=== PATIENT | male | born 1955 | race Caucasian/White ===

== ENCOUNTER 2020-04-20 06:56 | Outpatient (CLI) | payer OTHER, SELFPAY ==
--- NOTE | 2020-04-20 12:38 | ECHO_ITS ---
Patient Info Name: Fer Ragsdale Age: 64 years : 1955 Gender: Male Ht: 71 in Wt: 200 lbs BSA: 2.15 m2 HR: 102 bpm BP: 141 / 88 mmHg Heart Rhythm: Tachycardia Technical Quality: Good Exam Date: 04/20/2020 1:03 PM Exam Location: [facility] Pul[facility] Patient Status: Outpatient Admit Date: 04/20/2020 Staff Ordering Physician: Espinoza Coker MD Hotel Registration Clerk: Chantal Troy RDCS Attending Provider: Espinoza Coker MD Referring Physician: John Paul ORELLANA; Exam Type: CA echo doppler color flow Study Info Indications - MURMUR Complete two-dimensional, color flow and Doppler transthoracic echocardiogram is performed. Summary 1. Complete two-dimensional, color flow and Doppler transthoracic echocardiogram is performed. 2. Left ventricular chamber dimension is normal. 3. Left ventricular systolic function is hyperdynamic, estimated at 75%. 4. There is no increased left ventricular wall thickness. 5. Left atrial chamber dimension is severely enlarged. 6. Right atrial chamber dimension is moderately enlarged. 7. There is mild tricuspid valve regurgitation. 8. Severe pulmonary hypertension, estimated pulmonary arterial systolic pressure is 75 mmHg. 9. Mild thickening of anterior leaflet and moderate thickening of the posterior leaflet. 10. Moderate to severe prolapse of the posterior mitral valve leaflet with possible partial flail of middle scallop. 11. Moderate, highly eccentric anteriorly directed regurgitation in which severity may be underestimated due to eccentricity. Transesophageal echocardiogram advised for further evaluation. 12. Moderate calcification of mitral annulus. 13. Dilated inferior vena cava with <50% collapse upon inspiration consistent with elevated right atrial pressure, 10 mmHg. 14. Recommend transesophageal echocardiogram. Recommendations * Recommend transesophageal echocardiogram. Left Ventricle Left ventricular chamber dimension is normal. Left ventricular systolic function is hyperdynamic, estimated at 75%. There is no increased left ventricular wall thickness. The left ventricular diastolic function is abnormal. Right Ventricle Right ventricular chamber dimension is normal. Right ventricular systolic function is normal. Left Atria Left atrial chamber dimension is severely enlarged. Right Atria Right atrial chamber dimension is moderately enlarged. Aortic Valve The aortic valve is probable trileaflet. There is mild aortic valve sclerosis. There is no aortic valve stenosis. Pulmonic Valve The pulmonic valve is not well visualized. There is trace pulmonic regurgitation. Mitral Valve Mild thickening of anterior leaflet and moderate thickening of the posterior leaflet. Moderate to severe prolapse of the posterior mitral valve leaflet with possible partial flail of middle scallop. Moderate, highly eccentric anteriorly directed regurgitation in which severity may be underestimated due to eccentricity. Transesophageal echocardiogram advised for further evaluation. Moderate calcification of mitral annulus. Tricuspid Valve The tricuspid valve leaflets are normal. There is mild tricuspid valve regurgitation. Severe pulmonary hypertension, estimated pulmonary arterial systolic pressure is 75 mmHg. Pericardium/Pleural The pericardium appears normal. There is no pericardial effusion. Inferior Vena Cava Dilated inferior vena cava with <50% collapse upon inspiration consistent with elevated right atrial pressure, 10 mmHg
== END 2020-04-20 06:57 | disposition home or self-care (01) ==
PROVIDERS: PCP Internal Medicine; Visit Provider Internal Medicine
DX: R94.31 Abnormal electrocardiogram [ECG] [EKG] (principal); I51.7 Cardiomegaly; I27.20 Pulmonary hypertension, unspecified; R93.1 Abnormal findings on diagnostic imaging of heart and coronary circulation
CPT/HCPCS: 93306

== ENCOUNTER → 2020-04-26 03:48 | Outpatient (CLI) | payer OTHER, SELFPAY ==
[2020-04-27 18:18] LABS: SARS-CoV-2 RNA PCR Negative
== END ==
PROVIDERS: PCP Internal Medicine; Visit Provider Specialist
DX: Z01.812 Encounter for preprocedural laboratory examination (principal); Z20.822 Contact with and (suspected) exposure to COVID-19
CPT/HCPCS: C9803; U0003; U0005

== ENCOUNTER 2020-04-29 01:30 | Day surgery (SDC) | payer OTHER, SELFPAY ==
[2020-04-28 16:51] VITALS: BMI 27.1
[2020-04-29] VITALS (18 sets, daily range): BP systolic 103–157; BP diastolic 68–98; PULSE 90–107; RESP 12–20; TEMP 36.3; O2SAT 90–99
--- NOTE | 2020-04-29 | ECHO_ITS ---
Patient Info Name: Fer Ragsdale Age: 64 years : 1955 Gender: Male Ht: 72 in Wt: 200 lbs BSA: 2.16 m2 HR: 104 bpm Heart Rhythm: Sinus Rhythm, Tachycardia Technical Quality: Good Exam Date: 04/29/2020 8:51 AM Exam Location: [facility] Patient Status: Outpatient Admit Date: 04/29/2020 Staff Ordering Physician: Price Jones MD Apparel Sales Leader: Hemanth Pierre RDCS, RT Attending Provider: Price Jones MD Referring Physician: Karen BRIDGES; Exam Type: CA echo transesophageal Study Info Indications I34.0 - Nonrheumatic mitral (valve) insufficiency Complete two-dimensional, color flow and Doppler transesophageal study is performed. Summary 1. Marked left atrial dilation. 2. Hyperdynamic left ventricle. 3. Severe mitral regurgitation because of posterior leaflet prolapse and partially flail posterior leaflet with evidence of disrupted chordal elements. 4. Highly eccentric anteriorly directed MR jet. Report Signatures
--- NOTE | 2020-04-29 07:12 | P.PNAN_ITS ---
Anes - Initial Pre Proc Eval Procedure: Operation Date: 04/29/20 08:30 Proposed Procedures p Trans Esophageal Echo - Price Jones MD s Right And Left Heart Cath - Price Jones MD Date/Time: 04/29/20 07:12 Surgeon: Price Jones MD Pre Op Diagnosis: Mitral Valve Regurgitation Patient Data Age: 64 Gender: M Height: 1.83 m Weight: 90.9 kg Allergies Allergy/AdvReac Type Severity Reaction Status Date / Time No Known Allergies Allergy Verified 04/01/20 10:32 Home Medications Medication Instructions Recorded Confirmed Type rosuvastatin 20 mg tablet 20 mg PO DAILY #90 tablet 04/01/20 04/28/20 Rx aspirin 81 mg PO DAILY 04/28/20 04/28/20 History cholecalciferol (vitamin D3) 25 mcg PO DAILY 04/28/20 04/28/20 History furosemide 20 mg PO DAILY 04/29/20 04/29/20 History Patient hx anesthesia problems: none Family hx anesthesia problems: none [facility] Past Medical History Medical History (Updated 04/29/20 @ 07:12 by Irving Hernandez DO) Abnormal EKG Hyperlipidemia LVH (left ventricular hypertrophy) Moderate mitral regurgitation Severe pulmonary hypertension Social History Social History Smoking status: Never smoker Living arrangements: with family Gender identity (if verbalized by the patient): Male Spiritual care concerns: No Anes - Eval Final PreProcedure Day of Procedure 04/29/20 07:12 Patient weight: overweight Heart: regular rate and rhythm Lungs: clear to auscultation and normal air movement Airway: Mallampati scale class II Neurological: alert and oriented Last oral intake: >/= 8 hours ASA classification: III Emergent: no Anesthetic plan: proceed Anesthesia type and monitoring: general GIVS and standard monitoring Informed Consent: The patient's anesthetic plan and its attendant risks and benefits were discussed with the patient/family/POA. Questions were solicited and answers provided to the satisfaction of the patient/family/POA.
[2020-04-29 07:36] LABS: Basophils Percent Auto 0.4 % (0.2-1.2); Eosinophils Absolute Auto 0.1 K/mm3 (0-0.3); Eosinophils Percent Auto 0.9 % (0-4.4); Hematocrit 43.1 % (42.0-52.0); Immature Granulocyte Absolute 0.01 K/mm3 (0.00-0.031); Immature Granulocyte Percent A 0.1 % (0-0.5); Lymphocytes Absolute Auto 1.23 K/mm3 (0.9-3.2); Mean Corpuscular HGB Conc 34.8 g/dl (32-36); Mean Corpuscular Hemoglobin 28.4 pg (26-34); Mean Corpuscular Volume 81.6 fl (80-100); Mean Platelet Volume 9.8 fl (7.4-10.4); Monocytes Absolute Auto 0.7 K/mm3 (0.1-0.6); Monocytes Percent Auto 9.6 % (2.6-8.5); Neutrophils Absolute Auto 4.9 K/mm3 (1.3-6.7); Platelet Count Result 220 k/mm3 (150-375); Red Blood Count 5.28 M/mm3 (4.6-6.20); Red Cell Distribution Width 13.6 % (11.5-14.5); White Blood Count 6.8 K/mm3 (4.5-10.0)
[2020-04-29 07:43] LABS: INR 0.9; Prothrombin Time 13.1 Seconds (11.1-14.7)
[2020-04-29 07:48] LABS: Anion Gap 9 mmol/L (8-16); Blood Urea Nitrogen 17 mg/dL (9-20); Carbon Dioxide 23 mmol/L (22-30); Chloride 108 mmol/L (98-107); Estimated CRCL calculation 72 ml/min; Estimated Glomerular Filt Rate > 60; Glucose 111 mg/dL (75-110); Potassium 3.9 mmol/L (3.4-5.0); Sodium 140 mmol/L (137-145)
--- NOTE | 2020-04-29 08:24 | WPDMODSED ---
Moderate Sedation Note-Pt Data Patient Data Diagnosis: Significant mitral valve regurgitation Present Complaint: Dyspnea with exertion Procedure to be performed/Plan: Transesophageal echocardiogram/right and left heart catheterization Allergies Allergy/AdvReac Type Severity Reaction Status Date / Time No Known Allergies Allergy Verified 04/01/20 10:32 Home Medications Medication Instructions Recorded Confirmed Type rosuvastatin 20 mg tablet 20 mg PO DAILY #90 tablet 04/01/20 04/28/20 Rx aspirin 81 mg PO DAILY 04/28/20 04/28/20 History cholecalciferol (vitamin D3) 25 mcg PO DAILY 04/28/20 04/28/20 History Current Medications: Active Medications Sodium Chloride (Normal Saline Iv) 500 mls @ 100 mls/hr IV CONT .Q5H DINORA Sedation/Anesthesia: No previous sedation/anesthesia problems (including family history). [facility] Past Medical History Medical History (Updated 04/29/20 @ 07:12 by Irving Hernandez DO) Abnormal EKG Hyperlipidemia LVH (left ventricular hypertrophy) Moderate mitral regurgitation Severe pulmonary hypertension Social History Social History Smoking status: Never smoker Living arrangements: with family Gender identity (if verbalized by the patient): Male Spiritual care concerns: No Mod Sed Physical Exam Physical Exam Pre Procedural Exam: Normal: Appearance, Throat, Airway, Lungs, Heart Size (Grade 3/6 holosystolic murmur of MR), Heart Rate, Heart Rhythm, Neuro Exam and Extremities Hours since solid foods: 12 Hours since liquid intake: 12 Internal Medicine - PN: Obj Da Vital Signs Vital Signs: Vital Signs - 24 hr 04/29/20 07:13 Temperature 36.3 C L Pulse Rate 106 H Respiratory Rate 15 Blood Pressure 151/96 H Pulse Oximetry 99 Meds/Results Medications: Active Medications Generic Name Dose Route Start Last Admin Trade Name Freq PRN Reason Stop Dose Admin Sodium Chloride 500 mls @ 100 mls/hr 04/29/20 07:05 Normal Saline Iv IV CONT .Q5H DINORA Labs CBC & Chem 7: 04/29/20 07:26 04/29/20 07:30 Labs: Laboratory Results - last 24 hr 04/29/20 04/29/20 04/29/20 07:26 07:26 07:30 WBC 6.8 RBC 5.28 Hgb 15.0 Hct 43.1 MCV 81.6 MCH 28.4 MCHC 34.8 RDW 13.6 Plt Count 220 MPV 9.8 Immature Gran % (Auto) 0.1 Neut % (Auto) 71.0 Lymph % (Auto) 18.0 L Josephine % (Auto) 9.6 H Eos % (Auto) 0.9 Baso % (Auto) 0.4 Lymph # (Auto) 1.23 Josephine # (Auto) 0.7 H Eos # (Auto) 0.1 Baso # (Auto) 0.0 Abs Immat Gran (auto) 0.01 Absolute Neuts (auto) 4.9 Absolute Nucleated RBC 0.0 Nucleated RBC % 0.0 PT 13.1 INR 0.9 Sodium 140 Potassium 3.9 Chloride 108 H Carbon Dioxide 23 Anion Gap 9 BUN 17 Creatinine 1.00 Estim Creat Clear Calc 72 Estimated GFR > 60 Glucose 111 H Calcium 9.0 ASA Classification/Sedation ASA Classification/Sedation Risks: Risks, benefits and alternatives explained and patient/family accepted plan for sedation. Patient re-evaluated immediately prior to sedation.
--- NOTE | 2020-04-29 09:00 | WPDCARDPROC ---
Cardiac Cath Procedure Note Date of procedure:: 04/29/20 Performing physician:: Price Jones MD Indication:: Mitral regurgitation /preop evaluation Brief clinical history:: this is a 64-year-old patient with no previous known cardiac pathology recent symptoms of exertional dyspnea and found to have a loud MR murmur on physical exam. Echocardiogram suggest posterior leaflet prolapse and a partially flail leaflet. In anticipation of surgical repair this exam has been scheduled for today. Procedure Procedure performed:: Transesophageal echocardiogram Sedation/Medication given:: sedation provided by anesthesia Estimated blood loss:: no blood loss Procedure note:: following sedation with anesthesia to the oropharynx was sprayed with benzocaine and the patient was in the supine position. He then underwent ALBERTO the esophagus was easily intubated with a trach ALBERTO probe and visualization of the cardiac structures was carried out. The descending thoracic aorta and aortic arch were examined following this and the probe was then removed. Patient is being recovered by anesthesia from deep sedation. Findings:: The left atrium is markedly dilated. The anterior mitral valve leaflet looks unremarkable. The posterior mitral valve leaflet has obvious prolapse of the P2 scallop. There is evidence of flail chordal elements prolapsing into the left atrium and the scallop as stated above is partially flail. There is a highly eccentric jet of mitral regurgitation seen on color Doppler that is anteriorly directed and is severe by color Doppler criteria. The atrium otherwise is markedly dilated the appendage was visualized there was no atrial thrombus. The left ventricle is normal in dimension thickness and contractility estimated ejection fraction is 65%. The aortic valve is trileaflet thin and pliable. Aortic root is unremarkable the aortic arch and descending thoracic aorta look normal. The right-sided chambers are unremarkable in appearance the tricuspid and pulmonic valves look normal. The interatrial septum is unremarkable in appearance Conclusion:: 1. transesophageal echocardiogram demonstrating severe mitral valve regurgitation resulting from posterior leaflet prolapse and partially flail posterior leaflet with disrupted chordal elements. 2. Preserved left ventricular systolic function 3. unremarkable aortic valve Price Jones MD [facility]
--- NOTE | 2020-04-29 09:56 | WPDCARDPROC ---
Cardiac Cath Procedure Note Date of procedure:: 04/29/20 Performing physician:: Price Jones MD Indication:: Mitral valve regurgitation / preop evaluation Brief clinical history:: this is a 64-year-old man as an outpatient found to have significant mitral valve regurgitation due to partially flail posterior leaflet. Right left heart catheterization has been scheduled for this morning in anticipation of cardiothoracic surgery consultation Procedure Procedure performed:: right left heart catheterization Sedation/Medication given:: patient previously sedated by anesthesia no additional sedation given for this procedure Access site:: right femoral artery, right femoral vein Estimated blood loss:: 10-15 cc Procedure note:: patient was brought to the cardiac catheterization lab in the postabsorptive state. He had been sedated a short time ago with propofol by the anesthesia service for transesophageal ECHO. The right femoral triangle was prepped and draped in the usual fashion. Anesthesia was provided with 1% lidocaine infiltrated locally. Using the modified Seldinger technique a 5 Luxembourger sheath was placed into the femoral artery and a 7 Luxembourger sheath into the femoral vein. After this right heart catheterization was carried out I used a balloon tip Dallas-Mike catheter to document right-sided hemodynamics and AV O2 difference was sample. Following this the Dallas-Mike catheter was removed. The patient then had a 5 Luxembourger angled pigtail catheter placed up the arterial sheath across the aortic valve were left-sided hemodynamics were documented and left ventriculogram was injected in the 30 degree FINK projection. Pullback pressures were then measured across the aortic valve. After this the pigtail was withdrawn and a standard 5 Luxembourger FL4 catheter was used to engage inject the left coronary artery. The right coronary was engaged and injected using a standard 5 Luxembourger JR4 catheter. The cine angiograms were then reviewed and the case was terminated. An angiogram was done of the femoral artery through the sheath after which I determined to pull the arterial sheath manually. 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 Findings:: Hemodynamics: Right atrial pressure is 12 mmHg. Right ventricle 65 over 11 pulmonary artery 65 over 32, pulmonary capillary wedge pressure 33 with V-wave to 45. Central aortic pressure 6/68 ventricle 106/3 end-diastolic 20. No track no systolic gradient on pullback across the aortic valve. Thick cardiac output is 4.63 liters/minute giving an index of 2.17. Left ventricle: The LV is normal in size the contractility of the LV appears to be hyperdynamic ejection fraction is visually estimated to be 70-75%. The left main coronary artery is large in caliber there is mild atherosclerotic stenosis from the midportion to the distal LAD representing about 30% stenosis. The left anterior descending is a moderate caliber artery extending down to around the apex. The proximal 1/3 of the LAD is severely diseased with high-grade lesions of 90% proximally, 80% prior to the diagonal branch and 90-95% after the major diagonal. The LAD distal to this is free of significant lesions the large diagonal branch is also free of disease. Circumflex is a moderate to large caliber artery giving rise to the marginal branches the circumflex has a ramus intermedius which is a fairly small vessel with a ostial stenosis of about 70-80%. The remainder of the circumflex is free of significant disease. The right coronary artery is large caliber and dominant to the posterior circulation there is mild diffuse atherosclerosis in the 2nd portion of the RCA representing no more than 20-30% stenosis there does not appear to be any flow-limiting disease in the right coronary. Conclusion:: 1. Severe mitral
[2020-04-29] MEDS: SODIUM CHLORIDE 0.9% IV 1,000 ML 125 ML IV CONT (10:15)
[2020-04-29] MEDS: ACETAMINOPHEN 325 MG TABLET 650 MG PO (12:43)
--- NOTE | 2020-04-29 16:08 | SUR.PHASEII ---
1530- Pt up to chair, groin site WNL.
== END 2020-04-29 16:10 | disposition home or self-care (01) ==
PROVIDERS: PCP Internal Medicine; Visit Provider Specialist
PROC: 4A023N8 Measurement of Cardiac Sampling and Pressure, Bilateral, Percutaneous Approach (ICD-10-PCS; CPT 93453; principal; 2020-04-29 08:30)
PROC: (CPT 93312; 2020-04-29 08:30)
DX: Z01.810 Encounter for preprocedural cardiovascular examination (principal); I34.0 Nonrheumatic mitral (valve) insufficiency; I27.29 Other secondary pulmonary hypertension; I25.10 Atherosclerotic heart disease of native coronary artery without angina pectoris; E78.5 Hyperlipidemia, unspecified; R94.31 Abnormal electrocardiogram [ECG] [EKG]
CPT/HCPCS: 36415; 80048; 85025; 85610; 93312; 93320; 93325; 93460; A9270; C1887; C1894; J1644; J2704; J7030

== ENCOUNTER 2020-07-01 07:57 | Outpatient (CLI) | payer OTHER, SELFPAY ==
[2020-07-01 08:38] LABS: Alanine Aminotransferase 63 U/L (4-50); Albumin Level 4.1 g/dL (3.5-5.1); Alkaline Phosphatase 109 U/L (38-126); Aspartate Amino Transferase 36 U/L (17-59); Bilirubin,Total 0.5 mg/dL (0.2-1.3); Cholesterol 134 mg/dL (0-200); HDL Direct 37 mg/dL; Triglycerides 92 mg/dL (<150)
[2020-07-01 08:50] LABS: Hemoglobin A1C 5.3 % (<5.7)
[2020-07-01 08:53] LABS: LDL Cholesterol Direct 70 mg/dL
[2020-07-05 14:31] LABS: Apolipoprotein B 74 mg/dL (<90)
== END 2020-07-01 07:58 | disposition home or self-care (01) ==
PROVIDERS: PCP Internal Medicine; Visit Provider Internal Medicine
DX: E78.5 Hyperlipidemia, unspecified (principal); Z79.899 Other long term (current) drug therapy
CPT/HCPCS: 36415; 80061; 80076; 82172; 83036

== ENCOUNTER 2020-08-01 16:30 | Outpatient (RCR) | payer OTHER, SELFPAY ==
[2020-06-24 09:04] VITALS: PULSE 84
--- NOTE | 2020-07-21 16:03 | PCCPR ---
Absent Unable to make class due to a meeting.
--- NOTE | 2020-08-01 17:06 | PCCPR ---
Patient will be absent from class on 08/03 and 08/04 due to conflicting appointments both days.
--- NOTE | 2020-08-10 13:47 | PCCPR ---
Fer discharged early due to work schedule.
== END 2020-08-10 13:48 | disposition home or self-care (01) ==
LOC: ANHCPREHAB 16:30
PROVIDERS: PCP Internal Medicine; Visit Provider Specialist
DX: Z95.1 Presence of aortocoronary bypass graft (principal); Z95.5 Presence of coronary angioplasty implant and graft; Z95.2 Presence of prosthetic heart valve
CPT/HCPCS: 93798

== ENCOUNTER 2020-09-06 06:49 | Outpatient (CLI) | payer OTHER, SELFPAY ==
--- NOTE | 2020-09-06 | ECHO_ITS ---
Patient Info Name: Fer Ragsdale Age: 64 years : 1955 Gender: Male Ht: 73 in Wt: 200 lbs BSA: 2.17 m2 HR: 78 bpm BP: 152 / 97 mmHg Heart Rhythm: Sinus Rhythm Technical Quality: Good Exam Date: 09/06/2020 1:03 PM Exam Location: [facility] Patient Status: Outpatient Admit Date: 09/06/2020 Staff Ordering Physician: Price Jones MD Educational Director: Hemanth Pierre, KAELYN, RT Attending Provider: Price Jones MD Referring Physician: Karen BRIDGES; Exam Type: CA echo doppler color flow Study Info Indications I36.8 - Other nonrheumatic tricuspid valve disorders I51.1 - Rupture of chordae tendineae, not elsewhere classified Complete two-dimensional, color flow and Doppler transthoracic echocardiogram is performed. Strain analysis performed. Summary 1. Complete two-dimensional, color flow and Doppler transthoracic echocardiogram is performed. 2. Left ventricular chamber dimension is normal. 3. Left ventricular systolic function is normal, estimated at 65-70%. 4. There is mildly increased left ventricular wall thickness. 5. The left ventricular diastolic function is grade I diastolic dysfunction. 6. Global longitudinal strain is borderline at -17 %. 7. Left atrial chamber dimension is mildly enlarged. 8. Probable Neochord noted associated with the posterior leaflet. 9. There is trace regurgitation of the annuloplasty ring prosthetic mitral valve. 10. There is no stenosis of the annuloplasty ring prosthetic mitral valve. 11. Strain analysis performed. Left Ventricle Left ventricular chamber dimension is normal. Left ventricular systolic function is normal, estimated at 65-70%. There is mildly increased left ventricular wall thickness. The left ventricular diastolic function is grade I diastolic dysfunction. Global longitudinal strain is borderline at -17 %. Right Ventricle Right ventricular chamber dimension is normal. Right ventricular systolic function is normal. Left Atria Left atrial chamber dimension is mildly enlarged. Right Atria Right atrial chamber dimension is normal. Atrial Septum Intact interatrial septum visualized by color flow imaging. Aortic Valve The aortic valve is trileaflet. There is mild aortic valve sclerosis. There is no aortic valve stenosis. There is trace aortic valve regurgitation. Pulmonic Valve The pulmonic valve is normal. There is no pulmonic valve stenosis. There is trace pulmonic regurgitation. Mitral Valve There is no stenosis of the annuloplasty ring prosthetic mitral valve. There is trace regurgitation of the annuloplasty ring prosthetic mitral valve. Probable Neochord noted associated with the posterior leaflet. Tricuspid Valve There is no significant tricuspid valve stenosis. There is trace tricuspid valve regurgitation. ? Tricuspid valve annuloplasty ring. Pericardium/Pleural The pericardium appears normal. There is no pericardial effusion. Inferior Vena Cava Normal inferior vena cava with >50% collapse upon inspiration consistent with normal right atrial pressure, 8 mmHg. Aorta The aortic root size at the sinus of Valsalva is borderline dilated. The prox ascending aorta size is normal. Left Ventricular Outflow Tract Name Value Normal LVOT 2D
== END 2020-09-06 06:50 | disposition home or self-care (01) ==
PROVIDERS: PCP Internal Medicine; Visit Provider Specialist
DX: Z98.890 Other specified postprocedural states (principal)
CPT/HCPCS: 93306

== ENCOUNTER 2020-11-23 07:09 | Outpatient (CLI) | payer OTHER, SELFPAY ==
[2020-11-23 07:46] LABS: Basophils Percent Auto 0.9 % (0.2-1.2); Eosinophils Absolute Auto 0.1 K/mm3 (0-0.3); Hematocrit 43.4 % (42.0-52.0); Hemoglobin 14.7 g/dL (14.0-18.0); Immature Granulocyte Absolute 0.01 K/mm3 (0.00-0.031); Immature Granulocyte Percent A 0.2 % (0-0.5); Lymphocytes Absolute Auto 1.37 K/mm3 (0.9-3.2); Mean Corpuscular HGB Conc 33.9 g/dl (32-36); Mean Corpuscular Hemoglobin 28.3 pg (26-34); Mean Corpuscular Volume 83.5 fl (80-100); Mean Platelet Volume 9.4 fl (7.4-10.4); Monocytes Absolute Auto 0.5 K/mm3 (0.1-0.6); Monocytes Percent Auto 11.8 % (2.6-8.5); Neutrophils Absolute Auto 2.4 K/mm3 (1.3-6.7); Neutrophils Percent Auto 54.1 % (45.5-73.1); Platelet Count Result 176 k/mm3 (150-375); Red Cell Distribution Width 13.3 % (11.5-14.5); White Blood Count 4.4 K/mm3 (4.5-10.0)
[2020-11-23 08:31] LABS: Alanine Aminotransferase 46 U/L (4-50); Albumin Level 4.1 g/dL (3.5-5.1); Alkaline Phosphatase 76 U/L (38-126); Anion Gap 7 mmol/L (8-16); Aspartate Amino Transferase 39 U/L (17-59); Bilirubin,Total 0.9 mg/dL (0.2-1.3); Blood Urea Nitrogen 13 mg/dL (9-20); Carbon Dioxide 26 mmol/L (22-30); Chloride 106 mmol/L (98-107); Cholesterol 148 mg/dL (0-200); Estimated Glomerular Filt Rate > 60; Glucose 102 mg/dL (65-110); HDL Direct 43 mg/dL; Potassium 4.1 mmol/L (3.4-5.0); Sodium 139 mmol/L (137-145); Triglycerides 105 mg/dL (<150)
[2020-11-23 08:42] LABS: LDL Cholesterol Direct 66 mg/dL
[2020-11-23 09:00] LABS: Hemoglobin A1C 5.3 % (<5.7)
[2020-11-23 10:02] LABS: Free T4 Free Thyroxine 0.98 ng/mL (0.78-2.19); Vitamin D 25 Hydroxy 39.5 ng/mL
[2020-11-26 10:12] LABS: Apolipoprotein B 78 mg/dL (<90)
== END 2020-11-23 07:10 | disposition home or self-care (01) ==
PROVIDERS: PCP Internal Medicine; Visit Provider Internal Medicine
DX: E78.5 Hyperlipidemia, unspecified (principal); Z79.899 Other long term (current) drug therapy
CPT/HCPCS: 36415; 80053; 80061; 82172; 82306; 83036; 84439; 84443; 85025

== ENCOUNTER 2020-12-19 00:21 | Day surgery (SDC) | payer OTHER, SELFPAY ==
[2020-12-08 15:36] VITALS: BMI 26.4
[2020-12-19 11:51] VITALS: BP 163/97; PULSE 81; RESP 18; TEMP 36.6; O2SAT 98; BMI 27.0
--- NOTE | 2020-12-19 12:22 | P.PNAN_ITS ---
Anes - Initial Pre Proc Eval Procedure: Operation Date: 12/19/20 13:30 Proposed Procedures p Screening Colonoscopy - Norman Lacy MD Date/Time: 12/19/20 12:22 Surgeon: Norman Lacy MD Pre Op Diagnosis: neoplasm screening Z12.11 Patient Data Age: 65 Gender: M Height: 1.85 m Weight: 93 kg Last Vital Signs Temp 36.6 C 12/19/20 11:51 Pulse 81 12/19/20 11:51 Resp 18 12/19/20 11:51 BP 163/97 H 12/19/20 11:51 Pulse Ox 98 12/19/20 11:51 Allergies Allergy/AdvReac Type Severity Reaction Status Date / Time No Known Allergies Allergy Verified 12/19/20 11:50 Home Medications Medication Instructions Recorded Confirmed Type aspirin 81 mg PO DAILY 04/28/20 12/08/20 History cholecalciferol (vitamin D3) 25 mcg PO DAILY 04/28/20 12/08/20 History metoprolol tartrate 50 mg PO Q12H 06/24/20 12/08/20 History amoxicillin 500 mg capsule 2,000 mg PO .COMPLEX #4 cap 11/03/20 12/08/20 Rx rosuvastatin [Crestor] 20 mg PO DAILY 12/08/20 History Patient hx anesthesia problems: none Family hx anesthesia problems: none Results Review: All pre-operative results and documents have been reviewed as part of the pre-operative evaluation. [facility] Past Medical History Medical History (Updated 12/19/20 @ 12:38 by Irving Hernandez DO) Abnormal EKG Hyperlipidemia LVH (left ventricular hypertrophy) Moderate mitral regurgitation Severe pulmonary hypertension resolved since s/p mitral valve repair and tricuspid repair Surgical History Surgical History (Updated 12/19/20 @ 12:38 by Irving Hernandez DO) S/P CABG x 2 S/P mitral valve repair S/P tricuspid valve repair Social History Social History (Updated 06/06/20 @ 13:53 by Yvrose Figueroa MA) Smoking status: Never smoker Alcohol intake: current Alcohol use details: Occasionally Substance use: never Living arrangements: with family Gender identity (if verbalized by the patient): Male Spiritual care concerns: No Anes - Eval Final PreProcedure Day of Procedure 12/19/20 12:22 Patient weight: overweight Heart: regular rate and rhythm Lungs: clear to auscultation and normal air movement Airway: Mallampati scale class III Neurological: alert and oriented Last oral intake: >/= 8 hours ASA classification: III Emergent: no Anesthetic plan: proceed Anesthesia type and monitoring: general GIVS and standard monitoring Results Review: All pre-operative results and documents have been reviewed as part of the pre-operative evaluation. Informed Consent: The patient's anesthetic plan and its attendant risks and benefits were discussed with the patient/family/POA. Questions were solicited and answers provided to the satisfaction of the patient/family/POA.
[2020-12-19] MEDS: LACTATED RINGERS 1,000 ML 150 ML IV CONT (12:32)
[2020-12-19] MEDS: GENTAMICIN 80MG/SOD CHL 50 ML 80 MG/50 ML BAG 100 MG IVPB (12:33)
--- NOTE | 2020-12-19 12:51 | PM.HPGS ---
History of Present Illness History of Present Illness Consent: Risks, benefits, and alternatives have been discussed and questions answered. Patient agrees to proceed with procedure. Chief complaint: neoplasm screening Z12.11 Narrative: Fer Ragsdale is a 65 year old male referred for colon cancer screening Review of Systems Review of Systems: All systems reviewed & are unremarkable except as noted in HPI and below PMFSH Past Medical History Medical History Abnormal EKG Hyperlipidemia LVH (left ventricular hypertrophy) Moderate mitral regurgitation Severe pulmonary hypertension resolved since s/p mitral valve repair and tricuspid repair Surgical History Surgical History S/P CABG x 2 S/P mitral valve repair S/P tricuspid valve repair Social History Social History Smoking status: Never smoker Alcohol intake: current Alcohol use details: Occasionally Substance use: never Living arrangements: with family Gender identity (if verbalized by the patient): Male Spiritual care concerns: No Meds Home Medications and Allergies Home Medications Medication Instructions Recorded Confirmed Type aspirin 81 mg PO DAILY 04/28/20 12/08/20 History cholecalciferol (vitamin D3) 25 mcg PO DAILY 04/28/20 12/08/20 History metoprolol tartrate 50 mg PO Q12H 06/24/20 12/08/20 History amoxicillin 500 mg capsule 2,000 mg PO .COMPLEX #4 cap 11/03/20 12/08/20 Rx rosuvastatin [Crestor] 20 mg PO DAILY 12/08/20 History Allergies Allergy/AdvReac Type Severity Reaction Status Date / Time No Known Allergies Allergy Verified 12/19/20 11:50 Vital Signs Vital Signs - 24 hr 12/19/20 11:51 Temperature 36.6 C Pulse Rate 81 Respiratory Rate 18 Blood Pressure 163/97 H Pulse Oximetry 98 Exam Resp: Auscultation: clear to auscultation bilaterally Cardio: Rate: regular rate Rhythm: regular rhythm GI: GI Palp: Yes Soft to palpation and No Tenderness to palpation present (GI) Assessment and Plan Assessment and plan (1) Colon cancer screening: Code(s): Z12.11 - Encounter for screening for malignant neoplasm of colon Status: Acute Assessment and Plan: Colonoscopy with possible biopsy or polypectomy or cautery or injection of substances.
[2020-12-19] MEDS: AMPICILLIN 2 GM/NS 100 ML 2 GM/100 ML BAG IVPB (13:06)
[2020-12-19 14:06] VITALS: BP 127/87; PULSE 66; RESP 15
[2020-12-19 14:16] VITALS: BP 125/89; PULSE 66; RESP 19
[2020-12-19 14:26] VITALS: BP 140/97; PULSE 67; RESP 19
== END 2020-12-19 14:40 | disposition home or self-care (01) ==
PROVIDERS: PCP Internal Medicine; Visit Provider Internal Medicine Gastroenterology
PROC: 0DJD8ZZ Inspection of Lower Intestinal Tract, Via Natural or Artificial Opening Endoscopic (ICD-10-PCS; CPT 45378; principal; 2020-12-19 13:30)
DX: Z12.11 Encounter for screening for malignant neoplasm of colon (principal); D12.4 Benign neoplasm of descending colon; D12.5 Benign neoplasm of sigmoid colon; K62.1 Rectal polyp; E78.5 Hyperlipidemia, unspecified; I34.0 Nonrheumatic mitral (valve) insufficiency; I51.7 Cardiomegaly; Z95.1 Presence of aortocoronary bypass graft; Z79.82 Long term (current) use of aspirin
CPT/HCPCS: 45385; 45381; 45380; 88305; J0290; J1580; J2704; J7120

== ENCOUNTER 2021-02-08 06:38 | Outpatient (CLI) | payer OTHER, SELFPAY ==
[2021-02-08 07:29] LABS: Anion Gap 10 mmol/L (8-16); Blood Urea Nitrogen 16 mg/dL (9-20); Calcium 9.2 mg/dL (8.4-10.2); Carbon Dioxide 27 mmol/L (22-30); Chloride 103 mmol/L (98-107); Cholesterol 205 mg/dL (0-200); Estimated Glomerular Filt Rate > 60; Glucose 105 mg/dL (65-110); HDL Direct 53 mg/dL; Potassium 4.5 mmol/L (3.4-5.0); Sodium 140 mmol/L (137-145); Triglycerides 100 mg/dL (<150)
[2021-02-08 07:40] LABS: LDL Cholesterol Direct 118 mg/dL
[2021-02-08 08:10] LABS: Hemoglobin A1C 5.2 % (<5.7)
[2021-02-08 08:25] LABS: Free T4 Free Thyroxine 1.04 ng/mL (0.78-2.19)
[2021-02-10 23:49] LABS: Apolipoprotein B 104 mg/dL (<90)
== END 2021-02-08 06:39 | disposition home or self-care (01) ==
PROVIDERS: PCP Internal Medicine; Visit Provider Internal Medicine
DX: E78.5 Hyperlipidemia, unspecified (principal); R94.6 Abnormal results of thyroid function studies; Z79.899 Other long term (current) drug therapy
CPT/HCPCS: 36415; 80048; 80061; 82172; 83036; 84439; 84443

== ENCOUNTER 2021-04-03 07:00 | Outpatient (CLI) | payer OTHER, SELFPAY ==
--- NOTE | 2021-04-03 | ECHO_ITS ---
Patient Info Name: Fer Ragsdale Age: 65 years : 1955 Gender: Male Ht: 73 in Wt: 200 lbs BSA: 2.17 m2 HR: 73 bpm BP: 153 / 91 mmHg Heart Rhythm: Sinus Rhythm Technical Quality: Fair Exam Date: 04/03/2021 3:26 PM Exam Location: [facility] Pulmonary Patient Status: Outpatient Admit Date: 04/03/2021 Staff Ordering Physician: Price Jones MD Chaser Helper: Manda Tavares RDCS Attending Provider: Price Jones MD Referring Physician: Karen BRIDGES; Exam Type: CA echo dop color flow w con Study Info Indications - CAD, MITRAL VALVE REPAIR Complete two-dimensional, color flow and Doppler transthoracic echocardiogram is performed. Summary 1. Complete two-dimensional, color flow and Doppler transthoracic echocardiogram is performed. 2. Left ventricular chamber dimension is normal. 3. Left ventricular systolic function is normal, estimated at >70%. 4. There is moderate asymmetric septal increased left ventricular wall thickness. 5. The left ventricular diastolic function is grade I diastolic dysfunction. 6. Left atrial chamber dimension is moderately enlarged. 7. There is no stenosis of the annuloplasty ring prosthetic mitral valve. 8. There is mild pulmonic regurgitation. Left Ventricle Left ventricular chamber dimension is normal. Left ventricular systolic function is normal, estimated at >70%. There is moderate asymmetric septal increased left ventricular wall thickness. The left ventricular diastolic function is grade I diastolic dysfunction. Right Ventricle Right ventricular chamber dimension is normal. Right ventricular systolic function is normal. Left Atria Left atrial chamber dimension is moderately enlarged. Right Atria Right atrial chamber dimension is normal. Atrial Septum Intact interatrial septum visualized by color flow imaging. Aortic Valve The aortic valve is trileaflet. There is mild aortic valve sclerosis. There is no aortic valve stenosis. There is trace aortic valve regurgitation. Pulmonic Valve The pulmonic valve is normal. There is no pulmonic valve stenosis. There is mild pulmonic regurgitation. Mitral Valve There is no stenosis of the annuloplasty ring prosthetic mitral valve. There is trace regurgitation of the annuloplasty ring prosthetic mitral valve. Tricuspid Valve ? Tricuspid valve annuloplasty ring. There is no significant tricuspid valve stenosis. There is trace tricuspid valve regurgitation. Pericardium/Pleural The pericardium appears normal. There is no pericardial effusion. Inferior Vena Cava Normal inferior vena cava with >50% collapse upon inspiration consistent with normal right atrial pressure, 5 mmHg. Aorta The aortic root size at the sinus of Valsalva is normal. Left Ventricular Outflow Tract Name Value Normal LVOT 2D LVOT Diameter 2.03 cm LVOT Doppler LVOT Peak Gradient 12 mmHg LVOT Mean Gradient 7 mmHg LVOT VTI 39.12 cm LVOT VTI/AV VTI Ratio 0.93 LVOT Stroke Volum
[2021-04-03] MEDS: PERFLUTREN LIPID MICROSPHERES 1.5 ML VIAL DILUTED TO 10 ML TOTAL VOLUME (16:20)
--- NOTE | 2021-04-03 16:21 | PC.NURSE ---
22g iv inserted to left hand. 2.5ml of definity given to patient with u/s tech instruction. iv d/c tip intact. no adverse reactions noted.
== END 2021-04-03 07:01 | disposition home or self-care (01) ==
LOC: ANHCARD 07:01
PROVIDERS: PCP Internal Medicine; Visit Provider Specialist
DX: I25.10 Atherosclerotic heart disease of native coronary artery without angina pectoris (principal); Z95.1 Presence of aortocoronary bypass graft; Z98.890 Other specified postprocedural states
CPT/HCPCS: C8929; Q9957

== ENCOUNTER 2022-01-24 11:55 | Outpatient (CLI) | payer OTHER, SELFPAY ==
--- NOTE | 2022-01-24 12:02 | ECG_ITS ---
Measurements Intervals [place] Rate: 76 P: 3 ME: 152 QRS: 52 QRSD: 94 T: 66 QT: 377 QTc: 425 Interpretive Statements SINUS RHYTHM CONSIDER INFERIOR INFARCT, AGE INDETERMINATE ABNORMAL ECG NO PREVIOUS ECG AVAILABLE FOR COMPARISON Electronically Signed On 01-24-2022 13:23:58 [employer] by Carlitos Jacobs D.O.
== END 2022-01-24 11:56 | disposition home or self-care (01) ==
PROVIDERS: PCP Internal Medicine; Visit Provider Surgery
DX: Z01.810 Encounter for preprocedural cardiovascular examination (principal); E78.5 Hyperlipidemia, unspecified; R94.31 Abnormal electrocardiogram [ECG] [EKG]
CPT/HCPCS: 93005

== ENCOUNTER 2022-02-02 00:35 | Day surgery (SDC) | payer OTHER, SELFPAY ==
--- NOTE | 2022-01-22 14:54 | PC.NURSE ---
Report to the Outpatient Waiting Room, entrance under the green pavilion located off [facility], at time on date . Planned Procedure Time: . Time changes happen often and if your time is changed the preop area will call you the afternoon before. - You and your visitor will be asked to self-screen and do not enter if you have any COVID symptoms. - We encourage only one visitor and NO visitors under age 16 are allowed at this time. Your visitor will receive communication by the phone number that is given day of service. - The patient visitor is requested to social distance or may leave the building when not with patient due to restrictions. - A mask is required within the hospital. Patients may have clear liquids (water, carbonated beverages, clear teas, apple juice) until 3 hours prior to surgery with a maximum of 20 ounces. - No food from midnight until time of surgery - Infants may have breast milk until 4 hours before surgery, infant formula 6 hours prior to surgery. - Children will be allowed to drink immediately following surgery. If applicable, please bring a bottle or sippy cup to assist with drinking. Juice, water, soda, and popsicles are readily available. For infants on formula, please bring formula the day of surgery. Pacifiers are allowed. Take the following medications with a SIP of water the morning of surgery: ____METOPROLOL Medications to discontinue per physician ____ALL VITAMINS AND SUPPLEMENTS 3 DAYS PRE OP Date to take last dose 01/29/22 HIBICLENS SHOWER MORNING OF SURGERY Please no make-up, nail citizen of [place], hairspray, perfume, deodorant, or body powder the day of surgery. No jewelry (including any body piercings) or valuables the day of surgery, leave them at home. Please take a shower or bath the night before, or the morning of, surgery with an antibacterial soap. Wear comfortable, loose fitting clothing. Children are encouraged to wear pajamas. - Jewelry must be removed prior to entering the operating room. Rings and piercings that are not removed may be cut off. - The hospital will not accept responsibility for valuables. - Please leave all valuables, including medications, at home the day of surgery. If you are going home after surgery, a licensed driver/guide must drive you home. - NO public transportation without another adult. - We recommend that an adult stay with you for 24 hours following discharge. - We also recommend that you do not drive, make important decision, drink alcoholic beverages, or take any drugs that were not prescribed by your health care provider for at least 24 hours after your discharge time. For Pediatric surgeries, we recommend two adults accompany the child home. Follow any additional instructions given to you from your surgeon. If you or anyone in your household have experienced Covid symptoms in the past week, please notify your surgeon or the nurse liaison at the phone number below for possible testing. Telephone instructions given to _PATIENT and asked if any additional questions and then verbalized understanding. Patient advised to call surgeon office or pre surgery nurse liaison [phone] if any additional questions.
[2022-01-22 15:02] VITALS: BMI 27.1
--- NOTE | 2022-02-01 14:17 | WPDANESEPPF ---
Anes - Initial Pre Proc Eval Procedure: Operation Date: 02/02/22 12:00 Proposed Procedures p Open Umbilical Hernia Repair with Possible Mesh - Ryley Garcia DO Date/Time: 02/01/22 14:17 Surgeon: Ryley Garcia DO Pre Op Diagnosis: Umb Hernia Patient Data Age: 66 Gender: M Height: 1.83 m Weight: 90.72 kg Allergies Allergy/AdvReac Type Severity Reaction Status Date / Time No Known Allergies Allergy Verified 02/02/22 10:14 Home Medications Medication Instructions Recorded Confirmed Type aspirin 81 mg tablet 81 mg PO DAILY 04/28/20 02/02/22 History metoprolol tartrate 50 mg tablet 50 mg PO Q12H 06/24/20 02/02/22 History rosuvastatin 40 mg tablet (Crestor) 20 mg PO DAILY 12/08/20 02/02/22 History cholecalciferol (vitamin D3) 50 50 mcg PO DAILY #90 tabs 04/18/21 02/02/22 Rx mcg (2,000 unit) tablet coenzyme Q10 200 mg capsule (Co 200 mg PO DAILY #90 caps 04/18/21 02/02/22 Rx Q-10) ezetimibe 10 mg tablet See Rx Instructions .Route 12/25/21 02/02/22 Rx .COMPLEX #90 tabs Patient hx anesthesia problems: none Family hx anesthesia problems: none Results Review: All pre-operative results and documents have been reviewed as part of the pre-operative evaluation. [facility] Past Medical History Medical History Abnormal EKG Hyperlipidemia LVH (left ventricular hypertrophy) Moderate mitral regurgitation Severe pulmonary hypertension resolved since s/p mitral valve repair and tricuspid repair Surgical History Surgical History S/P CABG x 2 S/P mitral valve repair S/P tricuspid valve repair Family History Family History Other Heart disease Social History Social History Smoking status: Never smoker Alcohol intake: current Alcohol use details: Occasionally Substance use: never Living arrangements: with family Gender identity (if verbalized by the patient): Male Spiritual care concerns: No Anes - Eval Final PreProcedure Day of Procedure 02/01/22 14:17 Patient weight: overweight Heart: regular rate and rhythm Lungs: clear to auscultation and normal air movement Airway: Mallampati scale class III Neurological: alert and oriented Last oral intake: >/= 8 hours ASA classification: III Emergent: no Anesthetic plan: proceed Anesthesia type and monitoring: general LMA and standard monitoring Results Review: All pre-operative results and documents have been reviewed as part of the pre-operative evaluation. Informed Consent: The patient's anesthetic plan and its attendant risks and benefits were discussed with the patient/family/POA. Questions were solicited and answers provided to the satisfaction of the patient/family/POA.
[2022-02-02] VITALS (9 sets, daily range): BP systolic 87–164; BP diastolic 54–93; PULSE 59–65; RESP 10–20; TEMP 36.6–37.2; O2SAT 98–100
[2022-02-02] MEDS: ACETAMINOPHEN 500 MG TABLET 1000 MG PO (10:54)
[2022-02-02] MEDS: LACTATED RINGERS 1,000 ML 30 ML IV CONT (11:00)
[2022-02-02] MEDS: KETOROLAC 15 MG/ML VIAL (*BKC) IV PUSH (11:04)
--- NOTE | 2022-02-02 11:53 | WPDHPUPDATE1 ---
History and Physical Update Update Date/Time: 02/02/22 11:53 History and Physical has been reviewed, including an updated exam of the patient. There are NO changes in the patient's condition. Risks, benefits, and alternatives have been discussed and questions answered. Patient agrees to proceed with procedure.
--- NOTE | 2022-02-02 11:53 | PM.IMHP ---
H&P: HPI History of Present Illness Date/Time: 02/02/22 11:53 Chief Complaint: umbilical hernia Narrative: 66 yo man presents for umbilical hernia. He reports no change since last seen in office. Review of Systems Review of Systems: All systems reviewed & are unremarkable except as noted in HPI and below Constitutional: Constitutional: Denies chills, Denies fever(s), Denies headache(s) and Denies weight loss Eyes: Eyes: Denies change in vision ENT: Denies dizziness, Denies headache(s), Denies neck mass and Denies throat swelling Cardiovascular: Cardiovascular: Denies chest pain, Denies lightheadedness and Denies dyspnea Respiratory: Respiratory: Denies cough, Denies dyspnea and Denies wheezing Gastrointestinal: Gastrointestinal: Denies abdominal pain, Denies change in bowel habits, Denies nausea and Denies vomiting Genitourinary: Genitourinary: Denies hematuria and Denies dysuria Musculoskeletal: Musculoskeletal: Reports as per HPI Integumentary/Breasts: Skin/Breast: Reports as per HPI Neurologic: Denies dizziness and Denies headache(s) Allergic/Immunologic: Allergic/Immunologic: Denies throat swelling and Denies wheezing [facility], [facility] Past Medical History Medical History Abnormal EKG Hyperlipidemia LVH (left ventricular hypertrophy) Moderate mitral regurgitation Severe pulmonary hypertension resolved since s/p mitral valve repair and tricuspid repair Surgical History Surgical History S/P CABG x 2 S/P mitral valve repair S/P tricuspid valve repair Family History Family History Other Heart disease Social History Social History Smoking status: Never smoker Alcohol intake: current Alcohol use details: Occasionally Substance use: never Living arrangements: with family Gender identity (if verbalized by the patient): Male Spiritual care concerns: No Meds Home Medications and Allergies Home Medications Medication Instructions Recorded Confirmed Type aspirin 81 mg tablet 81 mg PO DAILY 04/28/20 02/02/22 History metoprolol tartrate 50 mg tablet 50 mg PO Q12H 06/24/20 02/02/22 History rosuvastatin 40 mg tablet (Crestor) 20 mg PO DAILY 12/08/20 02/02/22 History cholecalciferol (vitamin D3) 50 50 mcg PO DAILY #90 tabs 04/18/21 02/02/22 Rx mcg (2,000 unit) tablet coenzyme Q10 200 mg capsule (Co 200 mg PO DAILY #90 caps 04/18/21 02/02/22 Rx Q-10) ezetimibe 10 mg tablet See Rx Instructions .Route 12/25/21 02/02/22 Rx .COMPLEX #90 tabs Allergies Allergy/AdvReac Type Severity Reaction Status Date / Time No Known Allergies Allergy Verified 02/02/22 10:14 Vital Signs Vital Signs - 24 hr 02/02/22 10:23 Temperature 36.6 C Pulse Rate 65 Respiratory Rate 20 Blood Pressure 164/93 H Pulse Oximetry 100 Oxygen Delivery Room Air Exam Const: General: no acute distress and alert Orientation/consciousness: patient oriented x3 HENMT: Head: normocephalic and atraumatic Ears: hearing grossly normal bilaterally Face/Nose/Sinus: Normal nares present Mouth: Yes Normal oral and palatal mucosa present Eyes: Periorbital: periorbital findings normal Sclera: sclerae normal EOM: EOMs intact bilaterally Neck: Neck: normal visual inspection, no lymphadenopathy and trachea midline Chest: Chest palpation & inspection: normal inspection of the chest Resp: Effort & Inspection: normal respiratory effort Auscultation: clear to auscultation bilaterally Cardio: Jugular venous distension: no JVD Rate: regular rate Rhythm: regular rhythm Heart sounds: S1 normal heart sound present and S2 normal heart sound present Peripheral pulses: Peripheral pulses 2+ throughout GI: Inspection: normal to inspection GI Palp: Yes Soft to palpation, No Tenderness to palpat
[2022-02-02] MEDS: ceFAZolin 2 GM/D5W 50 ML 2 GM/50 ML BAG IVPB (12:01)
[2022-02-02] MEDS: BUPIVACAINE/EPINEPHRINE 0.25% 10 ML VIAL 30 ML INFILTRATE (12:24)
--- NOTE | 2022-02-02 12:53 | W.PM.PROC2 ---
Procedure Note - Detailed Date of Procedure 02/02/22 Pre-op Diagnosis Umb Hernia Post-op Diagnosis Same Procedure Performed Open umbilical hernia repair with 6.[address] hernia patch Surgeon Ryley Garcia DO Anesthesia General and Local (0.5% bupivacaine with epinephrine) Findings Open umbilical hernia repair was performed. A 1.5 cm umbilical hernia was identified containing some preperitoneal fat. The hernia sac was reduced and a preperitoneal pocket was created for mesh placement. A 6.[address] hernia patch was chosen. This was secured within preperitoneal pocket using 0 Ethibond [id number] sutures. No specimens were obtained for pathology. Description of Procedure Procedure as well as risks, benefits, and alternatives were discussed with the patient. Written consent was obtained and placed in chart prior to procedure. Patient was brought back to surgical suite. He was placed supine on operating table. He was then intubated by Anesthesia Department. His abdomen was prepped and draped in sterile fashion using chlorhexidine prep. 0.5% bupivacaine with epinephrine was infiltrated locally around the operative area. A 4 cm curvilinear incision was made just superior to the umbilicus using a 15 blade scalpel. Electrocautery was used for hemostasis and for dissection down through the subcutaneous fat. Hernia sac was encountered and this was carefully freed up from surrounding subcutaneous fat using electrocautery. The hernia sac was freed up all the way down to the level of the fascia, and then it was reduced back into the abdominal cavity. The umbilical stalk was then lifted off of the fascia with electrocautery. The hernia defect was then measured. This was measuring approximately 15 mm. The decision was made to use a 6.[address] hernia patch. The peritoneum was cleared under the fascia circumferentially around the hernia using blunt dissection and electrocautery. Once a wide enough pocket was created for the mesh, the mesh was then placed within this preperitoneal pocket and laid out flat centered on the hernia defect. The mesh appeared to be sitting in proper position. The mesh was then secured to the abdominal wall with the fascial closure using 0 Ethibond [id number] sutures. A total of 3 sutures were placed transversely to approximate the fascia and secured the mesh. The repair was inspected and appeared secure. 0.5% bupivacaine with epinephrine was infiltrated around the fascia and subcutaneous space. The umbilical stalk was then reapproximated to the fascia using a 3 0 Vicryl simple interrupted suture. The deep dermis was reapproximated using 3 0 Vicryl simple interrupted sutures, and then the skin was approximated using 4 Monocryl running subcuticular suture. Exofin glue was then applied on top. The patient was then awakened from anesthesia, extubated, and transferred to recovery. Implants 6.[address] hernia patch Estimated Blood Loss 5 Complications No immediate complications Condition Stable Disposition Same day [facility] Billing Surgery - Charge Forward: Surgery Billing
== END 2022-02-02 14:35 | disposition home or self-care (01) ==
PROVIDERS: PCP Internal Medicine; Visit Provider Surgery
PROC: (CPT 49585; principal; 2022-02-02 12:00)
DX: K42.9 Umbilical hernia without obstruction or gangrene (principal); E78.5 Hyperlipidemia, unspecified; Z95.1 Presence of aortocoronary bypass graft; Z79.82 Long term (current) use of aspirin
CPT/HCPCS: 49585; 93005; A9270; C1781; J0690; J1100; J1885; J2250; J2405; J2704; J3010; J7120

== ENCOUNTER 2022-05-29 06:53 | Outpatient (CLI) | payer OTHER, SELFPAY ==
[2022-05-29 07:50] LABS: Basophils Percent Auto 0.8 % (0.2-1.2); Eosinophils Absolute Auto 0.1 K/mm3 (0-0.3); Eosinophils Percent Auto 1.2 % (0-4.4); Hematocrit 45.7 % (42.0-52.0); Hemoglobin 15.8 g/dL (14.0-18.0); Immature Granulocyte Absolute 0.01 K/mm3 (0.00-0.031); Immature Granulocyte Percent A 0.2 % (0-0.5); Lymphocytes Absolute Auto 1.51 K/mm3 (0.9-3.2); Lymphocytes Percent Auto 30.4 % (18.3-44.2); Mean Corpuscular HGB Conc 34.6 g/dl (32-36); Mean Corpuscular Hemoglobin 29.1 pg (26-34); Mean Corpuscular Volume 84.2 fl (80-100); Mean Platelet Volume 9.8 fl (7.4-10.4); Monocytes Absolute Auto 0.5 K/mm3 (0.1-0.6); Monocytes Percent Auto 10.3 % (2.6-8.5); Neutrophils Absolute Auto 2.8 K/mm3 (1.3-6.7); Neutrophils Percent Auto 57.1 % (45.5-73.1); Platelet Count Result 186 k/mm3 (150-375); Red Blood Count 5.43 M/mm3 (4.6-6.20); Red Cell Distribution Width 12.8 % (11.5-14.5)
[2022-05-29 08:07] LABS: Alanine Aminotransferase 45 U/L (6-50); Albumin Level 4.3 g/dL (3.5-5.1); Alkaline Phosphatase 65 U/L (38-126); Anion Gap 6 mmol/L (8-16); Aspartate Amino Transferase 30 U/L (17-59); Bilirubin,Total 0.8 mg/dL (0.2-1.3); Blood Urea Nitrogen 12 mg/dL (9-20); Calcium 8.8 mg/dL (8.4-10.2); Carbon Dioxide 28 mmol/L (22-30); Chloride 107 mmol/L (98-107); Cholesterol 148 mg/dL (0-200); Estimated Glomerular Filt Rate > 60; Glucose 96 mg/dL (65-110); HDL Direct 43 mg/dL; Potassium 4.1 mmol/L (3.4-5.0); Sodium 141 mmol/L (137-145); Triglycerides 103 mg/dL (<150)
[2022-05-29 08:20] LABS: LDL Cholesterol Direct 73 mg/dL
[2022-05-29 08:23] LABS: Free T4 Free Thyroxine 1.28 ng/mL (0.78-2.19); Vitamin D 25 Hydroxy 54.6 ng/mL
[2022-05-29 08:35] LABS: Prostate Specific Antigen 3.7 ng/mL (< OR = 4.0)
== END 2022-05-29 06:54 | disposition home or self-care (01) ==
PROVIDERS: PCP Internal Medicine; Visit Provider Internal Medicine
DX: E78.5 Hyperlipidemia, unspecified (principal); Z79.899 Other long term (current) drug therapy; Z12.5 Encounter for screening for malignant neoplasm of prostate
CPT/HCPCS: 36415; 80053; 80061; 82306; 84153; 84439; 84443; 85025; G0103

== ENCOUNTER 2022-12-18 06:51 | Outpatient (CLI) | payer OTHER, SELFPAY ==
[2022-12-18 07:52] LABS: Anion Gap 4 mmol/L (8-16); Blood Urea Nitrogen 14 mg/dL (9-20); Calcium 8.5 mg/dL (8.4-10.2); Carbon Dioxide 27 mmol/L (22-30); Chloride 106 mmol/L (98-107); Cholesterol 151 mg/dL (0-200); Estimated Glomerular Filt Rate > 60; Glucose 99 mg/dL (65-110); HDL Direct 41 mg/dL; Potassium 4.3 mmol/L (3.4-5.0); Sodium 137 mmol/L (137-145); Triglycerides 104 mg/dL (<150)
[2022-12-18 08:03] LABS: LDL Cholesterol Direct 79 mg/dL
[2022-12-18 08:43] LABS: Free T4 Free Thyroxine 1.05 ng/mL (0.78-2.19)
[2022-12-18 08:49] LABS: Hemoglobin A1C 5.2 % (<5.7)
[2022-12-18 16:21] LABS: Prostate Specific Antigen 4.4 ng/mL (< OR = 4.0)
== END 2022-12-18 06:52 | disposition home or self-care (01) ==
PROVIDERS: PCP Internal Medicine; Visit Provider Internal Medicine
DX: Z12.5 Encounter for screening for malignant neoplasm of prostate (principal); Z13.1 Encounter for screening for diabetes mellitus; E78.5 Hyperlipidemia, unspecified; R94.6 Abnormal results of thyroid function studies; Z79.899 Other long term (current) drug therapy
CPT/HCPCS: 36415; 80048; 80061; 83036; 84153; 84439; 84443

== ENCOUNTER 2022-12-25 14:36 | Outpatient (CLI) | payer OTHER, SELFPAY ==
[2022-12-27 19:21] LABS: PSA, Free 0.72 ng/mL; PSA, Total 3.4 ng/mL (<=4.0); Percent Free Prostate Spec Ag 21 % (>25)
== END 2022-12-25 14:37 | disposition home or self-care (01) ==
PROVIDERS: PCP Internal Medicine; Visit Provider Urology
DX: R97.20 Elevated prostate specific antigen [PSA] (principal)
CPT/HCPCS: 36415; 84153; 84154

== ENCOUNTER 2023-07-30 07:39 | Outpatient (CLI) | payer OTHER, SELFPAY ==
[2023-07-30 09:01] LABS: Anion Gap 5 mmol/L (4-12); Blood Urea Nitrogen 10 mg/dL (9-20); Calcium 8.9 mg/dL (8.4-10.2); Carbon Dioxide 24 mmol/L (22-30); Chloride 109 mmol/L (98-107); Cholesterol 146 mg/dL (0-200); Estimated Glomerular Filt Rate > 60; Glucose 95 mg/dL (65-110); HDL Direct 41 mg/dL; Potassium 3.9 mmol/L (3.4-5.0); Sodium 138 mmol/L (137-145)
[2023-07-30 09:06] LABS: Triglycerides 112 mg/dL (<150)
[2023-07-30 09:08] LABS: LDL Cholesterol Direct 84 mg/dL
[2023-07-30 09:31] LABS: Basophils Percent Auto 0.9 % (0.2-1.2); Eosinophils Absolute Auto 0.1 K/mm3 (0-0.3); Eosinophils Percent Auto 1.9 % (0-4.4); Hematocrit 46.3 % (42.0-52.0); Hemoglobin 15.6 g/dL (14.0-18.0); Immature Granulocyte Absolute 0.01 K/mm3 (0.00-0.031); Immature Granulocyte Percent A 0.2 % (0-0.5); Lymphocytes Absolute Auto 1.38 K/mm3 (0.9-3.2); Lymphocytes Percent Auto 29.5 % (18.3-44.2); Mean Corpuscular HGB Conc 33.7 g/dl (32-36); Mean Corpuscular Hemoglobin 28.9 pg (26-34); Mean Corpuscular Volume 85.7 fl (80-100); Mean Platelet Volume 10.4 fl (7.4-10.4); Monocytes Absolute Auto 0.4 K/mm3 (0.1-0.6); Monocytes Percent Auto 9.4 % (2.6-8.5); Neutrophils Absolute Auto 2.7 K/mm3 (1.3-6.7); Neutrophils Percent Auto 58.1 % (45.5-73.1); Platelet Count Result 187 k/mm3 (150-375); Red Cell Distribution Width 12.5 % (11.5-14.5); White Blood Count 4.7 K/mm3 (4.5-10.0)
[2023-07-30 09:46] LABS: Vitamin D 25 Hydroxy 49.5 ng/mL
== END 2023-07-30 07:40 | disposition home or self-care (01) ==
LOC: ANHLAB 07:41
PROVIDERS: PCP Internal Medicine; Visit Provider Internal Medicine
DX: E55.9 Vitamin D deficiency, unspecified (principal); Z79.899 Other long term (current) drug therapy; E78.5 Hyperlipidemia, unspecified; R94.6 Abnormal results of thyroid function studies
CPT/HCPCS: 36415; 80048; 80061; 82306; 84439; 84443; 85025

== ENCOUNTER 2023-08-01 14:29 | Outpatient (CLI) | payer OTHER, SELFPAY ==
[2023-08-05 14:43] LABS: PSA, Free 0.9 ng/mL; PSA, Total 3.9 ng/mL (< OR = 4.0); Percent Free Prostate Spec Ag 23 % (calc) (>25)
== END 2023-08-01 14:30 | disposition home or self-care (01) ==
LOC: ANHLAB 14:32
PROVIDERS: PCP Internal Medicine; Visit Provider Internal Medicine
DX: Z12.5 Encounter for screening for malignant neoplasm of prostate (principal); R97.20 Elevated prostate specific antigen [PSA]; Z53.20 Procedure and treatment not carried out because of patient's decision for unspecified reasons
CPT/HCPCS: 36415; 84153; 84154

== ENCOUNTER 2024-01-07 02:50 | Day surgery (SDC) | payer OTHER, SELFPAY ==
[2023-12-24 15:25] VITALS: BMI 26.4
[2024-01-07 06:18] VITALS: BP 130/97; PULSE 67; RESP 17; TEMP 36.4; O2SAT 98; BMI 27.0
[2024-01-07] MEDS: LACTATED RINGERS 1,000 ML 150 ML IV CONT (06:28)
--- NOTE | 2024-01-07 06:56 | WPDANESEPPF ---
Anes - Initial Pre Proc Eval Procedure: Operation Date: 01/07/24 07:30 Proposed Procedures p Colonoscopy - León Blanco MD Date/Time: 01/07/24 06:56 Surgeon: León Blanco MD Pre Op Diagnosis: Personal history colon polyps Patient Data Age: 68 Gender: M Height: 1.85 m Weight: 93 kg Last Vital Signs Temp 36.4 C 01/07/24 06:18 Pulse 67 01/07/24 06:18 Resp 17 01/07/24 06:18 BP 130/97 H 01/07/24 06:18 Pulse Ox 98 01/07/24 06:18 O2 Del Method Room Air 01/07/24 06:18 Allergies Allergy/AdvReac Type Severity Reaction Status Date / Time No Known Allergies Allergy Verified 01/07/24 06:16 Home Medications Medication Instructions Recorded Confirmed Type aspirin 81 mg tablet 81 mg PO DAILY 04/28/20 01/07/24 History metoprolol tartrate 50 mg tablet 50 mg PO Q12H 06/24/20 01/07/24 History cholecalciferol (vitamin D3) 50 50 mcg PO DAILY #90 tabs 04/18/21 01/07/24 Rx mcg (2,000 unit) tablet coenzyme Q10 200 mg capsule (Co 200 mg PO DAILY #90 caps 04/18/21 01/07/24 Rx Q-10) amoxicillin 500 mg capsule 2,000 mg PO .COMPLEX #4 caps 06/11/22 01/07/24 Rx rosuvastatin 10 mg tablet (Crestor) 10 mg PO DAILY 01/23/23 01/07/24 History ezetimibe 10 mg tablet See Rx Instructions .Route 09/13/23 01/07/24 Rx .COMPLEX #90 tabs Patient hx anesthesia problems: none Family hx anesthesia problems: none Results Review: All pre-operative results and documents have been reviewed as part of the pre-operative evaluation. [facility] Past Medical History Medical History Abnormal EKG Abnormal PSA acceleration with normal PSA BMI 27.0-27.9,adult Encounter for routine adult health examination without abnormal findings Encounter for wellness examination in adult Hyperlipidemia LVH (left ventricular hypertrophy) Moderate mitral regurgitation Severe pulmonary hypertension resolved since s/p mitral valve repair and tricuspid repair Surgical History Surgical History S/P CABG x 2 S/P cataract surgery S/P mitral valve repair S/P tricuspid valve repair Family History Family History Other Heart disease Social History Social History Smoking status: Never smoker Second hand tobacco smoke exposure: No Alcohol intake: current Alcohol use details: Occasionally Substance use: never Lack of Transportation: No Lack of Food: Never True Current Housing: I Have Housing Concerned About Future Housing: No Difficulty Paying Gas/Electric Bills: No Difficulty Paying for Meds: No Currently Unemployed: No Education: Master's Degree or Higher Difficulty w/ Childcare or Family Care: No Living arrangements: with family Occupation/Education: occupation Gender identity (if verbalized by the patient): Male Spiritual care concerns: No Anes - Eval Final PreProcedure Day of Procedure 01/07/24 06:56 Patient weight: overweight Heart: regular rate and rhythm Lungs: clear to auscultation Airway: Mallampati scale class II Neurological: alert and oriented Last oral intake: >/= 8 hours ASA classification: III Emergent: no Anesthetic plan: proceed Anesthesia type and monitoring: general and standard monitoring Results Review: All pre-operative results and documents have been reviewed as part of the pre-operative evaluation. Informed Consent: The patient's anesthetic plan and its attendant risks and benefits were discussed with the patient/family/POA. Questions were solicited and answers provided to the satisfaction of the patient/family/POA.
--- NOTE | 2024-01-07 07:24 | PM.HPGS ---
History of Present Illness History of Present Illness Consent: Risks, benefits, and alternatives have been discussed and questions answered. Patient agrees to proceed with procedure. Chief complaint: Personal history colon polyps Narrative: Fer Ragsdale is a 68 year old male with colon polyps in 2020 Review of Systems Review of Systems: All systems reviewed & are unremarkable except as noted in HPI and below PMFSH Past Medical History Medical History (Updated 01/07/24 @ 07:25 by León Blanco MD) Abnormal EKG Abnormal PSA acceleration with normal PSA Adenomatous colon polyp BMI 27.0-27.9,adult Encounter for routine adult health examination without abnormal findings Encounter for wellness examination in adult Hyperlipidemia LVH (left ventricular hypertrophy) Moderate mitral regurgitation Severe pulmonary hypertension resolved since s/p mitral valve repair and tricuspid repair Surgical History Surgical History S/P CABG x 2 S/P cataract surgery S/P mitral valve repair S/P tricuspid valve repair Family History Family History Other Heart disease Social History Social History Smoking status: Never smoker Second hand tobacco smoke exposure: No Alcohol intake: current Alcohol use details: Occasionally Substance use: never Lack of Transportation: No Lack of Food: Never True Current Housing: I Have Housing Concerned About Future Housing: No Difficulty Paying Gas/Electric Bills: No Difficulty Paying for Meds: No Currently Unemployed: No Education: Master's Degree or Higher Difficulty w/ Childcare or Family Care: No Living arrangements: with family Occupation/Education: occupation Gender identity (if verbalized by the patient): Male Spiritual care concerns: No Meds Home Medications and Allergies Home Medications Medication Instructions Recorded Confirmed Type aspirin 81 mg tablet 81 mg PO DAILY 04/28/20 01/07/24 History metoprolol tartrate 50 mg tablet 50 mg PO Q12H 06/24/20 01/07/24 History cholecalciferol (vitamin D3) 50 50 mcg PO DAILY #90 tabs 04/18/21 01/07/24 Rx mcg (2,000 unit) tablet coenzyme Q10 200 mg capsule (Co 200 mg PO DAILY #90 caps 04/18/21 01/07/24 Rx Q-10) amoxicillin 500 mg capsule 2,000 mg PO .COMPLEX #4 caps 06/11/22 01/07/24 Rx rosuvastatin 10 mg tablet (Crestor) 10 mg PO DAILY 01/23/23 01/07/24 History ezetimibe 10 mg tablet See Rx Instructions .Route 09/13/23 01/07/24 Rx .COMPLEX #90 tabs Allergies Allergy/AdvReac Type Severity Reaction Status Date / Time No Known Allergies Allergy Verified 01/07/24 06:16 Vital Signs Vital Signs - 24 hr 01/07/24 06:18 Temperature 97.6 F Pulse Rate 67 Respiratory Rate 17 Blood Pressure 130/97 H Pulse Oximetry 98 Oxygen Delivery Room Air Exam Const: General: comfortable and no acute distress HENMT: Face/Nose/Sinus: Normal nares present Eyes: General: appearance normal, both eyes and all related structures Neck: Neck: no JVD Resp: Auscultation: clear to auscultation bilaterally Cardio: Rate: regular rate Rhythm: regular rhythm GI: Inspection: non-distended GI Palp: Yes Soft to palpation Skin: General skin exam: normal color Neuro: General: gait normal Speech: normal speech Extrem: General: normal to inspection Psych: Mental Status: mental status grossly normal Assessment and Plan Assessment and plan (1) Adenomatous colon polyp: Code(s): D12.6 - Benign neoplasm of colon, unspecified Status: Acute Assessment and Plan: colonoscopy
[2024-01-07 07:40] VITALS: BP 110/68; PULSE 56; RESP 17; O2SAT 97
[2024-01-07 07:50] VITALS: BP 113/70; PULSE 54; RESP 12; O2SAT 98
[2024-01-07 08:00] VITALS: BP 147/70; PULSE 54; RESP 16; O2SAT 98
[2024-01-07 08:08] VITALS: BP 131/86
== END 2024-01-07 08:15 | disposition home or self-care (01) ==
PROVIDERS: PCP Internal Medicine; Visit Provider Internal Medicine Gastroenterology
PROC: 0DJD8ZZ Inspection of Lower Intestinal Tract, Via Natural or Artificial Opening Endoscopic (ICD-10-PCS; CPT 45378; principal; 2024-01-07 07:30)
DX: Z12.11 Encounter for screening for malignant neoplasm of colon (principal); D12.4 Benign neoplasm of descending colon; K63.5 Polyp of colon; K64.8 Other hemorrhoids; E78.5 Hyperlipidemia, unspecified; I27.20 Pulmonary hypertension, unspecified; I34.0 Nonrheumatic mitral (valve) insufficiency; Z79.82 Long term (current) use of aspirin; Z98.890 Other specified postprocedural states; Z95.1 Presence of aortocoronary bypass graft; Z95.2 Presence of prosthetic heart valve; Z82.49 Family history of ischemic heart disease and other diseases of the circulatory system
CPT/HCPCS: 45385; 88305; J2704; J7120

== ENCOUNTER 2024-03-02 08:12 | Outpatient (CLI) | payer OTHER, SELFPAY ==
[2024-03-02 08:54] LABS: Alanine Aminotransferase 27 U/L (6-50); Alkaline Phosphatase 59 U/L (38-126); Anion Gap 5 mmol/L (4-12); Aspartate Amino Transferase 25 U/L (17-59); Bilirubin,Total 0.7 mg/dL (0.2-1.3); Blood Urea Nitrogen 13 mg/dL (9-20); Calcium 8.7 mg/dL (8.4-10.2); Carbon Dioxide 28 mmol/L (22-30); Chloride 107 mmol/L (98-107); Cholesterol 165 mg/dL (0-200); Estimated Glomerular Filt Rate > 60; Glucose 89 mg/dL (65-110); HDL Direct 48 mg/dL; Potassium 4.1 mmol/L (3.4-5.0); Sodium 140 mmol/L (137-145); Triglycerides 152 mg/dL (<150)
[2024-03-02 09:05] LABS: LDL Cholesterol Direct 84 mg/dL
[2024-03-02 10:48] LABS: Hemoglobin A1C 5.3 % (<5.7)
[2024-03-02 11:25] LABS: Free T4 Free Thyroxine 1.14 ng/dL (0.78-2.19)
--- OUTSIDE RECORDS SUMMARY | 2024-03-08 04:33 | XMS_ITS | Encounter Summary ---
Author Organization [facility] Address [address] [place] [address] Care Team Providers Care Telephoner Name Role Phone Espinoza Coker MD Primary Care Provider [phone] Espinoza Coker MD Unavailable [phone] Encounter Details Date Type Department Care Team (Late st Contact Info) Description 04/03/2021 Orders Only [facility] Cardiology [address] [facility] [address] [place] [address] Sriram Winston MD [address] [place], [place] [id number] Social History Tobacco Use Types Packs/Day Years Used Date Smoking Tobacco: Never Smokeless Tobacco: Never Alcohol Use Standard Drinks/Week Comments Not Currently 0 (1 standard drink = 0.6 oz pur e alcohol) Sex and Gender Information Value Date Recorded Sex Assigned at Not on file 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 Gender Identity Male 09/13/2020 2:28 PM CDT Sexual Orientation Not on file documented as of this encounter Plan of Treatment Not on file documented as of this encounter Procedures Procedure Name Priority Date/Time Associated Diagnosis Comments CARDIOLOGY DOCUMENT SCAN Routine 04/03/2021 documented in this encounter Results * SCAN - CARDIOLOGY (04/03/2021) Anatomical Region Laterality Modality Other us Sriram Winston MD CV [facility] Final Result documented in this encounter Visit Diagnoses Not on filedocumented in this encounter Care Teams Telephoner Relationship Specialty Start Date End Date Espinoza Coker MD [address] [facility] [address] [place] [address] PCP - General Internal Medicine 04/29/20 Espinoza Coker MD [address] [facility] [address] [place] [address] Internal Medicine 04/29/20 documented as of this encounter
--- OUTSIDE RECORDS SUMMARY | 2024-03-08 04:33 | XMS_ITS | Encounter Summary ---
Author Organization [facility] Address [address] [facility] [address] [place] [address] Care Team Providers Care Toll Bridge Attendant Name Role Phone Espinoza Coker MD Primary Care Provider [phone] Espinoza Coker MD Unavailable [phone] Reason for Visit * Reason Comments Coronary Artery Disease 7 month fu Encounter Details Date Type Department Care Team (Late st Contact Info) Description 10/05/2021 2:30 PM CDT Office Visit [facility] Cardiology [address] [facility] [address] [address] Price Jones MD [address] [facility] [address] [address] Hx of CABG (Primary Dx); History of mitral valve repair; Hx of tricuspid valve repair; Lipid screening Social History Tobacco Use Types Packs/Day Years Used Date Smoking Tobacco: Never Smokeless Tobacco: Never Alcohol Use Standard Drinks/Week Comments Not Currently 0 (1 standard drink = 0.6 oz pur e alcohol) Sex and Gender Information Value Date Recorded Sex Assigned at Not on file 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 Gender Identity Male 09/13/2020 2:28 PM CDT Sexual Orientation Not on file documented as of this encounter Last Filed Vital Signs Vital Sign Reading Time Taken Comments Blood Pressure 140/82 10/05/2021 2:33 PM CDT Pulse 74 10/05/2021 2:33 PM CDT Temperature - - Respiratory Rate - - Oxygen Saturation 98% 10/05/2021 2:33 PM CDT Inhaled Oxygen Concentration - - Weight 96.6 kg (213 lb) 10/05/2021 2:33 PM CDT Height 182.9 cm (6') 10/05/2021 2:33 PM CDT Body Mass Index 28.89 10/05/2021 2:33 PM CDT documented in this encounter Ordered Prescriptions Prescription Sig Dispense Quantity Refills Last Filled Start Date End Date rosuvastatin (CRESTOR) 10 mg tablet Take 1 tablet (10 mg total) by mouth daily 90 tablet 3 10/05/2021 11/26/2022 documented in this encounter Progress Notes * Price Jones MD - 10/05/2021 2:30 PM CDT [facility] 10/05/2021 Fer Ragsdale is a 65 y.o. male who presents for follow up of coronary artery disease and valvular heart disease. The patient saw me in consultation in the late part of 2019. He was found to have significant mitral valve regurgitation on physical exam that he had for employment reasons. Patient waslargely asymptomatic of this but quickly became symptomatic with exertional shortness of breath. Inconsultation he had a loud MR murmur. Esophageal echo demonstrated a partially flail posterior mitral valve leaflet and severe MR with some torn chordal elements. Catheterization also demonstrated significant complex disease in the beginning of the LAD into a diagonal branch. He was referred to Card iothoracic surgery at [facility] where he was operated on in April of 2020.He received a SANTOYO graft to the LAD a saphenous vein graft to the 2nd diagonal a mitral valve repair with nayeli chords and a 32 mm mitral valve ring and a tricuspid valve ring and annuloplasty as well.He also had excision of the left atrial appendage because of his risk of atrial fibrillation since he had a rather large left atrium. He returns today for scheduled six-month appointment. Overall he continues to do very well and no ischemic symptoms no symptoms of valvular heart disease. Discussed the favorable echocardiographic results from the last study in March of this year. There was a trivial residual MR following mitral valve repair. Spent a lot of time discussing rosuvastatin dosages. He was initially at a high dose of that medication. He is having a lot of myalgias. I am going to recommend reducing the dosage to 10mg along with the Zetia that he is taking. REVIEW OF SYSTEMS General ROS: negative for - chills, fatigue, fever, malaise, night sweats, weight gain or weight loss Psychological ROS: negative for - anxiety, depression, memory difficulties or sleep disturbances Ophthalmic ROS: negative for - blurry vision, decreased vision, loss of vision or scotomata ENT ROS: negative for - epistaxis, headaches, hearing change, nasal congestion, nasal discharge, sore throat, vertigo or visual changes Hematological and Lymphatic ROS: negative for - bleeding problems, blood clots, bruising, fatigue or weight loss Endocrine ROS: negative for - hot flashes, palpitations, polydipsia/polyuria or unexpected weight changes Respiratory ROS: negative for - cough, hemoptysis, orthopnea, shortness of breath, tachypnea or wheezing Cardiovascular ROS: negative for - chest pain, dyspnea on exertion, edema, irregular heartbeat, loss of consciousness, murmur, orthopnea, palpitations, paroxysmal nocturnal dyspnea, rapid heart rate or shortness of breath Gastrointestinal ROS: negative for - abdominal pain, appetite loss, blood in stools, constipation, diarrhea, gas/bloating, heartburn, hematemesis, melena or nausea/vomiting Genito-Urinary ROS: negative for - dysuria, erectile dysfunction or hematuria Musculoskeletal ROS: negative for - joint pain, muscle pain or muscular weakness Dermatological ROS: negative for dry skin, eczema, pruritus and rash HOME MEDICATIONS Current Outpatient Medications: ??? aspirin 81 mg enteric coated tablet, Take 81 mg by mouth daily, Disp: , Rfl: ??? cholecalciferol (VITAMIN D-3) 25 mcg (1,000 unit) tablet, Take 1,000 Units by mouth daily, Disp: , Rfl: ??? ezetimibe (ZETIA) 10 mg tablet, Take 10 mg by mouth daily, Disp: , Rfl: ??? metoprolol XL (TOPROL-XL) 50 mg extended release tablet, Take 1 tablet (50 mg total) by mouth daily, Disp: 90 tablet, Rfl: 3 ??? rosuvastatin (CRESTOR) 40 mg tablet, Take 20 mg by mouth daily , Disp: , Rfl: ??? tadalafiL (CIALIS) 20 mg tablet, Take 20 mg by mouth daily, Disp: , Rfl: LABS AND OTHER DIAGNOSTIC TESTS No results found for: CHOL No results found for: HDL No results found for: LDLCALC No results found for: TRIG No results found for: CHOLHDL Lab Results Component Value Date WBC 5.6 05/15/2020 HGB 11.9 (L) 05/15/2020 HCT 35.3 (L) 05/15/2020 MCV 83.3 05/15/2020 No lab exists for component: LABALBU PHYSICAL EXAM Vitals BP 140/82 (BP Location: Left arm, Patient Position: Sitting) Pulse 74 Ht 182.9 cm (6') Wt 96.6 kg (213 lb) SpO2 98% BMI 28.89 kg/m?? Physical Examination: General appearance - alert, well appearing, and in no distress, oriented to person, place, and time and acyanotic, in no respiratory distress Mental status - affect appropriate to mood Eyes - extraocular eye movements intact, sclera anicteric, no pallor Ears - external earsappear normal, hearing grossly normal bilaterally Nose - normal and patent, no erythema or discharge Mouth - mucous membranes moist, pharynx appears normal, dental hygiene good and tongue normal Neck - supple, no significant neck masses, carotids upstroke normal bilaterally, no bruits, no JVD Chest - clear to auscultation, no wheezes, rales or rhonchi, symmetric air entry, no tachypnea, retractions or cyanosis Heart - normal rate, regular rhythm, normal S1, S2, very soft holosystolic MR murmur is audible at the apex, rubs, clicks or gallops, no JVD Abdomen - soft, nontender, nondistended, no masses or organomegaly bowel sounds normal Neurological - alert, oriented, normal speech, no focal findings or movement disorder noted Musculoskeletal - no joint tenderness, deformity or swelling, no muscular tenderness noted Extremities - peripheral pulses normal, no pedal edema, no clubbing or cyanosis Skin - normal coloration and turgor, no rashes, no suspicious skin lesions noted ASSESSMENT Fer was seen today for coronary artery disease. Diagnoses and all orders for this visit: Hx of CABG History of mitral valve repair Hx of tricuspid valve repair PLAN/RECOMMENDATIONS Reduce dose of rosuvastatin to 10 mg daily because of the myalgias Follow-up in 6 months or p.r.n. Price Jones MD documented in this encounter Plan of Treatment Not on file documented as of this encounter Procedures Procedure Name Priority Date/Time Associated Diagnosis Comments POCT LIPID PANEL Routine 10/05/2021 2:55 PM CDT Lipid screening documented in this encounter Results * POCT lipid panel (10/05/2021 2:55 PM CDT) Cholesterol, POC 159 mg/dL HDL, POC 39 mg/dL Triglycerides, POC 172 mg/dL LDL Cholesterol POC 85 mg/dL Chol/HDL Ratio, POC 4.0 Non-HDL Cholesterol, POC 119 mg/dL Cholesterol Total, POC 159 mg/dL Capillary blood 10/05/2021 2 :55 PM CDT Price Jones MD POINT OF CARE TEST ORDER MICHAEL Final Result documented in this encounter Visit Diagnoses Diagnosis Hx of CABG- Primary Postsurgical aortocoronary bypass status History of mitral valve repair Hx of tricuspid valve repair Lipid screening Screening for lipoid disorders documented in this encounter Discontinued Medications Medication Sig Discontinue Reason Start Date End Da te rosuvastatin (CRESTOR) 40 mg tablet Take 20 mg by mouth daily 10/05/2021 documented as of this encounter Care Teams Toll Bridge Attendant Relationship Specialty Start Date End Date Espinoza Coker MD [address] [facility] [address] [place] [address] PCP - General Internal Medicine 04/29/20 Espinoza Coker MD [address] [place] [address] Internal Medicine 04/29/20 documented as of this encounter
--- OUTSIDE RECORDS SUMMARY | 2024-03-08 04:33 | XMS_ITS | Encounter Summary ---
Author Organization [facility] Address [address] [place] [address] Care Team Providers Care Veneer Taping Machine Offbearer Name Role Phone Espinoza Coker MD Primary Care Provider [phone] Espinoza Coker MD Unavailable [phone] Encounter Details Date Type Department Care Team (Late st Contact Info) Description 09/06/2020 Orders Only [facility] Cardiology [address] [facility] [address] [place] [address] Sriram Winston MD [address] [place], [place] [id number] Social History Tobacco Use Types Packs/Day Years Used Date Smoking Tobacco: Never Smokeless Tobacco: Never Alcohol Use Standard Drinks/Week Comments Not Currently 0 (1 standard drink = 0.6 oz pur e alcohol) Sex and Gender Information Value Date Recorded Sex Assigned at Not on file 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 Final Result documented in this encounter Visit Diagnoses Not on filedocumented in this encounter Care Teams Veneer Taping Machine Offbearer Relationship Specialty Start Date End Date Espinoza Coker MD [address] [facility] [address] [place] [address] PCP - General Internal Medicine 04/29/20 Espinoza Coker MD [address] [facility] [address] [place] [address] Internal Medicine 04/29/20 documented as of this encounter
--- OUTSIDE RECORDS SUMMARY | 2024-03-08 04:33 | XMS_ITS | Encounter Summary ---
Author Organization [facility] Address [address] [facility] [address] [place] [address] Care Team Providers Care Electronics Utility Worker Name Role Phone Espinoza Coker MD Primary Care Provider [phone] Espinoza Coker MD Unavailable [phone] Reason for Visit * Reason Comments Follow-up 3 mo follow up on CA D, NRMVR, h/o CABG Encounter Details Date Type Department Care Team (Late st Contact Info) Description 09/13/2020 3:15 PM CDT Office Visit [facility] Cardiology [address] [address] Price Jones MD [address] [facility] [address] [address] Hx of CABG (Primary Dx); History of mitral valve repair; Hx of tricuspid valve repair Social History Tobacco Use Types Packs/Day Years Used Date Smoking Tobacco: Never Smokeless Tobacco: Never Alcohol Use Standard Drinks/Week Comments Not Currently 0 (1 standard drink = 0.6 oz pur e alcohol) Sex and Gender Information Value Date Recorded Sex Assigned at Not on file 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 Sex Male 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 Gender Identity Male 09/13/2020 2:28 PM CDT Sexual Orientation Not on file documented as of this encounter Last Filed Vital Signs Vital Sign Reading Time Taken Comments Blood Pressure 134/82 09/13/2020 3:21 PM CDT Pulse 88 09/13/2020 3:21 PM CDT Temperature - - Respiratory Rate - - Oxygen Saturation 98% 09/13/2020 3:21 PM CDT Inhaled Oxygen Concentration - - Weight 93 kg (205 lb) 09/13/2020 3:21 PM CDT Height 182.9 cm (6') 09/13/2020 3:21 PM CDT Body Mass Index 27.8 09/13/2020 3:21 PM CDT documented in this encounter Ordered Prescriptions Prescription Sig Dispense Quantity Refills Last Filled Start Date End Date metoprolol XL (TOPROL-XL) 50 mg extended release tablet Take 1 tablet (50 mg total) by mouth daily 90 tablet 3 09/13/2020 10/06/2021 documented in this encounter Progress Notes * Price Jones MD - 09/13/2020 3:15 PM CDT [facility] 09/13/2020 Fer Ragsdale is a 64 y.o. male who presents for follow up [...] was referred to Card iothoracic surgery at [facility] where he was operated on in [...] had a rather large left atrium. He presents today for scheduled follow-up after the above described operation. Overall doing extremely well. His hoarseness of voice that was result of vocal cord paralysis is obviously resolving. Westopped systemic anticoagulation the last time he was here because he is no longer having any arrhythmias any had his left atrium appendage amputated at the time of his operation. He still taking metoprolol at a dosage of 100 mg daily and is noticing some symptoms of positional lightheadedness whenhe is trying to work in the yd and perform activities in the garden when he stands up from a seatedposition. Otherwise is totally asymptomatic. On physical exam there is no audible mitral regurgitation and on echo the residual MR appears to be trivial according to the report that is on the chart. REVIEW OF SYSTEMS General ROS: negative for [...] Disp: , Rfl: ??? metoprolol XL (TOPROL-XL) 100 mg 24 hr tablet, Take 1 tablet (100 mg total) by mouth daily, Disp: 30 tablet, Rfl: 11 ??? rosuvastatin (CRESTOR) 40 mg tablet, Take 40 mg by mouth daily, Disp: , Rfl: [...] for component: LABALBU PHYSICAL EXAM Vitals BP 134/82 (BP Location: Left arm, Patient Position: Sitting) Pulse 88 Ht 182.9 cm (6') Wt 93 kg (205 lb) SpO2 98% BMI 27.80 kg/m?? Physical Examination: General appearance - alert, [...] normal rate, regular rhythm, normal S1, S2, no murmurs, rubs, clicks or gallops, no JVD Abdomen [...] noted ASSESSMENT Fer was seen today for follow-up. Diagnoses and all orders for this visit: Hx of CABG History of mitral valve repair Hx of tricuspid valve repair PLAN/RECOMMENDATIONS Reduce metoprolol XL to 50 mg daily Follow-up 6 months Price Jones MD documented in this encounter Plan of Treatment Not on file documented as of this encounter Visit Diagnoses Diagnosis Hx of CABG- Primary Postsurgical aortocoronary bypass status History of mitral valve repair Hx of tricuspid valve repair documented in this encounter Discontinued Medications Medication Sig Discontinue Reason Start Date End Da te atorvastatin (LIPITOR) 80 mg tablet Take 1 tablet (80 mg total) by mouth nightly Alternate therapy 05/15/2020 09/13/2020 apixaban (ELIQUIS) 5 mg tabletIndications:atrial fibrillation Take 1 tablet (5 mg total) by mouth every 12 (twelve) hours Therapy completed 05/15/2020 09/13/2020 metoprolol XL (TOPROL-XL) 100 mg 24 hr tablet Take 1 tablet (100 mg total) by mouth daily 06/21/2020 09/13/2020 documented as of this encounter Historical Medications * This list may reflect changes made after this encounter. rosuvastatin (CRESTOR) 40 mg tablet Take 20 mg by mouth daily 10/05/2021 added in this encounter Care Teams Electronics Utility Worker Relationship Specialty Start Date End Date Espinoza Coker MD [address] [facility] [address] [place] [address] PCP - General Internal Medicine 04/29/20 Espinoza Coker MD [address] [facility] [address] [place] [address] Internal Medicine 04/29/20 documented as of this encounter
--- OUTSIDE RECORDS SUMMARY | 2024-03-08 04:33 | XMS_ITS | Encounter Summary ---
Author Organization [facility] Medical Group Address [address] [facility] [address] [place] [address] Care Team Providers Care Production Analyst Name Role Phone Espinoza Coker MD Primary Care Provider [phone] Espinoza Coker MD Unavailable [phone] Encounter Details Date Type Department Care Team (Late st Contact Info) Description 08/22/2020 Telephone [facility] Medical Group Cardiology [address] [facility] [address] [address] Price Jones MD [address] [facility] [address] [place] [address] Social History Tobacco Use Types Packs/Day Years Used Date Smoking Tobacco: Never Smokeless Tobacco: Never Alcohol Use Standard Drinks/Week Comments Not Currently 0 (1 standard drink = 0.6 oz pur e alcohol) Sex and Gender Information Value Date Recorded Sex Assigned at Not on file 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 * Telephone Encounter - Ebenezer Smithne - 08/22/2020 1:39 PM CDT Chanelle calling from [facility] received a cardiac clearance which says see attached but nothings attach.please advise. Contact:[phone] [facility] fax number is on cardiac clearance form documented in this encounter Plan of Treatment Not on file documented as of this encounter Visit Diagnoses Not on filedocumented in this encounter Care Teams Production Analyst Relationship Specialty Start Date End Date Espinoza Coker MD [address] [facility] [address] [place] [address] PCP - General Internal Medicine 04/29/20 Espinoza Coker MD [address] [facility] [address] [place] [address] Internal Medicine 04/29/20 documented as of this encounter
--- OUTSIDE RECORDS SUMMARY | 2024-03-08 04:33 | XMS_ITS | Encounter Summary ---
Author Organization [facility] Medical Group Address [address] [facility] [address] [place] [address] Care Team Providers Care Line Servicer Name Role Phone Espinoza Coker MD Primary Care Provider [phone] Espinoza Coker MD Unavailable [phone] Encounter Details Date Type Department Care Team (Late st Contact Info) Description 06/24/2020 Orders Only [facility] Medical [facility] Cardiology [address] [facility] [address] [place] [address] Provider, MD Castillo [address] [place] [address] Social History Tobacco Use Types Packs/Day Years Used Date Smoking Tobacco: Never Smokeless Tobacco: Never Alcohol Use Standard Drinks/Week Comments Not Currently 0 (1 standard drink = 0.6 oz pur e alcohol) Sex and Gender Information Value Date Recorded Sex Assigned at Not on file 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 Gender Identity Male 09/13/2020 2:28 PM CDT Sexual Orientation Not on file documented as of this encounter Plan of Treatment Not on file documented as of this encounter Procedures Procedure Name Priority Date/Time Associated Diagnosis Comments CARDIOLOGY DOCUMENT SCAN Routine 06/24/2020 documented in this encounter Results * SCAN - CARDIOLOGY (06/24/2020) Anatomical Region Laterality Modality Other us Historical Provider [facility] RENETTA GILLIS Final Result documented in this encounter Visit Diagnoses Not on filedocumented in this encounter Care Teams Line Servicer Relationship Specialty Start Date End Date Espinoza Coker MD [address] [place] [address] PCP - General Internal Medicine 04/29/20 Espinoza Coker MD [address] [place] [address] Internal Medicine 04/29/20 documented as of this encounter
--- OUTSIDE RECORDS SUMMARY | 2024-03-08 04:33 | XMS_ITS | Encounter Summary ---
Author Organization [facility] Address [address] [place] [address] Care Team Providers Care Directory Assistance Operator Name Role Phone Espinoza Coker MD Primary Care Provider [phone] Espinoza Coker MD Unavailable [phone] Reason for Visit * Reason Onset Date Comments cardiac rehab f/u call 08/22/2020 Encounter Details Date Type Department Care Team (Late st Contact Info) Description 08/22/2020 Telephone [facility] Case Management [address] [place] [address] Janet Yepez RT cardiac rehab f/u call Social History Tobacco Use Types Packs/Day Years Used Date Smoking Tobacco: Never Smokeless Tobacco: Never Alcohol Use Standard Drinks/Week Comments Not Currently 0 (1 standard drink = 0.6 oz pur e alcohol) Sex and Gender Information Value Date Recorded Sex Assigned at Not on file 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 discussed risk factor modification for heart healthy diet, regular exercise, managing stress and medication compliance. ? Pt reports taking all medication as prescribed. Asked specifically about aspirin, blood thinner, and cholesterol medication. Pt denies any current questions about medications. ?? Cardiac Rehab Facility: Asked pt if their Outpatient Cardiac Rehab (OCR) facility had contacted them yet. Pt stated he particapted in [facility] for a month and a half *Current exercise: pt states he lifts lights weights and walks for about a mile most days of the week ?? Explained the importance of trying to gradually, and safely improve exercise tolerance. Educatedpt on the [place] [employer] recommendation of working towards 150+ minutes/week of moderate-intensity aerobic exercise to help improve cardiovascular function as well as quality of life. Pt verbalized understanding. ?? Suggested that pt avoid strenuous exercise/exertion outside if the weather is under 40 degrees, or over 85 degrees. Explained the physiological reasoning for my suggestion - pt verbalized understanding. ?? Educated pt on the signs/symptoms of over-exertion: SOB, chest discomfort, musculoskeletal pain,abnormal fatigue. Explained when it would be appropriate to call Urban Gardening Specialist's office, go to the ER, or call 911 - pt verbalized understanding. *Diet: We discussed the importance of following a heart healthy diet; low salt, low fat ?? Urban Gardening Specialist Follow-up Appointment: Pt reports ?? Readmission: Pt reports they have not been readmitted to the hospital since being discharged from [facility] documented in this encounter Plan of Treatment Not on file documented as of this encounter Visit Diagnoses Not on filedocumented in this encounter Care Teams Directory Assistance Operator Relationship Specialty Start Date End Date Espinoza Coker MD [address] [facility] [address] [place] [address] PCP - General Internal Medicine 04/29/20 Espinoza Coker MD [address] [place] [address] Internal Medicine 04/29/20 documented as of this encounter
--- OUTSIDE RECORDS SUMMARY | 2024-03-08 04:33 | XMS_ITS | Encounter Summary ---
Author Organization [facility] Medical Group Address [address] [facility] [address] [place] [address] Care Team Providers Care Floating Derrick Operator Name Role Phone Espinoza Coker MD Primary Care Provider [phone] Espinoza Coker MD Unavailable [phone] Encounter Details Date Type Department Care Team (Late st Contact Info) Description 06/24/2020 Telephone [facility] Medical Group Cardiology [address] [address] Price Jones MD [address] [facility] [address] [address] Social History Tobacco Use Types Packs/Day Years Used Date Smoking Tobacco: Never Smokeless Tobacco: Never Alcohol Use Standard Drinks/Week Comments Not Currently 0 (1 standard drink = 0.6 oz pur e alcohol) Sex and Gender Information Value Date Recorded Sex Assigned at Not on file 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 * Telephone Encounter - Idania Beth - 06/24/2020 10:27 AM CDT Patient would like to return to work on June 30, 2020 and needs a work release note from Dr Jones. documented in this encounter Plan of Treatment Not on file documented as of this encounter Visit Diagnoses Not on filedocumented in this encounter Care Teams Floating Derrick Operator Relationship Specialty Start Date End Date Espinoza Coker MD [address] [facility] [address] [place] [address] PCP - General Internal Medicine 04/29/20 Espinoza Coker MD [address] [place] [address] Internal Medicine 04/29/20 documented as of this encounter
--- OUTSIDE RECORDS SUMMARY | 2024-03-08 04:33 | XMS_ITS | Patient Health Summary ---
Author Organization [facility] [employer] Address [address] [place] [place] [address] Care Team Providers Care Senior Court Office Assistant Name Role Phone Unavailable Primary Care Provider Unavailabl e Note from [facility],non-owned Affiliates and Associated Physician Practices is amultiple site organization consisting of ambulatory clinics and hospital sitesin [place], [place]. This disclosure is being madepursuant to the Care Everywhere program and may not contain all information available regarding this patient. Last updated 17.[facility] [employer] Allergies No known active allergies Social History Tobacco Use Types Packs/Day Years Used Date Smoking Tobacco: Never Assessed Sex and Gender Information Value Date Recorded Sex Assigned at Not on file Gender Identity Not on file Sexual Orientation Not on file Procedures * SKIN TEST PPD - POINT OF CARE(Performed 01/22/2019) Performed for PPD screening test Results * SKIN TEST PPD - POINT OF CARE (01/22/2019 5:01 PM LOCOMOTIVE FIRER/FIREMAN) PPD 0 MM Normal Other MISCELLANEOUS SAMPLE S / Unknown 01/22/2019 5:01 PM LOCOMOTIVE FIRER/FIREMAN Ce Holliday TOMATO GRADER-SCRAP SEPARATOR LAB - POINT OF CA RE ORDERABLES
--- OUTSIDE RECORDS SUMMARY | 2024-03-08 04:33 | XMS_ITS | Clinical Summary ---
Author Organization [facility] [employer] Address [address] [place] [address] Care Team Providers Care Undercoater Name Role Phone Unavailable Primary Care Provider Unavailabl e Source Comments [facility] [employer],non-owned Affiliates and Associated Physician Practices is amultiple site organization consisting of ambulatory clinics and hospital sitesin [place], [place] and [place]. This disclosure is being madepursuant to the Care Everywhere program and may not contain all information available regarding this patient. Last updated 17.[facility] [employer] Allergies No known active allergies Social History Tobacco Use Types Packs/Day Years Used Date Smoking Tobacco: Never Assessed Sex and Gender Information Value Date Recorded Sex Assigned at Not on file Gender Identity Not on file Sexual Orientation Not on file Plan of Treatment Health Maintenance Due Date Last Done Comments COLOGUARD (AGES 45-75) - COL ON CA SCREENING 1955 COLON MONITORING 1955 COLONOSCOPY - COLON CA SCREENING 1955 CT COLONOGRAPHY - COLON CA SCREENING 1955 Colorectal Cancer Screening 1955 FIT - COLON CA SCREENING 1955 FLEX SIG - COLON CA SCREENING 1955 LIPID TESTING 1955 HEPATITIS C SCREENING 12/03/1973 DTAP/TDAP/TD VACCINES (1 - Tdap) 12/07/1974 ZOSTER VACCINE (1 of 2) 12/07/2005 PNEUMOCOCCAL VACCINE 65+ (1 of 1 - PCV) 12/07/2020 DEPRESSION SCREENING 03/18/2023 COVID-19 VACCINE ( - 2023-2 5 season) 2023 INFLUENZA VACCINE (#1) 2023 Respiratory Syncytial Virus (RSV) Vaccine Pt: or over 60 yrs (1 - 1-dose 75+ series) 12/07/2030 HEPATITIS B VACCINE Aged Out No longe r eligible based on patient's age to complete this topic HIB VACCINE Aged Out No longer eligi ble based on patient's age to complete this topic HPV VACCINE Aged Out No longer eligi ble based on patient's age to complete this topic MENINGOCOCCAL VACCINE Aged Out No kyleigh maria ines eligible based on patient's age to complete this topic
--- OUTSIDE RECORDS SUMMARY | 2024-03-08 04:33 | XMS_ITS | Encounter Summary ---
Author Organization [facility] Medical Group Address [address] [facility] [address] [place] [address] Care Team Providers Care Criminal Court Judge Name Role Phone Espinoza Coker MD Primary Care Provider [phone] Espinoza Coker MD Unavailable [phone] Encounter Details Date Type Department Care Team (Late st Contact Info) Description 06/21/2020 Documentation Cardiovascular and Thoracic Surgery [address] [facility] [address] [place] [id number] Magaly Sheth CNS [id number] [place] [address] Social History Tobacco Use Types Packs/Day Years Used Date Smoking Tobacco: Never Smokeless Tobacco: Never Alcohol Use Standard Drinks/Week Comments Not Currently 0 (1 standard drink = 0.6 oz pur e alcohol) Sex and Gender Information Value Date Recorded Sex Assigned at Not on file 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 Denies pain or fevers. Willsee in office in am. documented in this encounter Plan of Treatment Not on file documented as of this encounter Visit Diagnoses Not on filedocumented in this encounter Care Teams Criminal Court Judge Relationship Specialty Start Date End Date Espinoza Coker MD [address] [place] [address] PCP - General Internal Medicine 04/29/20 Espinoza Coker MD [address] [facility] [address] [place] [address] Internal Medicine 04/29/20 documented as of this encounter
--- OUTSIDE RECORDS SUMMARY | 2024-03-08 04:33 | XMS_ITS | Encounter Summary ---
Author Organization [facility] Medical Group Address [address] [facility] [address] [place] [address] Care Team Providers Care Bottle Washer Name Role Phone Espinoza Coker MD Primary Care Provider [phone] Espinoza Ckoer MD Unavailable [phone] Encounter Details Date Type Department Care Team (Late st Contact Info) Description 06/24/2020 Documentation Cardiovascular and Thoracic Surgery [address] [facility] [address] [place] [id number] Magaly Sheth, [facility] [id number] [place] [address] Social History Tobacco Use Types Packs/Day Years Used Date Smoking Tobacco: Never Smokeless Tobacco: Never Alcohol Use Standard Drinks/Week Comments Not Currently 0 (1 standard drink = 0.6 oz pur e alcohol) Sex and Gender Information Value Date Recorded Sex Assigned at Not on file 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 Will continue with incisional care and doxycycline. Instructed to call the office if anything changes. He is planning on returning to work next week. documented in this encounter Plan of Treatment Not on file documented as of this encounter Visit Diagnoses Not on filedocumented in this encounter Care Teams Bottle Washer Relationship Specialty Start Date End Date Espinoza Coker MD [address] [facility] [address] [place] [address] PCP - General Internal Medicine 04/29/20 Espinoza Coker MD [address] [facility] [address] [place] [address] Internal Medicine 04/29/20 documented as of this encounter
--- OUTSIDE RECORDS SUMMARY | 2024-03-08 04:33 | XMS_ITS | Encounter Summary ---
Author Organization [facility] Medical Group Address [address] [facility] [address] [place] [address] Care Team Providers Care Telecom Engineer Name Role Phone Espinoza Coker MD Primary Care Provider [phone] Espinoza Coker MD Unavailable [phone] Reason for Visit * Reason Comments Coronary Artery Disease 6 month fu Encounter Details Date Type Department Care Team (Late st Contact Info) Description 03/14/2021 3:00 PM COMMISSIONED SECURITY OFFICER Office Visit [facility] Medical Group Cardiology [address] [address] Price Jones MD [address] [address] Coronary artery disease involving penobscot coronary artery of penobscot heart without angina pectoris (Primary Dx); History of mitral valve repair; Hx of tricuspid valve repair; Hx of CABG Social History Tobacco Use Types Packs/Day Years Used Date Smoking Tobacco: Never Smokeless Tobacco: Never Alcohol Use Standard Drinks/Week Comments Not Currently 0 (1 standard drink = 0.6 oz pur e alcohol) Sex and Gender Information Value Date Recorded Sex Assigned at Not on file 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 Sex Male 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29 03/14/2021 2:59 PM COMMISSIONED SECURITY OFFICER documented in this encounter Progress Notes * Price Jones MD - 03/14/2021 3:00 PM CST [facility] FOLLOW UP 03/14/2021 Fer Ragsdale is a 65 y.o. male [...] was referred to Card iothoracic surgery at [facility] where he was operated on in April [...] a rather large left atrium. He returns to the office today for scheduled appointment overall feeling very well. His rosuvastatin dosage has been decreased because of myalgias and Zetia has been added to the regimen. He has no cardiac symptoms at all to report. REVIEW OF SYSTEMS General ROS: negative for [...] for component: LABALBU PHYSICAL EXAM Vitals BP 138/90 (BP Location: Left arm, Patient Position: Sitting) Pulse 86 Ht 182.9 cm (6') Wt 98 kg (216 lb) SpO2 97% BMI 29.29 kg/m?? Physical Examination: General appearance - alert, [...] Diagnoses and all orders for this visit: Coronary artery disease involving penobscot coronary artery of pen[place]ot heart without angina pectoris History of mitral valve repair Hx of tricuspid valve repair Hx of CABG PLAN/RECOMMENDATIONS No change in current medical regimen Arrange for an echo Doppler at this time to evaluate the status of his mitral valve repair Follow-up here in 6 months or p.r.n. Price Jones MD ISSIONED SECURITY OFFICER documented in this encounter Plan of Treatment Not on file documented as of this encounter Visit Diagnoses Diagnosis Coronary artery disease involving penobscot coronary artery of penobscot heart without angina pectoris- Primary History of mitral valve repair Hx of tricuspid valve repair Hx of CABG Postsurgical aortocoronary bypass status documented in this encounter Historical Medications * This list may reflect changes made after this encounter. tadalafiL (CIALIS) 20 mg tablet Take 20 mg by mouth daily 02/21/2021 ezetimibe (ZETIA) 10 mg tablet Take 1 tablet (10 mg total) by mouth daily 02/21/2021 added in this encounter Care Teams Telecom Engineer Relationship Specialty Start Date End Date Espinoza Coker MD [address] [facility] [address] [place] [address] PCP - General Internal Medicine 04/29/20 Espinoza Coker MD [address] [facility] [address] [place] [address] Internal Medicine 04/29/20 documented as of this encounter
--- OUTSIDE RECORDS SUMMARY | 2024-03-08 04:33 | XMS_ITS | Clinical Summary ---
Author Organization [facility] [place] [address] Address [address] [place] [address] Care Team Providers Care Automatic Fancy Machine Operator Name Role Phone Espinoza Coker MD Primary Care Provider [phone] Espinoza Coker MD Unavailable [phone] Allergies No known active allergies Medications aspirin 81 mg enteric coated tablet Take 1 tablet (81 mg total) by mouth daily Active cholecalciferol (VITAMIN D-3) 25 mcg (1,000 unit) tablet Take 1 tablet (1,000 Units total) by mouth daily Active ezetimibe (ZETIA) 10 mg tablet Take 1 tablet (10 mg total) by mouth daily 02/21/2021 Active tadalafiL (CIALIS) 20 mg tablet Take 20 mg by mouth daily 02/21/2021 Active metoprolol XL (TOPROL-XL) 50 mg extended release tablet Take 1 tablet by mouth once daily 90 tablet 3 06/14/2023 Active rosuvastatin (CRESTOR) 10 mg tablet Take 1 tablet by mouth once daily 90 tablet 3 06/14/2023 Active Active Problems Problem Noted Date Diagnosed Date Aftercare following surgery 06/22/2020 Hx of CABG 06/21/2020 History of mitral valve repair 06/21/2020 Hx of tricuspid valve repair 06/21/2020 Coronary artery disease invo lving [place] coronary artery of [place] heart without angina pectoris 05/02/2020 Nonrheumatic mitral valve regurgitation 02/04/20 21 Encounters Date Type Department Care Team Description 01/06/2024 Telephone [facility] Cardiology [address] [place] [address] Price Jones MD from Last 3 Months Surgical History Surgery Date Site/Laterality Comments KNEE SURGERY left knee ACL MITRAL VALVE REPLACEMENT CORONARY ARTERY BYPASS GRAFT Medical History Medical History Date Comments Mitral regurgitation Coronary artery disease Mitral valve regurgitation Hyperlipidemia Cataract Family History Medical History Relation Name Comments CVA Father Atrial fibrillation Mother Relation Name Status Comments Father (Age 86) Mother Alive Social History Tobacco Use Types Packs/Day Years Used Date Smoking Tobacco: Never Smokeless Tobacco: Never Tobacco Cessation:Counseling Given: Not Answered Alcohol Use Standard Drinks/Week Comments Not Currently 0 (1 standard drink = 0.6 oz pur e alcohol) Sex and Gender Information Value Date Recorded Sex Assigned at Not on file 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 Male 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 Gender Identity Male 09/13/2020 2:28 PM CDT Sexual Orientation Not on file Obstetrics History Last Filed Vital Signs Vital Sign Reading Time Taken Comments Blood Pressure 128/78 05/21/2023 10:05 AM BUNDLES HANGER Pulse 66 05/21/2023 10:05 AM BUNDLES HANGER Temperature 36.7 ??C (98.1 ??F) 05/15/2020 9:05 AM CS T Respiratory Rate 18 06/22/2020 7:46 AM CDT Oxygen Saturation 98% 05/21/2023 10:05 AM BUNDLES HANGER Inhaled Oxygen Concentration - - Weight 96.6 kg (213 lb) 05/21/2023 10:05 AM BUNDLES HANGER Height 182.9 cm (6') 05/21/2023 10:05 AM BUNDLES HANGER Body Mass Index 28.89 05/21/2023 10:05 AM BUNDLES HANGER Plan of Treatment Health Maintenance Due Date Last Done Comments Colon Cancer Screening-Colonoscopy 1955 Depression Screening 1955 Hepatitis C Screening 1955 Prostate Cancer Screening-PSA 1955 DTaP/Tdap/Td Vaccine (1 - Tdap) 12/07/1966 Hepatitis B Screening 12/07/1973 Zoster Vaccine (1 of 2) 12/07/2005 Pneumococcal vaccine 65+ (1 of 1 - PCV) 12/07/2020 Well Visit 65+ 12/07/2020 Fall Risk Assessment 05/15/2021 05/15/2020 Influenza Vaccine (#1) 2023 Medical Devices Implanted Type Area Senior Mechanical Project Engineer Device Identifier Shelf Expiration Date Model / Serial / Lot [employer] [id number] Indra-David ds Physio Ii 32mm [place] Sew Mitral Ring - [id number] - [id number] Implanted:Qty: 1 on 05/09/2020 by Hardeep Reed MD at [facility] N/A: Mitral Valve [employer] 02/28/2025 [id number] / [id number] / [employer] [id number] Indra-David ds Physio 32mm Extended Length Handle Ergonomic - [id number] - [id number] Implanted:Qty: 1 on 05/09/2020 by Hardeep Reed MD at [facility] N/A: Tricuspid Valve [employer] 10/03/2024 [id number] / [id number] / Insurance Advance Directives For more information, please contact: [phone] * Full Code (Latest Code Status on File) Date Activated Date Inactivated Comments 05/09/2020 2:33 PM 05/15/2020 4:26 PM Care Teams Automatic Fancy Machine Operator Relationship Specialty Start Date End Date Espinoza Coker MD [address] [facility] [address] [place] [address] PCP - General Internal Medicine 04/29/20 Espinoza Coker MD [address] [facility] [address] [address] [place] [address] Internal Medicine 04/29/20
--- OUTSIDE RECORDS SUMMARY | 2024-03-08 04:33 | XMS_ITS | Referral Summary ---
Author Organization [facility] [place] [address] [facility] [address] Address [address] [place] [address] Care Team Providers Care Personal Loan Specialist Name Role Phone Espinoza Coker MD Primary Care Provider [phone] Espinoza Coker MD Unavailable [phone] Encounters Date Type Department Care Team Description 01/06/2024 Telephone [facility] Cardiology [address] [place] [address] Price Jones MD from Last 3 Months Allergies No known active allergies Medications aspirin [...] repair 06/21/2020 Coronary artery disease invo lving [place] coronary artery of [place] heart without angina pectoris 05/02/2020 Nonrheumatic mitral valve regurgitation 04/21/19 21 Social History Tobacco Use Types Packs/Day Years Used Date Smoking Tobacco: Never Smokeless Tobacco: Never Tobacco Cessation:Counseling Given: Not Answered Alcohol Use Standard Drinks/Week Comments Not Currently 0 (1 standard drink = 0.6 oz pur e alcohol) Sex and Gender Information Value Date Recorded Sex Assigned at Not on file Legal Sex Male 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 Gender Identity Male 09/13/2020 2:28 PM CDT Sexual Orientation Not on file Last Filed Vital Signs Vital Sign Reading Time Taken Comments Blood Pressure 128/78 05/21/2023 10:05 AM ASSOCIATE PROFESSOR OF ECONOMICS Pulse 66 05/21/2023 10:05 AM ASSOCIATE PROFESSOR OF ECONOMICS Temperature 36.7 ??C (98.1 ??F) 05/15/2020 9:05 AM CS T Respiratory Rate 18 06/22/2020 7:46 AM CDT Oxygen Saturation 98% 05/21/2023 10:05 AM ASSOCIATE PROFESSOR OF ECONOMICS Inhaled Oxygen Concentration - - Weight 96.6 kg (213 lb) 05/21/2023 10:05 AM ASSOCIATE PROFESSOR OF ECONOMICS Height 182.9 cm (6') 05/21/2023 10:05 AM ASSOCIATE PROFESSOR OF ECONOMICS Body Mass Index 28.89 05/21/2023 10:05 AM ASSOCIATE PROFESSOR OF ECONOMICS Plan of Treatment Not on file Medical Devices Implanted Type Area Interlocking Installer Device Identifier Shelf Expiration Date Model / Serial / Lot [employer] [id number] Indra-David ds Physio Ii 32mm [place]ar Sew Mitral Ring - [id number] - [id number] Implanted:Qty: 1 on 05/09/2020 by Hardeep Reed MD at [facility] N/A: Mitral Valve [employer] 02/28/2025 [id number] / [id number] / [employer] [id number] Indra-David ds Physio 32mm Extended Length Handle Ergonomic - [id number] - [id number] Implanted:Qty: 1 on 05/09/2020 by Hardeep Reed MD at [facility] N/A: Tricuspid Valve [employer] 10/03/2024 [id number] / [id number] / Insurance Advance Directives For more information, please contact: [phone] * Full Code (Latest Code Status on File) Date Activated Date Inactivated Comments 05/09/2020 2:33 PM 05/15/2020 4:26 PM Care Teams Personal Loan Specialist Relationship Specialty Start Date End Date Espinoza Coker MD [address] [facility] [address] [place] [address] PCP - General Internal Medicine 04/29/20 Espinoza Coker MD [address] [place] [address] Internal Medicine 04/29/20
--- OUTSIDE RECORDS SUMMARY | 2024-03-08 04:33 | XMS_ITS | Encounter Summary ---
Author Organization [facility] Address [address] [facility] [place] [address] Care Team Providers Care Tool Honing Machine Set Up Operator Name Role Phone Unavailable Primary Care Provider Unavailabl e Reason for Visit * Reason Comments PPD Skin Test Placement Encounter Details Date Type Department Care Team (Late st Contact Info) Description 01/20/2019 3:20 PM AIRDOX FITTER Office Visit [facility] AT [address] [phone] Provider, [facility] [place] PPD screening test (Primary Dx) Social History Tobacco Use Types Packs/Day Years Used Date Smoking Tobacco: Never Assessed Sex and Gender Information Value Date Recorded Sex Assigned at Not on file Gender Identity Not on file Sexual Orientation Not on file documented as of this encounter Progress Notes * Bebe Stevens - 01/22/2019 5:02 PM CST 01/22/2019 Fer Ragsdale returns to clinic today for TB (PPD) reading. 0mm of induration noted, negative reading. Copy of the results were given to patient and scanned into the medical record. Patient denies any further questions or concerns today. Bebe Stevens 01/22/2019 5:02 PM OX FITTER * Ce Holliday APRN-CNP - 01/20/2019 2:48 PM CST PPD Placement note Fer Ragsdale, 63 year old male is here today for placement of PPD test Reason for PPD test: work Pt taken PPD test before: yes Verified in allergy area and with patient that they are not allergic to the products PPD is made of(Phenol or Tween). Yes Is patient taking any oral or IV steroid medication now or have they taken it in the last month? no Has the patient ever received the BCG vaccine?: yes in 1979's, but states that he has had multiple PPD's since then and have never had a reaction. Advised pt that he should have chest xray or blood test, and he states he prefers to have skin test. Pt advised that if he has a reaction, to not have anymore TB skin test, and in the future have blood test or chest xray. Has the patient been in recent contact with anyone known or suspected of having active TB disease?:no Date of exposure (if applicable): na Name of person they were exposed to (if applicable): na Patient's Country of origin?: [place] O: Alert and oriented in NAD. P: PPD placed on 01/20/2019. Patient advised to return for reading within 48-72 hours. OX FITTER documented in this encounter Plan of Treatment Not on file documented as of this encounter Procedures Procedure Name Priority Date/Time Associated Diagnosis Comments SKIN TEST PPD - POINT OF CARE Routine 01/22/2019 5:01 PM AIRDOX FITTER PPD screening test documented in this encounter Results * SKIN TEST PPD - POINT OF CARE (01/22/2019 5:01 PM AIRDOX FITTER) PPD 0 MM Normal Other MISCELLANEOUS SAMPLE S / Unknown 01/22/2019 5:01 PM AIRDOX FITTER [facility] - POINT OF CA RE ORDERABLES documented in this encounter Visit Diagnoses Diagnosis PPD screening test- Primary Screening examination for pulmonary tuberculosis documented in this encounter Administered Medications Administered Medications Medication Order MAR Action Action Date Dose Rate Site PPD Intradermal Given 01/20/2019 0.1 mL Left Forearm documented in this encounter
--- OUTSIDE RECORDS SUMMARY | 2024-03-08 04:33 | XMS_ITS | Encounter Summary ---
Author Organization [facility] Address [address] [address] Care Team Providers Care Message And Delivery Service Pricer Name Role Phone Espinoza Coker MD Primary Care Provider [phone] Espinoza Coker MD Unavailable [phone] Encounter Details Date Type Department Care Team (Late st Contact Info) Description 10/06/2021 Telephone [facility] Cardiology [address] [address] Edie Harris Social History Tobacco Use Types Packs/Day Years Used Date Smoking Tobacco: Never Smokeless Tobacco: Never Alcohol Use Standard Drinks/Week Comments Not Currently 0 (1 standard drink = 0.6 oz pur e alcohol) Sex and Gender Information Value Date Recorded Sex Assigned at Not on file 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 Sex 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 Gender Identity Male 09/13/2020 2:28 PM CDT Sexual Orientation Not on file documented as of this encounter Ordered Prescriptions Prescription Sig Dispense Quantity Refills Last Filled Start Date End Date metoprolol XL (TOPROL-XL) 50 mg extended release tablet Take 1 tablet (50 mg total) by mouth daily 90 tablet 3 10/06/2021 09/03/2022 documented in this encounter Miscellaneous Notes * Telephone Encounter - Peace Caldera MA - 10/06/2021 2:33 PM CDT Refill sent to the pharmacy * Telephone Encounter - Edie Andrews - 10/06/2021 2:29 PM CDT [facility] pharmacy called states pt is requesting refill for metoprolol 50 mg. Contact: documented in this encounter Plan of Treatment Not on file documented as of this encounter Visit Diagnoses Not on filedocumented in this encounter Discontinued Medications Medication Sig Discontinue Reason Start Date End Da te metoprolol XL (TOPROL-XL) 50 mg extended release tablet Take 1 tablet (50 mg total) by mouth daily Reorder 09/13/2020 10/06/2021 documented as of this encounter Care Teams Message And Delivery Service Pricer Relationship Specialty Start Date End Date Espinoza Coker MD [address] [facility] [address] [place] [address] PCP - General Internal Medicine 04/29/20 Espinoza Coker MD [address] [facility] [address] [place] [address] Internal Medicine 04/29/20 documented as of this encounter
--- OUTSIDE RECORDS SUMMARY | 2024-03-08 04:33 | XMS_ITS | Encounter Summary ---
Author Organization [facility] Address [address] [facility] [address] [place] [address] Care Team Providers Care Hospital Admissions Clerk Name Role Phone Espinoza Coker MD Primary Care Provider [phone] Espinoza Coker MD Unavailable [phone] Encounter Details Date Type Department Care Team (Late st Contact Info) Description 05/16/2020 Documentation Cardiovascular and Thoracic Surgery [address] [facility] [address] [place] [id number] Magaly Sheth CNS [id number] [place] [address] Social History Tobacco Use Types Packs/Day Years Used Date Smoking Tobacco: Never Smokeless Tobacco: Never Alcohol Use Standard Drinks/Week Comments Not Currently 0 (1 standard drink = 0.6 oz pur e alcohol) Sex and Gender Information Value Date Recorded Sex Assigned at Not on file 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 Incision healing without difficulty. HHN saw this am. VSS. Lungs clear with diminished bases. Increase IS and activity. Denies fevers. ING LINE SET UP WORKER documented in this encounter Plan of Treatment Not on file documented as of this encounter Visit Diagnoses Not on filedocumented in this encounter Care Teams Hospital Admissions Clerk Relationship Specialty Start Date End Date Espinoza Coker MD [address] [facility] [address] [place] [address] PCP - General Internal Medicine 04/29/20 Espinoza Coker MD [address] [facility] [address] [place] [address] Internal Medicine 04/29/20 documented as of this encounter
--- OUTSIDE RECORDS SUMMARY | 2024-03-08 04:33 | XMS_ITS | Encounter Summary ---
Author Organization [facility] Address [address] [facility] [address] [place] [address] Care Team Providers Care Pantograph Transferrer Name Role Phone Espinoza Coker MD Primary Care Provider [phone] Espinoza Coker MD Unavailable [phone] Reason for Visit * Reason Comments Follow-up cath on 05/01/20, CA BG on 05/09/20 and echo on 05/13/20. Chest coke still cleaner Voice is horse Energy is good Encounter Details Date Type Department Care Team (Late st Contact Info) Description 06/21/2020 3:15 PM CDT Office Visit [facility] Cardiology [address] [facility] [address] [phone] Price Jones MD [address] [facility] [address] [place] [address] Coronary artery disease involving [place] coronary artery of [place] heart without angina pectoris (Primary Dx); Nonrheumatic mitral valve regurgitation; Hx of tricuspid valve repair; History of mitral valve repair; Hx of CABG Social History Tobacco Use Types Packs/Day Years Used Date Smoking Tobacco: Never Smokeless Tobacco: Never Alcohol Use Standard Drinks/Week Comments Not Currently 0 (1 standard drink = 0.6 oz pur e alcohol) Sex and Gender Information Value Date Recorded Sex Assigned at Not on file Legal Sex Male 7: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 Gender Identity Male 09/13/2020 2:28 PM CDT Sexual Orientation Not on file documented as of this encounter Last Filed Vital Signs Vital Sign Reading Time Taken Comments Blood Pressure 118/76 06/21/2020 3:13 PM CDT Pulse 102 06/21/2020 3:13 PM CDT Temperature - - Respiratory Rate - - Oxygen Saturation 96% 06/21/2020 3:13 PM CDT Inhaled Oxygen Concentration - - Weight 89 kg (196 lb 1.6 oz) 06/21/2020 3:13 PM CDT Height 182.9 cm (6') 06/21/2020 3:13 PM CDT Body Mass Index 26.6 06/21/2020 3:13 PM CDT documented in this encounter Ordered Prescriptions Prescription Sig Dispense Quantity Refills Last Filled Start Date End Date metoprolol XL (TOPROL-XL) 100 mg 24 hr tablet Take 1 tablet (100 mg total) by mouth daily 30 tablet 11 06/21/2020 09/13/2020 documented in this encounter Progress Notes * Price Jones MD - 06/21/2020 3:15 PM CDT [facility] FOLLOW UP 06/21/2020 Fer Ragsdale is a 64 y.o. male [...] was referred to Card iothoracic surgery at [facility] where he was operated on in [...] atrium. He returns to the office today feeling well he is getting his energy back in the last couple of weeks his operation was now done 6 weeks ago. He does have some vocal cord paralysis that is persistingfollowing surgery that is hoped will recover. We talked about his medication he would like to get his beta-tia shifted to long-acting Toprol so he does not have to take it twice a day I told him that was fine. I am going to recommend keeping him on apixaban for the balance of 3 months followingsurgery. Since his left atrial appendage was amputated he probably does not have to stay on systemic anticoagulation chronically. He did have a very small amount of drainage from the center of his sternotomy incision UE yesterday he is going to see his surgeon tomorrow morning about that. REVIEW OF SYSTEMS General ROS: negative for [...] rash HOME MEDICATIONS Current Outpatient Medications: ??? apixaban (ELIQUIS) 5 mg tablet, Take 1 tablet (5 mg total) by mouth every 12 (twelve) hours, Disp: 60 tablet, Rfl: 1 ??? aspirin 81 mg enteric coated tablet, Take 81 mg by mouth daily, Disp: , Rfl: ??? atorvastatin (LIPITOR) 80 mg tablet, Take 1 tablet (80 mg total) by mouth nightly, Disp: 30 tablet, Rfl: 2 ??? cholecalciferol (VITAMIN D-3) 25 mcg (1,000 unit) tablet, Take 1,000 Units by mouth daily, Disp: , Rfl: ??? metoprolol tartrate (LOPRESSOR) 50 mg immediate release tablet, Take 1 tablet (50 mg total) by mouth 2 (two) times a day, Disp: 60 tablet, Rfl: 2 LABS AND OTHER DIAGNOSTIC TESTS No results found for: CHOL No results found for: HDL No results found for: LDLCALC No results found for: TRIG No results found for: CHOLHDL Lab Results Component Value Date WBC 5.6 05/15/2020 HGB 11.9 (L) 05/15/2020 HCT 35.3 (L) 05/15/2020 MCV 83.3 05/15/2020 No lab exists for component: LABALBU PHYSICAL EXAM Vitals BP 118/76 (BP Location: Right arm, Patient Position: Sitting) Pulse 102 Ht 182.9 cm (6') Wt 89 kg (196 lb 1.6 oz) SpO2 96% BMI 26.60 kg/m?? Physical Examination: General appearance - alert, [...] noted ASSESSMENT Fer was seen today for follow-up, chest coke still cleaner, voice is horse and energy is good. Diagnoses and all orders for this visit: Coronary artery disease involving [place] coronary artery of [place] heart without angina pectoris Nonrheumatic mitral valve regurgitation Hx of tricuspid valve repair History of mitral valve repair Hx of CABG PLAN/RECOMMENDATIONS Change beta-tia to Toprol XL 100 mg daily Referred to phase 2 cardiac rehab Follow-up here in 3 months echocardiogram prior to that appointment Price Jones MD documented in this encounter Plan of Treatment Not on file documented as of this encounter Visit Diagnoses Diagnosis Coronary artery disease involving [place] coronary artery of [place] heart without angina pectoris- Primary Nonrheumatic mitral valve regurgitation Hx of tricuspid valve repair History of mitral valve repair Hx of CABG Postsurgical aortocoronary bypass status documented in this encounter Discontinued Medications Medication Sig Discontinue Reason Start Date End Da te metoprolol tartrate (LOPRESSOR) 50 mg immediate release tablet Take 1 tablet (50 mg total) by mouth 2 (two) times a day 05/15/2020 06/21/2020 documented as of this encounter Care Teams Pantograph Transferrer Relationship Specialty Start Date End Date Espinoza Coker MD [address] [facility] [address] [place] [address] PCP - General Internal Medicine 04/29/20 Espinoza Coker MD [address] [facility] [address] [place] [address] Internal Medicine 04/29/20 documented as of this encounter
--- OUTSIDE RECORDS SUMMARY | 2024-03-08 04:33 | XMS_ITS | Referral Summary ---
Author Organization [facility] Address [address] [facility] [place] [address] Care Team Providers Care Rough Rib Grader Name Role Phone Unavailable Primary Care Provider Unavailabl e Source Comments [facility],non-owned Affiliates and Associated Physician Practices is amultiple site organization consisting of ambulatory clinics and hospital sitesin [place], [place], [place] and [place]. This disclosure is being madepursuant to the Care Everywhere program and may not contain all information available regarding this patient. Last updated 17.[facility] [employer] Allergies No known active allergies Social History Tobacco Use Types Packs/Day Years Used Date Smoking Tobacco: Never Assessed Sex and Gender Information Value Date Recorded Sex Assigned at Not on file Gender Identity Not on file Sexual Orientation Not on file Plan of Treatment Not on file Administered Medications
--- OUTSIDE RECORDS SUMMARY | 2024-03-08 04:33 | XMS_ITS | Encounter Summary ---
Author Organization [facility] Address [address] [place] [address] Care Team Providers Care Glass Artist Name Role Phone Espinoza Coker MD Primary Care Provider [phone] Espinoza Coker MD Unavailable [phone] Reason for Visit * Reason Comments Post-op Open Heart Surgery Encounter Details Date Type Department Care Team (Late st Contact Info) Description 06/16/2020 9:30 AM CDT Office Visit Cardiovascular and Thoracic Surgery [address] [facility] [address] [place] [address] Hadreep Reed MD [facility] [address] [place] [address] Aftercare following surgery (Primary Dx) Social History Tobacco Use Types Packs/Day Years Used Date Smoking Tobacco: Never Smokeless Tobacco: Never Alcohol Use Standard Drinks/Week Comments Not Currently 0 (1 standard drink = 0.6 oz pur e alcohol) Sex and Gender Information Value Date Recorded Sex Assigned at Not on file 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 Gender Identity Male 09/13/2020 2:28 PM CDT Sexual Orientation Not on file documented as of this encounter Last Filed Vital Signs Vital Sign Reading Time Taken Comments Blood Pressure 108/80 06/16/2020 10:31 AM CDT Pulse 76 06/16/2020 10:31 AM CDT Temperature - - Respiratory Rate 18 06/16/2020 10:31 AM CDT Oxygen Saturation - - Inhaled Oxygen Concentration - - Weight 86.2 kg (190 lb) 06/16/2020 10:31 AM CDT Height 185 cm (6' 0.84 ) 06/16/2020 10:31 AM CDT Body Mass Index 25.18 06/16/2020 10:31 AM CDT documented in this encounter Patient Instructions * Patient Instructions* Magaly Sheth, CERTIFIED MASTER SAFECRACKER - 06/16/2020 9:30 AM CDT Cardiac rehabilitation recommended Ok to drive. Increase activity as tolerate Follow up with Dr. Jones and decide when to discontinue eliquis. Will see as needed. Antibiotic Prophylaxis Taking an antibiotic before or immediately after a surgical procedure in order to prevent an infection is called antibiotic prophylaxis. It may be recommended by a primary doctor, a orthopedic nurse practitioner, or an orthopedist for patients who are at particular risk for dangerous infections, such as an infection of a heart valve or prosthetic joint. Conditions for which antibiotic prophylaxis is often recommended are: ?? Prosthetic heart valve ?? History of a heart valve infection ?? Certain types of congenital heart disease ?? Prosthetic joint Even in patients for whom antibiotic prophylaxis has been recommended, not all surgical procedures require antibiotic prophylaxis. It is often recommended for procedures of the mouth, respiratory tract, or GI tract. However, most skin procedures do not require any antibiotic prophylaxis. Whenever uncertain, patients should consult the doctor who made the recommendation for antibiotic prophylaxis. The antibiotic is typically given as a single dose 30-60 minutes before the procedure. The choice of antibiotic depends on the medical condition, the surgical procedure, and the presence of any allergies. Common antibiotics and dosing are: ?? Amoxicillin: 2 g for adults and 50 mg/kg for children ?? Cephalexin: 2 g for adults and 50 mg/kg for children ?? Clindamycin: 600 mg for adults and 20 mg/kg for children ?? Azithromycin or clarithromycin: 500 mg for adults and 15 mg/kg for children Antibiotic Prophylaxis Taking an antibiotic before or immediately after a surgical procedure in order to prevent an infection is called antibiotic prophylaxis. It may be recommended by a primary doctor, a orthopedic nurse practitioner, or an orthopedist for patients who are at particular risk for dangerous infections, such as an infection of a heart valve or prosthetic joint. Conditions for which antibiotic prophylaxis is often recommended are: ?? Prosthetic heart valve ?? History of a heart valve infection ?? Certain types of congenital heart disease ?? Prosthetic joint Even in patients for whom antibiotic prophylaxis has been recommended, not all surgical procedures require antibiotic prophylaxis. It is often recommended for procedures of the mouth, respiratory tract, or GI tract. However, most skin procedures do not require any antibiotic prophylaxis. Whenever uncertain, patients should consult the doctor who made the recommendation for antibiotic prophylaxis. The antibiotic is typically given as a single dose 30-60 minutes before the procedure. The choice of antibiotic depends on the medical condition, the surgical procedure, and the presence of any allergies. Common antibiotics and dosing are: ?? Amoxicillin: 2 g for adults and 50 mg/kg for children ?? Cephalexin: 2 g for adults and 50 mg/kg for children ?? Clindamycin: 600 mg for adults and 20 mg/kg for children ?? Azithromycin or clarithromycin: 500 mg for adults and 15 mg/kg for children documented in this encounter Progress Notes * Magaly Sheth CNS - 06/16/2020 9:30 AM CDT Subjective/Objective Patient ID: Fer Ragsdale is a 64 y.o. male. Chief Complaint Post-op Open Heart Surgery BP 108/80 Pulse 76 Resp 18 Ht 185 cm (6' 0.84 ) Wt 86.2 kg (190 lb) BMI 25.18 kg/m?? 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 He is doing very well in his recovery. He denies chest pain, palpitations,shortness of breath, or lower extremity edema. He has been hoarse since his ALBERTO. This has not improved. He saw ENT MD and was told he has vocal cord paralysis.For now he will continue to monitor with possible injection if no improvement. He is anxious to return to work. PHYSICAL EXAM: Lungs: Clear Cardiac: Regular Incision: Sternum intact and well healed. Lower extremity edema: Right: none Left: none READMISSION: No Current Outpatient Medications: ??? apixaban (ELIQUIS) 5 [...] a day, Disp: 60 tablet, Rfl: 2 Assessment/Plan Diagnoses and all orders for this visit: Aftercare following surgery (Primary) The patient is doing very well following coronary artery bypass grafting, mitral valve repair, and tricuspid valve repair. I reviewed with him his activity restriction of less than `10lbs for one more month. He can drive at this point. We will discontinue his lasix. All his questions were answered to his apparent satisfaction. He has an appointment with Dr. Jones. He can decide when to discontinue eliquis. He will follow up with ENT MD if voice doesn't improve. He plans to return to work the week of June 27. He can return to our office on an as-needed basis only. documented in this encounter Plan of Treatment Not on file documented as of this encounter Visit Diagnoses Diagnosis Aftercare following surgery- Primary Encounter for other specified aftercare documented in this encounter Discontinued Medications Medication Sig Discontinue Reason Start Date End Da te furosemide (LASIX) 20 mg tablet Take 1 tablet (20 mg total) by mouth daily Therapy completed 04/26/2020 06/16/2020 HYDROcodone-acetaminophe n (NORCO) 5-325 mg per tabletIndications:Pain Take 1-2 tablets by mouth every 6 (six) hours as needed for pain Therapy completed 05/15/2020 06/16/2020 documented as of this encounter Care Teams Glass Artist Relationship Specialty Start Date End Date Espinoza Coker MD [address] [address] [place] [address] PCP - General Internal Medicine 04/29/20 Espinoza Coker MD [address] [facility] [address] [place] [address] Internal Medicine 04/29/20 documented as of this encounter
--- OUTSIDE RECORDS SUMMARY | 2024-03-08 04:33 | XMS_ITS | Encounter Summary ---
Author Organization [facility] Address [address] [place] [address] Care Team Providers Care Excel Developer Name Role Phone Espinoza Coker MD Primary Care Provider [phone] Espinoza Coker MD Unavailable [phone] Reason for Visit * Reason Comments Coronary Artery Disease 6 month follow u p. Encounter Details Date Type Department Care Team (Late st Contact Info) Description 04/10/2022 2:30 PM SOLAR TECH Office Visit [facility] Cardiology [address] [facility] [address] [place] [address] Price Jones MD [address] [place] [address] Coronary artery disease involving mohegan coronary artery of mohegan heart without angina pectoris (Primary Dx); Nonrheumatic mitral valve regurgitation; History of mitral valve repair; Hx of CABG Social History Tobacco Use Types Packs/Day Years Used Date Smoking Tobacco: Never Smokeless Tobacco: Never Tobacco Cessation:Counseling Given: Not Answered Alcohol Use Standard Drinks/Week Comments Not Currently 0 (1 standard drink = 0.6 oz pur e alcohol) Sex and Gender Information Value Date Recorded Sex Assigned at Not on file Legal Sex Male 7:00 PM SOLAR TECH Gender Identity Male 09/13/2020 2:28 PM CDT Sexual Orientation Not on file documented as of this encounter Last Filed Vital Signs Vital Sign Reading Time Taken Comments Blood Pressure 110/68 04/10/2022 2:26 PM SOLAR TECH Pulse 70 04/10/2022 2:26 PM SOLAR TECH Temperature - - Respiratory Rate - - Oxygen Saturation 95% 04/10/2022 2:26 PM SOLAR TECH Inhaled Oxygen Concentration - - Weight 98.9 kg (218 lb) 04/10/2022 2:26 PM SOLAR TECH Height 182.9 cm (6') 04/10/2022 2:26 PM SOLAR TECH Body Mass Index 29.57 04/10/2022 2:26 PM SOLAR TECH documented in this encounter Progress Notes * Price Jones MD - 04/10/2022 2:30 PM CST [facility] FOLLOW UP 04/10/2022 Fer Ragsdale is a 66 y.o. male who presents for follow up [...] was referred to Card iothoracic surgery at [facility] where he was operated on in [...] he had a rather large left atrium. In the summer of 2021 his rosuvastatin dosage was reduced from 20-10 mg because of problematic muscle pain. Ezetimibe was continued at this time. He continues to do very well and describes no symptoms of ischemia or symptoms of decompensated heart failure. He feels much better in terms of the myalgias on a lower dose of rosuvastatin. REVIEW OF SYSTEMS General ROS: negative for [...] and rash HOME MEDICATIONS Current Outpatient Medications: aspirin 81 mg enteric coated tablet, Take 81 mg by mouth daily, Disp: , Rfl: cholecalciferol (VITAMIN D-3) 25 mcg (1,000 unit) tablet, Take 1,000 Units by mouth daily, Disp: , Rfl: ezetimibe (ZETIA) 10 mg tablet, Take 10 mg by mouth daily, Disp: , Rfl: metoprolol XL (TOPROL-XL) 50 mg extended release tablet, Take 1 tablet (50 mg total) by mouth daily, Disp: 90 tablet, Rfl: 3 rosuvastatin (CRESTOR) 10 mg tablet, Take 1 tablet (10 mg total) by mouth daily, Disp: 90 tablet, Rfl: 3 tadalafiL (CIALIS) 20 mg tablet, Take 20 [...] for component: LABALBU PHYSICAL EXAM Vitals BP 110/68 (BP Location: Right arm, Patient Position: Sitting) Pulse 70 Ht 182.9 cm (6') Wt 98.9 kg (218 lb) SpO2 95% BMI 29.57 kg/m?? Physical Examination: General appearance - alert, [...] for this visit: Coronary artery disease involving mohegan coronary artery of mohegan heart without angina pectoris Nonrheumatic mitral valve regurgitation History of mitral valve repair Hx of CABG PLAN/RECOMMENDATIONS Continue current medical regimen he is doing very well and is stable Follow-up at annual intervals at this time. Price Jones MD R TECH documented in this encounter Plan of Treatment Not on file documented as of this encounter Visit Diagnoses Diagnosis Coronary artery disease involving mohegan coronary artery of mohegan heart without angina pectoris- Primary Nonrheumatic mitral valve regurgitation History of mitral valve repair Hx of CABG Postsurgical aortocoronary bypass status documented in this encounter Care Teams Excel Developer Relationship Specialty Start Date End Date Espinoza Coker MD [address] [facility] [address] [place] [address] PCP - General Internal Medicine 04/29/20 Espinoza Coker MD [address] [facility] [address] [place] [address] Internal Medicine 04/29/20 documented as of this encounter
--- OUTSIDE RECORDS SUMMARY | 2024-03-08 04:33 | XMS_ITS | Encounter Summary ---
Author Organization [facility] Address [address] [place] [address] Care Team Providers Care Chief Executive Officer Name Role Phone Espinoza Coker MD Primary Care Provider [phone] Espinoza Coker MD Unavailable [phone] Encounter Details Date Type Department Care Team (Late st Contact Info) Description 01/06/2024 Telephone [facility] Cardiology [address] [facility] [address] [facility] [address] [place] [address] Price Jones MD [address] [place] [address] Social History Tobacco Use Types Packs/Day Years Used Date Smoking Tobacco: Never Smokeless Tobacco: Never Alcohol Use Standard Drinks/Week Comments Not Currently 0 (1 standard drink = 0.6 oz pur e alcohol) Sex and Gender Information Value Date Recorded Sex Assigned at Not on file Legal Sex Male 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 Thank you. Contact: documented in this encounter Plan of Treatment Not on file documented as of this encounter Visit Diagnoses Not on filedocumented in this encounter Care Teams Chief Executive Officer Relationship Specialty Start Date End Date Espinoza Coker MD [address] [facility] [address] [place] [address] PCP - General Internal Medicine 04/29/20 Espinoza Coker MD [address] [facility] [address] [place] [address] Internal Medicine 04/29/20 documented as of this encounter
--- OUTSIDE RECORDS SUMMARY | 2024-03-08 04:33 | XMS_ITS | Encounter Summary ---
Author Organization [facility] Address [address] [facility] [address] [place] [address] Care Team Providers Care Retail Management Keyholder Name Role Phone Espinoza Coker MD Primary Care Provider [phone] Espinoza Coker MD Unavailable [phone] Reason for Visit * Reason Comments Post-op Open Heart Surgery Encounter Details Date Type Department Care Team (Late st Contact Info) Description 06/22/2020 7:30 AM CDT Office Visit Cardiovascular and Thoracic Surgery [address] [facility] [address] [place] [address] Price Pierre MD [address] [place] [address] [address] [place] [address] Aftercare following surgery (Primary Dx) Social History Tobacco Use Types Packs/Day Years Used Date Smoking Tobacco: Never Smokeless Tobacco: Never Alcohol Use Standard Drinks/Week Comments Not Currently 0 (1 standard drink = 0.6 oz pur e alcohol) Sex and Gender Information Value Date Recorded Sex Assigned at Not on file Legal Sex Male 7:00 PM MANAGER SEARCH Gender Identity Male 09/13/2020 2:28 PM CDT Sexual Orientation Not on file documented as of this encounter Last Filed Vital Signs Vital Sign Reading Time Taken Comments Blood Pressure 127/81 06/22/2020 7:46 AM CDT Pulse 89 06/22/2020 7:46 AM CDT Temperature - - Respiratory Rate 18 06/22/2020 7:46 AM CDT Oxygen Saturation - - Inhaled Oxygen Concentration - - Weight - - Height - - Body Mass Index - - documented in this encounter Patient Instructions * Patient Instructions* Magaly Sheth CNS - 06/22/2020 7:30 AM CDT Start antibiotic today for 10 days. Call with changes in drainage or increase erythema or fevers Will see as needed documented in this encounter Ordered Prescriptions Prescription Sig Dispense Quantity Refills Last Filled Start Date End Date doxycycline (VIBRAMYCIN) 100 mg capsule Take 1 tablet/caps ule (100 mg total) by mouth 2 (two) times a day for 10 days 20 tablet/capsule 06/22/2020 07/02/2020 documented in this encounter Progress Notes * Magaly Sheth CNS - 06/22/2020 7:30 AM CDT Sternal incision has 2 small openings and has drained small amounts of serosanguinous drainage. No erythema and he is afebrile. could be reaction to suture. Dr. Pierre evaluated and doxycycline prescribed for 10 days. He will monitor for increase drainage,fevers, or erythema. He was instructed to wash with antibacterial soap and cover with 4x4 until drainage stops documented in this encounter Plan of Treatment Not on file documented as of this encounter Visit Diagnoses Diagnosis Aftercare following surgery- Primary Encounter for other specified aftercare documented in this encounter Care Teams Retail Management Keyholder Relationship Specialty Start Date End Date Espinoza Coker MD [address] [place] [address] PCP - General Internal Medicine 04/29/20 Espinoza Coker MD [address] [place] [address] Internal Medicine 04/29/20 documented as of this encounter
--- OUTSIDE RECORDS SUMMARY | 2024-03-08 04:33 | XMS_ITS | Encounter Summary ---
Author Organization [facility] Healthcare Address [address] [place] [address] Care Team Providers Care Progressive Care Manager Name Role Phone Espinoza Coker MD Primary Care Provider [phone] Espinoza Coker MD Unavailable [phone] Encounter Details Date Type Department Care Team (Late st Contact Info) Description 05/21/2023 10:15 AM MOTION PICTURE SET UP WORKER Office Visit [facility] Cardiology [address] [facility] [address] [address] Price Jones MD [address] [facility] [address] [place] [address] Hx of CABG (Primary Dx); History [...] on file Legal Sex Male 7:00 PM MOTION PICTURE SET UP WORKER Gender Identity Male 09/13/2020 2:28 PM CDT Sexual Orientation Not on file documented as of this encounter Last Filed Vital Signs Vital Sign Reading Time Taken Comments Blood Pressure 128/78 05/21/2023 10:05 AM MOTION PICTURE SET UP WORKER Pulse 66 05/21/2023 10:05 AM MOTION PICTURE SET UP WORKER Temperature - - Respiratory Rate - - Oxygen Saturation 98% 05/21/2023 10:05 AM MOTION PICTURE SET UP WORKER Inhaled Oxygen Concentration - - Weight 96.6 kg (213 lb) 05/21/2023 10:05 AM MOTION PICTURE SET UP WORKER Height 182.9 cm (6') 05/21/2023 10:05 AM MOTION PICTURE SET UP WORKER Body Mass Index 28.89 05/21/2023 10:05 AM MOTION PICTURE SET UP WORKER documented in this encounter Progress Notes * Price Jones MD - 05/21/2023 10:15 AM CST [facility] 05/21/2023 Fer Ragsdale is a 67 y.o. male who presents for follow up [...] was referred to Card iothoracic surgery at [facility] where he was operated on in April [...] at this time. He continues to do well and presents today for annual follow-up. No symptoms of ischemia or of decompensated heart failure. On physical exam his mitral valve repair sounds fine. The lipids are acceptable total cholesterol is 131 with an LDL of 85. REVIEW OF SYSTEMS General ROS: negative for [...] aspirin 81 mg enteric coated tablet, Take 1 tablet (81 mg total) by mouth daily, Disp: , Rfl: cholecalciferol (VITAMIN D-3) 25 mcg (1,000 unit) tablet, Take 1 tablet (1,000 Units total) by mouth daily, Disp: , Rfl: ezetimibe (ZETIA) 10 mg tablet, Take 1 tablet (10 mg total) by mouth daily, Disp: , Rfl: metoprolol XL (TOPROL-XL) 50 mg extended release tablet, Take 1 tablet by mouth once daily, Disp: 90 tablet, Rfl: 1 rosuvastatin (CRESTOR) 10 mg tablet, Take 1 tablet by mouth once daily, Disp: 90 tablet, Rfl: 1 tadalafiL (CIALIS) 20 mg tablet, Take 20 mg by mouth daily (Patient not taking: Reported on 05/21/2023), Disp: , Rfl: LABS AND OTHER DIAGNOSTIC TESTS No results found for: CHOL No results found for: HDL No results found for: LDLCALC No results found for: TRIG No results found for: CHOLHDL Lab Results Component Value Date WBC 5.6 05/15/2020 HGB 11.9 (L) 05/15/2020 HCT 35.3 (L) 05/15/2020 MCV 83.3 05/15/2020 No lab exists for component: LABALBU PHYSICAL EXAM Vitals BP 128/78 (BP Location: Right arm, Patient Position: Sitting) Pulse 66 Ht 182.9 cm (6') Wt 96.6 kg [...] rashes, no suspicious skin lesions noted ASSESSMENT Diagnoses and all orders for this visit: Hx of CABG History of mitral valve repair Hx of tricuspid valve repair PLAN/RECOMMENDATIONS Continue current medical regimen he is doing very well and is stable We will continue current dose of rosuvastatin and Zetia. His myalgias have become much improved on lower dose of rosuvastatin and so I believe his lipid panel is optimized although not quite at goal Follow-up at annual intervals at this time. Price Jones MD ON PICTURE SET UP WORKER documented in this encounter Miscellaneous Notes * Addendum Note - Oren Castro CMA - 05/21/2023 10:15 AM CSTAddended by: OREN CASTRO on: 05/21/2023 11:09 AM Modules accepted: Orders ON PICTURE SET UP WORKER documented in this encounter Plan of Treatment Not on file documented as of this encounter Procedures Procedure Name Priority Date/Time Associated Diagnosis Comments POCT LIPID PANEL Routine 05/21/2023 11:0 8 AM MOTION PICTURE SET UP WORKER Lipid screening documented in this encounter Results * POCT lipid panel (05/21/2023 11:08 AM MOTION PICTURE SET UP WORKER) Cholesterol, POC 131 mg/dL HDL, POC 24 mg/dL Triglycerides, POC 115 mg/dL LDL Cholesterol POC 85 mg/dL Chol/HDL Ratio, POC 3.6 Non-HDL Cholesterol, POC 108 mg/dL Cholesterol Total, POC 131 mg/dL Capillary blood 05/21/2023 1 1:08 AM MOTION PICTURE SET UP WORKER us Price Jones MD POINT OF CARE TEST ORDER MICHAEL Final Result documented in this encounter Visit Diagnoses Diagnosis Hx of CABG- Primary Postsurgical aortocoronary bypass status History of mitral valve repair Hx of tricuspid valve repair Lipid screening Screening for lipoid disorders documented in this encounter Care Teams Progressive Care Manager Relationship Specialty Start Date End Date Espinoza Coker MD [address] [facility] [address] [place] [address] PCP - General Internal Medicine 04/29/20 Espinoza Coker MD [address] [place] [address] Internal Medicine 04/29/20 documented as of this encounter
--- OUTSIDE RECORDS SUMMARY | 2024-03-08 04:34 | XMS_ITS | Encounter Summary ---
Author Organization [facility] Address [address] [place] [address] Care Team Providers Care Community Service Coordinator Name Role Phone Espinoza Coker MD Primary Care Provider [phone] Espinoza Coker MD Unavailable [phone] Encounter Details Date Type Department Care Team (Late st Contact Info) Description 04/29/2020 Orders Only [facility] Cardiology [address] [id number] Price Jones MD [address] [facility] [address] [place] [address] Social History Tobacco Use Types Packs/Day Years Used Date Smoking Tobacco: Never Assessed Sex and Gender Information Value Date Recorded Sex Assigned at Not on file Legal Sex Male 7:00 PM [employer] Gender Identity Male 09/13/2020 2:28 PM CDT Sexual Orientation Not on file documented as of this encounter Plan of Treatment Not on file documented as of this encounter Procedures Procedure Name Priority Date/Time Associated Diagnosis Comments CARDIOLOGY DOCUMENT SCAN Routine 04/29/2020 documented in this encounter Results * SCAN - CARDIOLOGY (04/29/2020) Anatomical Region Laterality Modality Other Price Jones MD CV CARDIAC SERVICES PROC EDURES Final Result documented in this encounter Visit Diagnoses Not on filedocumented in this encounter Care Teams Community Service Coordinator Relationship Specialty Start Date End Date Espinoza Coker MD [address] [facility] [address] [facility] [address] [place] [address] PCP - General Internal Medicine 04/29/20 Espinoza Coker MD [address] [place] [address] Internal Medicine 04/29/20 documented as of this encounter
--- OUTSIDE RECORDS SUMMARY | 2024-03-08 04:34 | XMS_ITS | Encounter Summary ---
Author Organization [facility] Healthcare Address [address] [place] [address] Care Team Providers Care Director Of Development Name Role Phone Espinoza Coker MD Primary Care Provider [phone] Espinoza Coker MD Unavailable Encounter Details Date Type Department Care Team (Latest Contact Info) Description 05/09/2020 6:22 AM COMMUNITY HEALTH NURSE STAFF - 05/15/2020 11:45 AM COMMUNITY HEALTH NURSE STAFF Hospital Encounter [facility] [address] [place] [address] Hardeep Reed MD [address] [facility] [address] [place] [address] Jagdeep Peña MD [address] [facility] [address], [place] [id number] Cardiogenic shock (CMS/HCC) (Primary Dx); Nonrheumatic mitral valve regurgitation; Coronary artery disease involving [place] coronary artery of [place] heart without angina pectoris; S/P CABG x 2; S/P MVR (mitral valve repair) Discharge Disposition: Discharge to home, home health skilled care Social History Tobacco Use Types Packs/Day Years Used Date Smoking Tobacco: Never Smokeless Tobacco: Never Alcohol Use Standard Drinks/Week Comments Not Currently 0 (1 standard drink = 0.6 oz pur e alcohol) Sex and Gender Information Value Date Recorded Sex Assigned at Not on file Legal Sex Male 7:00 PM COMMUNITY HEALTH NURSE STAFF Gender Identity Male 09/13/2020 2:28 PM CDT Sexual Orientation Not on file documented as of this encounter Last Filed Vital Signs Vital Sign Reading Time Taken Comments Blood Pressure 130/76 05/15/2020 9:05 AM COMMUNITY HEALTH NURSE STAFF Pulse 99 05/15/2020 9:06 AM COMMUNITY HEALTH NURSE STAFF Temperature 36.7 ??C (98.1 ??F) 05/15/2020 9:05 AM CS T Respiratory Rate 16 05/15/2020 9:05 AM COMMUNITY HEALTH NURSE STAFF Oxygen Saturation 93% 05/15/2020 5:25 AM COMMUNITY HEALTH NURSE STAFF Inhaled Oxygen Concentration - - Weight 93.2 kg (205 lb 7.5 oz) 05/12/2020 4:01 P M COMMUNITY HEALTH NURSE STAFF Height 185.4 cm (6' 0.99 ) 05/09/2020 1:10 PM CS T Body Mass Index 27.11 05/09/2020 1:10 PM COMMUNITY HEALTH NURSE STAFF documented in this encounter Discharge Diagnoses Diagnosis Rheumatic disorders of both mitral and tricuspid valves - RHEUMATIC DISORDERS OF BOTH MITRAL AND TRICUSPID VALVES Postprocedural cardiogenic shock, initial encounter (HCC) - POSTPROCEDURAL CARDIOGENIC SHOCK, INITIAL ENCOUNTER Other postprocedural shock, initial encounter - OTHER POSTPROCEDURAL SHOCK, INITIAL ENCOUNTER Acute respiratory failure with hypoxia (CMS/HCC) (HCC) - ACUTE RESPIRATORY FAILURE WITH HYPOXIA Acute posthemorrhagic anemia - ACUTE POSTHEMORRHAGIC ANEMIA Acidosis - ACIDOSIS Atelectasis - ATELECTASIS Pulmonary collapse Chronic pulmonary edema - CHRONIC PULMONARY EDEMA Pulmonary congestion and hypostasis Atherosclerotic heart disease of northern [place] coronary artery without angina pectoris - ATHEROSCLEROTIC HEART DISEASE OF EE[place] CORONARY ARTERY WITHOUT ANGINA PECTORIS Hyperlipidemia, unspecified - HYPERLIPIDEMIA, UNSPECIFIED Pulmonary hypertension, unspecified (HCC) - PULMONARY HYPERTENSION, UNSPECIFIED 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 Surgical operation with implant of artificial internal device as the cause of abnormal reaction of the patient, or of later complication, without mention of misadventure at the time of the procedure - SURGICAL OPERATION WITH IMPLANT OF ARTIFICIAL INTERNAL DEVICE THE CAUSE OF ABNORMAL REACTION OF T Patient room in hospital as the place of occurrence of the external cause - PATIENT ROOM IN HOSPITAL THE PLACE OF OCCURRENCE OF THE EXTERNAL CAUSE Family history of stroke - FAMILY HISTORY OF STROKE Family history of stroke (cerebrovascular) Elevated white blood cell count, unspecified - ELEVATED WHITE BLOOD CELL COUNT, UNSPECIFIED documented in this encounter Discharge Summaries * Liya Blackmon PA - 05/15/2020 10:26 AM CST Physician Discharge Summary Patient ID: Avtar Joseph [id number] (64 y.o.) Admit date: 05/09/2020 Discharge date and time: 05/15/2020 Attending Physician: Hardeep Reed MD Primary Diagnosis: Severe mitral regurgitation, Severe 2 vessel CAD, 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 Secondary Diagnoses: - HLD - acute blood loss anemia, expected Procedures performed during hospitalization: Coronary artery bypass grafts x 2 (SANTOYO to LAD and SVG ascending aorta to D2), Complex mitral valve??repair (Goretex 2-0 neochordae x 2, annuloplasty??Physio II??size??32??mm), Tricuspid valve annuloplasty ring (Medtronic Contour 3D??size??32??mm), Left atrial appendage resection, Right greater saphenous endoscopic vein harvest on 05/09/20 HPI: 64 y/o M with PMH of HLD who was found to have mitral valve regurgitation after his PCP heard a murmur and referred him for echo. TTE revealed prolapse of the posterior leaflet and part flail ofthe posterior leaflet with highly eccentric MR that is severe. ??The left atrium is quite large andalso he has at least moderate pulmonary hypertension by analysis of TR velocity. ??Left ventricularsize and contractility looked normal. In retrospect, the patient had noticed some shortness of breath over the last year. He was referred to Dr. Reed for cardiac surgery evaluation. C revealed 2 vessel disease of the LAD and diagonal. Hospital Course: Avtar Joseph was taken to the operating room on 05/09/20 for Coronary artery bypass grafts x 2 (SANTOYO to LAD and SVG ascending aorta to D2), Complex mitral valve??repair, Tricuspid valve annuloplasty ring, Left atrial appendage resection, and right greater saphenous endoscopic vein harvest, performed by Dr. Reed. Postoperatively patient was taken to the CVR intubated and sedated, hemodynamically supported with epinephrine and levophed. The evening of surgery patient became increasingly hypoxemic and bronchoscopy revealed large amount of thin secretions. The following day patient was weaned from inotropic and ventilator support. He was transferred to PCU in stable condition on 05/11. The patient progressed as expected. Chest tubes and pacemaker wires were discontinued without difficulty. Eliquis was initiated for valve repairs. Postop echo showed EF 45%, mod RV dysfunction, no MR, no TR. Wounds remained clean, dry, and intact. Patient is doing well today, ambulating the hallways, breathing stable, pain controlled. Says he is ready for discharge home today. Discussed with Dr. Reed Post Op Complications: none Significant labs: Lab Results Component Value Date WBC 5.6 05/15/2020 HGB 11.9 (L) 05/15/2020 HCT 35.3 (L) 05/15/2020 LABPLAT 197 05/15/2020 Lab Results Component Value Date SODIUM 139 05/15/2020 POTASSIUM 4.0 05/15/2020 CHLORIDE 103 05/15/2020 CO2 26 05/15/2020 ANIONGAP 10 05/15/2020 GLUCOSE 107 05/15/2020 BUNSER 12 05/15/2020 CREATININE 0.75 (L) 05/15/2020 CALCIUM 8.6 05/15/2020 ALBUMIN 3.6 05/10/2020 ALKPHOS 54 05/10/2020 ALT 29 05/10/2020 AST 55 (H) 05/10/2020 BILITOT 0.5 05/10/2020 Lab Results Component Value Date APTT 27 05/09/2020 INR 1.2 05/09/2020 Rhythm on discharge: sinus Discharge Medications: Current Discharge Medication List START taking these medications Details apixaban (ELIQUIS) 5 mg tablet Take 1 tablet (5 mg total) by mouth every 12 (twelve) hours Qty: 60 tablet, Refills: 1 HYDROcodone-acetaminophen (NORCO) 5-325 mg per tablet Take 1-2 tablets by mouth every 6 (six) hoursas needed for pain metoprolol tartrate (LOPRESSOR) 50 mg immediate release tablet Take 1 tablet (50 mg total) by mouth2 (two) times a day Qty: 60 tablet, Refills: 2 Current Discharge Medication List Current Discharge Medication List CONTINUE these medications which have NOT CHANGED Details aspirin 81 mg enteric coated tablet Take 81 mg by mouth daily cholecalciferol (VITAMIN D-3) 25 mcg (1,000 unit) tablet Take 1,000 Units by mouth daily furosemide (LASIX) 20 mg tablet Take 1 tablet (20 mg total) by mouth daily Qty: 30 tablet, Refills: 11 Current Discharge Medication List CONTINUE these medications which have CHANGED Details atorvastatin (LIPITOR) 80 mg tablet Take 1 tablet (80 mg total) by mouth nightly Qty: 30 tablet, Refills: 2 Discharge Vital Signs: Vitals: 05/15/20 0906 BP: Pulse: 99 Resp: Temp: SpO2: Code Status at Discharge: Full Code Discharge Disposition: The patient is being discharged to home in stable condition Discharge Instructions: Discharge Instructions: Physical therapy instructions provided. No tub baths. OK to shower. Incision open to air. Activity:avoid strenuous exercise, no heavy lifting, pushing, pulling greater than 5-10 lbs for 4 to 6 weeksand no driving for 4 weeks. Limit overhead reaching, general use of the upper extremity for two additional weeks. Outpatient Follow-Up: Future Appointments Date Time Provider Department Center 06/16/2020 9:30 AM Hardeep Reed MD [facility] Decent Notify physician with fevers, chills, nausea, or vomiting, SOB, chest pain, or wound drainage. Arrangements were made for home health nurse to evaluate patient for wound assessment, medication compliance, general post-op assessment, and suture removal. Information on cardiac rehab was provided to the patient, and will be discussed at post-op appointment. Avtar Joseph was discharged and given a full set of written discharge instructions, and prescriptions. These were reviewed with the patient prior to discharge. [facility] documented in this encounter Discharge Instructions * Attachments The following attachments cannot be sent through Care Everywhere. * Apixaban (By mouth) (Senegalese) * Hydrocodone/Acetaminophen (By mouth) (Senegalese) * Metoprolol (By mouth) (Senegalese) documented in this encounter Medications at Time of Discharge aspirin 81 mg enteric coated tablet Take 1 tablet (81 mg total) by mouth daily cholecalciferol (VITAMIN D-3) 25 mcg (1,000 unit) tablet Take 1 tablet (1,000 Units total) by mouth daily apixaban (ELIQUIS) 5 mg tabletIndications: atrial fibrillation Take 1 tablet (5 mg total) by mouth every 12 (twelve) hours 60 tablet 1 05/15/2020 1 atorvastatin (LIPITOR) 80 mg tablet Take 1 tablet (80 mg total) by mouth nightly 30 tablet 2 05/15/2020 1 furosemide (LASIX) 20 mg tablet Take 1 tablet (20 mg total) by mouth daily 30 tablet 11 04/26/2020 1 HYDROcodone-acetam inophen (NORCO) 5-325 mg per tabletIndications: Pain Take 1-2 tablets by mouth every 6 (six) hours as needed for pain 05/15/2020 1 metoprolol tartrate (LOPRESSOR) 50 mg immediate release tablet Take 1 tablet (50 mg total) by mouth 2 (two) times a day 60 tablet 2 05/15/2020 1 documented as of this encounter Ordered Prescriptions Prescription Sig Dispense Quantity Refills Last Filled Start Date End Date atorvastatin (LIPITOR) 80 mg tablet Take 1 tablet (80 mg total) by mouth nightly 30 tablet 2 05/15/2020 1 metoprolol tartrate (LOPRESSOR) 50 mg immediate release tablet Take 1 tablet (50 mg total) by mouth 2 (two) times a day 60 tablet 2 05/15/2020 1 HYDROcodone-acetam inophen (NORCO) 5-325 mg per tabletIndications: Pain Take 1-2 tablets by mouth every 6 (six) hours as needed for pain 05/15/2020 1 apixaban (ELIQUIS) 5 mg tabletIndications: atrial fibrillation Take 1 tablet (5 mg total) by mouth every 12 (twelve) hours 60 tablet 1 05/15/2020 1 documented in this encounter Discharge Disposition Disposition Code Departure Means Destination Discharge to home, home health skilled care documented in this encounter Progress Notes * Vicenta Busch PTA - 05/14/2020 2:43 PM CST Physical Therapy 05/14/20 1427 PT Last Visit Session Type Treatment PT Received On 05/14/20 Safe Environment Arm Band Checked;Notified RN;Call Light within Reach Subjective Agreeable to Therapy Family/Caregiver Present Yes Precautions Precautions Fall risk;Cardiac sternal Pain Assessment Pain Assessment 0-10 Pain Score 0 - No pain Pain Descriptors Aching (reports overall achy no pain.) Clinical Progression Not changed Cognition Orientation Oriented X4 (person, place, time, situation) Static Standing Balance Static Standing-Balance Support Bilateral upper extremity supported Static Standing-Standing Surface Floor Static Standing-Level of Assistance Close supervision Dynamic Standing Balance Dynamic Standing-Comments Romberg stance x 20 seconds with no UE support and CGA. Single leg stanceattempted on right and left LE pt. unable to maintain for more than 5 seconds on either LE. Attempted x 5 reps on christiana LE, pt. at times utilized WW for increased support and CGA. Standing Standing-Exercise Comments x 20 reps x 2 sets. seated rest break required. further LE exercises deferred due to patient fatigue. Bed Mobility 1 Bed Mobility Comments 1 Pt. ambulating in the boateng with PCT when PRINCIPLE INDUSTRIAL HYGIENIST arrived for session. Transfer 1 Trials/Comments 1 sit<>stand with WW and SBA. multiple reps completed during session. Ambulation 1 Distance (ft) 1 150' Surface 1 Level tile Device 1 Wheeled walker Assistance 1 Standby Assist Gait: Requires verbal cues to 1 Use assistive device safely;Improve upright posture;Increase base of support Ambulation Comments 1 Pt. had ambulated about 200' with PCT when PRINCIPLE INDUSTRIAL HYGIENIST arrives, Pt. ambulated 150' with WW and SBA with PRINCIPLE INDUSTRIAL HYGIENIST, cues for upright posture and foot placement within WW for maximum safety. Pt. displays slow kerri. Pt. declines attempting further ambulation due to fatigue. Stairs Stair Comments not attempted this session due to fatigue. Other Comments Other PT Comments with ambulation: 117/71, HR 100, O2 96. post activity: 123/74, HR 98, O2 93. Assessment Prognosis Good Problem List Gait deviations;Decreased strength;Impaired balance;Decreased endurance;Decreased mobility Plan Plan If this is the last note, consider this the discharge summary;Continue with current plan Recommendation/Plan PT Recommendation/Plan Home with 24 hour supervision;Home with family Treatment/Interventions Balance Training;Endurance training;Gait training;Functional transfer training;Stair training;Strengthening;Therapeutic activity;Therapeutic exercise PT Equipment Recommended Wheeled walker (Pt. reports that he has a WW at home.) Progress Progressing toward goals Education: Patient and family has been educated on the role of PT, safety , precautions and mobility training. Education completed via explanation, teach back and demonstration. Patient and family verbalized understanding Multi-Disciplinary Problems (from Physical Therapy) Active Problems Problem: PT Misc Start Date: 05/11/20 Goal Start Date End Date PT [facility] 1 05/11/20 -- Goal Details: Independent bed mobility and transfers adhering to sternal precautions 100% of the time. Goal Start Date End Date PT [facility] - [facility] 2 05/11/20 -- Goal Details: Pt amb 360ft with least restrictive device level surfaces mod indep or indep. Goal Start Date End Date PT [facility] - [facility] 3 05/11/20 -- Goal Details: Pt amb up/down curb step mod indep or indep with good dyn stand balance and/or low fall risk on Small balance scale. Goal Start Date End Date PT [facility] 4 05/11/20 -- Goal Details: Pt to apply sternal precautions independently without cueing from PT and display goodknowledge of cardiac HEP for optimal healing and functional recovery. 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 OBJECTIVE Vitals: Most Recent: Vitals: 05/14/20 0925 BP: Pulse: 87 Resp: Temp: SpO2: 24hr Min/Max: Temp Min: 36.6 ??C (97.8 ??F) Max: 36.7 ??C (98.1 ??F) Pulse Min: 81 Max: 92 BP Min: 115/70 Max: 159/98 Resp Min: 18 Max: 18 SpO2 Min: 95 % Max: 97 % Cardiac Rhythm: sinus I/O: Date 05/13/20 07 - 05/14/20 0659 05/14/20 07 - 05/15/20 0659 Shift 3224-4671 4545-7555 24 Hour Total 9548-1890 6152-8294 24 Hour Total INTAKE Shift Total(mL/kg) OUTPUT Urine(mL/kg/hr) 1200(1.1) 550(0.5) 1750(0.8) Chest Tube 140 28 168 Shift Total(mL/kg) 1340(14.4) 578(6.2) 1918(20.6) NET -1340 -578 -1918 Weight (kg) 93.2 93.2 93.2 93.2 93.2 93.2 Physical Exam: General: A&O, up in chair, nad Pulm: nml resp pattern, 2L NC Card: sinus rhythm Ext: no significant le edema Skin: sternal incision c/d/i Lab Review: Recent Labs Lab Units 05/14/20 0055 WBC K/cumm 5.0 HEMOGLOBIN g/dL 10.9* HEMATOCRIT % 32.7* PLATELETS K/cumm 159 Recent Labs Lab Units 05/14/20 0055 SODIUM mmol/L 140 POTASSIUM PLASMA mmol/L 4.0 CHLORIDE mmol/L 102 CO2 mmol/L 28 ANIONGAP mmol/L 10 BUN SERUM mg/dL 13 CREATININE mg/dL 0.79* GLUCOSE mg/dL 103 CALCIUM mg/dL 8.4* Recent Labs Lab Units 05/09/20 1450 APTT sec 27 INR 1.2 Radiology/Diagnostic Review: CXR FINDINGS: There is stable cardiomegaly with postoperative changes. There is a mediastinal chest tube, left basilar chest tube and right jugular catheter. ?? There are is bilateral perihilar atelectasis with focal opacity in the right lung base, stable. ?? There is a small right pleural effusion. ?? There are persistent tiny biapical pneumothoraces. Echo Conclusions: 1. The study quality is inadequate for detailed regional wall motion assessment. Mild left ventricular systolic dysfunction. Ejection Fraction is estimated at 45 %. Tissue Doppler/Mitral Doppler indices are indeterminate in this study due to the presence of mitral valve repair or replacement. The left ventricular cavity is low normal in size. Mild concentric left ventricular hypertrophy. 2. Moderate right ventricular dysfunction. Normal right ventricular size. 3. Mitral stenosis is absent. There is no mitral regurgitation. A mitral valve annuloplasty ring is present. 4. Normal appearance of the tricuspid leaflets. There is no tricuspid regurgitation. A tricuspid valve annuloplasty ring is present. 5. Mild aortic root enlargement. Normal sized ascending aorta. 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??and moderate regurgitation; s/p Coronary artery bypass grafts x 2 (SANTOYO to LAD and SVG ascending aorta to D2); Complex mitral valve??repair (Goretex 2-0 neochordae x 2, annuloplasty??Physio II??size??32??mm); Tricuspid valve annuloplasty ring (Medtronic Contour 3D??size??32??mm); Left atrial appendage resection; Right greater saphenous endoscopic vein harvest on 05/09/20 - HLD - acute blood loss anemia, expected PLAN - Asa and Eliquis for anticoagulation - cont lipitor - increase metoprolol to 25 mg bid - chest tube to waterseal, output minimal, remove today - Cont O2 support, wean as tolerated. Encourage IS/ambulation - postop echo completed - DVT proph - PT/OT Discussed with ANGELA Mccarthy 05/14/2020 [facility] * Grecia Jeffries, OT - 05/13/2020 2:04 PM CST Occupational Therapy 05/13/20 8124 General Session Type Treatment OT Received On 05/13/20 Safe Environment Arm Band Checked;Call Light within Reach Subjective Agreeable to Therapy Family/Caregiver Present Yes () Precautions Precautions Cardiac sternal;Fall risk Precaution Comments Pt verbalized 2/4 sternal precautions. OT verbally reviewed all precautions with pt Pain Assessment Pain Assessment No/denies pain ( just achy ) Pain Score 0 - No pain Pain Location Back (Lumbar) Clinical Progression Not changed Pain Interventions Repositioned;Rest Grooming Grooming: Where assessed Standing at sink Grooming: Level of assistance Standby Assist Grooming: Assistance with Teeth care Toileting Toileting: Where assessed Toilet (standing to urinate) Toileting: Level of assistance Standby Assist Bed Mobility 1 Bed Mobility Comments 1 Sitting EOB>supine CGA. HOB flat. Pt educated on log roll technique. Pt required increased time and effort for BLE management into bed Transfer 1 Trials/Comments 1 Pt completed 2 sit<>stand transfers from recliner SBA/CGA. Pt with good force production when using momentum to stand. Verbal cues for sternal precautions. WW used Cognition Overall Cognitive Status WFL Orientation Oriented X4 (person, place, time, situation) Compliance/Behavior Easy to engage Additional Activities Additional Activities Comments Pt completed functional mobility within room and hallway using WW CGA/SBA for safety. 360' completed with 2 standing rest breaks for SOB. SpO2 remained >90% on 2L throughout session. Completed to simulate home mobilty Activity Tolerance Endurance Tolerates 10 - 20 min activity with multiple rests Other Comments Comments Pt and educated on DME purchases. reported having a shower chair and toilet riser already and daughter obtaining a WW. Pt left supine in bed with all needs met at end of session Assessment Prognosis Good Problem List Decreased endurance;Decreased balance;Decreased functional mobility;Decreased ADL independence;Decreased IADL independence Barriers to Discharge Current Mobility Status Plan Plan Continue with current plan;If this is the last note, consider this the discharge summary Recommendation/Plan OT Recommendation Home with intermittent assist;Home with family OT Frequency 3-5x/wk Treatment/Interventions ADL/IADL retraining;Balance Training;Endurance training;Functional activity;Functional mobility training;Functional transfer training;Parent/caregiver training and education;Strengthening;Therapeutic activity;Therapeutic exercise Progress Progressing toward goals Multi-Disciplinary Problems (from Occupational Therapy) Active Problems Problem: OT [facility] Start Date: 05/11/20 Goal Start Date End Date OT [facility] 1 05/11/20 -- Goal Details: Pt will complete toileting tasks and toilet transfer modified independent Goal Start Date End Date OT [facility] 2 05/11/20 -- Goal Details: Pt will complete LB dressing modified independent Goal Start Date End Date [facility] 3 05/11/20 -- Goal Details: Pt will complete grooming tasks at sink independently Goal Start Date End Date [facility] 4 05/11/20 -- Goal Details: Pt will complete object retrieval from varying heights modified independent to simulate ADLs and IADLs Education: Patient has been educated on the role of OT, safety, precautions, ADL training, mobilitytraining, body mechanics and use of adaptive equipment/DME. Education completed via verbal instruction and return demonstration. 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 Says he needs to have a BM. Painful but medsare helping. Has been ambulating the hallways, room air OBJECTIVE Vitals: Most Recent: Vitals: 05/13/20 0935 BP: 128/83 Pulse: 85 Resp: Temp: SpO2: 24hr Min/Max: Temp Min: 36.5 ??C (97.7 ??F) Max: 36.9 ??C (98.4 ??F) Pulse Min: 75 Max: 85 BP Min: 111/61 Max: 145/79 Resp Min: 18 Max: 18 SpO2 Min: 94 % Max: 96 % Cardiac Rhythm: sinus I/O: Date 05/12/20699 - 05/13/20 0605/13/20699 - 05/14/20 0659 Shift 1899-0659 24 Hour Total 4242-7371 9373-8736 24 Hour Total INTAKE P.O. 450 300 750 Shift Total(mL/kg) 450(4.8) 300(3.2) 750(8) OUTPUT Urine(mL/kg/hr) 1510(1.4) 350(0.3) 1860(0.8) 100 100 Chest Tube 140 50 190 Shift Total(mL/kg) 1650(17.7) 400(4.3) 2050(22) 100(1.1) 100(1.1) NET -1200 -100 -1300 -100 -100 Weight (kg) 93.2 93.2 93.2 93.2 93.2 93.2 Physical Exam: General: A&O, up in chair, nad Pulm: nml resp pattern, room air Card: sinus rhythm Ext: no significant le edema Skin: sternal incision c/d/i Lab Review: Recent Labs Lab Units 05/13/20 0029 WBC K/cumm 6.0 HEMOGLOBIN g/dL 10.3* HEMATOCRIT % 30.9* PLATELETS K/cumm 125* Recent Labs Lab Units 05/13/20 0029 SODIUM mmol/L 139 POTASSIUM PLASMA mmol/L 3.9 CHLORIDE mmol/L 103 CO2 mmol/L 29 ANIONGAP mmol/L 7 BUN SERUM mg/dL 18 CREATININE mg/dL 0.79* GLUCOSE mg/dL 101 CALCIUM mg/dL 8.2* Recent Labs Lab Units 05/09/20 1450 APTT sec 27 INR 1.2 Radiology/Diagnostic Review: CXR IMPRESSION: 1. New tiny biapical pneumothoraces, right slightly larger than left. 2. Otherwise stable portable postoperative chest radiograph. Scheduled Medications: apixaban, 5 mg, oral, Q12H DINORA [START ON 05/14/2020] aspirin, 81 mg, oral, Daily atorvastatin, 80 mg, oral, Nightly docusate sodium, 100 mg, oral, Daily furosemide, 40 mg, intravenous, Once lidocaine, 2 patch, transdermal, Daily metoprolol tartrate, 12.5 mg, oral, BID potassium chloride ER, 20 mEq, oral, Once senna, 1 tablet, oral, BID sodium chloride 0.9%, 0.5-20 mL, intra-catheter, Q8H DINORA ASSESSMENT - Severe mitral regurgitation, Severe 2 vessel CAD, Severe??tricuspid annular dilation??and moderate regurgitation; s/p Coronary artery bypass grafts x 2 (SANTOYO to LAD and SVG ascending aorta to D2); Complex mitral valve??repair (Goretex 2-0 neochordae x 2, annuloplasty??Physio II??size??32??mm); Tricuspid valve annuloplasty ring (Blue Lava Grouptronic Contour 3D??size??32??mm); Left atrial appendage resection; Right greater saphenous endoscopic vein harvest on 05/09/20 - HLD - acute blood loss anemia, expected PLAN - Asa for antiplatelet therapy. Plan to start Eliquis tonight - cont lipitor - continue metoprolol 12.5 mg bid - lasix 40 mg x 1 - chest tube to waterseal, output remains moderate, will separate tubes. - Encourage IS/ambulation - postop echo today - DVT proph - PT/OT - pacing wires removed this morning without difficulty ANGELA Posada 05/13/2020 [facility] * Vicenta Denise, PRINCIPLE INDUSTRIAL HYGIENIST - 05/13/2020 11:14 AM CST Physical Therapy 05/13/20 1114 PT Last Visit Session Type Treatment PT Received On 05/13/20 Safe Environment Arm Band Checked;Call Light within Reach;Overbed Table within Reach Subjective Agreeable to Therapy Family/Caregiver Present Yes ( present) Precautions Precautions Cardiac sternal;Fall risk Pain Assessment Pain Score 3 Pain Location Chest Clinical Progression Not changed Cognition Orientation Oriented X4 (person, place, time, situation) Dynamic Standing Balance Dynamic Standing-Comments Alternating box taps without UE support x10 reps CGA. Pt slightly unsteady especially when distracted. Bed Mobility 1 Bed Mobility Comments 1 Supine>sit CGA/minimal A. Cues for log roll technqiue however pt displays difficulty rolling onto side. Transfer 1 Trials/Comments 1 Sit<>stand SBA/CGA. Cues for sternal prec. Sit<>tsand x5 reps from elevated surface. Ambulation 1 Distance (ft) 1 110ft, 70ft, 50ft, 30ft, 100ft Surface 1 Level tile Device 1 No device;Wheeled walker Other Apparatus 1 Wheelchair follow (of 2nd person) Assistance 1 Contact Guard Assist;Minimum Assist Gait: Requires assist with 1 Maintaining balance Gait: Requires verbal cues to 1 Use assistive device safely;Utilize appropriate gait sequencing;Improve upright posture;Increase step length;Pace activity Quality of Gait 1 slow kerri, decreased step length, unsteady. SOB, SPo2 WNL. Pt ambulates 30ft without device minimal A. Rec WW use at all times due to decreased endurance, unsteadiness and for safety. Ambulation Comments 1 (Pt's declined WW from [facility] and will get one on her own) Curbs Curb Height 7inch step Curb: Method forward Curb: Device Wheeled walker Curb: Level of Assistance Contact Guard Assist (Cues for proper technique. ) Other Comments Other PT Comments Educated pt and on adjusting WW to proper height. Pre HR 81, O2 96 on 2 Lo2,BP 129/76. Post HR 83, O2 98. Pt left in restroom with call light in reach and PCT agreeable to assist pt back to chair. Pt tends to over do activity, cues for pacing. Assessment Problem List Gait deviations;Decreased endurance;Decreased mobility;Impaired balance Plan Plan If this is the last note, consider this the discharge summary Recommendation/Plan PT Recommendation/Plan Home with family;Home with 24 hour supervision PT Equipment Recommended Wheeled walker (Pt getting on own) Education: Patient has been educated on the role of PT, safety , precautions, mobility training andstairs. Education completed via explanation and demonstration. Patient verbalized understanding, demonstrated understanding and needs ongoing reinforcement Multi-Disciplinary Problems (from Physical Therapy) Active Problems Problem: PT [facility] Start Date: 05/11/20 Goal Start Date End Date PT LTG - [facility] 1 05/11/20 -- Goal Details: Independent bed mobility and transfers adhering to sternal precautions 100% of the time. Goal Start Date End Date PT [facility] 2 05/11/20 -- Goal Details: Pt amb 360ft with least restrictive device level surfaces mod indep or indep. Goal Start Date End Date PT [facility] 3 05/11/20 -- Goal Details: Pt amb up/down curb step mod indep or indep with good dyn stand balance and/or low fall risk on Small balance scale. Goal Start Date End Date PT [facility] 4 05/11/20 -- Goal Details: Pt to apply sternal precautions independently without cueing from PT and display goodknowledge of cardiac HEP for optimal healing and functional recovery. Cosigned by Shanell Miguel, PT at 05/13/2020 3:24 PM [facility] * Dann Martin EP-C - 05/13/2020 9:30 AM CST Inpatient Cardiac Rehab Education Patient Information Patient Name: Avtar Joseph : 1955 Room/Bed: [place] [id number] Insurance: [facility] Progress Note Family Helper: PADMINI Baker Date: 05/13/2020 Possible Referring Diagnosis for Cardiac Rehab: S/P CABG x2, S/P MVR Education Provided Explained my role as a Cardiac Rehab Navigator (CRN). Provided Cardiac Rehab education to pt. Family was not present. Pt was provided with Cardiac Rehab education folder. ?? Risk Factors: HTN, HLD Discussed and provided resources for managing the above risk factors, as well as managing stress/anxiety/depression. - Briefly discussed cardiac medications, and the importance of medication adherence. Advised pt to ask their nurse, physician, and/or pharmacist if they have any questions about their medications. - Briefly discussed the benefit of lifestyle modifications such as diet (sodium and saturated fats)and exercise. Advised pt to ask their expanding machine operator, nurse, and/or physician if they have any questionsabout their diet/nutrition. ?? Cardiac Rehab: Gave pt options of facilities for Outpatient Cardiac Rehab (OCR) in their community. Explained OCR program. Pt expressed knowledge towards local OCR program - prefers [facility] ?? Exercise Education: Explained the importance of trying to gradually/safely increase exercise tolerance. Educated pt on working towards eventually trying to reach the [employer] recommendations in regardsto exercise: 150+ minutes/week of light to moderate-intensity aerobic exercise. I explained how this would help improve cardiovascular function, as well as quality of life. Pt verbalized understanding. - Suggested that pt avoid strenuous exercise/exertion outside if the weather is under 40 degrees, or over 85 degrees. Explained the physiological reasoning for this suggestion - pt verbalized understanding. - Educated pt on the signs/symptoms of over-exertion: SOB, chest discomfort, musculoskeletal pain, abnormal fatigue. Explained when it would be appropriate to call [employer]'s office, go to the ER, or call 911 - pt verbalized understanding. I stressed the importance/benefits of incorporating regular aerobic exercise into his lifestyle. I explained how this would assist in his recovery post- CABG/Valve, and help maintain/improve his cardiovascular health going forward. ??? I advised pt to follow physician instructions/restrictions as prescribed post-discharge. Pt verbalized understanding. ??? I advised pt to follow therapy recommendations/instructions as prescribed post-discharge. Pt verbalized understanding. ??? I recommended that pt try doing 5-10 minutes of walking/aerobic exercise, 2- 3x/day post-discharge. I educated pt on how to safely, and gradually progress exercise as tolerated. Pt verbalized understanding. ?? Insurance Coverage: Briefly explained general insurance coverage for OCR, but assured pt that OCR facility will usuallycall insurance and inform pt of more of an approximate coverage. ?? Post-Discharge: Explained process between discharge from hospital, and getting set up in an OCR program - f/u with [employer], MIGUEL ÁNGEL f/u calls, OCR program contact. Conclusion Pt seems likely to participate in OCR. Reassured pt of importance and health care provider support of OCR. Pt verbalized understanding of education. Will complete order for OCR to be sent to [employer]. Thank you for allowing us to school office assistant in the care of this patient. [facility] * Melina Stevens, RD - 05/12/2020 4:25 PM CST Nutrition Follow-up Progress Note Encounter Date: 05/12/20 4:25 PM Nutrition Progress Summary: Patient is a 64 y.o. male. Admit Dx: /SD MITRALPLASTY W RADICAL RECONSTR/SD CABG, ARTERIAL, SINGLE/SD REPLACEMENT OF MITRAL VALVE. Admitted on 05/09/2020. Pt s/p TVR/MVR/CABG . Pt reports his appetite is returning and he is drinking the Jonny. Reinforced to pt the importance of protein intake for wound healing. Educated pt on heart healthy diet. Good understanding verbalized. Objective Dietary Orders (From admission, onward) Start Ordered 05/10/20 1200 Oral Nutrition Supplements Select Supplement: Jonny - Any Flavor With Breakfast and Dinner Question: Select Supplement: Answer: Jonny - Any Flavor 05/10/20 1159 05/10/20 0955 Adult Diet Special; Low Fat, Low Chol, Low Na; Consistent Carbohydrate Diet effectivenow Question Answer Comment ([facility]) Diet type Special Fat / Sodium Restriction: Low Fat, Low Chol, Low Na Diabetic: Consistent Carbohydrate 05/10/20 0954 Anthropometrics Weight: 93.2 kg (205 lb 7.5 oz) Admission Weight : 90.4 kg Weight Change: 1.09 kg (2.42 lbs) IBW/kg (Calculated) : 83.4 kg Height: 185.4 cm (6' 0.99 ) Weight in (lb) to have BMI = 25: 189.1 BMI (Calculated): 27.1 Intake/Output Summary (Last 24 hours) at 05/12/2020 1625 Last data filed at 05/12/2020 1500 Gross per 24 hour Intake 750 ml Output 2400 ml Net -1650 ml Medications and Lab Review: Scheduled Meds: aspirin, 325 mg, oral, Daily atorvastatin, 80 mg, oral, Nightly docusate sodium, 100 mg, oral, Daily heparin, 5,000 Units, subcutaneous, Q8H DINORA lidocaine, 2 patch, transdermal, Daily metoprolol tartrate, 12.5 mg, oral, BID senna, 1 tablet, oral, BID sodium chloride 0.9%, 0.5-20 mL, intra-catheter, Q8H DINORA Continuous Infusions: PRN Meds: bisacodyL ??? dextrose ??? HYDROcodone-acetaminophen ??? HYDROcodone-acetaminophen ??? ondansetron ??? polyethylene glycol ??? potassium chloride ER ??? potassium chloride ER ??? sodium chloride 0.9% Sodium Date Value Ref Range Status 05/12/2020 138 135 - 145 mmol/L Final Potassium, pl Date Value Ref Range Status 05/12/2020 4.1 3.3 - 4.9 mmol/L Final BUN Date Value Ref Range Status 05/12/2020 26 (H) 8 - 25 mg/dL Final Creatinine Date Value Ref Range Status 05/12/2020 0.94 0.80 - 1.30 mg/dL Final Phosphorus, pl Date Value Ref Range Status 05/12/2020 3.1 2.3 - 4.5 mg/dL Final Albumin Date Value Ref Range Status 05/10/2020 3.6 3.5 - 5.0 g/dL Final Magnesium Date Value Ref Range Status 05/12/2020 2.2 1.4 - 2.5 mg/dL Final Calcium Date Value Ref Range Status 05/12/2020 8.3 (L) 8.5 - 10.3 mg/dL Final ALT Date Value Ref Range Status 05/10/2020 29 7 - 55 Units/L Final AST Date Value Ref Range Status 05/10/2020 55 (H) 10 - 50 Units/L Final Alk phos Date Value Ref Range Status 05/10/2020 54 40 - 130 Units/L Final Lab Results Component Value Date HGBA1C 5.3 05/09/2020 Nursing Assessment: Last BM Date: 05/08/20 Bowel Sounds (All Quadrants): Active Des Scale Score: 20 Skin Integrity: Surgical incision, Puncture, Intact Nutrition Needs Calculations: Calculated Energy Needs Using Equations Weight: 93.2 kg (205 lb 7.5 oz) Height: 185.4 cm (6' 0.99 ) Minute Ventilation (L/min): 11.2 L/min Estimated Protein Needs Type of Weight Used for Estimated Protein : Current Protein Needs Based on g/k.2 Total Protein Estimated Needs (gm): 108.48 Kcal/kg Type of Weight Used for Estimated Kcals: Current Kcal/k Total Kcal/kg Estimated Needs : 2260 Current Nutrition Issues: Nutrition Diagnosis 1: Increased nutrient needs (protein) Related to: Recent surgery Evidenced by: Physical finding Nutrition Plan: Interventions: Medical food supplement, Encouragement Monitoring and Evaluation: PO intake, Plan of care, Labs Goals: Adequate nutrition to meet estimated needs by next assessment Melina Stevens RD, LD [facility] * Milly Lea COTA - 05/12/2020 1:07 PM CST Occupational Therapy 05/12/20 1307 General Session Type Treatment OT Received On 05/12/20 Safe Environment Arm Band Checked Subjective Agreeable to Therapy Precautions Precautions Cardiac sternal Pain Assessment Pain Score 4 Pain Type Surgical pain Clinical Progression Not changed Grooming Grooming: Where assessed Standing at sink Grooming: Level of assistance Contact Guard Assist Grooming: Assistance with Wash/dry hands;Teeth care LE Dressing LE Dressing: Where assessed Chair LE Dressing: Level of assistance Maximum Assist LE Dressing: Assistance with Don/doff R sock;Don/doff L sock Bed Mobility 1 Bed Mobility From 1 Edge of bed Bed Mobility Type 1 To Bed Mobility to 1 Supine Level of Assistance 1 Minimum Assist Transfer 1 Transfer From 1 Sit Transfer Type 1 To and from Transfer to 1 Stand Transfer Level of Assistance 1 Minimum Assist Trials/Comments 1 verbal cues for anterior weight shift Additional Activities Additional Activities (Worked on sit to stand techniques 5 reps) Additional Activities Comments To simulate home functional mobility, pt ambulated 360 ft with WW min assist, moves very slowly , stood along the way about 4x Other Comments Comments Vitals pre activity BP 114/66, HR 77, O2 on 2 L, post activity HR 86, O2 98, BP 128/75 Assessment Prognosis Excellent Problem List Decreased balance;Decreased endurance;Decreased ADL independence;Decreased IADL independence;Decreased functional mobility Barriers to Discharge Current Mobility Status Plan Plan Continue with current plan;If this is the last note, consider this the discharge summary Recommendation/Plan OT Recommendation Home with family Treatment/Interventions ADL/IADL retraining;Balance Training;Bed mobility;Endurance training Progress Progressing toward goals Multi-Disciplinary Problems (from Occupational Therapy) Active Problems [facility]: [facility] Start [facility]: 05/11/20 Goal Start Date End Date OT LTG - [facility] 1 05/11/20 -- Goal Details: Pt will complete toileting tasks and toilet transfer modified independent Goal Start Date End Date OT [facility] 2 05/11/20 -- Goal Details: Pt will complete LB dressing modified independent Goal Start Date End Date OT [facility] 3 05/11/20 -- Goal Details: Pt will complete grooming tasks at sink independently Goal Start Date End Date OT [facility] 4 05/11/20 -- Goal Details: Pt will complete object retrieval from varying heights modified independent to simulate ADLs and IADLs Education: Patient has been educated on the role of OT, safety, precautions, ADL training, mobilitytraining, body mechanics and energy conservation. Education completed via verbal instruction and return demonstration. Patient and Family needs ongoing reinforcement Cosigned by Grecia Jeffries OT at 05/12/2020 2:26 PM [facility] * Liya Blackmon PA - 05/12/2020 10:34 AM CST Cardiothoracic Surgery Daily Progress SUBJECTIVE Chief Complaint: Severe mitral regurgitation, Severe 2 vessel CAD, Severe??tricuspid annular dilation??and moderate regurgitation; s/p Coronary artery bypass grafts x 2 (SANTOYO to LAD and SVG ascendingaorta to D2); Complex mitral valve??repair (Goretex 2-0 neochordae x 2, annuloplasty??Physio II??siz e??32??mm); Tricuspid valve annuloplasty ring (Medtronic Contour 3D??size??32??mm); Left atrial appendage resection; Right greater saphenous endoscopic vein harvest on 05/09/20 Interval History: Reports feeling a little woozy this am, thinks it might be from the pain meds. Says breathing is ok, occasional cough, vitals stable. Ambulated in hallways with therapy, removed on 4L NC. OBJECTIVE Vitals: Most Recent: Vitals: 05/12/20 0828 BP: 120/74 Pulse: 75 Resp: Temp: SpO2: 24hr Min/Max: Temp Min: 36.7 ??C (98 ??F) Max: 36.8 ??C (98.2 ??F) Pulse Min: 72 Max: 78 BP Min: 99/76 Max: 125/76 Resp Min: 18 Max: 18 SpO2 Min: 91 % Max: 96 % Cardiac Rhythm: sinus I/O: Date 05/11/20 07 - 05/12/20 0659 05/12/20699 - 05/13/20 0659 Shift 1888-3728 7008-9978 24 Hour Total 6905-7914 5802-5641 24 Hour Total INTAKE P.O. 480 0 480 Shift Total(mL/kg) 480(5.2) 0(0) 480(5.2) OUTPUT Urine(mL/kg/hr) 835(0.8) 850(0.8) 1685(0.8) Chest Tube 300 110 410 Shift Total(mL/kg) 1135(12.3) 960(10.4) 2095(22.7) [facility]681 -516 -6939 Weight (kg) 92.1 92.1 92.1 92.1 92.1 92.1 Physical Exam: General: A&O, up in chair, nad Pulm: clear ant, crackles at b/l bases Card: s1s2, regular Ext: no significant le edema Skin: sternal incision c/d/i Lab Review: Recent Labs Lab Units 05/12/20 0034 WBC K/cumm 8.6 HEMOGLOBIN g/dL 10.5* HEMATOCRIT % 31.6* PLATELETS K/cumm 106* Recent Labs Lab Units 05/12/20 0034 SODIUM mmol/L 138 POTASSIUM PLASMA mmol/L 4.1 CHLORIDE mmol/L 103 CO2 mmol/L 26 ANIONGAP mmol/L 9 BUN SERUM mg/dL 26* CREATININE mg/dL 0.94 GLUCOSE mg/dL 102 CALCIUM mg/dL 8.3* Recent Labs Lab Units 05/09/20 1450 APTT sec 27 INR 1.2 Radiology/Diagnostic Review: CXR FINDINGS: Postsurgical change from sternotomy. Right central venous catheter terminates over the superior vena cava. Mediastinal and left chest tube in place. Status post mitral valve repair. Stable enlarged cardiac silhouette and pulmonary vasculature. Bibasilar opacities may represent atelectasis. No new focal consolidation. No large pleural effusion or pneumothorax. Scheduled Medications: aspirin, 325 mg, oral, Daily atorvastatin, 80 mg, oral, Nightly docusate sodium, 100 mg, oral, Daily heparin, 5,000 Units, subcutaneous, Q8H DINORA lidocaine, 2 patch, transdermal, Daily metoprolol tartrate, 12.5 mg, oral, BID senna, 1 tablet, oral, BID sodium chloride 0.9%, 0.5-20 mL, intra-catheter, Q8H DINORA ASSESSMENT - Severe mitral regurgitation, Severe 2 vessel CAD, Severe??tricuspid annular dilation??and moderate regurgitation; s/p Coronary artery bypass grafts x 2 (SANTOYO to LAD and SVG ascending aorta to D2); Complex mitral valve??repair (Goretex 2-0 neochordae x 2, annuloplasty??Physio II??size??32??mm); Tricuspid valve annuloplasty ring (Blue Lava Grouptronic Contour 3D??size??32??mm); Left atrial appendage resection; Right greater saphenous endoscopic vein harvest on 05/09/20 - HLD - acute blood loss anemia, expected PLAN - Asa for antiplatelet therapy - cont lipitor - continue metoprolol 12.5 mg bid - lasix 40 mg x 1 - chest tube to suction, output moderate. Possibly remove later today - continue O2 support, wean as tolerated. Encourage IS/ambulation - DVT proph - PT/OT ANGELA Posada 05/12/2020 [facility] * Vicenta Denise, PRINCIPLE INDUSTRIAL HYGIENIST - 05/12/2020 9:29 AM CST Physical Therapy 05/12/20 0995 PT Last Visit Session Type Treatment PT Received On 05/12/20 Safe Environment Arm Band Checked;Call Light within Reach;Overbed Table within Reach Subjective Agreeable to Therapy Additional Pertinent History Monitor O2, Assess need for device at discharge, stair training Family/Caregiver Present No Precautions Precautions Cardiac sternal;Fall risk Pain Assessment Pain Score (Pt reports medium ) Pain Location Chest Clinical Progression Not changed Pain Interventions Medication (See MAR);Repositioned;RN Notified Cognition Orientation Oriented X4 (person, place, time, situation) (Pt seems annoyed by orientation questions. Pt does report) Following Commands (feeling foggy Pt reports this being from pain meds) Dynamic Standing Balance Dynamic Standing-Comments Step ups on 4inch box with christiana UE support x10 reps each LE with seated rest break. Pt requires CGA with cues for safety and posture. Transfer 1 Trials/Comments 1 Sit<>stand CGA/minimal A. Cues for sternal prec and anterior weight shift. pt displays decreased safety awareness and uncontrolled descent. Ambulation 1 Distance (ft) 1 80ft, 110ft, 40ft, 95ft Surface 1 Level tile Device 1 Wheeled walker Other Apparatus 1 Wheelchair follow (of 2nd person) Assistance 1 Contact Guard Assist;Minimum Assist Gait: Requires assist with 1 Maintaining balance Gait: Requires verbal cues to 1 Use assistive device safely;Prevent bumping into environmental barriers (aguirre/furniture);Utilize appropriate gait sequencing;Improve upright posture;Increase step length;Utilize pursed lip breathing Quality of Gait 1 slow kerri, flexed posture, increased UE support on WW, pushes WW too far forward, decreased step length, unsteady, veers left with WW, runs into objects occasionally. Stairs Stair Comments unable to attempt due to multiple lines Other Comments Other PT Comments Pre HR 74, O2 98 on 4 lo2, BP 125/82. Post HR 77, O2 92-95% on 2-4 Lo2, BP 129/79. pt left on 2 Lo2, RN notified. Pt returned to wall suction. Educated pt on cardiac rehab packet. Pt requires cues for sternal prec throughout session. Educated pt to avoid walking dog on leash at this time. pt left seated in chair with call light in reach. Encouraged IS use Assessment Problem List Gait deviations;Decreased endurance;Impaired balance;Decreased mobility;Decreased safety awareness;Pain Plan Plan If this is the last note, consider this the discharge summary Recommendation/Plan PT Recommendation/Plan Home with family;Home with intermittent assist Education: Patient has been educated on the role of PT, safety , precautions, mobility training andstairs. Education completed via explanation, teach back, demonstration and handout . Patient verbalized understanding, demonstrated understanding and needs ongoing reinforcement Multi-Disciplinary Problems (from Physical Therapy) Active Problems Problem: PT [facility] Start Date: 05/11/20 Goal Start Date End Date PT [facility] [facility] [place] [facility] 05/11/20 -- Goal Details: Independent bed mobility and transfers adhering to sternal precautions 100% of the time. Goal Start Date End Date PT LTG - [facility] [place] 2 05/11/20 -- Goal Details: Pt amb 360ft with least restrictive device level surfaces mod indep or indep. Goal Start Date End Date PT [facility] - [facility] [place] 3 05/11/20 -- Goal Details: Pt amb up/down curb step mod indep or indep with good dyn stand balance and/or low fall risk on Small balance scale. Goal Start Date End Date PT [facility] - [facility] [place] 4 05/11/20 -- Goal Details: Pt to apply sternal precautions independently without cueing from PT and display goodknowledge of cardiac HEP for optimal healing and functional recovery. Cosigned by Shanell Miguel, PT at 05/12/2020 11:39 AM [facility]SE [facility] * Grecia Jeffries, OT - 05/11/2020 10:58 AM CST Occupational Therapy 05/11/20 1058 General Chart Reviewed Yes Session Type Evaluation OT Received On 05/11/20 Safe Environment Arm Band Checked;Call Light within Reach;Notified RN Subjective Agreeable to Therapy Additional Pertinent History Pt is a 64 yo male admit who presented for surgical eval of mitral valve regurgitation. Pt is now s/p CABGx2, mitral valve repair with neochords, tricuspid valve annuloplasty, and L atrial appendage by Dr. Reed on 05/09. Family/Caregiver Present Yes () Occupational Therapy-Patient Goal return home at PLOF Precautions Precautions Cardiac sternal;Fall risk Precaution Comments Pt educated on all sternal precautions as well as briefly educated on contents of cardiac rehab packet including progressive walking program and potential shower chair use Home Living Type of Home House Home Layout One level Home Access Stairs to enter without rails Entrance Stairs-Rails None Entrance Stairs-Number of Steps 1 Bathroom Shower/Tub Walk-in shower with threshold Bathroom Equipment Shower chair Home Mobility Equipment Single point cane Additional Comments Pt reports not using any AD nor DME at baseline, but has SPC from ACL injury Prior Function Level of [place] Independent with ADLs;Independent functional transfers;Independent with ambulation;Independent with homemaking with ambulation Lives With Spouse Driving Yes ADL Assistance Independent Instrumental ADL (IADL) Assistance Independent 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[place], [place] 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 within the last 6 months No LE Dressing LE Dressing: Where assessed Supine, bed LE Dressing: Level of assistance Maximum Assist LE Dressing: Assistance with Don/doff R sock;Don/doff L sock Pain Assessment Pain Assessment 0-10 Pain Score 3 Pain Type Surgical pain Pain Location Chest Pain Orientation Mid Clinical Progression Not changed Pain Interventions Repositioned;Rest Activity Tolerance Endurance Tolerates 10 - 20 min activity with multiple rests Vision-Basic Assessment Current Vision Wears glasses all the time Cognition Overall Cognitive Status WFL Arousal/Alertness Alert;Appropriate responses to stimuli Attention Span Appears intact Memory Appears intact Current communication Appears Intact Orientation Oriented X4 (person, place, time, situation) Following Commands Follows one step commands without difficulty Safety Judgment Decreased awareness of need for assistance Awareness of Errors Assistance required to identify errors made Insight Decreased awareness of deficits Problem Solving Assistance required to identify errors made Compliance/Behavior Easy to engage Bed Mobility 1 Bed Mobility Comments 1 Pt sitting EOB upon OT arrival to room Transfer 1 Trials/Comments 1 Bed>chair stand pivot transfer moderate assist for force production. No AD used. Upon standing pt required CGA for safety when stepping towards chair. Verbal cues required for sternal precautions and sequencing RUE Assessment RUE Assessment WFL LUE Assessment LUE Assessment WFL OT Treatment/Exercise Comments OT Treatment/Exercise Comments Pt educated on incentive spirometer use to improve deep breathing needed for ADLs and IADLs Other Comments Comments BP 108/63, HR 73, O2 93% on 5L Assessment Prognosis Good Problem List Decreased endurance;Decreased balance;Decreased functional mobility;Decreased ADL independence;Decreased IADL independence Barriers to Discharge Current Mobility Status Plan Plan Plan of care initiated;If this is the last note, consider this the discharge summary Recommendation/Plan OT Recommendation Home with 24 hour supervision;Home with family OT Frequency 3-5x/wk Treatment/Interventions ADL/IADL retraining;Balance Training;Endurance training;Functional activity;Functional mobility training;Functional transfer training;Parent/caregiver training and education;Strengthening;Therapeutic activity;Therapeutic exercise Progress Progressing toward goals OT Evaluation Complete Yes Multi-Disciplinary Problems (from Occupational Therapy) Active Problems Problem: OT Misc Start Date: 05/11/20 Goal Start Date End Date OT LTG - Misc 1 05/11/20 -- Goal Details: Pt will complete toileting tasks and toilet transfer modified independent Goal Start Date End Date OT [facility] 2 05/11/20 -- Goal Details: Pt will complete LB dressing modified independent Goal Start Date End Date OT [facility] 3 05/11/20 -- Goal Details: Pt will complete grooming tasks at sink independently Goal Start Date End Date OT [facility] 4 05/11/20 -- Goal Details: Pt will complete object retrieval from varying heights modified independent to simulate ADLs and IADLs Education: Patient has been educated on the role of OT, safety, precautions, ADL training, mobilitytraining, body mechanics and use of adaptive equipment/DME. Education completed via verbal instruction, return demonstration and handouts. Patient verbalized understanding, demonstrated understandingand needs ongoing reinforcement [facility] * Rosy Ma NP - 05/11/2020 10:28 AM CST CVR ICU Daily Progress Shifts: NPP Shift Options: [facility] CVR AM Subjective Patient is a 64 y.o. male admitted to the hospital on 05/09/2020 6:22 AM with/following: MR, CAD 05/09: CABG x2 (SANTOYO to LAD, R SVG to diagonal), MV repair, TV repair, and SAPPHIRE excision Interval History: Extubated yesterday and weaned off norepi and epi. Oxy increased overnight for pain. Objective Medications: Scheduled Meds:acetaminophen, 1,000 mg, oral, Q6H DINORA aspirin, 325 mg, oral, Daily atorvastatin, 80 mg, oral, Nightly docusate sodium, 100 mg, oral, Daily heparin, 5,000 Units, subcutaneous, Q8H DINORA lidocaine, 2 patch, transdermal, Daily metoprolol tartrate, 12.5 mg, oral, BID senna, 1 tablet, oral, BID sodium chloride 0.9%, 0.5-20 mL, intra-catheter, Q8H DINORA Continuous Infusions: Vitals: Temp: [36.7 ??C (98.1 ??F)-38 ??C (100.4 ??F)] 36.7 ??C (98.1 ??F) Pulse: [73-91] 73 BP: (111-130)/(60-68) 112/60 Resp: [11-33] 14 SpO2: [89 %-99 %] 96 % Arterial Line BP: (96-134)/(49-61) 133/59 Fluid balance: I/O this shift: In: 180 [P.O.:180] Out: 510 [Urine:360; Chest Tube:150] Intake/Output Summary (Last 24 hours) at 05/11/2020 1028 Last data filed at 05/11/2020 1000 Gross per 24 hour Intake 2469 ml Output 1625 ml Net 844 ml Ventilator settings: Hemodynamic parameters: PAP: -- CVP: 15 mmHg (05/11 729) PCWP: -- CO: -- CI: -- SVO2: -- Pacemaker Overdrive Pacing: -- Cardiac Rhythm: Normal sinus rhythm (05/11 729) Pacer Mode: -- Physical exam: Neuro: Alert, oriented, able to follow simple commands, PERRL 2mm Cardiovascular: S1 S2, RRR, no murmurs, rubs, or gallops, periphery warm with palpable pulses, trace BLE edema Pulmonary: Breath sounds diminished to auscultation bilaterally, normal respiratory rate and effort GI: Abdomen soft, non-distended, bowel sounds hypoactive : Grimes in place draining clear yellow urine Skin: Warm, dry, Sternal incision with OR dressing clean, dry, intact. SVG site with dermabond EVELIN. Drains: Chest tubes to -20 suction with serosanguinous drainage, no air leak. Lines: R IJ central line, R radial jesu with dressings clean, dry, intact. Laboratory data: Recent Labs Lab Units 05/11/20 0254 05/11/20 02005/10/20 0159 WBC K/cumm 11.0* 11.7* 17.4* HEMOGLOBIN g/dL 10.5* 10.6* 13.7 HEMATOCRIT % 30.8* 31.2* 40.8 PLATELETS K/cumm 100* 109* 208 Recent Labs Lab Units 05/11/20 0201 05/10/20 0159 05/09/20 1450 SODIUM mmol/L 137 141 144 POTASSIUM PLASMA mmol/L 4.1 4.9 4.2 CHLORIDE mmol/L 107 110 113* CO2 mmol/L 23 15* 21* BUN SERUM mg/dL 24 15 16 CREATININE mg/dL 0.94 1.14 1.03 CALCIUM mg/dL 8.3* 8.8 9.1 Recent Labs Lab Units 05/09/20 1450 05/09/20 1346 05/09/20 0739 PROTIME (PT) sec 13.8* 15.0* 12.0 INR 1.2 1.4* 1.1 APTT sec 27 23* 26* Recent Labs Lab Units 05/10/20 0920 05/10/20 0650 05/10/20 0338 PH ART 7.45 7.43 7.39 PCO2 ART mmHg 30* 33* 26* PO2 ART mmHg 124* 152* 186* BASE EXC ART mmol/L -2 -2 -8 Diagnostic review (radiology / micro / other): CXR: Lines in good position, mild pulmonary edema, bibasilar atelectasis. Impression and Plan: Acute postoperative pain Expected following sternotomy. Reports increased incisional pain this morning. - Increase oxy frequency to 10mg Q3H PRN - Add lidocaine patches - Toradol x1 per Dr. Naqvi - Continue scheduled Tylenol - DC dilaudid Combined cardiogenic and hypovolemic shock Resolved. Intraop ALBERTO with EF unchanged at 45%, moderate RV dysfunction noted so pt was started on Epi. Weaned off norepi and epi yesterday with stable hemodynamics. ?? Acute respiratory Insufficiency Hypoxic postop requiring 100% FiO2 and PEEP at 12. Pt was bronched with large amount of clear secretions suctioned. Possibly pulmonary edema. Pt was extubated to 5L NC yesterday. Remains on 5L. - 20 Lasix IV x1 - Encourage incentive spirometry - Out of bed, physical therapy - Wean O2 for oxygen saturations > 92% CAD, MR, TR S/p CABG, MV repair, and TV repair. Postop care to include: - ASA, statin - Start metoprolol - Docusate, senna for bowel regimen - Cardiac diet - SCDs and SQH for DVT PPX - Periop Ancef and Vanc complete - CTs to -20 suction - EPW VVI backup Assessment and plan discussed with surgeon and ICU attending. Rosy Ma NP [facility]SE [facility] * Grace Garcia, PT - 05/11/2020 8:26 AM CST Physical Therapy Evaluation 05/11/20 0746 General Chart Reviewed Yes Session Type Evaluation PT Received On 05/11/20 Safe Environment Arm Band Checked Subjective Agreeable to Therapy Subjective Comment pt holding breath, spo2 marginal, does answer questions but delayed, feeling nauseated after eating a bite of breakfast, RN in room intermittently during PT eval. eval limited by pt's low spo2 Additional Pertinent History 64 yo admit 05-09-20 for surgery that same day with Dr. Peña for CABG x2 (SANTOYO ,RSVG) and MV repair, TV annuloplssty via median sternotomy. 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 No Prior Function Comments pt amb indep no AD, for fun he likes to do household projects Activity Tolerance Activity Tolerance Comments fair tre of PT eval, splinting and low spo2 Pain Assessment Pain Assessment (pt will not give number for pain, states it hurts) Pain Location Incision Vision-Basic Assessment Current Vision Wears glasses all the time (glasses cleaned for pt) Visual History Cataracts Cognition Overall Cognitive Status Impaired Arousal/Alertness Delayed responses to stimuli Orientation Oriented X4 (person, place, time, situation) Insight Decreased awareness of deficits Compliance/Behavior Other (comment) (slow to respond, did listen to education on sternal precaut) Bed Mobility 1 Bed Mobility Comments 1 sit to supine max assist of 2, pt does not adjust hips once supine, max depto align pt Transfer 1 Trials/Comments 1 sit<>stand mod assist of 2, pt remained flexed , cues to extend trunk whichhe partially completed. Ambulation 1 Distance (ft) 1 5 steps to the R sidestepping. Surface 1 Level tile Device 1 Hand held assist;No device Assistance 1 Moderate Assist (2 person assist) Gait: Requires assist with 1 Maintaining balance Gait: Requires verbal cues to 1 Follow precautions/weight bearing status;Improve upright posture;Increase step length;Pace activity;Utilize pursed lip breathing Ambulation Comments 1 overall flexed posture, poor foot clearance RLE Assessment RLE Assessment WFL LLE Assessment LLE Assessment WFL PT Treatment/Exercise Comments PT Treatment/Exercise Comments RN states do not practice IS with pt due to low spo2 Other Comments Other PT Comments pre and post PT similar numbers: 81, 86 to 92%, 138/80, pt on 5 LO2 NC Assessment Prognosis Fair Problem List Gait deviations;Decreased endurance;Impaired balance;Decreased mobility Plan Plan Plan of care initiated;If this is the last note, consider this the discharge summary Recommendation/Plan PT Recommendation/Plan Home with family;Home with intermittent assist;Home Health PT PT Recommendation/Plan Comments pt will need to greatly improve in order to DC home PT Frequency 3-5x/wk Treatment/Interventions Bed mobility;Compensatory technique education;Functional activity;Gait training;Therapeutic activity PT Equipment Recommended None (pt owns SPC) PT Evaluation Complete Yes Multi-Disciplinary Problems (from Physical Therapy) Active Problems Problem: PT [facility] [place] Start Date: 05/11/20 Goal Start Date End Date PT [facility] - [facility] [place] 1 05/11/20 -- Goal Details: Independent bed mobility and transfers adhering to sternal precautions 100% of the time. Goal Start Date End Date PT [facility] - [facility] [place] 2 05/11/20 -- Goal Details: Pt amb 360ft with least restrictive device level surfaces mod indep or indep. Goal Start Date End Date PT [facility] 3 05/11/20 -- Goal Details: Pt amb up/down curb step mod indep or indep with good dyn stand balance and/or low fall risk on Small balance scale. Goal Start Date End Date PT [facility] 4 05/11/20 -- Goal Details: Pt to apply sternal precautions independently without cueing from PT and display goodknowledge of cardiac HEP for optimal healing and functional recovery. Education: Patient has been educated on the role of PT, safety , precautions, mobility training andhome exercise program. Education completed via explanation, teach back, demonstration and handout .Patient verbalized understanding, demonstrated understanding and needs ongoing reinforcement \ [facility] * MaRosy rios, BILL COLLECTOR - 05/10/2020 2:19 PM CST CVR ICU Daily Progress Shifts: NPP Shift Options: [facility] CVR AM Subjective Patient is a 64 y.o. male admitted to the hospital on 05/09/2020 6:22 AM with/following: MR, CAD 05/09: CABG x2 (SANTOYO to LAD, R SVG to diagonal), MV repair, TV repair, and SAPPHIRE excision Interval History: Hypoxia immediately postop with large amount of clear secretions suctioned from bronch. Requiring 100% FiO2 and 12 PEEP. Has since been weaned down to 40% and 8 PEEP. Metabolic acidosis this am with lactate 6. Received 750ml LR overnight and 1 amp bicarb. Objective Medications: Scheduled Meds:acetaminophen, 1,000 mg, oral, Q6H DINORA aspirin, 325 mg, oral, Daily atorvastatin, 80 mg, oral, Nightly ceFAZolin, 2,000 mg, intravenous, Q8H docusate sodium, 100 mg, oral, Daily Or docusate, 100 mg, feeding tube, Daily famotidine, 20 mg, intravenous, Q12H DINORA heparin, 5,000 Units, subcutaneous, Q8H DINORA Lactated Ringer's, 250 mL, intravenous, Once senna, 1 tablet, oral, BID Or senna, 8.8 mg, feeding tube, BID sodium chloride 0.9%, 0.5-20 mL, intra-catheter, Q8H DINORA Continuous Infusions:EPINEPHrine, 0.02-0.2 mcg/kg/min, Last Rate: 0.03 mcg/kg/min (05/10/20 1200) norepinephrine, 0.01-2 mcg/kg/min, Last Rate: Stopped (05/10/20 1200) sodium chloride 0.9%, 10 mL/hr, Last Rate: 10 mL/hr (05/09/20 1445) Vitals: Temp: [35.7 ??C (96.3 ??F)-37.4 ??C (99.3 ??F)] 36.7 ??C (98.1 ??F) Pulse: [83-101] 89 BP: (108)/(64) 108/64 Resp: [9-30] 24 SpO2: [86 %-100 %] 99 % Arterial Line BP: (77-140)/(46-75) 104/53 FiO2 (%): [40 %-100 %] 40 % Fluid balance: I/O this shift: In: 400 [P.O.:400] Out: 610 [Urine:330; Emesis/NG output:200; Chest Tube:80] Intake/Output Summary (Last 24 hours) at 05/10/2020 1419 Last data filed at 05/10/2020 1405 Gross per 24 hour Intake 4860 ml Output 2130 ml Net 2730 ml Ventilator settings: Adult Vent Mode: Continuous positive airway pressure FiO2 (%): 40 % Pressure Support (cm H2O): 8 cm H20 SD SUP: 8 cm H20 (05/10 0907-05/10 0930) Hemodynamic parameters: PAP: -- CVP: 10 mmHg (05/10 1400) PCWP: -- CO: -- CI: -- SVO2: -- Pacemaker Overdrive Pacing: -- Cardiac Rhythm: Normal sinus rhythm (05/10 1200) Pacer Mode: -- Physical exam: Neuro: Sedated, unable to follow simple commands, pupils pinpoint Cardiovascular: S1 S2, RRR, no murmurs, rubs, or gallops, epicardial wires set VVI backup, periphery warm with palpable distal pulses, trace edema Pulmonary: Intubated and mechanically ventilated, breath sounds coarse to auscultation bilaterally GI: Abdomen soft, non-distended, bowel sounds absent : Grimes catheter in place draining clear, yellow urine Skin: Warm and dry. Midline sternal incision with OR dressing intact. SVG site with MARCELINA wrap dressing intact. Drains: Chest tubes to -20 suction with small amount of sanguinous drainage, no air leak. TEMO drain to groin to bulb suction with serosanguinous drainage. Lines: R IJ cordis/QLC, R radial jesu with dressings clean, dry, intact. Laboratory data: Recent Labs Lab Units 05/10/20 0159 05/09/20 1450 05/09/20 1345 WBC K/cumm 17.4* 20.2* 20.5* HEMOGLOBIN g/dL 13.7 13.2 12.0* HEMATOCRIT % 40.8 38.0* 34.8* PLATELETS K/cumm 208 164 165 Recent Labs Lab Units 05/10/20 0159 05/09/20 1450 SODIUM mmol/L 141 144 POTASSIUM PLASMA mmol/L 4.9 4.2 CHLORIDE mmol/L 110 113* CO2 mmol/L 15* 21* BUN SERUM mg/dL 15 16 CREATININE mg/dL 1.14 1.03 CALCIUM mg/dL 8.8 9.1 Recent Labs Lab Units 05/09/20 1450 05/09/20 1346 05/09/20 0739 PROTIME (PT) sec 13.8* 15.0* 12.0 INR 1.2 1.4* 1.1 APTT sec 27 23* 26* Recent Labs Lab Units 05/10/20 0920 05/10/20 0650 05/10/20 0338 PH ART 7.45 7.43 7.39 PCO2 ART mmHg 30* 33* 26* PO2 ART mmHg 124* 152* 186* BASE EXC ART mmol/L -2 -2 -8 Diagnostic review (radiology / micro / other): CXR: Lines in good position, mild pulmonary edema, bibasilar atelectasis. Impression and Plan: Acute postoperative pain Expected following sternotomy. - PRN fentanyl while intubated - Precedex for sedation ??- Transition to PO scheduled Tylenol and PRN oxycodone once extubated Combined cardiogenic and hypovolemic shock Resolving. Now down to 0.01 NE and Epi at 0.03. Intraop ALBERTO with EF unchanged at 45%, moderate RV dysfunction noted so pt was started on Epi. - Wean norepi for MAP > 65 - Once off norepi will start weaning Epi for MAP > 65 ?? Acute hypoxic respiratory failure Hypoxic postop requiring 100% FiO2 and PEEP at 12. Pt was bronched with large amount of clear secretions suctioned. Unknown cause. Possibly mucous plug versus acute pulmonary edema. Now improving andon 40% FiO2 and PEEP 8. - Wean PEEP to 5, if pt tolerates will transition to PSV trial with goal to extubate Lactic acidosis Bicarb down to 15 with AG 16. Lactate 6.1 likely hypovolemia. Received 750ml LR and 1 amp bicarb. Repeat ABG and lactate improving. ?? CAD, MR, TR S/p CABG, MV repair, and TV repair. Postop care to include: - ASA, statin - Eventual beta tia - Docusate, senna for bowel regimen - H2 tia while intubated for GI PPX - SCDs and SQH POD 1 for DVT PPX - Periop Ancef and Vanc - CTs to -20 suction - EPW VVI backup Updates: - Pt extubated to NC 5L and tolerating well - Weaned off all drips Assessment and plan discussed with surgeon and ICU attending. Rosy Ma NP [facility]SE [facility] * Melina Stevens RD - 05/10/2020 12:00 PM CST Nutrition Follow-up Progress Note Encounter Date: 05/10/20 12:00 PM Nutrition Progress Summary: Patient is a 64 y.o. male. Admit Dx: /SD MITRALPLASTY W RADICAL RECONSTR/SD CABG, ARTERIAL, SINGLE/SD REPLACEMENT OF MITRAL VALVE. Admitted on 05/09/2020. Pt s/p TVR/MVR/CABG 05/09/20. Discussed with pt and the importance of protein intake for wound healing. Jonny supplement initiated. Will follow regarding nutritional needs. Objective Dietary Orders (From admission, onward) Start Ordered 05/10/20 1200 Oral Nutrition Supplements Select Supplement: Jonny - Any Flavor With Breakfast and Dinner Question: Select Supplement: Answer: Jonny - Any Flavor 05/10/20 1159 05/10/20 0955 Adult Diet Special; Low Fat, Low Chol, Low Na; Consistent Carbohydrate Diet effectivenow Question Answer Comment ([facility]) Diet type Special Fat / Sodium Restriction: Low Fat, Low Chol, Low Na Diabetic: Consistent Carbohydrate 05/10/20 0954 Anthropometrics Weight: 90.4 kg (199 lb 4.7 oz) Admission Weight : 90.4 kg Weight Change: -0.31 kg (-0.70 lbs) IBW/kg (Calculated) : 83.4 kg Height: 185.4 cm (6' 0.99 ) Weight in (lb) to have BMI = 25: 189.1 BMI (Calculated): 26.3 Intake/Output Summary (Last 24 hours) at 05/10/2020 1200 Last data filed at 05/10/2020 0955 Gross per 24 hour Intake 4520 ml Output 2580 ml Net 1940 ml Medications and Lab Review: Scheduled Meds: acetaminophen, 1,000 mg, oral, Q6H DINORA aspirin, 325 mg, oral, Daily atorvastatin, 80 mg, oral, Nightly ceFAZolin, 2,000 mg, intravenous, Q8H docusate sodium, 100 mg, oral, Daily Or docusate, 100 mg, feeding tube, Daily famotidine, 20 mg, intravenous, Q12H DINORA heparin, 5,000 Units, subcutaneous, Q8H DINORA Lactated Ringer's, 250 mL, intravenous, Once senna, 1 tablet, oral, BID Or senna, 8.8 mg, feeding tube, BID sodium chloride 0.9%, 0.5-20 mL, intra-catheter, Q8H DINORA Continuous Infusions: EPINEPHrine, 0.02-0.2 mcg/kg/min, Last Rate: 0.03 mcg/kg/min (05/10/20 1000) norepinephrine, 0.01-2 mcg/kg/min, Last Rate: 0.01 mcg/kg/min (05/10/20 1000) sodium chloride 0.9%, 10 mL/hr, Last Rate: 10 mL/hr (05/09/20 1445) PRN Meds: bisacodyL ??? dextrose ??? HYDROmorphone ??? insulin lispro ??? insulin regular ??? ondansetron ??? oxyCODONE ??? polyethylene glycol ??? potassium chloride ??? sodium chloride 0.9% Sodium Date Value Ref Range Status 05/10/2020 141 135 - 145 mmol/L Final Potassium, pl Date Value Ref Range Status 05/10/2020 4.9 3.3 - 4.9 mmol/L Final BUN Date Value Ref Range Status 05/10/2020 15 8 - 25 mg/dL Final Creatinine Date Value Ref Range Status 05/10/2020 1.14 0.80 - 1.30 mg/dL Final Phosphorus, pl Date Value Ref Range Status 05/10/2020 4.1 2.3 - 4.5 mg/dL Final Albumin Date Value Ref Range Status 05/10/2020 3.6 3.5 - 5.0 g/dL Final Magnesium Date Value Ref Range Status 05/10/2020 2.0 1.4 - 2.5 mg/dL Final Calcium Date Value Ref Range Status 05/10/2020 8.8 8.5 - 10.3 mg/dL Final ALT Date Value Ref Range Status 05/10/2020 29 7 - 55 Units/L Final AST Date Value Ref Range Status 05/10/2020 55 (H) 10 - 50 Units/L Final Alk phos Date Value Ref Range Status 05/10/2020 54 40 - 130 Units/L Final Lab Results Component Value Date HGBA1C 5.3 05/09/2020 Nursing Assessment: Bowel Sounds (All Quadrants): Hypoactive Des Scale Score: 16 Skin Integrity: Surgical incision Nutrition Needs Calculations: Calculated Energy Needs Using Equations Weight: 90.4 kg (199 lb 4.7 oz) Height: 185.4 cm (6' 0.99 ) Minute Ventilation (L/min): 11.2 L/min Estimated Protein Needs Type of Weight Used for Estimated Protein : Current Protein Needs Based on g/k.2 Total Protein Estimated Needs (gm): 108.48 Kcal/kg Type of Weight Used for Estimated Kcals: Current Kcal/k Total Kcal/kg Estimated Needs : 2260 Current Nutrition Issues: Nutrition Diagnosis 1: Increased nutrient needs (protein) Related to: Recent surgery Evidenced by: Physical finding Nutrition Plan: Interventions: Medical food supplement, Encouragement Monitoring and Evaluation: PO intake, Plan of care, Labs Goals: Adequate nutrition to meet estimated needs by next assessment Melina Stevens RD, LD [facility] * Grecia Jeffries OT - 05/10/2020 11:07 AM CST Occupational Therapy 05/10/20 1107 General OT Received On 05/10/20 Subjective Comment Pt not following purposeful commands at this time- remains sedated. OT will follow up with pt at later time as medically appropriate OT Missed Visit Reason MD/RN Hold [facility] * Grace Garcia, PT - 05/10/2020 7:50 AM CST Physical Therapy OTHER 05/10/20 0750 General Session Type Other (comment) PT Received On 05/10/20 PT Missed Visit Reason MD/RN Hold Additional Pertinent History pt still intubated [facility] * Kelsy Holbrook BILL COLLECTOR - 05/09/2020 8:[address] ICU Daily Progress Shifts: NPP Shift Options: [facility] CVR PM Subjective Patient is a 64 y.o. male admitted to the hospital on 05/09/2020 6:22 AM with/following: MR, CAD 05/09: CABG x2 (SANTOYO to LAD, R SVG to diagonal), MV repair, TV repair, and SAPPHIRE excision Interval History: Albumin 250 given for high pressor requirements. Increasingly hypoxemic after ICU arrival. Bronchoscopy performed with large amount of thin yellow to clear secretions noted. Peep increased to 12. Oxygenation improving. Objective Medications: Scheduled Meds:acetaminophen, 1,000 mg, oral, Q6H DINORA aspirin, 325 mg, oral, Daily atorvastatin, 80 mg, oral, Nightly ceFAZolin, 2,000 mg, intravenous, Q8H docusate sodium, 100 mg, oral, Daily Or docusate, 100 mg, feeding tube, Daily famotidine, 20 mg, intravenous, Q12H DIN[place]A heparin, 5,000 Units, subcutaneous, Q8H [facility] Lactated Ringer's, 250 mL, intravenous, Once senna, 1 tablet, oral, BID Or senna, 8.8 mg, feeding tube, BID sodium chloride 0.9%, 0.5-20 mL, intra-catheter, Q8H [facility] Continuous Infusions:EPINEPHrine, 0.02-0.2 mcg/kg/min, Last Rate: 0.01 mcg/kg/min (05/10/20 1605) norepinephrine, 0.01-2 mcg/kg/min, Last Rate: Stopped (05/10/20 1200) sodium chloride 0.9%, 10 mL/hr, Last Rate: 10 mL/hr (05/09/20 1445) Vitals: Temp: [36.5 ??C (97.7 ??F)-37.4 ??C (99.3 ??F)] 36.8 ??C (98.2 ??F) Pulse: [83-100] 89 BP: (108)/(64) 108/64 Resp: [9-30] 18 SpO2: [89 %-100 %] 97 % Arterial Line BP: (77-130)/(46-65) 115/54 FiO2 (%): [40 %-100 %] 40 % Fluid balance: I/O this shift: In: 550 [P.O.:550] Out: 690 [Urine:380; Emesis/NG output:200; Chest Tube:110] Intake/Output Summary (Last 24 hours) at 05/10/2020 1610 Last data filed at 05/10/2020 1605 Gross per 24 hour Intake 1810 ml Output 1760 ml Net 50 ml Ventilator settings: Adult Vent Mode: Continuous positive airway pressure FiO2 (%): 40 % Pressure Support (cm H2O): 8 cm H20 SD SUP: 8 cm H20 (05/10 0907-05/10 0930) Hemodynamic parameters: PAP: -- CVP: 12 mmHg (05/10 1600) PCWP: -- CO: -- CI: -- SVO2: -- Pacemaker Overdrive Pacing: -- Cardiac Rhythm: Normal sinus rhythm (05/10 1555) Pacer Mode: -- Physical exam: Neuro: Sedated. PERRL. Cardiovascular: RRR (epicardial wires set to VVI b/u), S1 S2, periphery warm, palpable peripheral pulses. Trace BLE edema. Pulmonary: Orally intubated. Breath sounds caorse bilaterally. GI: abdomen soft, non-distended. Absent bowel sounds. OG tube to LIS. : grimes in place draining clear yellow urine Skin: [place], warm, dry. Midline sternal incision covered w/ OR dressing, clean dry, intact. Right leg SVG harvest site with mild erythema, open to air. Other: Left pleural and mediastinal chest tubes, to suction, no air leak. Laboratory data: Recent Labs Lab Units 05/10/20 0159 05/09/20 1450 05/09/20 1345 WBC K/cumm 17.4* 20.2* 20.5* HEMOGLOBIN g/dL 13.7 13.2 12.0* HEMATOCRIT % 40.8 38.0* 34.8* PLATELETS K/cumm 208 164 165 Recent Labs Lab Units 05/10/20 0159 05/09/20 1450 SODIUM mmol/L 141 144 POTASSIUM PLASMA mmol/L 4.9 4.2 CHLORIDE mmol/L 110 113* CO2 mmol/L 15* 21* BUN SERUM mg/dL 15 16 CREATININE mg/dL 1.14 1.03 CALCIUM mg/dL 8.8 9.1 Recent Labs Lab Units 05/09/20 1450 05/09/20 1346 05/09/20 0739 PROTIME (PT) sec 13.8* 15.0* 12.0 INR 1.2 1.4* 1.1 APTT sec 27 23* 26* Recent Labs Lab Units 05/10/20 0920 05/10/20 0650 05/10/20 0338 PH ART 7.45 7.43 7.39 PCO2 ART mmHg 30* 33* 26* PO2 ART mmHg 124* 152* 186* BASE EXC ART mmol/L -2 -2 -8 Diagnostic review (radiology / micro / other): CXR: ETT ~ 3 cm above candice. OG tube below diaphragm. RIJ CVC x 2. Left pleural and mediastinal chest tubes noted. Mild edema. Impression and Plan: Active problems/Diagnoses: Acute postoperative pain Combined cardiogenic and hypovolemic shock Lactic acidosis Acute hypoxic respiratory failure Plans: Acute postoperative pain Expected following sternotomy. - PRN fentanyl while intubated - Precedex and proposol for sedation ?? Combined cardiogenic and hypovolemic shock Intraop ALBERTO with EF unchanged at 45%, moderate RV dysfunction noted so pt was started on Epi. Remains on epi 0.03 and NE 0.15 despite 250 albumin. Good urine output. ScvO2 80s. May have element of vasoplegia. - hold off on additional volume for now given RV dysfunction and good urine output. - Hold epi at 0.03 given high dose NE 0330: AM labs with bicarb down to 15. NE improved but remains on 0.09 mcg/kg/min. Add on lactate. 500 ml LR. 0420: Lactate elevated at 6. Able to wean NE but remains on 0.05. 250 ml LR. 1 amp bicarb. ?? Acute hypoxic respiratory failure Initially pt doing well and weaning FiO2 but shortly after arrival he became hypoxic requiring 100%FiO2 and PEEP increased to 12. CXR without evidence of PTX, mild pulmonary edema, atelectasis. Pt then had large amount of thin yellow to clear secretions. Pt was bronched with large amount of clear secretions suctioned. Possibly pulmonary edema. - Wean FiO2 as tolerated - Once FiO2 down to 40% will wean PEEP - Keep intubated overnight 0420: Remains on NE 0.05. May in part be related to higher peep given RV dysfunction. Oxygenation much improved. Decrease peep to 8. [facility] documented in this encounter H&P Notes * Rosy Ma NP - 05/09/2020 3:00 PM CST CVR ICU History and Physical Shifts: NPP Shift Options: [facility] CVR AM Subjective Patient is a 64 y.o. male admitted to the hospital on 05/09/2020 6:22 AM Chief Complaint / Reason for admission to CTICU MR, CAD 05/09: CABG x2 (SANTOYO to LAD, R SVG to diagonal), MV repair, TV repair, and SAPPHIRE excision HPI: 64 y/o M with PMH of HLD who was found to have mitral valve regurgitation after his PCP heard a murmur and referred him for echo. TTE revealed prolapse of the posterior leaflet and part flail of the posterior leaflet with highly eccentric MR that is severe. The left atrium is quite large and also he has at least moderate pulmonary hypertension by analysis of TR velocity. Left ventricular size andcontractility looked normal. In retrospect, the patient had noticed some shortness of breath over the last year. He was referred to Dr. Reed for cardiac surgery evaluation. [facility] revealed 2 vessel disease of the LAD and diagonal. Today (05/09/20) the pt underwent CABG x2 (SANTOYO to LAD, R SVG to diagonal), MV repair, TV repair, and SAPPHIRE excision. Anesthesia reported an easy airway. Post procedure ALBERTO S/p mitral valve repair with MG 3 and tricuspid repair with MG 3, Moderately decreased RV function and mildly decreased LV systolic function on no inotropic support. Pt arrived to CVR intubated, sedated on propofol, and hemodynamically supported on Epi 0.02mcg/kg/min and norepinephrine at 0.125mcg/kg/min. Past Medical History: Diagnosis Date ??? Cataract ??? Coronary artery disease ??? Hyperlipidemia ??? Mitral regurgitation ??? Mitral valve regurgitation Past Surgical History: Procedure Laterality Date ??? KNEE SURGERY left knee ACL HOME MEDICATIONS : aspirin 81 mg enteric coated tablet atorvastatin (LIPITOR) 20 mg tablet cholecalciferol (VITAMIN D-3) 25 mcg (1,000 unit) tablet furosemide (LASIX) 20 mg tablet No Known Allergies Social History Tobacco Use ??? Smoking status: Never Smoker ??? Smokeless tobacco: Never Used Substance Use Topics ??? Alcohol use: Not Currently Family History Problem Relation Age of Onset ??? Atrial fibrillation Mother ??? Other (CVA) Father Review of systems: Unable to obtain. Pt sedated. Objective Medications: Scheduled Meds:acetaminophen, 1,000 mg, oral, Q6H DINORA Or acetaminophen, 1,000 mg, feeding tube, Q6H DINORA Or acetaminophen, 650 mg, rectal, Q6H [place] aspirin, 325 mg, oral, Daily Or aspirin, 325 mg, feeding tube, Daily Or aspirin, 300 mg, rectal, Daily ceFAZolin, 2,000 mg, intravenous, Q8H docusate sodium, 100 mg, oral, Daily Or docusate, 100 mg, feeding tube, Daily famotidine, 20 mg, intravenous, Q12H [place]A [START ON 05/10/2020] heparin, 5,000 Units, subcutaneous, Q8H [place]A insulin regular, 2-14 Units, intravenous, Once [START ON 05/10/2020] senna, 1 tablet, oral, BID Or [START ON 05/10/2020] senna, 8.8 mg, feeding tube, BID sodium chloride 0.9%, 0.5-20 mL, intra-catheter, Q8H DIN[place]A vancomycin, 1,500 mg, intravenous, Q12H Continuous Infusions:dexmedeTOMIDine, 0-1.5 mcg/kg/hr, Last Rate: 0.7 mcg/kg/hr (05/09/201429) EPINEPHrine, 0.02-0.2 mcg/kg/min, Last Rate: 0.02 mcg/kg/min (05/09/201444) insulin regular, 0-30 Units/hr norepinephrine, 0.01-2 mcg/kg/min, Last Rate: 0.125 mcg/kg/min (05/09/201444) sodium chloride 0.9%, 10 mL/hr, Last Rate: 10 mL/hr (05/09/201444) sodium chloride 0.9%, 1,000 mL Vitals: Temp: [35.7 ??C (96.3 ??F)-35.8 ??C (96.5 ??F)] 35.7 ??C (96.3 ??F) Pulse: [88-97] 94 BP: (131-134)/(93) 134/93 Resp: [14-18] 14 SpO2: [94 %-98 %] 98 % Arterial Line BP: (98-107)/(54-58) 98/54 FiO2 (%): [100 %] 100 % Fluid balnace: I/O this shift: In: 3224 [I.V.:3224] Out: 940 [Urine:850; Chest Tube:90] Intake/Output Summary (Last 24 hours) at 05/09/2020 1500 Last data filed at 05/09/2020 1500 Gross per 24 hour Intake 3224 ml Output 940 ml Net 2284 ml Vent settings: Adult Vent Mode: Volume control/Synchronized intermittent mandatory ventilation FiO2 (%): 100 % S RR: 14 PEEP/CPAP/EPAP (cm H2O): 5 cm H20 Pressure Support (cm H2O): 8 cm H20 Hemodynamic parameters: PAP: -- CVP: 11 mmHg (05/09 1444) PCWP: -- CO: -- CI: -- SVO2: -- Pacemaker Overdrive Pacing: -- Cardiac Rhythm: Normal sinus rhythm (05/09 1429) Pacer Mode: -- Physical exam: Neuro: Sedated, unable to follow simple commands, pupils pinpoint Cardiovascular: S1 S2, RRR, no murmurs, rubs, or gallops, epicardial wires set VVI backup, periphery warm with palpable distal pulses, trace edema Pulmonary: Intubated and mechanically ventilated, breath sounds clear to auscultation bilaterally GI: Abdomen soft, non-distended, bowel sounds absent : Grimes catheter in place draining clear, yellow urine Skin: Warm and dry. Midline sternal incision with OR dressing intact. SVG site with MARCELINA wrap dressing intact. Drains: Chest tubes to -20 suction with small amount of sanguinous drainage, no air leak. TEMO drain to groin to bulb suction with serosanguinous drainage. Lines: R IJ cordis/QLC, R radial jesu with dressings clean, dry, intact. Laboratory data: Recent Labs Lab Units 05/09/20 1345 05/09/20 1339 05/09/20 1216 WBC K/cumm 20.5* -- -- HEMOGLOBIN, POC g/dL -- 12.1* 11.4* HEMOGLOBIN g/dL 12.0* -- -- HEMATOCRIT % 34.8* -- -- HEMATOCRIT POC % -- 36.0* 34.0* PLATELETS K/cumm 165 -- -- Recent Labs Lab Units 05/09/20 1346 05/09/20 0739 PROTIME (PT) sec 15.0* 12.0 INR 1.4* 1.1 APTT sec 23* 26* Recent Labs Lab Units 05/09/20 1339 05/09/20 1216 05/09/20 1119 PH ART 7.38 7.38 7.36 PO2 ARTERIAL POC mmHg 119* 223* 260* POCT BASE EXCESS, ARTERIAL mmol/L -2.8* -0.8 -4.9* Radiology/Diagnostic/Micro Review CXR: ETT and lines in good position, bibasilar atelectasis, fluid in R fissure, mild pulmonary edema. Impression and Plan: Acute postoperative pain Expected following sternotomy. - PRN fentanyl while intubated - Precedex for sedation Combined cardiogenic and hypovolemic shock Intraop ALBERTO with EF unchanged at 45%, moderate RV dysfunction noted so pt was started on Epi. Pt arrived from OR supported on Epi 0.03 and norepi at 0.15. - 250ml albumin - No epi wean - Trend ScVO2 Acute hypoxic respiratory failure Initially pt doing well and weaning FiO2 but shortly after arrival he became hypoxic requiring 100%FiO2 and PEEP increased to 12. CXR without evidence of PTX, mild pulmonary edema, atelectasis. Initially RN had suctioned pt and sats improved. But shortly after pt had large amount of thin yellow toclear secretions. Pt was bronched with large amount of clear secretions suctioned. Unknown cause. Possibly mucous plug versus acute pulmonary edema. - Wean FiO2 as tolerated - Once FiO2 down to 40% will wean PEEP - Keep intubated overnight CAD, MR, TR S/p CABG, MV repair, and TV repair. Postop care to include: - Start ASA POD 0 - Statin tomorrow - Eventual beta tia - Docusate, senna for bowel regimen - H2 tia while intubated for GI PPX - SCDs and SQH POD 1 for DVT PPX - Periop Ancef and Vanc Assessment and Plan discussed with surgeon and ICU attending. Rosy Ma NP Cosigned by Kaden Naqvi DO at 05/11/2020 2:36 PM [facility] documented in this encounter Procedure Notes * Rosy Ma NP - 05/11/2020 10:33 AM CSTAssociated Order(s): Critical Care Post-Procedure Diagnose(s): Cardiogenic shock (HCC) Critical Care Performed by: Rosy Ma NP Authorized by: Rosy Ma NP CRITICAL CARE: Team: OTHER Shift: AM Level of Billing: Subsequent Hospital Visit Level 3 My time spent with this patient was 30 minutes: Critical Provider Statement: I have seen and examined the patient on this day of service. I have reviewed and confirmed the history, physical exam, laboratory, and radiographic data as documented in the ICU note. I have reviewed and discussed my treatment plan with the patient's team and other medical/senior analytic consultant staff. This time was in addition to and separate from care provided by other practitioners on this day of service. Rosy Ma NP [facility] * Rosy Ma NP - 05/10/2020 2:34 PM CSTAssociated Order(s): Critical Care Post-Procedure Diagnose(s): Nonrheumatic mitral valve regurgitation Critical Care Performed by: Rosy Ma NP Authorized by: Rosy Ma NP CRITICAL CARE: Team: OTHER Shift: AM Level of Billing: Critical Care My time spent with this patient was 90 minutes: Critical Provider Statement: I have seen and examined the patient on this day of service. I have reviewed and confirmed the history, physical exam, laboratory and radiologic data as documented in thesigned ICU note. I have reviewed and discussed my treatment plan with the ICU team and other medical/senior analytic consultant staff, making frequent assessments and decisions regarding this patient's complex medical care. Critical Care time was exclusive of time spent performing separately billed procedures, treating other patients, and teaching. This time was in addition to and separate from critical care provided by other practitioners in my group on this day of service. Critical Care was necessary to treat or prevent imminent or life-threatening deterioration of the following conditions: ?? Acute pain/acute postoperative pain and Agitation requiring sedation Cardiogenic shock, Hypovolemic shock and Hypotension Acute hypoxic respiratory failure, Pulmonary edema and Atelectasis Leukocytosis This time was spent by me doing the following: Resuscitation with fluids, Serial bedside patient exams and Serial laboratory checks Active titration of continuous sedation and Acute pain control Initiation/active titration of vasoactive medications and Initiation/active titration of inotropic medications Active and frequent reassessment of respiratory status and oxygen requirements and Invasive ventilator management, reassessment, and titration Active and frequent monitoring of intake/output and volumen status and Glycemic control Initiation/management of anti-platelet agents I spent time reviewing and interpreting data from bedside monitors, laboratory results, and imaging, I spent time discussing the management of this critically ill patient with consultants and the medical staff and I spent time documenting in the medical record ? Rosy aM NP Cosigned by Kaden Navqi DO at 05/11/2020 2:37 PM [facility] * Kelsy Holbrook NP - 05/09/2020 11:15 PM CSTAssociated Order(s): Critical Care Post-Procedure Diagnose(s): Cardiogenic shock (HCC) Critical Care Performed by: Kelsy Holbrook NP Authorized by: Kelsy Holbrook NP CRITICAL CARE: Team: OTHER Shift: PM Level of Billing: Critical Care My time spent with this patient was 90 minutes: Critical Provider Statement: I have seen and examined the patient on this day of service. I have reviewed and confirmed the history, physical exam, laboratory and radiologic data as documented in thesigned ICU note. I have reviewed and discussed my treatment plan with the ICU team and other medical/senior analytic consultant staff, making frequent assessments and decisions regarding this patient's complex medical care. Critical Care time was exclusive of time spent performing separately billed procedures, treating other patients, and teaching. This time was in addition to and separate from critical care provided by other practitioners in my group on this day of service. Critical Care was necessary to treat or prevent imminent or life-threatening deterioration of the following conditions: Acute postoperative pain Combined cardiogenic and hypovolemic shock Lactic acidosis Acute hypoxic respiratory failure This time was spent by me doing the following: Acute postoperative pain Expected following sternotomy. - PRN fentanyl while intubated - Precedex and proposol for sedation ?? Combined cardiogenic and hypovolemic shock Intraop ALBERTO with EF unchanged at 45%, moderate RV dysfunction noted so pt was started on Epi. Remains on epi 0.03 and NE 0.15 despite 250 albumin. Good urine output. ScvO2 80s. May have element of vasoplegia. - hold off on additional volume for now given RV dysfunction and good urine output. - Hold epi at 0.03 given high dose NE 0330: AM labs with bicarb down to 15. NE improved but remains on 0.09 mcg/kg/min. Add on lactate. 500 ml LR. 0420: Lactate elevated at 6. Able to wean NE but remains on 0.05. 250 ml LR. 1 amp bicarb. ?? Acute hypoxic respiratory failure Initially pt doing well and weaning FiO2 but shortly after arrival he became hypoxic requiring 100%FiO2 and PEEP increased to 12. CXR without evidence of PTX, mild pulmonary edema, atelectasis. Pt then had large amount of thin yellow to clear secretions. Pt was bronched with large amount of clear secretions suctioned. Possibly pulmonary edema. - Wean FiO2 as tolerated - Once FiO2 down to 40% will wean PEEP - Keep intubated overnight 0420: Remains on NE 0.05. May in part be related to higher peep given RV dysfunction. Oxygenation much improved. Decrease peep to 8. I spent time reviewing and interpreting data from bedside monitors, laboratory results, and imaging, I spent time discussing the management of this critically ill patient with consultants and the medical staff and I spent time documenting in the medical record Cosigned by Kaden Naqvi DO at 05/11/2020 2:34 PM [facility] * Kaden Naqvi DO - 05/09/2020 6:30 PM CSTAssociated Order(s): Bronchoscopy Post-Procedure Diagnose(s): Coronary artery disease involving [place] coronary artery of [place] heart without angina pectoris Bronchoscopy Date/Time: 05/09/2020 6:30 PM Performed by: Kaden Naqvi DO Authorized by: Kaden Naqvi DO [place] Protocol: RN Notified of Procedure: yes Patient's stated name/ matches armband: Yes Supplies, devices and special equipment are available: yes Hand hygiene performed: Yes PPE (including eye protection) in place as appropriate to the procedure: Yes Procedure details: As a result of persistent hypoxemia, coarse right sided breath sounds, and new and frequent secretions from ETT we decided to perform a bronchoscopy. The tracheobronchial tree was clear of any large mucus plugs and inspected to the level of the subsegmental bronchi. There was however large amounts of serous fluid throughout, right greater than left. This was suctioned. There was no bleeding. No BALs were sent Patient tolerance: Patient tolerated the procedure well with no immediate complications [facility] * Rosy Ma NP - 05/09/2020 4:00 PM CSTAssociated Order(s): Critical Care Post-Procedure Diagnose(s): Nonrheumatic mitral valve regurgitation Critical Care Performed by: Rosy Ma NP Authorized by: Rosy Ma NP CRITICAL CARE: Team: OTHER Shift: AM Level of Billing: Critical Care My time spent with this patient was 120 minutes: Critical Provider Statement: I have seen and examined the patient on this day of service. I have reviewed and confirmed the history, physical exam, laboratory and radiologic data as documented in thesigned ICU note. I have reviewed and discussed my treatment plan with the ICU team and other medical/senior analytic consultant staff, making frequent assessments and decisions regarding this patient's complex medical care. Critical Care time was exclusive of time spent performing separately billed procedures, treating other patients, and teaching. This time was in addition to and separate from critical care provided by other practitioners in my group on this day of service. Critical Care was necessary to treat or prevent imminent or life-threatening deterioration of the following conditions: Acute pain/acute postoperative pain and Agitation requiring sedation Cardiogenic shock, Hypovolemic shock and Hypotension Acute hypoxic respiratory failure, Pulmonary edema and Atelectasis Leukocytosis This time was spent by me doing the following: Resuscitation with fluids, Serial bedside patient exams and Serial laboratory checks Active titration of continuous sedation and Acute pain control Initiation/active titration of vasoactive medications and Initiation/active titration of inotropic medications Active and frequent reassessment of respiratory status and oxygen requirements and Invasive ventilator management, reassessment, and titration Active and frequent monitoring of intake/output and volumen status and Glycemic control Initiation/management of anti-platelet agents I spent time reviewing and interpreting data from bedside monitors, laboratory results, and imaging, I spent time discussing the management of this critically ill patient with consultants and the medical staff and I spent time documenting in the medical record Rosy Ma NP [facility] documented in this encounter Nursing Notes * Lia Castillo RN - 05/09/2020 7:19 PM CST [address] Henderson CCP after pt coughed large amounts thin yellow liquid from ett, Sedation changed to diprivan due to pt biting ett. SBP lower see gtt rates. updated at bedside after procedure. [facility] * Lia Castillo RN - 05/09/2020 3:[address] Durbin at bedside, sats decreased on 100% fio2. Pt bagged and sats up 95- 96%. Suctioned withscant amount clear material, see vent settings. at bedside, updated, cts minimal. UO WNL. Weaning vasoactive gtts. Attempted to decerase fio2 to 80% with decerase to 89% on sat, Dr Henderson updated and returned to 100% Fi02 [facility] documented in this encounter Miscellaneous Notes * Plan of Care - Rex Mai RN - 05/15/2020 11:16 AM [facility] STAFF Goals: Problem: Health Behavior: Goal: Understanding of discharge needs will improve Outcome: Adequate for Discharge Problem: Activity: Goal: Risk for activity intolerance will decrease Outcome: Adequate for Discharge Problem: Bowel/Gastric: Goal: Gastrointestinal status for postoperative course will improve Outcome: Adequate for Discharge Goal: Ability to maintain normal bowel function will be supported Outcome: Adequate for Discharge Problem: Cardiac: Goal: Hemodynamic stability will improve Outcome: Adequate for Discharge Goal: Ability to maintain an adequate cardiac output will improve Outcome: Adequate for Discharge Goal: Will show no evidence of cardiac arrhythmias Outcome: Adequate for Discharge Goal: Will show no signs and symptoms of excessive bleeding Outcome: Adequate for Discharge Problem: Lack of Knowledge: Goal: Ability to demonstrate proper wound care will improve Outcome: Adequate for Discharge Goal: Knowledge of disease or condition will improve Outcome: Adequate for Discharge Goal: Knowledge of the prescribed therapeutic regimen will improve Outcome: Adequate for Discharge Problem: Coping: Goal: Ability to adjust to condition or change in health will improve Outcome: Adequate for Discharge Problem: Health Behavior: Goal: Identification of resources available to assist in meeting health care needs will improve Outcome: Adequate for Discharge Problem: Nutritional: Goal: Risk for body nutrition deficit will decrease Outcome: Adequate for Discharge Problem: Physical Regulation: Goal: Postoperative complications will be avoided or minimized Outcome: Adequate for Discharge Goal: Diagnostic test results will improve Outcome: Adequate for Discharge Problem: Respiratory: Goal: Levels of oxygenation will improve Outcome: Adequate for Discharge Goal: Respiratory status will improve Outcome: Adequate for Discharge Problem: Sensory: Goal: Pain level will decrease Outcome: Adequate for Discharge Problem: Skin Integrity: Goal: Demonstration of wound healing without infection will improve Outcome: Adequate for Discharge Goal: Risk for impaired skin integrity will decrease Outcome: Adequate for Discharge Problem: Tissue Perfusion: Goal: Risk factors for ineffective tissue perfusion will decrease Outcome: Adequate for Discharge Goal: Risk of venous thrombosis will decrease Outcome: Adequate for Discharge Problem: Urinary Elimination: Goal: Ability to achieve and maintain adequate urine output will improve Outcome: Adequate for Discharge Goal: Ability to achieve and maintain adequate renal perfusion and functioning will improve Outcome: Adequate for Discharge Clinical Goals for the Shift: VSS, cardiac monitoring, meds, pain management, I/O, chest tube removal, mobility Summary: VSS. Pt to discharge home to self care. Discharge instructions reviewed with patient and . [facility] * Plan of Care - Rex Mai RN - 05/14/2020 4:19 PM CST Goals: Problem: Health Behavior: Goal: Understanding of discharge needs will improve Outcome: Progressing Problem: Activity: Goal: Risk for activity intolerance will decrease Outcome: Progressing Problem: Cardiac: Goal: Hemodynamic stability will improve Outcome: Progressing Clinical Goals for the Shift: VSS, cardiac monitoring, meds, pain management, I/O, chest tube removal, mobility [facility] * Plan of Care - Desi Covarrubias RN - 05/13/2020 12:45 PM CST Patient and notified of plan to start Eliquis. Patient and prefer to have Eliquis prescription filled by [facility] mobile pharmacy. Notified Liya MILLER of above and eliquis prescription sent [facility] pharmacy. Per pharmacist, free 30 day elquis coupon applied and approved. Pharmacist sttes patient has deductible of 236.10 to be met then co-pay will be $65.00 for Eliquis. . Patient given coupon for Eliquis to lower co-pay as low as $10.00 for future fills. Patient and agreeable with above plan. [facility] * Plan of Care - Mandi Arreaga RN - 05/13/2020 4:05 AM CST Goals: Clinical Goals for the Shift: vss, monitor labs and rhythm, manage pain, i/o's, comfort and safety Summary: VSS, SR 70's, norco taken for pain, CT output monitored and recorded, slept well through the night. [facility] * Plan of Care - Ese Patterson RN - 05/12/2020 12:56 PM CST Goals: Vital signs within normal limits, increase activity as tolerated, walk x 3, PT/OT, shower, IS x 10 per hour, monitor labs, monitor CT output, pain controlled with oral pain medication. Problem: Health Behavior: Goal: Understanding of discharge needs will improve Outcome: Progressing Problem: Activity: Goal: Risk for activity intolerance will decrease Outcome: Progressing Problem: Bowel/Gastric: Goal: Gastrointestinal status for postoperative course will improve Outcome: Progressing Goal: Ability to maintain normal bowel function will be supported Outcome: Progressing Problem: Cardiac: Goal: Hemodynamic stability will improve Outcome: Progressing Goal: Ability to maintain an adequate cardiac output will improve Outcome: Progressing Goal: Will show no evidence of cardiac arrhythmias Outcome: Progressing Goal: Will show no signs and symptoms of excessive bleeding Outcome: Progressing Problem: Lack of Knowledge: Goal: Ability to demonstrate proper wound care will improve Outcome: Progressing Goal: Knowledge of disease or condition will improve Outcome: Progressing Goal: Knowledge of the prescribed therapeutic regimen will improve Outcome: Progressing Problem: Coping: Goal: Ability to adjust to condition or change in health will improve Outcome: Progressing Problem: Health Behavior: Goal: Identification of resources available to assist in meeting health care needs will improve Outcome: Progressing Problem: Nutritional: Goal: Risk for body nutrition deficit will decrease Outcome: Progressing Problem: Physical Regulation: Goal: Postoperative complications will be avoided or minimized Outcome: Progressing Goal: Diagnostic test results will improve Outcome: Progressing Problem: Respiratory: Goal: Levels of oxygenation will improve Outcome: Progressing Goal: Respiratory status will improve Outcome: Progressing Problem: Sensory: Goal: Pain level will decrease Outcome: Progressing Problem: Skin Integrity: Goal: Demonstration of wound healing without infection will improve Outcome: Progressing Goal: Risk for impaired skin integrity will decrease Outcome: Progressing Problem: Tissue Perfusion: Goal: Risk factors for ineffective tissue perfusion will decrease Outcome: Progressing Goal: Risk of venous thrombosis will decrease Outcome: Progressing Problem: Urinary Elimination: Goal: Ability to achieve and maintain adequate urine output will improve Outcome: Progressing Goal: Ability to achieve and maintain adequate renal perfusion and functioning will improve Outcome: Progressing [facility] * Plan of Care - Desi Covarrubias RN - 05/12/2020 12:38 PM CST Patient has [facility] Patient notified of above and agreeable with plan. [facility] * Plan of Care - Brittany Alfaro RN - 05/12/2020 4:41 AM CST Goals: Clinical Goals for the Shift: VSS, monitor tele, pain control, tolerate diet, monitor CT and grimes,safety, labs wnl Summary: VSS, SR on tele, 4L nasal cannula, pain controlled with scheduled tylenol and prn oxycodone, tolerating diet, grimes in place, Y'd MCT to suction, continue with plan of care. [facility] * Plan of Care - Desi Covarrubias RN - 05/11/2020 3:09 PM CST Met with patient and at bedside to assess discharge planning needs. Patient lives at home withwife. Independent with adl's. 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 Home health care orders received. Patient states he prefers to use [facility].Referral sent. Response pending. [facility] * Plan of Care - Vilma Tello RN - 05/11/2020 9:26 AM CST Goals: Clinical Goals for the Shift: pain control;adv activity and po intake Summary:Remains in NSR,will transfere to pcu, [facility] * Plan of Care - Felecia Leahy RN - 05/11/2020 2:21 AM CST Problem: Activity: Goal: Risk for activity intolerance will decrease Outcome: Progressing Problem: Bowel/Gastric: Goal: Gastrointestinal status for postoperative course will improve Outcome: Progressing Goal: Ability to maintain normal bowel function will be supported Outcome: Progressing Problem: Cardiac: Goal: Hemodynamic stability will improve Outcome: Progressing Goal: Will show no evidence of cardiac arrhythmias Outcome: Progressing Goal: Will show no signs and symptoms of excessive bleeding Outcome: Progressing Problem: Lack of Knowledge: Goal: Knowledge of disease or condition will improve Outcome: Progressing Goal: Knowledge of the prescribed therapeutic regimen will improve Outcome: Progressing Problem: Coping: Goal: Ability to adjust to condition or change in health will improve Outcome: Progressing Problem: Nutritional: Goal: Risk for body nutrition deficit will decrease Outcome: Progressing Problem: Physical Regulation: Goal: Postoperative complications will be avoided or minimized Outcome: Progressing Goal: Diagnostic test results will improve Outcome: Progressing Problem: Respiratory: Goal: Levels of oxygenation will improve Outcome: Progressing Goal: Respiratory status will improve Outcome: Progressing Problem: Sensory: Goal: Pain level will decrease Outcome: Progressing Problem: Skin Integrity: Goal: Demonstration of wound healing without infection will improve Outcome: Progressing Goal: Risk for impaired skin integrity will decrease Outcome: Progressing Problem: Tissue Perfusion: Goal: Risk factors for ineffective tissue perfusion will decrease Outcome: Progressing Goal: Risk of venous thrombosis will decrease Outcome: Progressing Problem: Urinary Elimination: Goal: Ability to achieve and maintain adequate urine output will improve Outcome: Progressing Goal: Ability to achieve and maintain adequate renal perfusion and functioning will improve Outcome: Progressing Goals: Clinical Goals for the Shift: pain control;adv activity and po intake Summary: sinus rhythm:keeping MAP>65-all vasoactive drips off; urine output adequate;sats stableon 5 liters oxygen-sats do decrease to 92-93 when asleep- tachypnic earlier but respiratory rate decreased with pain control; uses IS well;congested cough but not productive;oxycodone dose increased to 10mg earlier and pain is better controlled;temp 38.0 at 1999 but down to 37.4 now [facility] * Plan of Care - Tammie Foster RN - 05/10/2020 5:32 PM CST Goals: Clinical Goals for the Shift: pain control;adv activity and po intake Summary: SR;VSS;epi@.01mcg/kg/min;5L Nc;dangle X 2;taking po w/o diff;using IS fair [facility] * Plan of Care - Lia Castillo RN - 05/09/2020 5:20 PM CST Goals: Clinical Goals for the Shift: post op care, cvr admission Summary: large yellow plug suctioned from ett with sats increasing. Able to wean FI02, at 60% . Giving volume, labs WNL Dr Durbin at bedside. [facility] * Perioperative Nursing Note - Rosy Messer RN - 05/09/2020 11:38 AM CST 3 Units Packed Red Blood Cells in OR Suite prior to incision, allevyn pad to coccyx/sacrum as preventative. [facility] * Op Note - Hardeep Reed MD - 05/09/2020 10:11 AM CST OPERATIVE REPORT SURGEON Hardeep Reed MD OPTOMETRIST PRESIDENT/PRACTICE OWNER Jagdeep Peña MD PROCEDURE 1. Coronary artery bypass grafts x 2 (SANTOYO to LAD and SVG ascending aorta to D2) 2. Complex mitral valve repair (Goretex 2-0 neochordae x 2, annuloplasty Physio II size 32 mm) 3. Tricuspid valve annuloplasty ring (Medtronic Contour 3D size 32 mm) 4. Left atrial appendage resection 5. Right greater saphenous endoscopic vein harvest DIAGNOSIS: 1. Severe mitral regurgitation 2. Severe 2 vessel CAD 3. Severe tricuspid annular dilation and moderate regurgitation ANESTHESIA General anesthesia ANESTHESIOLOGIST HINA Ellsworth MD Total Bypass Time: 121 minutes Cross Clamp Time: 91 minutes Myocardial Protection: KBC COMPLICATIONS: None ESTIMATED BLOOD LOSS: Unable to determine CONDITION Stable, intubated to the cardiovascular ICU. DESCRIPTION OF PROCEDURE Patient was taken to the operating theater where the patient was monitored appropriately by anesthesia, endotracheally intubated, and prepped and draped in sterile fashion. 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 In addition it revealed a severely dilated tricuspid annulus and moderate TR. A sternotomy incision was made and the left internal mammary harvested with a pedical. pericardial cradle was suspended. During this portion of the procedure the [facility] harvested adequate saphenous vein endoscopically. After adequate heparinization the distal ascending aorta was cannulated in an areafree of calcification, as was the SVC and IVC. With an ACT greater than 350 cardiopulmonary bypass was initiated. An antegrade cardioplegia cannulas placed as well. We cross clamped the distal ascending aorta and delivered cold cardioplegia with a quick diastolic arrest. Topical ice cold saline wasused as well. Additional cardioplegia was given intervals of 60 minutes or less per our protocol. The left atrial appendage was removed with a motorized linear stapling device. The heart was rotated and diagonal 2 was opened longitudinally. A beveled end to side anastomosis was completed with 7-0prolene in a running fashion. Additional cardioplegia was given down the graft. The LAD was opened beyond the diagonal takeoff. The SANTOYO was beveled and a running end to side 7-0 prolene anastomosis was completed. An atraumatic bulldog was placed until the cross clamp was removed. The left atrium was then opened in the groove and a [facility] retractor was used for exposure. Adilated mitral valve annulus was discovered and multiple ruptured primary chordae primarily from the posterior medial papillary muscle were observed. 15 mm 2-0 goretex nayeli-chordae were built on the back table and secured to the posterior medial papillary muscle. The area of prolapse was supported with the chordae after attaching it to the P2 leaflet free edge with 4-0 ethibond. A 32 mm mitral annuloplasty ring was sized appropriately to the anterior leaflet and trigonal distance. 2-0 Tycron sutures were then placed. The ring was then tied in place. Passive testing revealed an excellent result. The left atrium was then closed with 3-0 Prolene in a running fashion leaving a vent in place. The proximal was then completed after sizing the graft appropriately to the ascending aorta with 6-0 prolene. Additional aggressive de-airing maneuvers were accomplished and the hotshot was given. The aortic cross-clamp was removed with the aortic vent on high. The heart began beating in a slow sinus rhythm. We then secured the caval tourniquets and opened the right atrium in a oblique fashion. We sized a 32 mm tricuspid ring appropriately and using multiple tangential 2-0 Tycron sutures secured it in place. The right atrium was then closed with 5-0 Prolene suture in a running fashion. 2 ventricular pacing wires were placed. We then performed more de-airing maneuvers before slowly from bypass without difficulty. Inspection of both the aortic, tricuspid and mitral valve revealed no area of leak. All valves appear to be functioning appropriately and the patient was in sinus rhythm. We then removed the venous cannulas and gave protamine. After half dose of protamine was infused the aortic cannula was removed as well and all cannulation sites were further reinforced with additional suture. We spent time securing excellent hemostasis which was ensured with the use of FloSeal. Weplaced a mediastinal drain and a pleural. The sternum was closed with sternal wires, the fascia wasclosed with 1 Vicryl, and the skin was closed with Monocryl further reinforced with exofin. I was present scrubbed for all important parts of the procedure including valve repairs and coronary bypasses. Dr. Peña was available for additional expertise with mitral repair as well as closingdue to another emergency. All needle, sponge, and instrument counts were correct at the completion of the procedure. Hardeep Reed M.D. [facility] documented in this encounter Plan of Treatment Not on file documented as of this encounter Procedures Procedure Name Priority Date/Time Associated Diagnosis Comments XR CHEST 1 VIEW IP Routine 05/15/2020 5:58 AM [facility] N[facility] STAFF EGFR Routine 05/15/2020 3:51 AM [facility] NURSE STAFF CBC WITHOUT DIFFERENTIAL Routine 05/15/2020 3:51 AM [facility] NURSE STAFF PHOSPHORUS Routine 05/15/2020 3:51 AM [facility] NURSE STAFF MAGNESIUM Routine 05/15/2020 3:51 AM [facility] NURSE STAFF BASIC METABOLIC PANEL Routine 05/15/2020 3:51 AM [facility] NURSE STAFF XR CHEST 1 VIEW IP Routine 05/14/2020 12:42 PM [facility] NURSE STAFF XR CHEST 1 VIEW IP Routine 05/14/2020 5:47 AM [facility] NURSE STAFF EGFR Routine 05/14/2020 12:55 AM [facility] NURSE STAFF CBC WITHOUT DIFFERENTIAL Routine 05/14/2020 12:55 AM [facility] NURSE STAFF PHOSPHORUS Routine 05/14/2020 12:55 AM [facility] NURSE STAFF MAGNESIUM Routine 05/14/2020 12:55 AM [facility] NURSE STAFF BASIC METABOLIC PANEL Routine 05/14/2020 12:55 AM [facility] NURSE STAFF TRANSTHORACIC ECHO (TTE) COMPLETE W DOPPLER/CF W CONTRAST Routine 05/13/2020 8:40 AM [facility] NURSE STAFF XR CHEST 1 VIEW IP Routine 05/13/2020 5:47 AM [facility] NURSE STAFF EGFR Routine 05/13/2020 12:29 AM [facility] NURSE STAFF CBC WITHOUT DIFFERENTIAL Routine 05/13/2020 12:29 AM [facility] NURSE STAFF PHOSPHORUS Routine 05/13/2020 12:29 AM [facility] NURSE STAFF MAGNESIUM Routine 05/13/2020 12:29 AM [facility] NURSE STAFF BASIC METABOLIC PANEL Routine 05/13/2020 12:29 AM [facility] NURSE STAFF XR CHEST 1 VIEW IP Routine 05/12/2020 5:55 AM [facility] NURSE STAFF EGFR Routine 05/12/2020 12:34 AM [facility] NURSE STAFF CBC WITHOUT DIFFERENTIAL Routine 05/12/2020 12:34 AM [facility] NURSE STAFF PHOSPHORUS Routine 05/12/2020 12:34 AM [facility] NURSE STAFF MAGNESIUM Routine 05/12/2020 12:34 AM [facility] NURSE STAFF BASIC METABOLIC PANEL Routine 05/12/2020 12:34 AM [facility] NURSE STAFF EGFR Routine 05/11/2020 4:26 PM [facility] NURSE STAFF BASIC METABOLIC PANEL Routine 05/11/2020 4:26 PM [facility] NURSE STAFF CRITICAL CARE Routine 05/11/2020 10:33 AM [facility] NURSE STAFF Cardiogenic shock (CMS/HCC) XR CHEST 1 VIEW IP Routine 05/11/2020 5:35 AM [facility] NURSE STAFF DIFFERENTIAL AUTO Routine 05/11/2020 2:5 4 AM [facility] NURSE STAFF CBC WITH AUTO DIFFERENTIAL Routine 05/11/2020 2:54 AM [facility] NURSE STAFF EGFR Routine 05/11/2020 2:01 AM [facility] NURSE STAFF CALCIUM, IONIZED Routine 05/11/2020 2:01 AM [facility] NURSE STAFF CBC WITHOUT DIFFERENTIAL Routine 05/11/2020 2:01 AM [facility] NURSE STAFF PHOSPHORUS Routine 05/11/2020 2:01 AM [facility] NURSE STAFF MAGNESIUM Routine 05/11/2020 2:01 AM [facility] NURSE STAFF BASIC METABOLIC PANEL Routine 05/11/2020 2:01 AM [facility] NURSE STAFF CRITICAL CARE Routine 05/10/2020 2:34 PM [facility] NURSE STAFF Nonrheumatic mitral valve regurgitation POCT GLUCOSE DEVICE Routine 05/10/2020 11:54 AM [facility] NURSE STAFF BLOOD GAS, ARTERIAL Routine 05/10/2020 9 :20 AM [facility] NURSE STAFF POCT GLUCOSE DEVICE Routine 05/10/2020 7 :45 AM [facility] NURSE STAFF LACTATE Routine 05/10/2020 6:50 AM [facility] NURSE STAFF BLOOD GAS, ARTERIAL Routine 05/10/2020 6 :50 AM [facility] NURSE STAFF XR CHEST 1 VIEW IP Routine 05/10/2020 5:47 AM [facility] NURSE STAFF LACTATE Routine 05/10/2020 3:38 AM [facility] NURSE STAFF BLOOD GAS, ARTERIAL Routine 05/10/2020 3 :38 AM [facility] NURSE STAFF EGFR Routine 05/10/2020 1:59 AM [facility] NURSE STAFF CALCIUM, IONIZED Routine 05/10/2020 1:59 AM [facility] NURSE STAFF CBC WITHOUT DIFFERENTIAL Routine 05/10/2020 1:59 AM [facility] NURSE STAFF PHOSPHORUS Routine 05/10/2020 1:59 AM [facility] NURSE STAFF MAGNESIUM Routine 05/10/2020 1:59 AM [facility] NURSE STAFF COMPREHENSIVE METABOLIC PANEL Routine 05/10/2020 1:59 AM [facility] NURSE STAFF POCT GLUCOSE DEVICE Routine 05/10/2020 12:13 AM [facility] NURSE STAFF CRITICAL CARE Routine 05/09/2020 11:15 PM [facility] NURSE STAFF Cardiogenic shock (CMS/HCC) OXYHEMOGLOBIN, CENTRAL VENOUS Routine 05/09/2020 8:09 PM [facility] NURSE STAFF GENERAL Routine 05/09/2020 6:30 PM [facility] NURSE STAFF Coronary artery disease involving [place] coronary artery of [place] heart without angina pectoris OXYHEMOGLOBIN, PULMONARY ARTERY Routine 05/09/2020 5:07 PM [facility] NURSE STAFF BLOOD GAS, ARTERIAL STAT 05/09/2020 4 :27 PM [facility] NURSE STAFF CRITICAL CARE Routine 05/09/2020 4:00 PM [facility] NURSE STAFF Nonrheumatic mitral valve regurgitation XR CHEST 1 VIEW ED Urgent/IP Urgent 05/09/2020 3:04 PM [facility] NURSE STAFF XR ABDOMEN AP 1 VIEW IP Routine 05/09/2020 3:03 PM [facility] NURSE STAFF POCT GLUCOSE DEVICE Routine 05/09/2020 2 :58 PM [facility] NURSE STAFF EGFR STAT 05/09/2020 2:50 PM [facility] NURSE STAFF CALCIUM, IONIZED STAT 05/09/2020 2:50 PM [facility] NURSE STAFF APTT STAT 05/09/2020 2:50 PM [facility] NURSE STAFF PROTIME-INR STAT 05/09/2020 2:50 PM [facility] NURSE STAFF CBC WITHOUT DIFFERENTIAL STAT 05/09/2020 2:50 PM [facility] NURSE STAFF PHOSPHORUS STAT 05/09/2020 2:50 PM [facility] NURSE STAFF MAGNESIUM STAT 05/09/2020 2:50 PM [facility] NURSE STAFF BLOOD GAS, ARTERIAL STAT 05/09/2020 2 :50 PM [facility] NURSE STAFF BASIC METABOLIC PANEL STAT 05/09/2020 2:50 PM [facility] NURSE STAFF APTT STAT 05/09/2020 1:46 PM [facility] NURSE STAFF PROTIME-INR STAT 05/09/2020 1:46 PM [facility] NURSE STAFF FIBRINOGEN STAT 05/09/2020 1:46 PM [facility] NURSE STAFF CBC WITHOUT DIFFERENTIAL STAT 05/09/2020 1:45 PM [facility] NURSE STAFF POCT ACTIVATED CLOTTING TIME, HIGH RANGE Routine 05/09/2020 1:41 PM [facility] NURSE STAFF POC BLOOD GAS AND CHEMISTRIES, ARTERIAL Routine 05/09/2020 1:39 PM [facility] NURSE STAFF POCT ACTIVATED CLOTTING TIME, HIGH RANGE Routine 05/09/2020 12:59 PM [facility] NURSE STAFF POCT ACTIVATED CLOTTING TIME, HIGH RANGE Routine 05/09/2020 12:18 PM [facility] NURSE STAFF POC BLOOD GAS AND CHEMISTRIES, ARTERIAL Routine 05/09/2020 12:16 PM [facility] NURSE STAFF POCT ACTIVATED CLOTTING TIME, HIGH RANGE Routine 05/09/2020 11:59 AM [facility] NURSE STAFF POCT ACTIVATED CLOTTING TIME, HIGH RANGE Routine 05/09/2020 11:21 AM [facility] NURSE STAFF SURGICAL PATHOLOGY Routine 05/09/2020 11:21 AM [facility] NURSE STAFF Nonrheumatic mitral valve regurgitation Coronary artery disease involving [place] coronary artery of [place] heart without angina pectoris POC BLOOD GAS AND CHEMISTRIES, ARTERIAL Routine 05/09/2020 11:19 AM [facility] NURSE STAFF POCT ACTIVATED CLOTTING TIME, HIGH RANGE Routine 05/09/2020 11:00 AM [facility] NURSE STAFF POCT ACTIVATED CLOTTING TIME, HIGH RANGE Routine 05/09/2020 10:50 AM [facility] NURSE STAFF POC BLOOD GAS AND CHEMISTRIES, ARTERIAL Routine 05/09/2020 10:49 AM [facility] NURSE STAFF POC BLOOD GAS AND CHEMISTRIES, ARTERIAL Routine 05/09/2020 10:04 AM [facility] NURSE STAFF POCT ACTIVATED CLOTTING TIME, HIGH RANGE Routine 05/09/2020 9:35 AM [facility] NURSE STAFF CORONARY ARTERY BYPASS GRAFT 05/09/2020 9:20 AM [facility] Nonrheumatic mitral valve regurgitation Coronary artery disease involving [place] coronary artery of [place] heart without angina pectoris B CHECK SAMPLE STAT 05/09/2020 7:39 AM [facility] APTT STAT 05/09/2020 7:39 AM [facility] PROTIME-INR STAT 05/09/2020 7:39 AM [facility] HEMOGLOBIN A1C STAT 05/09/2020 7:39 AM [facility] PREPARE RBC STAT 05/09/2020 7:27 AM [facility] documented in this encounter Results * XR Chest 1 View - Portable - in AM (05/15/2020 5:58 AM [facility] STAFF) Anatomical Region Laterality Modality Body, Chest N/A Computed Radiogr aphy 05/15/2020 9:18 AM [facility] Impressions 05/15/2020 9:18 AM [facility] Decreasing central pulmonary vascular congestion and improved aeration at the bases. ??Some minimal pleural fluid in the right minor fissure. Electronically signed by: JULISA RUIZ Narrative 05/15/2020 9:18 AM [facility] Single portable view of the chest HISTORY: Pleural effusion COMPARISON: 05/14/2020 FINDINGS: The right IJ catheter remains in place. ??There is no significant change in the cardiopericardial silhouette. ??There is slightly less prominent johny/central pulmonary vasculature. ??There is some linear atelectasis and minimal fluid in the mid lung along the minor fissure. ??There is improved aeration with minimal residual atelectasis at the right lung base. ??There is no significant or increasing pleural effusion. ??There is no gross pneumothorax. Procedure Note Julisa Ruiz MD - 05/15/2020 Single portable view of the chest HISTORY: Pleural effusion COMPARISON: 05/14/2020 FINDINGS: The right IJ catheter remains in place. There is no significant change in the cardiopericardial silhouette. There is slightly less prominent johny/central pulmonary vasculature. There is some linear atelectasis and minimal fluid in the mid lung along the minor fissure. There is improved aeration with minimal residual atelectasis at the right lung base. There is no significant or increasing pleural effusion. There is no gross pneumothorax. IMPRESSION: Decreasing central pulmonary vascular congestion and improved aeration at the bases. Some minimal pleural fluid in the right minor fissure. Electronically signed by: JULISA RUIZ us Rosy Ma BILL COLLECTOR IMG XR PROCEDURES Final Re sult * eGFR (05/15/2020 3:51 AM [facility]URSE STAFF) eGFR 97 mL/min/1.7 3 m2 [facility] Comment: Interpretive Data Reference Interval Normal ?>/= 90 mL/min/1.73m2 Mildly decreased* ? 60 - 89 mL/min/1.73m2 Mildly to moderately decreased ?45 - 59 mL/min/1.73m2 Moderately to severely decreased ??30 - 44 mL/min/1.73m2 Severely decreased ?15 - 29 mL/min/1.73m2 Kidney Failure ?< 15 ??mL/min/1.73m2 *Relative to young adult level Estimated glomerular filtration rate is determined by the CKD-EPI equation recommended by the National Kidney Foundation (KDIGO 2012 Clinical Practice Guideline for the Evaluation and Management of Chronic Kidney Disease. Kidney Intnl Suppl Mar 2012;3:1). The CKD-EPI equation should not be used for patients with unstable renal function and has not been validated in children and those over 70. Current interpretive data was last reviewed 2020 Blood specimen (specimen) 05/15/2020 3:51 AM [facility]AFF 05/15/2020 3:56 AM [facility] STAFF Rosy Ma NP LAB BLOOD ORDERABLES Final Result Performing Organization Address [facility] de Phone Number [facility] [address] Department [place] [address] * Phosphorus (05/15/2020 3:51 AM [facility]URSE STAFF) Phosphorus, pl 3.6 2.3 - 4.5 mg/dL [facility] Blood specimen (specimen) 05/15/2020 3:51 AM [facility] STAFF 05/15/2020 3:56 AM [facility]AFF Rosy Ma NP LAB BLOOD ORDERABLES Final Result Performing Organization Address [facility]/State/ZIP Co de Phone Number [facility] [address] Department [place] [address] * Magnesium (05/15/2020 3:51 AM [facility]URSE STAFF) Pathologist [facility] Magnesium 2.0 1.4 - 2.5 mg/dL [facility] Blood specimen (specimen) 05/15/2020 3:51 AM [facility] STAFF 05/15/2020 3:56 AM [facility] Rosy Ma NP LAB BLOOD ORDERABLES Final Result [facility] [address] [place] [address] * (ABNORMAL) Basic metabolic panel (05/15/2020 3:51 AM [facility] NURSE STAFF) [facility] Sodium 139 135 - 145 mmol/L [facility] Potassium, pl 4.0 3.3 - 4.9 mmol/L [facility] Chloride 103 97 - 110 mmol/L [facility] CO2 26 22 - 32 mmol/L [facility] Anion gap 10 2 - 15 mmol/L [facility] BUN 12 8 - 25 mg/dL [facility] Creatinine 0.75(L) 0.80 - 1.30 mg/dL [facility] Glucose 107 70 - 199 mg/dL [facility] Comment: Interpretive Data Fasting glucose >/= 126 mg/dl is diagnostic for diabetes. ?? Fasting is defined as no caloric intake for at least 8 hours. Fasting glucose between 100 mg/dl to 125 mg/dl is diagnostic of prediabetes. In a patient with classic symptoms of hyperglycemia or hyperglycemic crisis, a random glucose >/= 200 mg/dl is diagnostic for diabetes. In the absence of unequivocal hyperglycemia, results should be confirmed by repeat testing. The classification and Diagnosis of Diabetes Diabetes Care 2017;40 (Suppl. 1):S11. Current interpretive data was last revised 2017. Calcium 8.6 8.5 - 10.3 mg/dL [facility] Blood specimen (specimen) 05/15/2020 3:51 AM [facility]AFF 05/15/2020 3:56 AM [facility] Rosy Gordonkristofer Ma BILL COLLECTOR LAB BLOOD ORDERABLES Final Result [facility] [address] [place] [address] * (ABNORMAL) CBC without differential (05/15/2020 3:51 AM [facility] STAFF) Pathologist [facility] WBC 5.6 3.8 - 9.9 K/cumm [facility] Hgb 11.9(L) 13.0 - 17.5 g/dL [facility] Hct 35.3(L) 38.9 - 50.3 % [facility] Plt 197 150 - 400 K/cumm [facility] MPV 9.6 9.1 - 12.3 fL [facility] RBC 4.24(L) 4.30 - 5.80 M/cumm [facility] MCV 83.3 81.3 - 96.4 fL [facility] MCH 28.1 27.1 - 33.3 pg [facility] MCHC 33.7 32.3 - 35.7 g/dL [facility] RDW CV 13.5 11.1 - 14.9 % [facility] RDW SD 41.0 35.7 - 48.1 fL [facility] NRBC abs 0.00 0.00 - 0.01 K/cumm [facility] Blood specimen (specimen) 05/15/2020 3:51 AM [facility] STAFF 05/15/2020 3:57 AM [facility]AFF Rosy Wanda Ma BILL COLLECTOR LAB BLOOD ORDERABLES Final Result [facility] [address] [place] [address] * XR Chest 1 Vw (05/14/2020 12:42 PM [facility] STAFF) Anatomical Region Laterality Modality Body, Chest N/A Computed Radiogr aphy 05/14/2020 1:23 PM [facility] Impressions 05/14/2020 1:24 PM [facility]AFF Slight decreased right basilar pleural-parenchymal disease. Otherwise stable Electronically signed by: Coby Cano M.D. Narrative 05/14/2020 1:24 PM [facility] STAFF EXAM: ??1 view chest 05/14/2020 at 1233 hours HISTORY: ??Chest tube removal. ??Shortness of breath COMPARISON: ??1 view chest 05/14/2020 at 0529 hours FINDINGS: Mediastinal and left basilar chest tube have been removed. ??Right jugular catheter remains. There are stable changes of median sternotomy and cardiomegaly. There are bibasilar infiltrates with small pleural effusions, decreased on the right. There is no pneumothorax. Procedure Note Coby Cano MD - 05/14/2020 EXAM: 1 view chest 05/14/2020 at 1233 hours HISTORY: Chest tube removal. Shortness of breath COMPARISON: 1 view chest 05/14/2020 at 0529 hours FINDINGS: Mediastinal and left basilar chest tube have been removed. Right jugular catheter remains. There are stable changes of median sternotomy and cardiomegaly. There are bibasilar infiltrates with small pleural effusions, decreased on the right. There is no pneumothorax. IMPRESSION: Slight decreased right basilar pleural-parenchymal disease. Otherwise stable Electronically signed by: Coby Cano M.D. Liya MILLER IMG XR PROCEDURES Final Result * XR Chest 1 View - Portable - in AM (05/14/2020 5:47 AM [facility] STAFF) Anatomical Region Laterality Modality Body, Chest N/A Computed Radiogr aphy 05/14/2020 8:46 AM [facility] STA[facility] Impressions 05/14/2020 8:47 AM [facility] STAFF Stable Electronically signed by: Coby Cano M.D. Narrative 05/14/2020 8:47 AM [facility] NURSE STAFF EXAM: ??1 view chest 05/14/2020 at 0527 hours HISTORY: ??Shortness of breath COMPARISON: ??1 view chest 05/13/2020 at 0528 hours FINDINGS: There is stable cardiomegaly with postoperative changes. ??There is a mediastinal chest tube, left basilar chest tube and right jugular catheter. There are is bilateral perihilar atelectasis with focal opacity in the right lung base, stable. There is a small right pleural effusion. There are persistent tiny biapical pneumothoraces. Procedure Note Coby Cano MD - 05/14/2020 EXAM: 1 view chest 05/14/2020 at 0527 hours HISTORY: Shortness of breath COMPARISON: 1 view chest 05/13/2020 at 0528 hours FINDINGS: There is stable cardiomegaly with postoperative changes. There is a mediastinal chest tube, left basilar chest tube and right jugular catheter. There are is bilateral perihilar atelectasis with focal opacity in the right lung base, stable. There is a small right pleural effusion. There are persistent tiny biapical pneumothoraces. IMPRESSION: Stable Electronically signed by: Coby Cano M.D. Rosy Ma BILL COLLECTOR IMG XR PROCEDURES Final Re sult * eGFR (05/14/2020 12:55 AM [facility] NURSE STAFF) eGFR 95 mL/min/1.7 3 m2 [facility] Comment: Interpretive Data Reference Interval Normal ?>/= 90 mL/min/1.73m2 Mildly decreased* ? 60 - 89 mL/min/1.73m2 Mildly to moderately decreased ?45 - 59 mL/min/1.73m2 Moderately to severely decreased ??30 - 44 mL/min/1.73m2 Severely decreased ?15 - 29 mL/min/1.73m2 Kidney Failure ?< 15 ??mL/min/1.73m2 *Relative to young adult level Estimated glomerular filtration rate is determined by the CKD-EPI equation recommended by the National Kidney Foundation (KDIGO 2012 Clinical Practice Guideline for the Evaluation and Management of Chronic Kidney Disease. Kidney Intnl Suppl Mar 2012;3:1). The CKD-EPI equation should not be used for patients with unstable renal function and has not been validated in children and those over 70. Current interpretive data was last reviewed 2020 Blood specimen (specimen) 05/14/2020 12:55 AM [facility] NURSE STAFF 05/14/2020 12:59 AM [facility]SE STAFF Rosy Gordonkristofer Ma BILL COLLECTOR LAB BLOOD ORDERABLES Final Result Performing Organization Address City/[facility] Co de Phone Number [facility] [address] [facility] [employer] [place], [place] [id number] * Phosphorus (05/14/2020 12:55 AM [facility] NURSE STAFF) Pathologist [facility] Phosphorus, pl 3.3 2.3 - 4.5 mg/dL [facility] Blood specimen (specimen) 05/14/2020 12:55 AM [facility] NURSE STAFF 05/14/2020 12:59 AM [facility]URSE STAFF Rosy Wanda Ma BILL COLLECTOR LAB BLOOD ORDERABLES Final Result Performing Organization Address [facility] Co de Phone Number [facility] [address] [facility] [employer] [place], [place] [id number] * Magnesium (05/14/2020 12:55 AM [facility] NURSE STAFF) Magnesium 1.9 1.4 - 2.5 mg/dL [facility] Blood specimen (specimen) 05/14/2020 12:55 AM [facility] NURSE STAFF 05/14/2020 12:59 AM [facility]URSE STAFF Rosy Gordonkristofer Calzadaey BILL COLLECTOR LAB BLOOD ORDERABLES Final Result Performing Organization Address [facility] Co de Phone Number [facility] [address] [place], [place] [id number] * (ABNORMAL) Basic metabolic panel (05/14/2020 12:55 AM [facility] NURSE STAFF) Sodium 140 135 - 145 mmol/L [facility] Potassium, pl 4.0 3.3 - 4.9 mmol/L [facility] Chloride 102 97 - 110 mmol/L [facility] CO2 28 22 - 32 mmol/L [facility] Anion gap 10 2 - 15 mmol/L [facility] BUN 13 8 - 25 mg/dL [facility] Creatinine 0.79(L) 0.80 - 1.30 mg/dL [facility] Glucose 103 70 - 199 mg/dL [facility] Comment: Interpretive Data Fasting glucose >/= 126 mg/dl is diagnostic for diabetes. ?? Fasting is defined as no caloric intake for at least 8 hours. Fasting glucose between 100 mg/dl to 125 mg/dl is diagnostic of prediabetes. In a patient with classic symptoms of hyperglycemia or hyperglycemic crisis, a random glucose >/= 200 mg/dl is diagnostic for diabetes. In the absence of unequivocal hyperglycemia, results should be confirmed by repeat testing. The classification and Diagnosis of Diabetes Diabetes Care 2017;40 (Suppl. 1):S11. Current interpretive data was last revised 2017. Calcium 8.4(L) 8.5 - 10.3 mg/dL [facility] Blood specimen (specimen) 05/14/2020 12:55 AM [facility] NURSE STAFF 05/14/2020 12:59 AM [facility]URSE STAFF Rosy Ma NP LAB BLOOD ORDERABLES Final Result [facility] [address] Department [place] [address] * (ABNORMAL) CBC without differential (05/14/2020 12:55 AM [facility] NURSE STAFF) Pathologist [facility] WBC 5.0 3.8 - 9.9 K/cumm [facility] Hgb 10.9(L) 13.0 - 17.5 g/dL [facility] Hct 32.7(L) 38.9 - 50.3 % [facility] Plt 159 150 - 400 K/cumm [facility] MPV 9.7 9.1 - 12.3 fL [facility] RBC 3.89(L) 4.30 - 5.80 M/cumm [facility] MCV 84.1 81.3 - 96.4 fL [facility] MCH 28.0 27.1 - 33.3 pg [facility] MCHC 33.3 32.3 - 35.7 g/dL [facility] RDW CV 13.5 11.1 - 14.9 % [facility] RDW SD 41.6 35.7 - 48.1 fL [facility] NRBC abs 0.00 0.00 - 0.01 K/cumm [facility] Blood specimen (specimen) 05/14/2020 12:55 AM [facility] NURSE STAFF 05/14/2020 12:59 AM [facility] NURSE STAFF us Rosy Ma BILL COLLECTOR LAB BLOOD ORDERABLES Final Result [facility] [address] Department [place] [address] * TRANSTHORACIC ECHO (TTE) COMPLETE W DOPPLER/CF W CONTRAST (05/13/2020 8:40 AM [facility]ITY [facility] NURSE STAFF) Anatomical Region Laterality Modality Ultrasound 05/13/2020 7:35 AM [facility] NURSE STAFF Narrative 05/13/2020 4:57 PM [facility] NURSE STAFF [facility] [address] [address] ECHOCARDIOGRAM Patient Name: AVTAR JOSEPH S : 1955 Study Date: 05/13/2020 7:35:56 AM Gender: M Tech: DP Location: [id number] Ref.Provider: AGUSTO NORRIS Height(Cm): 183 BSA: 2.17 Weight(Kg): 93 BP: 145/79Order Provider: LIYA BLACKMON Procedures: Echocardiographic Report: Transthoracic Echocardiogram with 2D, M-Mode, Spectral and Color Flow Doppler examination and administration of intravenous contrast. Indications: Coronary artery disease, [place] vessel, and Mitral valve Annuloplasty. Measurements: 2D/M Mode ? Doppler ? Measurement ?Value ?Normal Range ?Measurement ?Value ?Normal Range ? IVSd 2D ?1.09 ? [ 0.60 - 0.90 ] cm ?AV Peak Dmitry ?1.6 ?[ 1.0 - 1.7 ] m/s ? LVIDd 2D ? 4.13 ? [ 4.20 - 5.90 ] cm ?AV Peak PG ? 10 ? [ 2 - 9 ] mmHg ? LVIDs 2D ? 3.22 ? [ 2.30 - 3.90 ] cm ?AV Mean PG ? 8 ?[ 2 - 4 ] mmHg ? LVPWd 2D ? 1.13 ? [ 0.60 - 1.00 ] cm ?AV VTI ? 30.7 ? cm ? Estimated EF ? 40.00 ?% ? JUSTA VTI ?3.7 ?[ 2.0 - 4.0 ] cm2 ? LA Dimension 2D ?5.58 ? [ 3.00 - 4.00 ] cm ?LVOT Peak Dmitry ?1.43 ? [ 0.70 - 1.10 ] m/s ? AoR Diam 2D ?3.99 ? [ 2.60 - 3.70 ] cm ?LVOT Diam ?2.2 ?[ 1.7 - 2.1 ] cm ? TAPSE ?1.15 ? [ 1.60 - 3.00 ] cm ?LVOT Peak PG ? 8 ?[ 2 - 6 ] mmHg ?LVOT VTI ? 29.4 ? [ 20.0 - 30.0 ] cm ?MV Peak PG ? 9 ?[ 1 - 10 ] mmHg ?MV Mean PG ? 3 ?[ <= 5 ] mmHg ?MV E Peak Dmitry ?1.4 ?[ 0.6 - 1.3 ] m/s ?MV A Peak Dmitry ?0.8 ?[ 1.0 - 1.2 ] m/s ?MV PHT ? 75.2 ? [ 20.0 - 100.0 ] ms ?MV Decel Time ?244.9 ?[ 104.0 - 258.0 ] ms ?MVA PHT ?2.9 ?[ 2.0 - 4.0 ] ms ?MV E/A Ratio ? 1.8 ?PV Peak Dmitry ?0.9 ?[ 0.4 - 0.8 ] m/s ?PV Peak PG ? 3 ?mmHg ?RV S' ?0.08 ? m/s ? Findings: BP: Blood pressure: 145/79 mmHg. Left Ventricle: The study quality is inadequate for detailed regional wall motion assessment. Mild left ventricular systolic dysfunction. Ejection Fraction is estimated at 45 %. Tissue Doppler/Mitral Doppler indices are indeterminate in this study due to the presence of mitral valve repair or replacement. The left ventricular cavity is low normal in size. Mild concentric left ventricular hypertrophy. Right Ventricle: Moderate right ventricular dysfunction. Normal right ventricular size. Left Atrium: There is mild enlargement of the left atrium. Right Atrium: The right atrium is normal in size. Atrial Septum: Normal appearing atrial septum. Cannot exclude PFO by atrial septal color Doppler interrogation. Mitral Valve: Mitral stenosis is absent. There is no mitral regurgitation. A mitral valve annuloplasty ring is present. Aortic Valve: Normal appearance of the aortic valve. Aortic valve appears tricuspid in configuration. There is no aortic stenosis. There is no aortic regurgitation. Tricuspid Valve: Normal appearance of the tricuspid leaflets. There is no tricuspid regurgitation. A tricuspid valve annuloplasty ring is present. Pulmonic Valve: Normal appearance of the pulmonic valve. There is no pulmonic stenosis. There is no pulmonic regurgitation. Pericardium: No significant pericardial effusion. Aortic Root and Aorta: Mild aortic root enlargement. Normal sized ascending aorta. Aortic Arch: Grossly normal aortic arch. IVC: The IVC is not seen. Conclusions: 1. The study quality is inadequate for detailed regional wall motion assessment. Mild left ventricular systolic dysfunction. Ejection Fraction is estimated at 45 %. Tissue Doppler/Mitral Doppler indices are indeterminate in this study due to the presence of mitral valve repair or replacement. The left ventricular cavity is low normal in size. Mild concentric left ventricular hypertrophy. 2. Moderate right ventricular dysfunction. Normal right ventricular size. 3. Mitral stenosis is absent. There is no mitral regurgitation. A mitral valve annuloplasty ring is present. 4. Normal appearance of the tricuspid leaflets. There is no tricuspid regurgitation. A tricuspid valve annuloplasty ring is present. 5. Mild aortic root enlargement. Normal sized ascending aorta. Electronically Signed By: Agusto Gutierrez MD 2020-05-13 16:57:44 [facility]URSE STAFF Procedure Note Agusto Gutierrez MD - 05/13/2020 [place] [id number] [place] [address] ECHOCARDIOGRAM Patient Name: AVTAR JOSEPH SPatient ID: [id number] : [id number] Date: 05/13/2020 7:35:56 AM Gender: MAccession #: [id number] Tech: DPLocation: [id number] Ref.Provider: Felix NORRISight(Cm): 183 BSA: 2.17Weight(Kg): 93 BP: 145/79Order Provider: LIYA BLACKMON Procedures: Echocardiographic Report: Transthoracic Echocardiogram with 2D, M-Mode, Spectral and Color FlowDoppler examination and administration of intravenous contrast. Indications: Coronary artery disease, [place] vessel, and Mitral valve Annuloplasty. Measurements: 2D/M Mode Doppler Measurement Value Normal Range Measurement ValueNormal Range IVSd 2D 1.09 [ 0.60 - 0.90 ] cm AV Peak Dmitry 1.6[ 1.0 - 1.7 ] m/s LVIDd 2D 4.13 [ 4.20 - 5.90 ] cm AV Peak PG 10[ 2 - 9 ] mmHg LVIDs 2D 3.22 [ 2.30 - 3.90 ] cm AV Mean PG 8[ 2 - 4 ] mmHg LVPWd 2D 1.13 [ 0.60 - 1.00 ] cm AV VTI 30.7cm Estimated EF 40.00 % JUSTA VTI 3.7[ 2.0 - 4.0 ] cm2 LA Dimension 2D 5.58 [ 3.00 - 4.00 ] cm LVOT Peak Dmitry 1.43[ 0.70 - 1.10 ] m/s AoR Diam 2D 3.99 [ 2.60 - 3.70 ] cm LVOT Diam 2.2[ 1.7 - 2.1 ] cm TAPSE 1.15 [ 1.60 - 3.00 ] cm LVOT Peak PG 8[ 2 - 6 ] mmHg LVOT VTI 29.4[ 20.0 - 30.0 ] cm MV Peak PG 9[ 1 - 10 ] mmHg MV Mean PG 3[ <= 5 ] mmHg MV E Peak Dmitry 1.4[ 0.6 - 1.3 ] m/s MV A Peak Dmitry 0.8[ 1.0 - 1.2 ] m/s MV PHT 75.2[ 20.0 - 100.0 ] ms MV Decel Time 244.9[ 104.0 - 258.0 ] ms MVA PHT 2.9[ 2.0 - 4.0 ] ms MV E/A Ratio 1.8 PV Peak Dmitry 0.9[ 0.4 - 0.8 ] m/s PV Peak PG 3mmHg RV S' 0.08m/s Findings: BP: Blood pressure: 145/79 mmHg. Left Ventricle: The study quality is inadequate for detailed regional wall motionassessment. Mild left ventricular systolic dysfunction. Ejection Fraction is estimated at 45 %.Tissue Doppler/Mitral Doppler indices are indeterminate in this study due to thepresence of mitral valve repair or replacement. The left ventricular cavity is lownormal in size. Mild concentric left ventricular hypertrophy. Right Ventricle: Moderate right ventricular dysfunction. Normal right ventricular size. Left Atrium: There is mild enlargement of the left atrium. Right Atrium: The right atrium is normal in size. Atrial Septum: Normal appearing atrial septum. Cannot exclude PFO by atrial septal colorDoppler interrogation. Mitral Valve: Mitral stenosis is absent. There is no mitral regurgitation. A mitralvalve annuloplasty ring is present. Aortic Valve: Normal appearance of the aortic valve. Aortic valve appears tricuspid inconfiguration. There is no aortic stenosis. There is no aortic regurgitation. Tricuspid Valve: Normal appearance of the tricuspid leaflets. There is no tricuspidregurgitation. A tricuspid valve annuloplasty ring is present. Pulmonic Valve: Normal appearance of the pulmonic valve. There is no pulmonic stenosis.There is no pulmonic regurgitation. Pericardium: No significant pericardial effusion. Aortic Root and Aorta: Mild aortic root enlargement. Normal sized ascending aorta. Aortic Arch: Grossly normal aortic arch. IVC: The IVC is not seen. Conclusions: 1. The study quality is inadequate for detailed regional wall motionassessment. Mild left ventricular systolic dysfunction. Ejection Fraction is estimated at45 %. Tissue Doppler/Mitral Doppler indices are indeterminate in this study due to thepresence of mitral valve repair or replacement. The left ventricular cavity is lownormal in size. Mild concentric left ventricular hypertrophy. 2. Moderate right ventricular dysfunction. Normal right ventricularsize. 3. Mitral stenosis is absent. There is no mitral regurgitation. A mitralvalve annuloplasty ring is present. 4. Normal appearance of the tricuspid leaflets. There is no tricuspidregurgitation. A tricuspid valve annuloplasty ring is present. 5. Mild aortic root enlargement. Normal sized ascending aorta. Electronically Signed By: Agusto Gutierrez MD 2020-05-13 16:57:44 [facility]URSE STAFF Liya MILLER CV ECHO PROCEDURES Final Result * XR Chest 1 View - Portable - in AM (05/13/2020 5:47 AM COMMUNITY [facility]ALTH NURSE STAFF) Anatomical Region Laterality Modality Body, Chest N/A Computed Radiogr aphy 05/13/2020 8:03 AM COMMUNITY HEALTH NURSE STAFF Impressions 05/13/2020 8:06 AM COMMUNITY HEALTH NURSE STAFF 1. New tiny biapical pneumothoraces, right slightly larger than left. 2. ??Otherwise stable portable postoperative chest radiograph. Electronically signed by: Brice Khanna M.D. Narrative 05/13/2020 8:06 AM COMMUNITY HEALTH NURSE STAFF Portable chest radiograph CLINICAL HISTORY: Postsurgical follow-up. Tube and line verification. COMPARISON: Portable chest radiograph from the previous day. FINDINGS: There are stable postsurgical changes. Tube and line position is not significantly changed. The cardiomediastinal silhouette is stable. There are stable bibasilar pleural and parenchymal disease. ??There are new tiny biapical pneumothoraces, right slightly larger than left. Procedure Note Brice Khanna MD - 05/13/2020 Portable chest radiograph CLINICAL HISTORY: Postsurgical follow-up. Tube and line verification. COMPARISON: Portable chest radiograph from the previous day. FINDINGS: There are stable postsurgical changes. Tube and line position is not significantly changed. The cardiomediastinal silhouette is stable. There are stable bibasilar pleural and parenchymal disease. There are new tiny biapical pneumothoraces, right slightly larger than left. IMPRESSION: 1. New tiny biapical pneumothoraces, right slightly larger than left. 2. Otherwise stable portable postoperative chest radiograph. Electronically signed by: Brice Khnana M.D. Rosy Ma BILL COLLECTOR IMG XR PROCEDURES Final Re sult * eGFR (05/13/2020 12:29 AM COMMUNITY HEALTH NURSE STAFF) [facility] eGFR 95 mL/min/1.7 3 m2 [facility] Comment: Interpretive Data Reference Interval Normal ?>/= 90 mL/min/1.73m2 Mildly decreased* ? 60 - 89 mL/min/1.73m2 Mildly to moderately decreased ?45 - 59 mL/min/1.73m2 Moderately to severely decreased ??30 - 44 mL/min/1.73m2 Severely decreased ?15 - 29 mL/min/1.73m2 Kidney Failure ?< 15 ??mL/min/1.73m2 *Relative to young adult level Estimated glomerular filtration rate is determined by the CKD-EPI equation recommended by the National Kidney Foundation (KDIGO 2012 Clinical Practice Guideline for the Evaluation and Management of Chronic Kidney Disease. Kidney Intnl Suppl Mar 2012;3:1). The CKD-EPI equation should not be used for patients with unstable renal function and has not been validated in children and those over 70. Current interpretive data was last reviewed 2020 Blood specimen (specimen) 05/13/2020 12:29 AM COMMUNITY HEALTH NURSE STAFF 05/13/2020 1:10 AM COMMUNITY HEALTH NURSE STAFF us Rosy Ma BILL COLLECTOR LAB BLOOD ORDERABLES Final Result Performing Organization Address [facility]/ZIP Co de Phone Number [facility] [address] [facility] [employer] [place] [address] * Phosphorus (05/13/2020 12:29 AM COMMUNITY HEALTH NURSE STAFF) [facility] Phosphorus, pl 2.9 2.3 - 4.5 mg/dL [facility] Blood specimen (specimen) 05/13/2020 12:29 AM COMMUNITY HEALTH NURSE STAFF 05/13/2020 1:10 AM COMMUNITY HEALTH NURSE STAFF Rosy Ma BILL COLLECTOR LAB BLOOD ORDERABLES Final Result Performing Organization Address [facility] Co de Phone Number [facility] [address] [facility] [employer] [place] [address] * Magnesium (05/13/2020 12:29 AM COMMUNITY HEALTH NURSE STAFF) [facility] Magnesium 2.0 1.4 - 2.5 mg/dL [facility] Blood specimen (specimen) 05/13/2020 12:29 AM COMMUNITY HEALTH NURSE STAFF 05/13/2020 1:10 AM COMMUNITY HEALTH NURSE STAFF Rosy Ma BILL COLLECTOR LAB BLOOD ORDERABLES Final Result Performing Organization Address City/[facility] Co de Phone Number [facility] [address] [facility] [employer] [place] [address] * (ABNORMAL) Basic metabolic panel (05/13/2020 12:29 AM COMMUNITY HEALTH NURSE STAFF) [facility] Sodium 139 135 - 145 mmol/L [facility] Potassium, pl 3.9 3.3 - 4.9 mmol/L [facility] Chloride 103 97 - 110 mmol/L [facility] CO2 29 22 - 32 mmol/L [facility] Anion gap 7 2 - 15 mmol/L [facility] BUN 18 8 - 25 mg/dL [facility] Creatinine 0.79(L) 0.80 - 1.30 mg/dL [facility] Glucose 101 70 - 199 mg/dL [facility] Comment: Interpretive Data Fasting glucose >/= 126 mg/dl is diagnostic for diabetes. ?? Fasting is defined as no caloric intake for at least 8 hours. Fasting glucose between 100 mg/dl to 125 mg/dl is diagnostic of prediabetes. In a patient with classic symptoms of hyperglycemia or hyperglycemic crisis, a random glucose >/= 200 mg/dl is diagnostic for diabetes. In the absence of unequivocal hyperglycemia, results should be confirmed by repeat testing. The classification and Diagnosis of Diabetes Diabetes Care 2017;40 (Suppl. 1):S11. Current interpretive data was last revised 2017. Calcium 8.2(L) 8.5 - 10.3 mg/dL [facility] Blood specimen (specimen) 05/13/2020 12:29 AM COMMUNITY HEALTH NURSE STAFF 05/13/2020 1:10 AM COMMUNITY HEALTH NURSE STAFF us Rosy Ma NP LAB BLOOD ORDERABLES Final Result [facility] [address] Department [place] [address] * (ABNORMAL) CBC without differential (05/13/2020 12:29 AM COMMUNITY HEALTH NURSE STAFF) WBC 6.0 3.8 - 9.9 K/cumm [facility] Hgb 10.3(L) 13.0 - 17.5 g/dL [facility] Hct 30.9(L) 38.9 - 50.3 % [facility] Plt 125(L) 150 - 400 K/cumm [facility] MPV 10.8 9.1 - 12.3 fL [facility] RBC 3.64(L) 4.30 - 5.80 M/cumm [facility] MCV 84.9 81.3 - 96.4 fL [facility] MCH 28.3 27.1 - 33.3 pg [facility] MCHC 33.3 32.3 - 35.7 g/dL [facility] RDW CV 13.8 11.1 - 14.9 % [facility] RDW SD 43.0 35.7 - 48.1 fL [facility] NRBC abs 0.00 0.00 - 0.01 K/cumm [facility] Blood specimen (specimen) 05/13/2020 12:29 AM COMMUNITY HEALTH NURSE STAFF 05/13/2020 1:11 AM COMMUNITY HEALTH NURSE STAFF Rosy Ma BILL COLLECTOR LAB BLOOD ORDERABLES Final Result [facility] [address] Department [place] [address] * XR Chest 1 View - Portable - in AM (05/12/2020 5:55 AM COMMUNITY HEALTH NURSE STAFF) Anatomical Region Laterality Modality Body, Chest N/A Computed Radiogr aphy 05/12/2020 8:08 AM COMMUNITY HEALTH NURSE STAFF Impressions 05/12/2020 8:11 AM COMMUNITY HEALTH NURSE STAFF Stable portable chest radiograph. Electronically signed by: Hugo Ward M.D. Narrative 05/12/2020 8:11 AM COMMUNITY HEALTH NURSE STAFF XR CHEST 1 VIEW: 05/12/2020 4:40 AM CLINICAL INDICATION: pleural effusion. COMPARISON: Chest radiograph dated 05/11/2020. FINDINGS: Postsurgical change from sternotomy. ??Right central venous catheter terminates over the superior vena cava. ??Mediastinal and left chest tube in place. ??Status post mitral valve repair. ??Stable enlarged cardiac silhouette and pulmonary vasculature. ??Bibasilar opacities may represent atelectasis. ??No new focal consolidation. ??No large pleural effusion or pneumothorax. Procedure Note Hugo Ward MD - 05/12/2020 XR CHEST 1 VIEW: 05/12/2020 4:40 AM CLINICAL INDICATION: pleural effusion. COMPARISON: Chest radiograph dated 05/11/2020. FINDINGS: Postsurgical change from sternotomy. Right central venous catheter terminates over the superior vena cava. Mediastinal and left chest tube in place. Status post mitral valve repair. Stable enlarged cardiac silhouette and pulmonary vasculature. Bibasilar opacities may represent atelectasis. No new focal consolidation. No large pleural effusion or pneumothorax. IMPRESSION: Stable portable chest radiograph. Electronically signed by: Hugo Ward M.D. us Rosy Ma BILL COLLECTOR IMG XR PROCEDURES Final Re sult * eGFR (05/12/2020 12:34 AM COMMUNITY HEALTH NURSE STAFF) eGFR 85 mL/min/1.7 3 m2 [facility] Comment: Interpretive Data Reference Interval Normal ?>/= 90 mL/min/1.73m2 Mildly decreased* ? 60 - 89 mL/min/1.73m2 Mildly to moderately decreased ?45 - 59 mL/min/1.73m2 Moderately to severely decreased ??30 - 44 mL/min/1.73m2 Severely decreased ?15 - 29 mL/min/1.73m2 Kidney Failure ?< 15 ??mL/min/1.73m2 *Relative to young adult level Estimated glomerular filtration rate is determined by the CKD-EPI equation recommended by the National Kidney Foundation (KDIGO 2012 Clinical Practice Guideline for the Evaluation and Management of Chronic Kidney Disease. Kidney Intnl Suppl Mar 2012;3:1). The CKD-EPI equation should not be used for patients with unstable renal function and has not been validated in children and those over 70. Current interpretive data was last reviewed 2020 Blood specimen (specimen) 05/12/2020 12:34 AM COMMUNITY HEALTH NURSE STAFF 05/12/2020 12:44 AM COMMUNITY HEALTH NURSE STAFF us Rosy Ma BILL COLLECTOR LAB BLOOD ORDERABLES Final Result [facility] [address] Department [place] [address] * Phosphorus (05/12/2020 12:34 AM COMMUNITY HEALTH NURSE STAFF) Pathologist [facility] Phosphorus, pl 3.1 2.3 - 4.5 mg/dL [facility] Blood specimen (specimen) 05/12/2020 12:34 AM COMMUNITY HEALTH NURSE STAFF 05/12/2020 12:44 AM COMMUNITY HEALTH NURSE STAFF Rosy Calzadaey BILL COLLECTOR LAB BLOOD ORDERABLES Final Result [facility] [address] [facility] [employer] [place] [address] * Magnesium (05/12/2020 12:34 AM COMMUNITY HEALTH NURSE STAFF) Pathologist [facility] Magnesium 2.2 1.4 - 2.5 mg/dL [facility] Blood specimen (specimen) 05/12/2020 12:34 AM COMMUNITY HEALTH NURSE STAFF 05/12/2020 12:44 AM COMMUNITY HEALTH NURSE STAFF Rosy Muñoz Am BILL COLLECTOR LAB BLOOD ORDERABLES Final Result Performing Organization Address [facility] de Phone Number [facility] [address] [facility] [place] [address] * (ABNORMAL) Basic metabolic panel (05/12/2020 12:34 AM COMMUNITY HEALTH NURSE STAFF) Pathologist [facility] Sodium 138 135 - 145 mmol/L [facility] Potassium, pl 4.1 3.3 - 4.9 mmol/L [facility] Chloride 103 97 - 110 mmol/L [facility] CO2 26 22 - 32 mmol/L [facility] Anion gap 9 2 - 15 mmol/L [facility] BUN 26(H) 8 - 25 mg/dL [facility] Creatinine 0.94 0.80 - 1.30 mg/dL [facility] Glucose 102 70 - 199 mg/dL [facility] Comment: Interpretive Data Fasting glucose >/= 126 mg/dl is diagnostic for diabetes. ?? Fasting is defined as no caloric intake for at least 8 hours. Fasting glucose between 100 mg/dl to 125 mg/dl is diagnostic of prediabetes. In a patient with classic symptoms of hyperglycemia or hyperglycemic crisis, a random glucose >/= 200 mg/dl is diagnostic for diabetes. In the absence of unequivocal hyperglycemia, results should be confirmed by repeat testing. The classification and Diagnosis of Diabetes Diabetes Care 2017;40 (Suppl. 1):S11. Current interpretive data was last revised 2017. Calcium 8.3(L) 8.5 - 10.3 mg/dL [facility] Blood specimen (specimen) 05/12/2020 12:34 AM COMMUNITY HEALTH NURSE STAFF 05/12/2020 12:44 AM COMMUNITY HEALTH NURSE STAFF Rosy Gordonkristofer Ma BILL COLLECTOR LAB BLOOD ORDERABLES Final Result Performing Organization Address City/[facility]/ZIP Co de Phone Number [facility] [address] [place] [address] * (ABNORMAL) CBC without differential (05/12/2020 12:34 AM COMMUNITY HEALTH NURSE STAFF) WBC 8.6 3.8 - 9.9 K/cumm [facility] Hgb 10.5(L) 13.0 - 17.5 g/dL [facility] Hct 31.6(L) 38.9 - 50.3 % [facility] Plt 106(L) 150 - 400 K/cumm [facility] MPV 10.7 9.1 - 12.3 fL [facility] RBC 3.65(L) 4.30 - 5.80 M/cumm [facility] MCV 86.6 81.3 - 96.4 fL [facility] MCH 28.8 27.1 - 33.3 pg [facility] MCHC 33.2 32.3 - 35.7 g/dL [facility] RDW CV 14.0 11.1 - 14.9 % [facility] RDW SD 44.5 35.7 - 48.1 fL [facility] NRBC abs 0.00 0.00 - 0.01 K/cumm [facility] Blood specimen (specimen) 05/12/2020 12:34 AM COMMUNITY HEALTH NURSE STAFF 05/12/2020 12:44 AM COMMUNITY HEALTH NURSE STAFF Rosy Ma BILL COLLECTOR LAB BLOOD ORDERABLES Final Result [facility] [address] [place] [address] * eGFR (05/11/2020 4:26 PM COMMUNITY HEALTH NURSE STAFF) eGFR 75 mL/min/1.7 3 m2 [facility] Comment: Interpretive Data Reference Interval Normal ?>/= 90 mL/min/1.73m2 Mildly decreased* ? 60 - 89 mL/min/1.73m2 Mildly to moderately decreased ?45 - 59 mL/min/1.73m2 Moderately to severely decreased ??30 - 44 mL/min/1.73m2 Severely decreased ?15 - 29 mL/min/1.73m2 Kidney Failure ?< 15 ??mL/min/1.73m2 *Relative to young adult level Estimated glomerular filtration rate is determined by the CKD-EPI equation recommended by the National Kidney Foundation (KDIGO 2012 Clinical Practice Guideline for the Evaluation and Management of Chronic Kidney Disease. Kidney Intnl Suppl Mar 2012;3:1). The CKD-EPI equation should not be used for patients with unstable renal function and has not been validated in children and those over 70. Current interpretive data was last reviewed 2020 Blood specimen (specimen) 05/11/2020 4:26 PM COMMUNITY HEALTH NURSE STAFF 05/11/2020 4:37 PM COMMUNITY HEALTH NURSE STAFF Kaden Naqvi DO LAB BLOOD ORDERABLES Final R esult [facility] [address] Department [place] [address] * (ABNORMAL) Basic metabolic panel (05/11/2020 4:26 PM COMMUNITY HEALTH NURSE STAFF) Pathologist [facility] Sodium 139 135 - 145 mmol/L [facility] Potassium, pl 4.3 3.3 - 4.9 mmol/L [facility] Chloride 104 97 - 110 mmol/L [facility] CO2 28 22 - 32 mmol/L [facility] Anion gap 7 2 - 15 mmol/L [facility] BUN 28(H) 8 - 25 mg/dL [facility] Creatinine 1.05 0.80 - 1.30 mg/dL [facility] Glucose 110 70 - 199 mg/dL [facility] Comment: Interpretive Data Fasting glucose >/= 126 mg/dl is diagnostic for diabetes. ?? Fasting is defined as no caloric intake for at least 8 hours. Fasting glucose between 100 mg/dl to 125 mg/dl is diagnostic of prediabetes. In a patient with classic symptoms of hyperglycemia or hyperglycemic crisis, a random glucose >/= 200 mg/dl is diagnostic for diabetes. In the absence of unequivocal hyperglycemia, results should be confirmed by repeat testing. The classification and Diagnosis of Diabetes Diabetes Care 2017;40 (Suppl. 1):S11. Current interpretive data was last revised 2017. Calcium 8.7 8.5 - 10.3 mg/dL [facility] Blood specimen (specimen) 05/11/2020 4:26 PM COMMUNITY HEALTH NURSE STAFF 05/11/2020 4:37 PM COMMUNITY HEALTH NURSE STAFF Rosy Ma NP LAB BLOOD ORDERABLES Final Result Performing Organization Address City/State/[facility] Co de Phone Number [facility] [address] Department [place] [address] * Critical Care (05/11/2020 10:33 AM COMMUNITY HEALTH NURSE STAFF) Narrative Rosy Ma NP - 05/11/2020 10:33 AM COMMUNITY HEALTH NURSE STAFF Rosy Ma NP ? 05/12/2020 ??1:11 PM Critical Care Performed by: Rosy Ma NP Authorized by: Rosy Ma NP CRITICAL CARE: ??Team: ??OTHER ??Shift: ??AM ??Level of Billing: ??Subsequent Hospital Visit Level 3 ??My time spent with this patient was 30 minutes: Critical Provider Statement: I have seen and examined the patient on this day of service. I have reviewed and confirmed the history, physical exam, laboratory, and radiographic data as documented in the ICU note. I have reviewed and discussed my treatment plan with the patient's team and other medical/senior analytic consultant staff. This time was in addition to and separate from care provided by other practitioners on this day of service. ?? us Rosy Ma BILL COLLECTOR IN CLINIC/BEDSIDE ORDERABL ES Edited Result - Final * XR Chest 1 View - Portable - in AM (05/11/2020 5:35 AM COMMUNITY HEALTH NURSE STAFF) Anatomical Region Laterality Modality Body, Chest N/A Computed Radiogr aphy 05/11/2020 8:06 AM COMMUNITY HEALTH NURSE STAFF Impressions 05/11/2020 8:08 AM COMMUNITY HEALTH NURSE STAFF 1. ??Interval removal of endotracheal and enteric tubes. 2. ??Otherwise, stable cardiopulmonary findings. Electronically signed by: Hugo Ward M.D. Narrative 05/11/2020 8:08 AM COMMUNITY HEALTH NURSE STAFF XR CHEST 1 VIEW: 05/11/2020 2:40 AM CLINICAL INDICATION: pleural effusion. COMPARISON: Chest radiograph dated 05/10/2020. FINDINGS: Interval removal of endotracheal and enteric tubes. ??Post surgical change from sternotomy. ??Right central venous sheath and catheter, unchanged. ??Postsurgical change from mitral valve repair. Mediastinal and left chest tubes in place. ??Stable enlarged cardiac silhouette and mild enlarged pulmonary vasculature. ??Faint hazy opacities in both lungs, unchanged. ??Small bilateral pleural effusions. ??No pneumothorax. Procedure Note Hugo Ward MD - 05/11/2020 XR CHEST 1 VIEW: 05/11/2020 2:40 AM CLINICAL INDICATION: pleural effusion. COMPARISON: Chest radiograph dated 05/10/2020. FINDINGS: Interval removal of endotracheal and enteric tubes. Post surgical change from sternotomy. Right central venous sheath and catheter, unchanged. Postsurgical change from mitral valve repair. Mediastinal and left chest tubes in place. Stable enlarged cardiac silhouette and mild enlarged pulmonary vasculature. Faint hazy opacities in both lungs, unchanged. Small bilateral pleural effusions. No pneumothorax. IMPRESSION: 1. Interval removal of endotracheal and enteric tubes. 2. Otherwise, stable cardiopulmonary findings. Electronically signed by: Hugo Ward M.D. us Rosy Ma BILL COLLECTOR IMG XR PROCEDURES Final Re sult * (ABNORMAL) Differential, auto (05/11/2020 2:54 AM COMMUNITY HEALTH NURSE STAFF) Neutrophil abs 8.7(H) 1.7 - 6.5 K/cumm [facility] Imm gran abs 0.1 0.0 - 0.1 K/cumm [facility] Lymphocyte abs 0.9 0.8 - 3.3 K/cumm [facility] Monocyte abs 1.2(H) 0.2 - 0.8 K/cumm [facility] Eosinophil abs 0.0 0.0 - 0.5 K/cumm [facility] Basophil abs 0.0 0.0 - 0.1 K/cumm [facility] Neutrophil pct 79.8 % [facility] Comment: Interpretive Data Percent cell count reference ranges are not reported, since discordance with absolute values may lead to misinterpretation of CBC data. Current Interpretive Data was last revised on 2017. Imm gran pct 0.5 % [facility] Comment: Interpretive Data Percent cell count reference ranges are not reported, since discordance with absolute values may lead to misinterpretation of CBC data. Current Interpretive Data was last revised on 2017. Lymphocyte pct 8.3 % [facility] Comment: Interpretive Data Percent cell count reference ranges are not reported, since discordance with absolute values may lead to misinterpretation of CBC data. Current Interpretive Data was last revised on 2017. Monocyte pct 11.2 % [facility] Comment: Interpretive Data Percent cell count reference ranges are not reported, since discordance with absolute values may lead to misinterpretation of CBC data. Current Interpretive Data was last revised on 2017. Eosinophil pct 0.0 % [facility] Comment: Interpretive Data Percent cell count reference ranges are not reported, since discordance with absolute values may lead to misinterpretation of CBC data. Current Interpretive Data was last revised on 2017. Basophil pct 0.2 % [facility] Comment: Interpretive Data Percent cell count reference ranges are not reported, since discordance with absolute values may lead to misinterpretation of CBC data. Current Interpretive Data was last revised on 2017. Blood specimen (specimen) 05/11/2020 2:54 AM COMMUNITY HEALTH NURSE STAFF 05/11/2020 3:12 AM COMMUNITY HEALTH NURSE STAFF Kelsy Holbrook NP LAB BLOOD ORDERABLES Final Result Performing Organization Address [facility]/ZIP Co de Phone Number [facility] [address] [place] [address] * (ABNORMAL) CBC with auto differential (05/11/2020 2:54 AM COMMUNITY HEALTH NURSE STAFF) [facility] WBC 11.0(H) 3.8 - 9.9 K/cumm [facility] Hgb 10.5(L) 13.0 - 17.5 g/dL [facility] Hct 30.8(L) 38.9 - 50.3 % [facility] Plt 100(L) 150 - 400 K/cumm [facility] MPV 10.3 9.1 - 12.3 fL [facility] RBC 3.66(L) 4.30 - 5.80 M/cumm [facility] MCV 84.2 81.3 - 96.4 fL [facility] MCH 28.7 27.1 - 33.3 pg [facility] MCHC 34.1 32.3 - 35.7 g/dL [facility] RDW CV 14.1 11.1 - 14.9 % [facility] RDW SD 43.5 35.7 - 48.1 fL [facility] NRBC abs 0.00 0.00 - 0.01 K/cumm [facility] Blood specimen (specimen) 05/11/2020 2:54 AM COMMUNITY HEALTH NURSE STAFF 05/11/2020 3:12 AM COMMUNITY HEALTH NURSE STAFF Kelsy Holbrook NP LAB BLOOD ORDERABLES Final Result [facility] [address] [facility] [employer] [place] [address] * eGFR (05/11/2020 2:01 AM COMMUNITY HEALTH NURSE STAFF) [facility] eGFR 85 mL/min/1.7 3 m2 [facility] Comment: Interpretive Data Reference Interval Normal ?>/= 90 mL/min/1.73m2 Mildly decreased* ? 60 - 89 mL/min/1.73m2 Mildly to moderately decreased ?45 - 59 mL/min/1.73m2 Moderately to severely decreased ??30 - 44 mL/min/1.73m2 Severely decreased ?15 - 29 mL/min/1.73m2 Kidney Failure ?< 15 ??mL/min/1.73m2 *Relative to young adult level Estimated glomerular filtration rate is determined by the CKD-EPI equation recommended by the National Kidney Foundation (KDIGO 2012 Clinical Practice Guideline for the Evaluation and Management of Chronic Kidney Disease. Kidney Intnl Suppl Mar 2012;3:1). The CKD-EPI equation should not be used for patients with unstable renal function and has not been validated in children and those over 70. Current interpretive data was last reviewed 2020 Blood specimen (specimen) 05/11/2020 2:01 AM COMMUNITY HEALTH NURSE STAFF 05/11/2020 2:10 AM COMMUNITY HEALTH NURSE STAFF Rosy Ma NP LAB BLOOD ORDERABLES Final Result Performing Organization Address [facility] de Phone Number [facility] [address] [employer] [place] [address] * Phosphorus (05/11/2020 2:01 AM COMMUNITY HEALTH NURSE STAFF) Phosphorus, pl 3.0 2.3 - 4.5 mg/dL [facility] Blood specimen (specimen) 05/11/2020 2:01 AM COMMUNITY HEALTH NURSE STAFF 05/11/2020 2:10 AM COMMUNITY HEALTH NURSE STAFF Rosy Ma NP LAB BLOOD ORDERABLES Final Result Performing Organization Address [facility] de Phone Number [facility] [address] [facility] [employer] [place] [address] * Magnesium (05/11/2020 2:01 AM COMMUNITY HEALTH NURSE STAFF) [facility] Magnesium 2.0 1.4 - 2.5 mg/dL [facility] Blood specimen (specimen) 05/11/2020 2:01 AM COMMUNITY HEALTH NURSE STAFF 05/11/2020 2:10 AM COMMUNITY HEALTH NURSE STAFF Rosy Wanda Ma BILL COLLECTOR LAB BLOOD ORDERABLES Final Result Performing Organization Address [facility]/ZIP Co de Phone Number [facility] [address] [place] [address] * Calcium, ionized (05/11/2020 2:01 AM COMMUNITY HEALTH NURSE STAFF) [facility] Calcium, Ionized 4.74 3.90 - 5.40 mg/dL [facility] Blood specimen (specimen) 05/11/2020 2:01 AM COMMUNITY HEALTH NURSE STAFF 05/11/2020 2:11 AM COMMUNITY HEALTH NURSE STAFF Rosy Ma BILL COLLECTOR LAB BLOOD ORDERABLES Final Result Performing Organization Address [facility] de Phone Number [facility] [address] [place] [address] * (ABNORMAL) Basic metabolic panel (05/11/2020 2:01 AM COMMUNITY HEALTH NURSE STAFF) [facility] Sodium 137 135 - 145 mmol/L [facility] Potassium, pl 4.1 3.3 - 4.9 mmol/L [facility] Chloride 107 97 - 110 mmol/L [facility] CO2 23 22 - 32 mmol/L [facility] Anion gap 7 2 - 15 mmol/L [facility] BUN 24 8 - 25 mg/dL [facility] Creatinine 0.94 0.80 - 1.30 mg/dL [facility] Glucose 123 70 - 199 mg/dL [facility] Comment: Interpretive Data Fasting glucose >/= 126 mg/dl is diagnostic for diabetes. ?? Fasting is defined as no caloric intake for at least 8 hours. Fasting glucose between 100 mg/dl to 125 mg/dl is diagnostic of prediabetes. In a patient with classic symptoms of hyperglycemia or hyperglycemic crisis, a random glucose >/= 200 mg/dl is diagnostic for diabetes. In the absence of unequivocal hyperglycemia, results should be confirmed by repeat testing. The classification and Diagnosis of Diabetes Diabetes Care 2017;40 (Suppl. 1):S11. Current interpretive data was last revised 2017. Calcium 8.3(L) 8.5 - 10.3 mg/dL [facility] Blood specimen (specimen) 05/11/2020 2:01 AM COMMUNITY HEALTH NURSE STAFF 05/11/2020 2:10 AM COMMUNITY HEALTH NURSE STAFF us Rosy Ma NP LAB BLOOD ORDERABLES Final Result [facility] [address] Department [place] [address] * (ABNORMAL) CBC without differential (05/11/2020 2:01 AM COMMUNITY HEALTH NURSE STAFF) WBC 11.7(H) 3.8 - 9.9 K/cumm [facility] Hgb 10.6(L) 13.0 - 17.5 g/dL [facility] Comment:PER DESIREE SPRINGER DROP I N HGB EXPECTED. Hct 31.2(L) 38.9 - 50.3 % [facility] Plt 109(L) 150 - 400 K/cumm [facility] MPV 10.5 9.1 - 12.3 fL [facility] RBC 3.69(L) 4.30 - 5.80 M/cumm [facility] MCV 84.6 81.3 - 96.4 fL [facility] MCH 28.7 27.1 - 33.3 pg [facility] MCHC 34.0 32.3 - 35.7 g/dL [facility] RDW CV 14.3 11.1 - 14.9 % [facility] RDW SD 44.1 35.7 - 48.1 fL [facility] NRBC abs 0.00 0.00 - 0.01 K/cumm [facility] Blood specimen (specimen) 05/11/2020 2:01 AM COMMUNITY HEALTH NURSE STAFF 05/11/2020 2:10 AM COMMUNITY HEALTH NURSE STAFF Rosy Ma NP LAB BLOOD ORDERABLES Final Result [facility] [address] Department [place] [address] * Critical Care (05/10/2020 2:34 PM COMMUNITY HEALTH NURSE STAFF) Narrative Kaden Naqvi DO - 05/10/2020 2:34 PM COMMUNITY HEALTH NURSE STAFF Rosy Ma NP ? 05/10/2020 ??5:43 PM Critical Care Performed by: Rosy Ma NP Authorized by: Rosy Ma NP CRITICAL CARE: ??Team: ??OTHER ??Shift: ??AM ??Level of Billing: ??Critical Care ??My time spent with this patient was 90 minutes: Critical Provider Statement: I have seen and examined the patient on this day of service. I have reviewed and confirmed the history, physical exam, laboratory and radiologic data as documented in the signed ICU note. I have reviewed and discussed my treatment plan with the ICU team and other medical/senior analytic consultant staff, making frequent assessments and decisions regarding this patient's complex medical care. Critical Care time was exclusive of time spent performing separately billed procedures, treating other patients, and teaching. This time was in addition to and separate from critical care provided by other practitioners in my group on this day of service. Critical Care was necessary to treat or prevent imminent or life-threatening deterioration of the following conditions: ?? Rosy Ma NP IN CLINIC/BEDSIDE ORDERABL ES Final Result * POCT glucose (05/10/2020 11:54 AM COMMUNITY HEALTH NURSE STAFF) [facility] Glucose, POC 117 70 - 140 mg/dL [facility] Comment: For Glucose values <35 mg/dl when Hematocrit is >60 mg/dl,the test may not accurately detect significant hypoglycemia,and testing in the Laboratory should be considered if clinically indicated. Blood specimen (specimen) 05/10/2020 11:54 AM COMMUNITY HEALTH NURSE STAFF 05/10/2020 11:54 AM COMMUNITY HEALTH NURSE STAFF Hardeep Reed MD LAB POCT ORDERABLES - DE VICE Final Result Performing Organization Address [facility] Co de Phone Number [facility] [address] Department [place] [address] * (ABNORMAL) Blood gas, arterial (05/10/2020 9:20 AM COMMUNITY HEALTH NURSE STAFF) pH, Art 7.45 7.35 - 7.45 [facility] PCO2, Arterial 30(L) 35 - 45 mmHg [facility] PO2, Arterial 124(H) 83 - 108 mmHg [facility] HCO3 Art (Calculated) 21 20 - 30 mmol/L [facility] BE, art -2 mmol/L [facility] Comment: Interpretive Data No Reference Range Established Current Interpretive Data was last revised on 2017 O2 Sat Art (Calculated) 99(H) 94 - 98 % [facility] Blood specimen (specimen) 05/10/2020 9:20 AM COMMUNITY HEALTH NURSE STAFF 05/10/2020 9:32 AM COMMUNITY HEALTH NURSE STAFF Hardeep Reed MD LAB BLOOD ORDERABLES Fin al Result Performing Organization Address [facility] Co de Phone Number [facility] [address] Department [place] [address] * (ABNORMAL) POCT glucose (05/10/2020 7:45 AM COMMUNITY HEALTH NURSE STAFF) Glucose, POC 142(H) 70 - 140 mg/dL [facility] Comment: For Glucose values <35 mg/dl when Hematocrit is >60 mg/dl,the test may not accurately detect significant hypoglycemia,and testing in the Laboratory should be considered if clinically indicated. Blood specimen (specimen) 05/10/2020 7:45 AM COMMUNITY HEALTH NURSE STAFF 05/10/2020 7:45 AM COMMUNITY HEALTH NURSE STAFF Hardeep Reed MD LAB POCT ORDERABLES - DE VICE Final Result Performing Organization Address [facility]/ZIP Co de Phone Number [facility] [address] [facility] [place] [address] * (ABNORMAL) Blood gas, arterial (05/10/2020 6:50 AM COMMUNITY HEALTH NURSE STAFF) pH, Art 7.43 7.35 - 7.45 [facility] PCO2, Arterial 33(L) 35 - 45 mmHg [facility] PO2, Arterial 152(H) 83 - 108 mmHg [facility] HCO3 Art (Calculated) 22 20 - 30 mmol/L [facility] BE, art -2 mmol/L [facility] Comment: Interpretive Data No Reference Range Established Current Interpretive Data was last revised on 2017 O2 Sat Art (Calculated) 99(H) 94 - 98 % [facility] Blood specimen (specimen) 05/10/2020 6:50 AM COMMUNITY HEALTH NURSE STAFF 05/10/2020 6:52 AM COMMUNITY HEALTH NURSE STAFF Kaden Naqvi DO LAB BLOOD ORDERABLES Final R esult Performing Organization Address [facility] Co de Phone Number [facility] [address] Department [place] [address] * (ABNORMAL) Lactate (05/10/2020 6:50 AM COMMUNITY HEALTH NURSE STAFF) Pathologist [facility] Lactate 4.1(C) 0.7 - 2.0 mmol/L [facility] Comment:Critical result call ed to and read back by Karen Stapleton (RN) on 05/10/2020 0754 to [id number] Blood specimen (specimen) 05/10/2020 6:50 AM COMMUNITY HEALTH NURSE STAFF 05/10/2020 6:52 AM COMMUNITY HEALTH NURSE STAFF Kelsy Holbrook BILL COLLECTOR LAB BLOOD ORDERABLES Final Result Performing Organization Address [facility] Co de Phone Number [facility] [address] Department [place] [address] * XR Chest 1 View - Portable - in AM (05/10/2020 5:47 AM COMMUNITY HEALTH NURSE STAFF) Anatomical Region Laterality Modality Body, Chest N/A Computed Radiogr aphy 05/10/2020 8:19 AM COMMUNITY HEALTH NURSE STAFF Impressions 05/10/2020 8:20 AM COMMUNITY HEALTH NURSE STAFF Stable portable chest radiograph. Electronically signed by: Hugo Ward M.D. Narrative 05/10/2020 8:20 AM COMMUNITY HEALTH NURSE STAFF XR CHEST 1 VIEW: 05/10/2020 1:00 AM CLINICAL INDICATION: pleural effusion. COMPARISON: Chest radiograph dated 05/09/2020. FINDINGS: Postsurgical change from sternotomy. ??Endotracheal tube terminates approximately 6.8 cm above the candice. ??Enteric tube descends below the diaphragm. ??Right central venous catheter terminates over the superior vena cava. ??Right internal jugular sheath in place. Postsurgical change from mitral valve repair. ??Mediastinal and left chest tubes in place. ??Stable enlarged cardiac silhouette and pulmonary vasculature. ??Faint hazy opacities throughout both lungs, unchanged. ??No large pleural effusion or pneumothorax. Procedure Note Hugo Ward MD - 05/10/2020 XR CHEST 1 VIEW: 05/10/2020 1:00 AM CLINICAL INDICATION: pleural effusion. COMPARISON: Chest radiograph dated 05/09/2020. FINDINGS: Postsurgical change from sternotomy. Endotracheal tube terminates approximately 6.8 cm above the candice. Enteric tube descends below the diaphragm. Right central venous catheter terminates over the superior vena cava. Right internal jugular sheath in place. Postsurgical change from mitral valve repair. Mediastinal and left chest tubes in place. Stable enlarged cardiac silhouette and pulmonary vasculature. Faint hazy opacities throughout both lungs, unchanged. No large pleural effusion or pneumothorax. IMPRESSION: Stable portable chest radiograph. Electronically signed by: Hugo Ward M.D. Rosy Ma BILL COLLECTOR IMG XR PROCEDURES Final Re sult * (ABNORMAL) Blood gas, arterial (05/10/2020 3:38 AM COMMUNITY HEALTH NURSE STAFF) pH, Art 7.39 7.35 - 7.45 [facility] PCO2, Arterial 26(L) 35 - 45 mmHg [facility] PO2, Arterial 186(H) 83 - 108 mmHg [facility] HCO3 Art (Calculated) 16(L) 20 - 30 mmol/L [facility] BE, art -8 mmol/L [facility] Comment: Interpretive Data No Reference Range Established Current Interpretive Data was last revised on 2017 O2 Sat Art (Calculated) 100(H) 94 - 98 % [facility] Blood specimen (specimen) 05/10/2020 3:38 AM COMMUNITY HEALTH NURSE STAFF 05/10/2020 3:42 AM COMMUNITY HEALTH NURSE STAFF Kelsy Holbrook NP LAB BLOOD ORDERABLES Final Result Performing Organization Address [facility]/ZIP Co de Phone Number [facility] [address] [facility] [employer] [place] [address] * (ABNORMAL) Lactate (05/10/2020 3:38 AM COMMUNITY HEALTH NURSE STAFF) Lactate 6.0(C) 0.7 - 2.0 mmol/L [facility] Comment:Critical result call ed to and read back by Vicenta Neff RN on 05/10/20 @0416 to [id number] Blood specimen (specimen) 05/10/2020 3:38 AM COMMUNITY HEALTH NURSE STAFF 05/10/2020 3:42 AM COMMUNITY HEALTH NURSE STAFF Kelsy Holbrook NP LAB BLOOD ORDERABLES Final Result Performing Organization Address [facility] Co de Phone Number [facility] [address] [facility] [employer] [place] [address] * eGFR (05/10/2020 1:59 AM COMMUNITY HEALTH NURSE STAFF) eGFR 68 mL/min/1.7 3 m2 [facility] Comment: Interpretive Data Reference Interval Normal ?>/= 90 mL/min/1.73m2 Mildly decreased* ? 60 - 89 mL/min/1.73m2 Mildly to moderately decreased ?45 - 59 mL/min/1.73m2 Moderately to severely decreased ??30 - 44 mL/min/1.73m2 Severely decreased ?15 - 29 mL/min/1.73m2 Kidney Failure ?< 15 ??mL/min/1.73m2 *Relative to young adult level Estimated glomerular filtration rate is determined by the CKD-EPI equation recommended by the National Kidney Foundation (KDIGO 2012 Clinical Practice Guideline for the Evaluation and Management of Chronic Kidney Disease. Kidney Intnl Suppl Mar 2012;3:1). The CKD-EPI equation should not be used for patients with unstable renal function and has not been validated in children and those over 70. Current interpretive data was last reviewed 2020 Blood specimen (specimen) 05/10/2020 1:59 AM COMMUNITY HEALTH NURSE STAFF 05/10/2020 2:10 AM COMMUNITY HEALTH NURSE STAFF Jagdeep Peña MD LAB BLOOD ORDERABLES Final Result [facility] [address] Department [place] [address] * (ABNORMAL) Comprehensive metabolic panel (05/10/2020 1:59 AM COMMUNITY HEALTH NURSE STAFF) Sodium 141 135 - 145 mmol/L [facility] Potassium, pl 4.9 3.3 - 4.9 mmol/L [facility] Chloride 110 97 - 110 mmol/L [facility] CO2 15(L) 22 - 32 mmol/L [facility] Anion gap 16(H) 2 - 15 mmol/L [facility] BUN 15 8 - 25 mg/dL [facility] Creatinine 1.14 0.80 - 1.30 mg/dL [facility] Glucose 185 70 - 199 mg/dL [facility] Comment: Interpretive Data Fasting glucose >/= 126 mg/dl is diagnostic for diabetes. ?? Fasting is defined as no caloric intake for at least 8 hours. Fasting glucose between 100 mg/dl to 125 mg/dl is diagnostic of prediabetes. In a patient with classic symptoms of hyperglycemia or hyperglycemic crisis, a random glucose >/= 200 mg/dl is diagnostic for diabetes. In the absence of unequivocal hyperglycemia, results should be confirmed by repeat testing. The classification and Diagnosis of Diabetes Diabetes Care 2017;40 (Suppl. 1):S11. Current interpretive data was last revised 2017. Calcium 8.8 8.5 - 10.3 mg/dL [facility] Bilirubin, total 0.5 0.1 - 1.2 mg/dL [facility] Protein, pl 5.9(L) 6.5 - 8.5 g/dL [facility] Albumin 3.6 3.5 - 5.0 g/dL [facility] Alk phos 54 40 - 130 Units/L [facility] ALT 29 7 - 55 Units/L [facility] AST 55(H) 10 - 50 Units/L [facility] Blood specimen (specimen) 05/10/2020 1:59 AM COMMUNITY HEALTH NURSE STAFF 05/10/2020 2:10 AM COMMUNITY HEALTH NURSE STAFF Jagdeep Peña MD LAB BLOOD ORDERABLES Final Result [facility] [address] Department [employer] [place], [place] [id number] * Phosphorus (05/10/2020 1:59 AM COMMUNITY HEALTH NURSE STAFF) Phosphorus, pl 4.1 2.3 - 4.5 mg/dL [facility] Blood specimen (specimen) 05/10/2020 1:59 AM COMMUNITY HEALTH NURSE STAFF 05/10/2020 2:10 AM COMMUNITY HEALTH NURSE STAFF Rosy Ma BILL COLLECTOR LAB BLOOD ORDERABLES Final Result [facility] [address] Department of [employer] [place] [address] * Magnesium (05/10/2020 1:59 AM COMMUNITY HEALTH NURSE STAFF) Magnesium 2.0 1.4 - 2.5 mg/dL [facility] Blood specimen (specimen) 05/10/2020 1:59 AM COMMUNITY HEALTH NURSE STAFF 05/10/2020 2:10 AM COMMUNITY HEALTH NURSE STAFF Rosy Calzadaey BILL COLLECTOR LAB BLOOD ORDERABLES Final Result Performing Organization Address City/[facility]/ZIP Co de Phone Number [facility] [address] [facility] [employer] [place] [address] * Calcium, ionized (05/10/2020 1:59 AM COMMUNITY HEALTH NURSE STAFF) Pathologist [facility] Calcium, Ionized 4.48 3.90 - 5.40 mg/dL [facility] Blood specimen (specimen) 05/10/2020 1:59 AM COMMUNITY HEALTH NURSE STAFF 05/10/2020 2:06 AM COMMUNITY HEALTH NURSE STAFF Rosy Muñoz Francesca BILL COLLECTOR LAB BLOOD ORDERABLES Final Result Performing Organization Address [facility] Co de Phone Number [facility] [address] [facility] [employer] [place] [address] * (ABNORMAL) CBC without differential (05/10/2020 1:59 AM COMMUNITY HEALTH NURSE STAFF) Pathologist [facility] WBC 17.4(H) 3.8 - 9.9 K/cumm [facility] Hgb 13.7 13.0 - 17.5 g/dL [facility] Hct 40.8 38.9 - 50.3 % [facility] Plt 208 150 - 400 K/cumm [facility] MPV 10.1 9.1 - 12.3 fL [facility] RBC 4.89 4.30 - 5.80 M/cumm [facility] MCV 83.4 81.3 - 96.4 fL [facility] MCH 28.0 27.1 - 33.3 pg [facility] MCHC 33.6 32.3 - 35.7 g/dL [facility] RDW CV 13.8 11.1 - 14.9 % [facility] RDW SD 42.0 35.7 - 48.1 fL [facility] NRBC abs 0.00 0.00 - 0.01 K/cumm [facility] Blood specimen (specimen) 05/10/2020 1:59 AM COMMUNITY HEALTH NURSE STAFF 05/10/2020 2:10 AM COMMUNITY HEALTH NURSE STAFF Rosy Ma NP LAB BLOOD ORDERABLES Final Result Performing Organization Address [facility] Co de Phone Number [facility] [address] Department of Laboratories [place], [place] [id number] * (ABNORMAL) POCT glucose (05/10/2020 12:13 AM COMMUNITY HEALTH NURSE STAFF) [facility] Glucose, POC 177(H) 70 - 140 mg/dL [facility] Comment: For Glucose values <35 mg/dl when Hematocrit is >60 mg/dl,the test may not accurately detect significant hypoglycemia,and testing in the Laboratory should be considered if clinically indicated. Blood specimen (specimen) 05/10/2020 12:13 AM COMMUNITY HEALTH NURSE STAFF 05/10/2020 12:13 AM COMMUNITY HEALTH NURSE STAFF Jagdeep Pñea MD LAB POCT ORDERABLES - MILIND CE Final Result Performing Organization Address [facility] de Phone Number [facility] [address] Department [place] [address] * Critical Care (05/09/2020 11:15 PM COMMUNITY HEALTH NURSE STAFF) Narrative Kaden Naqvi DO - 05/09/2020 11:15 PM COMMUNITY HEALTH NURSE STAFF Kelsy Holbrook NP ? 05/11/2020 12:25 AM Critical Care Performed by: Kelsy Holbrook NP Authorized by: Kelsy Holbrook NP CRITICAL CARE: ??Team: ??OTHER ??Shift: ??PM ??Level of Billing: ??Critical Care ??My time spent with this patient was 90 minutes: Critical Provider Statement: I have seen and examined the patient on this day of service. I have reviewed and confirmed the history, physical exam, laboratory and radiologic data as documented in the signed ICU note. I have reviewed and discussed my treatment plan with the ICU team and other medical/senior analytic consultant staff, making frequent assessments and decisions regarding this patient's complex medical care. Critical Care time was exclusive of time spent performing separately billed procedures, treating other patients, and teaching. This time was in addition to and separate from critical care provided by other practitioners in my group on this day of service. Critical Care was necessary to treat or prevent imminent or life-threatening deterioration of the following conditions: ? Acute postoperative pain Combined cardiogenic and hypovolemic shock Lactic acidosis Acute hypoxic respiratory failure ??This time was spent by me doing the following: ? Acute postoperative pain Expected following sternotomy. - PRN fentanyl while intubated - Precedex and proposol ??for sedation ?? Combined cardiogenic and hypovolemic shock Intraop ALBERTO with EF unchanged at 45%, moderate RV dysfunction noted so pt was started on Epi. Remains on epi 0.03 and NE 0.15 despite 250 albumin. ?? Good urine output. ??ScvO2 80s. ??May have element of vasoplegia. - hold off on additional volume for now given RV dysfunction and good urine output. - Hold epi at 0.03 given high dose NE 0330: AM labs with bicarb down to 15. ??NE improved but remains on 0.09 mcg/kg/min. ??Add on lactate. ??500 ml LR. ?? 0420: Lactate elevated at 6. ??Able to wean NE but remains on 0.05. ??250 ml LR. 1 amp bicarb. ?? Acute hypoxic respiratory failure Initially pt doing well and weaning FiO2 but shortly after arrival he became hypoxic requiring 100% FiO2 and PEEP increased to 12. CXR without evidence of PTX, mild pulmonary edema, atelectasis. Pt then had large amount of thin yellow to clear secretions. Pt was bronched with large amount of clear secretions suctioned. Possibly pulmonary edema. - Wean FiO2 as tolerated - Once FiO2 down to 40% will ??wean PEEP - Keep intubated overnight 0420: ??Remains on NE 0.05. ??May in part be related to higher peep given RV dysfunction. ??Oxygenation much improved. ??Decrease peep to 8. ?? I spent time reviewing and interpreting data from bedside monitors, laboratory results, and imaging, I spent time discussing the management of this critically ill patient with consultants and the medical staff and I spent time documenting in the medical record us Kelsy Holbrook NP IN CLINIC/BEDSIDE ORD ERABLES Final Result * Oxyhemoglobin, central venous (05/09/2020 8:09 PM COMMUNITY HEALTH NURSE STAFF) Oxyhemoglobin, CV 84.7 % [facility] Comment: Interpretive Data No reference range established. Current interpretive data was last revised 2019. Blood specimen (specimen) 05/09/2020 8:09 PM COMMUNITY HEALTH NURSE STAFF 05/09/2020 8:11 PM COMMUNITY HEALTH NURSE STAFF Kelsy Holbrook BILL COLLECTOR LAB BLOOD ORDERABLES Final Result [facility] [address] Department [place] [address] * GENERAL (05/09/2020 6:30 PM COMMUNITY HEALTH NURSE STAFF) Narrative Kaden Naqvi DO - 05/09/2020 6:30 PM COMMUNITY HEALTH NURSE STAFF Kaden Naqvi DO ? 05/18/2020 ??8:13 PM Bronchoscopy Date/Time: 05/09/2020 6:30 PM Performed by: Kaden Naqvi DO Authorized by: Kaden Naqvi DO [place] Protocol: RN Notified of Procedure: yes ?? Patient's stated name/ matches armband: ??Yes Supplies, devices and special equipment are available: yes ?? Hand hygiene performed: Yes ?? PPE (including eye protection) in place as appropriate to the procedure: Yes ?? Procedure details: ?? As a result of persistent hypoxemia, coarse right sided breath sounds, and new and frequent secretions from ETT we decided to perform a bronchoscopy. The tracheobronchial tree was clear of any large mucus plugs and inspected to the level of the subsegmental bronchi. There was however large amounts of serous fluid throughout, right greater than left. This was suctioned. There was no bleeding. No BALs were sent Patient tolerance: ??Patient tolerated the procedure well with no immediate complications Result [facility] Kaden Naqvi DO IN CLINIC/BEDSIDE ORDERABLES Edited Result - Final * Oxyhemoglobin, pulmonary artery (05/09/2020 5:07 PM COMMUNITY HEALTH NURSE STAFF) Oxyhemoglobin, PA 84.6 % [facility] Comment: Interpretive Data No reference range established. Current interpretive data was last revised 2019. Blood specimen (specimen) 05/09/2020 5:07 PM COMMUNITY HEALTH NURSE STAFF 05/09/2020 5:11 PM COMMUNITY HEALTH NURSE STAFF Hardeep Reed MD LAB BLOOD ORDERABLES Fin al Result Performing Organization Address [facility] Co de Phone Number [facility] [address] Department [place] [address] * (ABNORMAL) Blood gas, arterial (05/09/2020 4:27 PM COMMUNITY HEALTH NURSE STAFF) pH, Art 7.33(L) 7.35 - 7.45 [facility] PCO2, Arterial 36 35 - 45 mmHg [facility] PO2, Arterial 96 83 - 108 mmHg [facility] HCO3 Art (Calculated) 19(L) 20 - 30 mmol/L [facility] BE, art -6 mmol/L [facility] Comment: Interpretive Data No Reference Range Established Current Interpretive Data was last revised on 2017 O2 Sat Art (Calculated) 97 94 - 98 % [facility] Blood specimen (specimen) 05/09/2020 4:27 PM COMMUNITY HEALTH NURSE STAFF 05/09/2020 4:32 PM COMMUNITY HEALTH NURSE STAFF Jagdeep Peña MD LAB BLOOD ORDERABLES Final Result Performing Organization Address [facility] Co de Phone Number [facility] [address] Department [place] [address] * Critical Care (05/09/2020 4:00 PM COMMUNITY HEALTH NURSE STAFF) Narrative Rosy Ma NP - 05/09/2020 4:00 PM COMMUNITY HEALTH NURSE STAFF Rosy Ma NP ? 05/11/2020 10:43 AM Critical Care Performed by: Rosy Ma NP Authorized by: Rosy Ma NP CRITICAL CARE: ??Team: ??OTHER ??Shift: ??AM ??Level of Billing: ??Critical Care ??My time spent with this patient was 120 minutes: Critical Provider Statement: I have seen and examined the patient on this day of service. I have reviewed and confirmed the history, physical exam, laboratory and radiologic data as documented in the signed ICU note. I have reviewed and discussed my treatment plan with the ICU team and other medical/senior analytic consultant staff, making frequent assessments and decisions regarding this patient's complex medical care. Critical Care time was exclusive of time spent performing separately billed procedures, treating other patients, and teaching. This time was in addition to and separate from critical care provided by other practitioners in my group on this day of service. Critical Care was necessary to treat or prevent imminent or life-threatening deterioration of the following conditions: ? Acute pain/acute postoperative pain and Agitation requiring sedation ?? Cardiogenic shock, Hypovolemic shock and Hypotension ?? Acute hypoxic respiratory failure, Pulmonary edema and Atelectasis ?? Leukocytosis ??This time was spent by me doing the following: ? Resuscitation with fluids, Serial bedside patient exams and Serial laboratory checks ?? Active titration of continuous sedation and Acute pain control ?? Initiation/active titration of vasoactive medications and Initiation/active titration of inotropic medications ?? Active and frequent reassessment of respiratory status and oxygen requirements and Invasive ventilator management, reassessment, and titration ?? Active and frequent monitoring of intake/output and volumen status and Glycemic control ?? Initiation/management of anti-platelet agents ?? I spent time reviewing and interpreting data from bedside monitors, laboratory results, and imaging, I spent time discussing the management of this critically ill patient with consultants and the medical staff and I spent time documenting in the medical record us Rosy Ma NP IN CLINIC/BEDSIDE ORDERABL ES Edited Result - Final * XR Chest 1 View - Portable (05/09/2020 3:04 PM COMMUNITY HEALTH NURSE STAFF) Anatomical Region Laterality Modality Body, Chest N/A Computed Radiogr aphy 05/09/2020 3:04 PM COMMUNITY HEALTH NURSE STAFF Impressions 05/09/2020 3:10 PM COMMUNITY HEALTH NURSE STAFF 1. New left support devices in place with new perihilar disease and focal right upper lobe infiltrate Electronically signed by: Cboy Cano M.D. Narrative 05/09/2020 3:10 PM COMMUNITY HEALTH NURSE STAFF EXAM: ??1 view chest 05/09/2020 at 1452 hours HISTORY: ??Status post heart valve replacement COMPARISON: ??2 view chest 05/02/2020 FINDINGS: Endotracheal tube projects 3.9 cm above the candice. Nasogastric tube courses was left upper quadrant. There are 2 new right jugular catheters in place, one with the tip in the level of the mid SVC and the other in the distal SVC. There is a mediastinal chest tube and left-sided chest tube. There are changes of median sternotomy with heart valve replacement. There is cardiac megaly. There is new bilateral perihilar infiltrate with focal opacity in the caudal aspect of the right upper lobe abutting the minor fissure. There is no significant pleural effusion. There is no pneumothorax. Procedure Note Coby Cano MD - 05/09/2020 EXAM: 1 view chest 05/09/2020 at 1452 hours HISTORY: Status post heart valve replacement COMPARISON: 2 view chest 05/02/2020 FINDINGS: Endotracheal tube projects 3.9 cm above the candice. Nasogastric tube courses was left upper quadrant. There are 2 new right jugular catheters in place, one with the tip in the level of the mid SVC and the other in the distal SVC. There is a mediastinal chest tube and left-sided chest tube. There are changes of median sternotomy with heart valve replacement. There is cardiac megaly. There is new bilateral perihilar infiltrate with focal opacity in the caudal aspect of the right upper lobe abutting the minor fissure. There is no significant pleural effusion. There is no pneumothorax. IMPRESSION: 1. New left support devices in place with new perihilar disease and focal right upper lobe infiltrate Electronically signed by: Coby Cano M.D. us Rosy Ma BILL COLLECTOR IMG XR PROCEDURES Final Re sult * XR Abdomen AP 1 View - KUB (05/09/2020 3:03 PM COMMUNITY HEALTH NURSE STAFF) Anatomical Region Laterality Modality Body, Abdomen N/A Computed Radiogr aphy 05/09/2020 3:23 PM COMMUNITY HEALTH NURSE STAFF Impressions 05/09/2020 3:24 PM COMMUNITY HEALTH NURSE STAFF Nasogastric tube tip overlying left upper quadrant Electronically signed by: Coby Cano M.D. Narrative 05/09/2020 3:24 PM COMMUNITY HEALTH NURSE STAFF EXAM: ??KUB HISTORY: ??Nasogastric tube placement. COMPARISON: ??None available. FINDINGS: Nasogastric tube tip overlies the left upper quadrant. There are changes of median sternotomy and heart valve replacement. There is cardiomegaly with patchy bibasilar parenchymal disease. Procedure Note Coby Cano MD - 05/09/2020 EXAM: KUB HISTORY: Nasogastric tube placement. COMPARISON: None available. FINDINGS: Nasogastric tube tip overlies the left upper quadrant. There are changes of median sternotomy and heart valve replacement. There is cardiomegaly with patchy bibasilar parenchymal disease. IMPRESSION: Nasogastric tube tip overlying left upper quadrant Electronically signed by: Coby Cano M.D. Rosy Ma BILL COLLECTOR IMG XR PROCEDURES Final Re sult * POCT glucose (05/09/2020 2:58 PM COMMUNITY HEALTH NURSE STAFF) [facility] Glucose, POC 121 70 - 140 mg/dL [facility] Comment: For Glucose values <35 mg/dl when Hematocrit is >60 mg/dl,the test may not accurately detect significant hypoglycemia,and testing in the Laboratory should be considered if clinically indicated. Blood specimen (specimen) 05/09/2020 2:58 PM COMMUNITY HEALTH NURSE STAFF 05/09/2020 2:58 PM COMMUNITY HEALTH NURSE STAFF us Jagdeep Peña MD LAB POCT ORDERABLES - MILIND CE Final Result [facility] [address] Department [place] [address] * eGFR (05/09/2020 2:50 PM COMMUNITY HEALTH NURSE STAFF) [facility] eGFR 76 mL/min/1.7 3 m2 [facility] Comment: Interpretive Data Reference Interval Normal ?>/= 90 mL/min/1.73m2 Mildly decreased* ? 60 - 89 mL/min/1.73m2 Mildly to moderately decreased ?45 - 59 mL/min/1.73m2 Moderately to severely decreased ??30 - 44 mL/min/1.73m2 Severely decreased ?15 - 29 mL/min/1.73m2 Kidney Failure ?< 15 ??mL/min/1.73m2 *Relative to young adult level Estimated glomerular filtration rate is determined by the CKD-EPI equation recommended by the National Kidney Foundation (KDIGO 2012 Clinical Practice Guideline for the Evaluation and Management of Chronic Kidney Disease. Kidney Intnl Suppl Mar 2012;3:1). The CKD-EPI equation should not be used for patients with unstable renal function and has not been validated in children and those over 70. Current interpretive data was last reviewed 2020 Blood specimen (specimen) 05/09/2020 2:50 PM COMMUNITY HEALTH NURSE STAFF 05/09/2020 3:04 PM COMMUNITY HEALTH NURSE STAFF Rosy Ma NP LAB BLOOD ORDERABLES Final Result Performing Organization Address [facility] Co de Phone Number [facility] [address] Department [place] [address] * aPTT (05/09/2020 2:50 PM COMMUNITY HEALTH NURSE STAFF) aPTT 27 27 - 37 sec [facility] Comment: Interpretive data Heparin therapeutic range: 52-80 seconds Range based on correlation with therapeutic heparin activity range of 0.3-0.7 units/ml. Current interpretive data was last revised on 2019. Blood specimen (specimen) 05/09/2020 2:50 PM COMMUNITY HEALTH NURSE STAFF 05/09/2020 3:04 PM COMMUNITY HEALTH NURSE STAFF Rosy Ma NP LAB BLOOD ORDERABLES Final Result Performing Organization Address City/[facility] Co de Phone Number [facility] [address] Department [place] [address] * (ABNORMAL) Protime-INR (05/09/2020 2:50 PM COMMUNITY HEALTH NURSE STAFF) Pathologist [facility] PT 13.8(H) 9.5 - 13.6 sec [facility] INR 1.2 0.9 - 1.2 [facility] Comment: Interpretive data Oral anticoagulant therapeutic ranges: Venous thromboembolism prophylaxis or treatment: 2.0-3.0 CARDIOLOGY Standard range: 2.0-3.0 High-intensity range: 2.5-3.5 Refer to indication-specific guidelines for appropriate target ranges for prosthetic heart valve replacement. Current interpretive data was last revised on 2019. Blood specimen (specimen) 05/09/2020 2:50 PM COMMUNITY HEALTH NURSE STAFF 05/09/2020 3:04 PM COMMUNITY HEALTH NURSE STAFF Rosy Ma NP LAB BLOOD ORDERABLES Final Result Performing Organization Address [facility] Co de Phone Number [facility] [address] Department [place] [address] * (ABNORMAL) CBC without differential (05/09/2020 2:50 PM COMMUNITY HEALTH NURSE STAFF) Pathologist [facility] WBC 20.2(H) 3.8 - 9.9 K/cumm [facility] Hgb 13.2 13.0 - 17.5 g/dL [facility] Hct 38.0(L) 38.9 - 50.3 % [facility] Plt 164 150 - 400 K/cumm [facility] MPV 10.3 9.1 - 12.3 fL [facility] RBC 4.56 4.30 - 5.80 M/cumm [facility] MCV 83.3 81.3 - 96.4 fL [facility] MCH 28.9 27.1 - 33.3 pg [facility] MCHC 34.7 32.3 - 35.7 g/dL [facility] RDW CV 13.6 11.1 - 14.9 % [facility] RDW SD 41.3 35.7 - 48.1 fL [facility] NRBC abs 0.00 0.00 - 0.01 K/cumm [facility] Blood specimen (specimen) 05/09/2020 2:50 PM COMMUNITY HEALTH NURSE STAFF 05/09/2020 3:04 PM COMMUNITY HEALTH NURSE STAFF Rosy Ma BILL COLLECTOR LAB BLOOD ORDERABLES Final Result Performing Organization Address [facility] de Phone Number [facility] [address] Department [place] [address] * (ABNORMAL) Blood gas, arterial (05/09/2020 2:50 PM COMMUNITY HEALTH NURSE STAFF) Pathologist [facility] pH, Art 7.28(L) 7.35 - 7.45 [facility] PCO2, Arterial 45 35 - 45 mmHg [facility] PO2, Arterial 98 83 - 108 mmHg [facility] HCO3 Art (Calculated) 21 20 - 30 mmol/L [facility] BE, art -6 mmol/L [facility] Comment: Interpretive Data No Reference Range Established Current Interpretive Data was last revised on 2017 O2 Sat Art (Calculated) 97 94 - 98 % [facility] Blood specimen (specimen) 05/09/2020 2:50 PM COMMUNITY HEALTH NURSE STAFF 05/09/2020 3:03 PM COMMUNITY HEALTH NURSE STAFF Rosy Ma BILL COLLECTOR LAB BLOOD ORDERABLES Final Result Performing Organization Address [facility] de Phone Number [facility] [address] Department [place] [address] * Calcium, ionized (05/09/2020 2:50 PM COMMUNITY HEALTH NURSE STAFF) Pathologist [facility] Calcium, Ionized 5.16 3.90 - 5.40 mg/dL [facility] Blood specimen (specimen) 05/09/2020 2:50 PM COMMUNITY HEALTH NURSE STAFF 05/09/2020 3:03 PM COMMUNITY HEALTH NURSE STAFF Rosy Ma BILL COLLECTOR LAB BLOOD ORDERABLES Final Result [facility] [address] Department of [employer] [place] [address] * Magnesium (05/09/2020 2:50 PM COMMUNITY HEALTH NURSE STAFF) [facility] Magnesium 2.4 1.4 - 2.5 mg/dL [facility] Blood specimen (specimen) 05/09/2020 2:50 PM COMMUNITY HEALTH NURSE STAFF 05/09/2020 3:04 PM COMMUNITY HEALTH NURSE STAFF Rosy Muñoz Francesca BILL COLLECTOR LAB BLOOD ORDERABLES Final Result Performing Organization Address City/[facility] Co de Phone Number [facility] [address] Department [employer] [place] [address] * (ABNORMAL) Basic metabolic panel (05/09/2020 2:50 PM COMMUNITY HEALTH NURSE STAFF) [facility] Sodium 144 135 - 145 mmol/L [facility] Potassium, pl 4.2 3.3 - 4.9 mmol/L [facility] Chloride 113(H) 97 - 110 mmol/L [facility] CO2 21(L) 22 - 32 mmol/L [facility] Anion gap 10 2 - 15 mmol/L [facility] BUN 16 8 - 25 mg/dL [facility] Creatinine 1.03 0.80 - 1.30 mg/dL [facility] Glucose 131 70 - 199 mg/dL [facility] Comment: Interpretive Data Fasting glucose >/= 126 mg/dl is diagnostic for diabetes. ?? Fasting is defined as no caloric intake for at least 8 hours. Fasting glucose between 100 mg/dl to 125 mg/dl is diagnostic of prediabetes. In a patient with classic symptoms of hyperglycemia or hyperglycemic crisis, a random glucose >/= 200 mg/dl is diagnostic for diabetes. In the absence of unequivocal hyperglycemia, results should be confirmed by repeat testing. The classification and Diagnosis of Diabetes Diabetes Care 2017;40 (Suppl. 1):S11. Current interpretive data was last revised 2017. Calcium 9.1 8.5 - 10.3 mg/dL [facility] Blood specimen (specimen) 05/09/2020 2:50 PM COMMUNITY HEALTH NURSE STAFF 05/09/2020 3:04 PM COMMUNITY HEALTH NURSE STAFF Rosy Ma BILL COLLECTOR LAB BLOOD ORDERABLES Final Result Performing Organization Address [facility] Co de Phone Number [facility] [address] [place] [address] * Phosphorus (05/09/2020 2:50 PM COMMUNITY HEALTH NURSE STAFF) Phosphorus, pl 3.5 2.3 - 4.5 mg/dL [facility] Blood specimen (specimen) 05/09/2020 2:50 PM COMMUNITY HEALTH NURSE STAFF 05/09/2020 3:04 PM COMMUNITY HEALTH NURSE STAFF Rosy Wanda Ma NP LAB BLOOD ORDERABLES Final Result Performing Organization Address [facility] de Phone Number [facility] [address] [place], [place] [id number] * (ABNORMAL) aPTT (05/09/2020 1:46 PM COMMUNITY HEALTH NURSE STAFF) Pathologist [facility] aPTT 23(L) 27 - 37 sec [facility] Comment: Interpretive data Heparin therapeutic range: 52-80 seconds Range based on correlation with therapeutic heparin activity range of 0.3-0.7 units/ml. Current interpretive data was last revised on 2019. Blood specimen (specimen) 05/09/2020 1:46 PM COMMUNITY HEALTH NURSE STAFF 05/09/2020 1:46 PM COMMUNITY HEALTH NURSE STAFF Hardeep Reed MD LAB BLOOD ORDERABLES Fin al Result Performing Organization Address [facility] Co de Phone Number [facility] [address] [place], [place] [id number] * (ABNORMAL) Protime-INR (05/09/2020 1:46 PM COMMUNITY HEALTH NURSE STAFF) PT 15.0(H) 9.5 - 13.6 sec [facility] INR 1.4(H) 0.9 - 1.2 [facility] Comment: Interpretive data Oral anticoagulant therapeutic ranges: Venous thromboembolism prophylaxis or treatment: 2.0-3.0 CARDIOLOGY Standard range: 2.0-3.0 High-intensity range: 2.5-3.5 Refer to indication-specific guidelines for appropriate target ranges for prosthetic heart valve replacement. Current interpretive data was last revised on 2019. Blood specimen (specimen) 05/09/2020 1:46 PM COMMUNITY HEALTH NURSE STAFF 05/09/2020 1:46 PM COMMUNITY HEALTH NURSE STAFF Hardeep Reed MD LAB BLOOD ORDERABLES Fin al Result Performing Organization Address [facility]/ZIP Co de Phone Number [facility] [address] [address] * Fibrinogen (05/09/2020 1:46 PM COMMUNITY HEALTH NURSE STAFF) Pathologist [facility] Fibrinogen 182 170 - 400 mg/dL [facility] Blood specimen (specimen) 05/09/2020 1:46 PM COMMUNITY HEALTH NURSE STAFF 05/09/2020 1:46 PM COMMUNITY HEALTH NURSE STAFF Hardeep Reed MD LAB BLOOD ORDERABLES Fin al Result Performing Organization Address [facility] Co de Phone Number [facility] [address] [place] [address] * (ABNORMAL) CBC without differential (05/09/2020 1:45 PM COMMUNITY HEALTH NURSE STAFF) Pathologist [facility] WBC 20.5(H) 3.8 - 9.9 K/cumm [facility] Hgb 12.0(L) 13.0 - 17.5 g/dL [facility] Hct 34.8(L) 38.9 - 50.3 % [facility] Plt 165 150 - 400 K/cumm [facility] MPV 10.1 9.1 - 12.3 fL [facility] RBC 4.15(L) 4.30 - 5.80 M/cumm [facility] MCV 83.9 81.3 - 96.4 fL [facility] MCH 28.9 27.1 - 33.3 pg [facility] MCHC 34.5 32.3 - 35.7 g/dL [facility] RDW CV 13.4 11.1 - 14.9 % [facility] RDW SD 41.0 35.7 - 48.1 fL [facility] NRBC abs 0.00 0.00 - 0.01 K/cumm [facility] Blood specimen (specimen) 05/09/2020 1:45 PM COMMUNITY HEALTH NURSE STAFF 05/09/2020 1:45 PM COMMUNITY HEALTH NURSE STAFF Hardeep Reed MD LAB BLOOD ORDERABLES Fin al Result [facility] [address] Department of [employer] [place], [place] [id number] * POC Activated Clotting Time, High Range (05/09/2020 1:41 PM COMMUNITY HEALTH NURSE STAFF) [facility] ACT 114 87 - 138 sec [facility] Blood specimen (specimen) 05/09/2020 1:41 PM COMMUNITY HEALTH NURSE STAFF 05/09/2020 1:41 PM COMMUNITY HEALTH NURSE STAFF Hardeep Reed MD LAB BLOOD ORDERABLES Fin al Result Performing Organization Address City/[facility]/ZIP Co de Phone Number [facility] [address] Department [employer] [place] [address] * (ABNORMAL) POC Blood Gas and Chemistries, Arterial - (05/09/2020 1:39 PM COMMUNITY HEALTH NURSE STAFF) [facility] pH, Art POC 7.38 7.35 - 7.45 [facility] pCO2, Art POC 37 35 - 45 mmHg [facility] pO2, Art POC 119(H) 80 - 108 mmHg [facility] Na, POC 139 135 - 145 mmol/L [facility] K POC 4.2 3.3 - 4.9 mmol/L [facility] Comment: Interpretive Data Unable to assess hemolysis. ??Invitro hemolysis causes falsely elevated potassium. Current Interpretive Data was last revised on 2019. Cl, POC 110 97 - 110 mmol/L [facility] Ionized Ca, POC 6.52(H) 4.40 - 5.40 mg/dL [facility] Glucose, POC 136 70 - 199 mg/dL [facility] Lactate, POC 2.0 0.0 - 2.0 mmol/L [facility] O2Hb, Art POC 97.7(H) 90.0 - 95.0 % [facility] Carboxhgb fract 2.1 0.0 - 2.9 % [facility] Methemoglobin 0.2 0.0 - 1.9 % [facility] HHb, POC 0.0 0.0 - 5.0 % [facility] SO2 (isabel) arterial 100(H) 90 - 95 % [facility] Total CO2, Art POC 23 22 - 32 mmol/L [facility] BE, art, POC -2.8(L) -2.0 - 2.0 mmol/L [facility] HCO3, Art POC 23 20 - 30 mmol/L [facility] Hct, POC 36.0(L) 38.9 - 50.3 % [facility] Total Hb, POC 12.1(L) 13.0 - 17.5 g/dL [facility] Blood specimen (specimen) 05/09/2020 1:39 PM COMMUNITY HEALTH NURSE STAFF 05/09/2020 1:39 PM COMMUNITY HEALTH NURSE STAFF us Hardeep Reed MD LAB POCT ORDERABLES - DE VICE Final Result Performing Organization Address [facility] Co de Phone Number [facility] [address] Department [place] [address] * (ABNORMAL) POC Activated Clotting Time, High Range (05/09/2020 12:59 PM COMMUNITY HEALTH NURSE STAFF) ACT 449(H) 87 - 138 sec [facility] Blood specimen (specimen) 05/09/2020 12:59 PM COMMUNITY HEALTH NURSE STAFF 05/09/2020 12:59 PM COMMUNITY HEALTH NURSE STAFF Hardeep Reed MD LAB BLOOD ORDERABLES Fin al Result Performing Organization Address [facility]/ZIP Co de Phone Number [facility] [address] Department [place] [address] * (ABNORMAL) POC Activated Clotting Time, High Range (05/09/2020 12:18 PM COMMUNITY HEALTH NURSE STAFF) [facility] ACT 493(H) 87 - 138 sec [facility] Blood specimen (specimen) 05/09/2020 12:18 PM [facility]ITY [facility] NURSE STAFF 05/09/2020 12:18 PM COMMUNITY HEALTH NURSE STAFF us Hardeep Reed MD LAB BLOOD ORDERABLES Fin al Result Performing Organization Address [facility]/ZIP Co de Phone Number [facility] [address] Department [place] [address] * (ABNORMAL) POC Blood Gas and Chemistries, Arterial - (05/09/2020 12:16 PM COMMUNITY HEALTH NURSE STAFF) [facility] pH, Art POC 7.38 7.35 - 7.45 [facility] pCO2, Art POC 41 35 - 45 mmHg [facility] pO2, Art POC 223(H) 80 - 108 mmHg [facility] Na, POC 138 135 - 145 mmol/L [facility] K POC 4.8 3.3 - 4.9 mmol/L [facility] Comment: Interpretive Data Unable to assess hemolysis. ??Invitro hemolysis causes falsely elevated potassium. Current Interpretive Data was last revised on 2019. Cl, POC 108 97 - 110 mmol/L [facility] Ionized Ca, POC 4.36(L) 4.40 - 5.40 mg/dL [facility] Glucose, POC 166 70 - 199 mg/dL [facility] Lactate, POC 1.9 0.0 - 2.0 mmol/L [facility] O2Hb, Art POC 97.4(H) 90.0 - 95.0 % [facility] Carboxhgb fract 2.0 0.0 - 2.9 % [facility] Methemoglobin 0.6 0.0 - 1.9 % [facility] HHb, POC 0.0 0.0 - 5.0 % [facility] SO2 (isabel) arterial 100(H) 90 - 95 % [facility] Total CO2, Art POC 26 22 - 32 mmol/L [facility] BE, art, POC -0.8 -2.0 - 2.0 mmol/L [facility] HCO3, Art POC 24 20 - 30 mmol/L [facility] Hct, POC 34.0(L) 38.9 - 50.3 % [facility] Total Hb, POC 11.4(L) 13.0 - 17.5 g/dL [facility] Blood specimen (specimen) 05/09/2020 12:16 PM COMMUNITY HEALTH NURSE STAFF 05/09/2020 12:16 PM COMMUNITY HEALTH NURSE STAFF Hardeep Reed MD LAB POCT ORDERABLES - DE VICE Final Result Performing Organization Address [facility] Co de Phone Number [facility] [address] [facility] [employer] [place] [address] * (ABNORMAL) POC Activated Clotting Time, High Range (05/09/2020 11:59 AM COMMUNITY HEALTH NURSE STAFF) ACT 466(H) 87 - 138 sec [facility] Blood specimen (specimen) 05/09/2020 11:59 AM COMMUNITY HEALTH NURSE STAFF 05/09/2020 11:59 AM COMMUNITY HEALTH NURSE STAFF Hardeep Reed MD LAB BLOOD ORDERABLES Fin al Result Performing Organization Address [facility] Co de Phone Number [facility] [address] Department of [employer] [place] [address] * (ABNORMAL) POC Activated Clotting Time, High Range (05/09/2020 11:21 AM COMMUNITY HEALTH NURSE STAFF) ACT 848(H) 87 - 138 sec [facility] Blood specimen (specimen) 05/09/2020 11:21 AM COMMUNITY HEALTH NURSE STAFF 05/09/2020 11:21 AM COMMUNITY HEALTH NURSE STAFF Hardeep Reed MD LAB BLOOD ORDERABLES Fin al Result Performing Organization Address [facility]/State/ZIP Co de Phone Number [facility] [address] Department [place] [address] * Surgical pathology (05/09/2020 11:21 AM COMMUNITY HEALTH NURSE STAFF) Tissue (Heart, Atrial appendage) 05/09/2020 11:21 AM COMMUNITY HEALTH NURSE STAFF Narrative PATHOLOGY [facility] - 05/10/2020 2:26 PM COMMUNITY HEALTH NURSE STAFF [place] [id number] [place], [place] ??[address] Tele: ?? Radha Tanner MD - Lithographic Retoucher Apprenticerenovator machine operator PATHOLOGY REPORT Patient Name: ??AVTAR JOSEPH Address: ??[address] [place] [address] ??62 Gender: ??M : ??1955 (Age: 64) Service: ??Cardiothoracic Location: ??1204, ?? Hospital #: ??[id number] Patient Type: ?? Inpatient Accession #: ? [id number] Taken: ? 05/09/2020 Received ? 05/09/2020 Reported: ? 05/10/2020 Physician(s): ? Hardeep Reed M.D. Espinoza Coker M.D. DIAGNOSIS: Heart, left atrial appendage, excision: ? - Mild myocyte hypertrophy 05/10/2020 14:26 Examining Pathologist: Jagdeep Spears M.D. Report Reviewed and Electronically Signed By ??Jagdeep Spears M.D. SPECIMEN TYPE: A: LEFT ATRIAL APPENDAGE CLINICAL IMPRESSION AND HISTORY: Nonrheumatic mitral valve regurgitation. ??Coronary artery disease involving [place] coronary artery of [place] heart without angina pectoris. GROSS DESCRIPTION: Received in formalin and labeled Avtar Joseph and left atrial appendage is a 3.7 x 2.5 x 1.5 cm, pink-crump, lobulated wedge of tissue with a 2.5 cm staple line of resection. ??Specimen is partially covered with adipose tissue ranging in thickness from 0.1 cm to 0.2 cm. ??Sections show a trabeculated tissue containing blood. ??There are no gross lesions. ??Food Service Associate sections are submitted in cassette A1. [facility]/05/09/2020 18:05 ? [facility] MICROSCOPIC DESCRIPTION: Microscopic examination supports the above captioned diagnosis. Clerical Data Follows A; [id number] REPORT IMAGES AND/OR SCANNED DOCUMENTS ONLY VIEWABLE IN PDF FORMAT The immunohistochemical test(s) cited in this report, if any, was developed and its performance characteristics determined by [facility] Pathology Department. ??It has not been cleared or approved by the U.S. Food and Drug Administration. ??The FDA has determined that such clearance or approval is not necessary. ??This test is used for clinical purposes. ??It should not be regarded as investigational or for research. ??[facility] Laboratory is certified under the Clinical Laboratory Improvement Amendments of 1988 (CLIA) as qualified to perform high complexity testing. ??Immunostains were performed on formalin-fixed paraffin embedded tissue using a polymer diaminobenzidine chromogen detection system. Antibodies used may include clone SP1 (rabbit monoclonal, estrogen receptor), clone 1E2 (rabbit monoclonal progesterone receptor), Ki-67 (rabbit monoclonal, 30-9), and [id number] (rabbit polyclonal, c-kit). us Hardeep Reed MD LAB PATHOLOGY ORDERABLES Final Result PATHOLOGY [facility] Laboratory Receiving [address] [place] [address] * (ABNORMAL) POC Blood Gas and Chemistries, Arterial - (05/09/2020 11:19 AM COMMUNITY HEALTH NURSE STAFF) pH, Art POC 7.36 7.35 - 7.45 [facility] pCO2, Art POC 35 35 - 45 mmHg [facility] pO2, Art POC 260(H) 80 - 108 mmHg [facility] Na, POC 137 135 - 145 mmol/L [facility] K POC 4.3 3.3 - 4.9 mmol/L [facility] Comment: Interpretive Data Unable to assess hemolysis. ??Invitro hemolysis causes falsely elevated potassium. Current Interpretive Data was last revised on 2019. Cl, POC 106 97 - 110 mmol/L [facility] Glucose, POC 121 70 - 199 mg/dL [facility] Lactate, POC 1.0 0.0 - 2.0 mmol/L [facility] O2Hb, Art POC 97.8(H) 90.0 - 95.0 % [facility] Carboxhgb fract 1.7 0.0 - 2.9 % [facility] Methemoglobin 0.6 0.0 - 1.9 % [facility] HHb, POC 0.0 0.0 - 5.0 % [facility] SO2 (isabel) arterial 100(H) 90 - 95 % [facility] Total CO2, Art POC 21(L) 22 - 32 mmol/L [facility] BE, art, POC -4.9(L) -2.0 - 2.0 mmol/L [facility] HCO3, Art POC 21 20 - 30 mmol/L [facility] Hct, POC 34.0(L) 38.9 - 50.3 % [facility] Total Hb, POC 11.2(L) 13.0 - 17.5 g/dL [facility] Blood specimen (specimen) 05/09/2020 11:19 AM COMMUNITY HEALTH NURSE STAFF 05/09/2020 11:19 AM COMMUNITY HEALTH NURSE STAFF us Hardeep Reed MD LAB POCT ORDERABLES - DE VICE Final Result Performing Organization Address [facility]/ZIP Co de Phone Number [facility] [address] Department [place] [address] * (ABNORMAL) POC Activated Clotting Time, High Range (05/09/2020 11:00 AM COMMUNITY HEALTH NURSE STAFF) ACT 477(H) 87 - 138 sec [facility] Blood specimen (specimen) 05/09/2020 11:00 AM COMMUNITY HEALTH NURSE STAFF 05/09/2020 11:00 AM COMMUNITY HEALTH NURSE STAFF Hardeep Reed MD LAB BLOOD ORDERABLES Fin al Result [facility] [address] Department [place] [address] * (ABNORMAL) POC Activated Clotting Time, High Range (05/09/2020 10:50 AM COMMUNITY HEALTH NURSE STAFF) Pathologist [facility] ACT 428(H) 87 - 138 sec [facility] Blood specimen (specimen) 05/09/2020 10:50 AM COMMUNITY HEALTH NURSE STAFF 05/09/2020 10:50 AM COMMUNITY HEALTH NURSE STAFF us Hardeep Reed MD LAB BLOOD ORDERABLES Fin al Result [facility] [address] Department [place] [address] * (ABNORMAL) POC Blood Gas and Chemistries, Arterial - (05/09/2020 10:49 AM COMMUNITY HEALTH NURSE STAFF) [facility] pH, Art POC 7.33(L) 7.35 - 7.45 [facility] pCO2, Art POC 50(H) 35 - 45 mmHg [facility] pO2, Art POC 122(H) 80 - 108 mmHg [facility] Na, POC 140 135 - 145 mmol/L [facility] K POC 4.4 3.3 - 4.9 mmol/L [facility] Comment: Interpretive Data Unable to assess hemolysis. ??Invitro hemolysis causes falsely elevated potassium. Current Interpretive Data was last revised on 2019. Cl, POC 107 97 - 110 mmol/L [facility] Ionized Ca, POC 4.78 4.40 - 5.40 mg/dL [facility] Glucose, POC 162 70 - 199 mg/dL [facility] Lactate, POC 1.1 0.0 - 2.0 mmol/L [facility] O2Hb, Art POC 96.7(H) 90.0 - 95.0 % [facility] Carboxhgb fract 2.1 0.0 - 2.9 % [facility] Methemoglobin 0.8 0.0 - 1.9 % [facility] HHb, POC 0.3 0.0 - 5.0 % [facility] SO2 (isabel) arterial 100(H) 90 - 95 % [facility] Total CO2, Art POC 28 22 - 32 mmol/L [facility] BE, art, POC -0.2 -2.0 - 2.0 mmol/L [facility] HCO3, Art POC 25 20 - 30 mmol/L [facility] Hct, POC 42.0 38.9 - 50.3 % [facility] Total Hb, POC 14.0 13.0 - 17.5 g/dL [facility] Blood specimen (specimen) 05/09/2020 10:49 AM COMMUNITY HEALTH NURSE STAFF 05/09/2020 10:49 AM COMMUNITY HEALTH NURSE STAFF us Hardeep Reed MD LAB POCT ORDERABLES - DE VICE Final Result [facility] [address] Department [place] [address] * (ABNORMAL) POC Blood Gas and Chemistries, Arterial - (05/09/2020 10:04 AM COMMUNITY HEALTH NURSE STAFF) pH, Art POC 7.41 7.35 - 7.45 [facility] pCO2, Art POC 38 35 - 45 mmHg [facility] pO2, Art POC 132(H) 80 - 108 mmHg [facility] Na, POC 141 135 - 145 mmol/L [facility] K POC 4.3 3.3 - 4.9 mmol/L [facility] Comment: Interpretive Data Unable to assess hemolysis. ??Invitro hemolysis causes falsely elevated potassium. Current Interpretive Data was last revised on 2019. Cl, POC 107 97 - 110 mmol/L [facility] Ionized Ca, POC 4.84 4.40 - 5.40 mg/dL [facility] Glucose, POC 146 70 - 199 mg/dL [facility] Lactate, POC 0.8 0.0 - 2.0 mmol/L [facility] O2Hb, Art POC 97.3(H) 90.0 - 95.0 % [facility] Carboxhgb fract 2.0 0.0 - 2.9 % [facility] Methemoglobin 0.7 0.0 - 1.9 % [facility] HHb, POC 0.0 0.0 - 5.0 % [facility] SO2 (isabel) arterial 100(H) 90 - 95 % [facility] Total CO2, Art POC 25 22 - 32 mmol/L [facility] BE, art, POC -0.3 -2.0 - 2.0 mmol/L [facility] HCO3, Art POC 25 20 - 30 mmol/L [facility] Hct, POC 44.0 38.9 - 50.3 % [facility] Total Hb, POC 14.5 13.0 - 17.5 g/dL [facility] Blood specimen (specimen) 05/09/2020 10:04 AM COMMUNITY HEALTH NURSE STAFF 05/09/2020 10:04 AM COMMUNITY HEALTH NURSE STAFF Hardeep Reed MD LAB POCT ORDERABLES - DE VICE Final Result Performing Organization Address [facility]/ZIP Co de Phone Number [facility] [address] Department [place] [address] * POC Activated Clotting Time, High Range (05/09/2020 9:35 AM COMMUNITY HEALTH NURSE STAFF) ACT 107 87 - 138 sec [facility] Blood specimen (specimen) 05/09/2020 9:35 AM COMMUNITY HEALTH NURSE STAFF 05/09/2020 9:35 AM COMMUNITY HEALTH NURSE STAFF Hardeep Reed MD LAB BLOOD ORDERABLES Fin al Result Performing Organization Address [facility]/ZIP Co de Phone Number [facility] [address] Department of [employer] [place] [address] * (ABNORMAL) aPTT (05/09/2020 7:39 AM COMMUNITY HEALTH NURSE STAFF) aPTT 26(L) 27 - 37 sec [facility] Comment: Interpretive data Heparin therapeutic range: 52-80 seconds Range based on correlation with therapeutic heparin activity range of 0.3-0.7 units/ml. Current interpretive data was last revised on 2019. Blood specimen (specimen) 05/09/2020 7:39 AM COMMUNITY HEALTH NURSE STAFF 05/09/2020 7:48 AM COMMUNITY HEALTH NURSE STAFF Hardeep Reed MD LAB BLOOD ORDERABLES Fin al Result Performing Organization Address [facility] Co de Phone Number [facility] [address] Department [place] [address] * Protime-INR (05/09/2020 7:39 AM COMMUNITY HEALTH NURSE STAFF) Pathologist [facility] PT 12.0 9.5 - 13.6 sec [facility] INR 1.1 0.9 - 1.2 [facility] Comment: Interpretive data Oral anticoagulant therapeutic ranges: Venous thromboembolism prophylaxis or treatment: 2.0-3.0 CARDIOLOGY Standard range: 2.0-3.0 High-intensity range: 2.5-3.5 Refer to indication-specific guidelines for appropriate target ranges for prosthetic heart valve replacement. Current interpretive data was last revised on 2019. Blood specimen (specimen) 05/09/2020 7:39 AM COMMUNITY HEALTH NURSE STAFF 05/09/2020 7:48 AM COMMUNITY HEALTH NURSE STAFF Hardeep Reed MD LAB BLOOD ORDERABLES Fin al Result Performing Organization Address [facility] Co de Phone Number [facility] [address] Department [place] [address] * Hemoglobin A1c (05/09/2020 7:39 AM COMMUNITY HEALTH NURSE STAFF) Hgb A1C 5.3 4.0 - 5.6 % [facility] Estimated Average Glucose 105 mg/dL [facility] Comment: The ADA recommends reporting an estimated Average Glucose (eAG) with all Hemoglobin A1c results using the equation derived from a study of 507 normal and diabetic adults. ??Minority populations were underrepresented and children were not included. ?? (Diabetes Care 31:1196-2603, 2008). ??The eAG is not equivalent to a fasting glucose. Blood specimen (specimen) 05/09/2020 7:39 AM COMMUNITY HEALTH NURSE STAFF 05/09/2020 7:48 AM COMMUNITY HEALTH NURSE STAFF Hardeep Reed MD LAB BLOOD ORDERABLES Fin al Result Performing Organization Address [facility] Co de Phone Number [facility] [address] [facility] [employer] [place] [address] * Check Sample (05/09/2020 7:39 AM COMMUNITY HEALTH NURSE STAFF) ABO Rh A Positive [facility] HCLL OTHER 05/09/2020 7:39 AM COMMUNITY HEALTH NURSE STAFF 05/09/2020 7:50 AM COMMUNITY HEALTH NURSE STAFF Hardeep Reed MD LAB BLOOD ORDERABLES Fin al Result Performing Organization Address [facility] de Phone Number [facility] [address] [facility] [employer] [place] [address] * Prepare RBC: 3 Units (05/09/2020 7:27 AM COMMUNITY HEALTH NURSE STAFF) Product code [id number] [facility] Unit Number [id number] 6-O [facility] Product [facility] Dispense Status RETURNED [facility] Product code [id number] [facility] Unit Number [id number] 1-S [facility] Product Blood Type [facility] Dispense Status RETURNED [facility] Product code [id number] [facility] Unit Number [id number] 9-B [facility] Product Blood Type [facility] Dispense Status RETURNED [facility] Blood specimen (specimen) 05/09/2020 7:27 AM COMMUNITY HEALTH NURSE STAFF Narrative [facility] - 05/15/2020 10:52 AM COMMUNITY HEALTH NURSE STAFF Specify Procedure:->CABG/mitral valve repair Are special requirements needed? (all products are leukoreduced)->No Date required:-[id number] LRRBC # of [id number] Reasons:-Hold for procedure (specify procedure)} Magaly Sheth [facility] PRODUCT ORDERA BLES Final Result Performing Organization Address [facility] Co de Phone Number [facility] [address] Department [place] [address] documented in this encounter Visit Diagnoses Diagnosis Nonrheumatic mitral valve regurgitation- Primary Nonrheumatic mitral valve regurgitation Coronary artery disease involving [place] coronary artery of [place] heart without angina pectoris Cardiogenic shock (HCC) Cardiogenic shock S/P CABG x 2 Postsurgical aortocoronary bypass status S/P MVR (mitral valve repair) Coronary artery disease involving [place] coronary artery of [place] heart without angina pectoris documented in this encounter Admitting Diagnoses Diagnosis Nonrheumatic mitral valve regurgitation Coronary artery disease involving [place] coronary artery of [place] heart without angina pectoris documented in this encounter Administered Medications Inactive Administered Medications - up to 3 most recent administrations Medication Order MAR Action Action Date Dose Rate Site acetaminophen (TYLENOL) 32 mg/mL oral solution 1,000 mg 1,000 mg, feeding tube, Every 6 hours scheduled, First dose on Sat05/09/20 at 1800, If taking meds per tube., Indications: PainIndications:Pain Given 05/10/2020 5:08 AM COMMUNITY HEALTH NURSE STAFF 1,000 mg Given 05/09/2020 11:04 PM COMMUNITY HEALTH NURSE STAFF 1,000 mg Given 05/09/2020 6:03 PM COMMUNITY HEALTH NURSE STAFF 1,000 mg acetaminophen (TYLENOL) tablet 1,000 mg 1,000 mg, oral, Every 6 hours scheduled, First dose on Sat05/09/20 at 1800, If able to swallow medications., Indications: PainIndications:Pain Given 05/12/2020 6:41 AM COMMUNITY HEALTH NURSE STAFF 1,000 mg Given 05/12/2020 12:29 AM COMMUNITY HEALTH NURSE STAFF 1,000 mg Given 05/11/2020 6:21 PM COMMUNITY HEALTH NURSE STAFF 1,000 mg acetaminophen (TYLENOL) tablet 650 mg 650 mg, oral, Once, On Sat05/15/20 at 0630, For 1 dose Given 05/15/2020 6:05 AM COMMUNITY HEALTH NURSE STAFF 650 mg albumin 5 % bottle 12.5 g 12.5 g, intravenous, Once, On Sat05/09/20 at 1730, For 1 dose, Indications: Immediate post CV surgery (72 hours including transplants)Indications:Immediate post CV surgery (72 hours including transplants) Given 05/09/2020 5:04 PM COMMUNITY HEALTH NURSE STAFF 12. 5 g apixaban (ELIQUIS) tablet 5 mg 5 mg, oral, Every 12 hours scheduled, First dose on Sat05/13/20 at 2100, Nurse to discontinue heparin infusion order and associated bolus at first administration of apixaban using ? order condition met? order source, Indications: atrial fibrillationIndications:atrial fibrillation Given 05/15/2020 9:06 AM COMMUNITY HEALTH NURSE STAFF 5 mg Given 05/14/2020 8:40 PM COMMUNITY HEALTH NURSE STAFF 5 mg Given 05/14/2020 8:25 AM COMMUNITY HEALTH NURSE STAFF 5 mg aspirin chewable tablet 81 mg 81 mg, oral, Daily, First dose (after last modification) on 05/14/20 at 0900, If able to swallow medications. Within 6h of arrival to CVR if chest tube output allows. Given 05/15/2020 9:06 AM COMMUNITY HEALTH NURSE STAFF 81 mg Given 05/14/2020 8:24 AM COMMUNITY HEALTH NURSE STAFF 81 mg aspirin tablet 325 mg 325 mg, oral, Daily, First dose on Sat05/09/20 at 1515, If able to swallow medications. Within 6h of arrival to CVR if chest tube output allows. Given 05/13/2020 9:35 AM COMMUNITY HEALTH NURSE STAFF 325 mg Given 05/12/2020 8:28 AM COMMUNITY HEALTH NURSE STAFF 325 mg Given 05/11/2020 9:08 AM COMMUNITY HEALTH NURSE STAFF 325 mg aspirin tablet 325 mg 325 mg, feeding tube, Daily, First dose on Sat05/09/20 at 1515, If able to receive medications per tube. Within 6h of arrival to CVR if chest tube output allows. Given 05/10/2020 8:34 AM COMMUNITY HEALTH NURSE STAFF 325 mg atorvastatin (LIPITOR) tablet 80 mg 80 mg, oral, Nightly, First dose on Sat05/10/20 at 2100 Given 05/14/2020 8:40 PM COMMUNITY HEALTH NURSE STAFF 80 mg Given 05/13/2020 9:39 PM COMMUNITY HEALTH NURSE STAFF 80 mg Given 05/12/2020 9:45 PM COMMUNITY HEALTH NURSE STAFF 80 mg ceFAZolin (ANCEF) 2,000 mg/20 mL in sterile water (premix) 2,000 mg 2,000 mg, intravenous, at 400 mL/hr, Administer over 3 Minutes, Every 8 hours, First dose on Sat05/09/20 at 2200, For 5 doses, Start 8 hours after last darwin-operative dose., Indications: Prophylaxis, SurgicalIndications:Prophylaxis, Surgical New Bag 05/11/2020 5:07 AM COMMUNITY HEALTH NURSE STAFF 2,000 mg 400 mL/hr New Bag 05/10/2020 10:15 PM COMMUNITY HEALTH NURSE STAFF 2,000 mg 400 mL/hr New Bag 05/10/2020 1:55 PM COMMUNITY HEALTH NURSE STAFF 2,000 mg 400 mL/hr dexmedeTOMIDine in dextrose 5% (PRECEDEX) 400 mcg/100 mL (4 mcg/mL) infusion (premix) 0-1.5 mcg/kg/hr ? 90.4 kg (0-33.9 mL/hr), 4 mcg/mL, intravenous, Titrated, Starting on Sat05/09/20 at 1530, Until Sat05/10/20 at 1122, Titration instructions: Titrate, Initial dose: 0.2 mcg/kg/hr, Titrate: Up/Down, Titrate by: 0.2 mcg/kg/hr, Every: 30 minutes, Goal: RASS, RASS Goal: 0, -1, -2, Routine Rate/Dose Change 05/10/2020 10:00 AM COMMUNITY HEALTH NURSE STAFF 0.2 mcg/kg/hr 4.52 mL/hr Rate/Dose Change 05/10/2020 9:45 AM COMMUNITY HEALTH NURSE STAFF 0.3 mcg/kg/hr 6.78 mL/hr Rate/Dose Verify 05/10/2020 7:55 AM COMMUNITY HEALTH NURSE STAFF 0.6 mcg/kg/hr 13.5 6 mL/hr docusate (COLACE) 10 mg/mL oral liquid 100 mg 100 mg, feeding tube, Daily, First dose on Sat05/09/20 at 1515, If taking meds per tube. Hold for diarrhea., Indications: constipationIndications:constipation Given 05/10/2020 8:35 AM COMMUNITY HEALTH NURSE STAFF 100 mg docusate sodium (COLACE) capsule 100 mg 100 mg, oral, Daily, First dose on Sat05/09/20 at 1515, If able to swallow medications. Hold for diarrhea. , Indications: constipationIndications:constipation Given 05/15/2020 9:06 AM COMMUNITY HEALTH NURSE STAFF 100 mg Given 05/14/2020 8:24 AM COMMUNITY HEALTH NURSE STAFF 100 mg Given 05/13/2020 9:35 AM [facility] 100 mg EPINEPHrine 2,000 mcg in sodium chloride 0.9% 100 mL (20 mcg/mL) infusion 0.02-0.2 mcg/kg/min ? 90.4 kg (5.424-54.24 mL/hr, rounded to 5.42-54.24 mL/hr), 20 mcg/mL, intravenous, Titrated, Starting on Sat05/09/20 at 1515, Until Sat05/11/20 at 0852, Initial rate: Do not titrate, Routine Rate/Dose Change 05/10/2020 4:05 PM [facility] 0.01 mcg/kg/min 2.71 mL/hr Rate/Dose Verify 05/10/2020 4:00 PM [facility] 0.02 mcg/kg/min 5. 42 mL/hr New Bag 05/10/2020 3:16 PM [facility] 0.02 mcg/kg/min 5.42 mL/ hr famotidine (PEPCID) injection 20 mg 20 mg, intravenous, Administer over 2 Minutes, Every 12 hours scheduled, First dose on Sat05/09/20 at 2100, Indications: Prevention of Stress UlcerIndications:Prevention of Stress Ulcer Given 05/10/2020 8:35 AM [facility] 20 mg Given 05/09/2020 9:19 PM [facility] 20 mg fentaNYL (SUBLIMAZE) preservative free injection 50 mcg 50 mcg, intravenous, Every 1 hour PRN, breakthrough, Starting on Sat05/09/20 at 1437 Given 05/09/2020 4:5 9 PM [facility] 50 mcg Given 05/09/2020 3:00 PM [facility] 50 mcg furosemide (LASIX) 10 mg/mL injection 20 mg 20 mg, intravenous, Administer over 1 Minutes, Once, On Sat05/11/20 at 0930, For 1 dose, Room temperature only Given 05/11/2020 9:07 AM [facility] 20 mg furosemide (LASIX) 10 mg/mL injection 40 mg 40 mg, intravenous, Administer over 1 Minutes, Once, On Sat05/12/20 at 0945, For 1 dose, Room temperature only Given 05/12/2020 9:19 AM [facility] 40 mg furosemide (LASIX) 10 mg/mL injection 40 mg 40 mg, intravenous, Administer over 1 Minutes, Once, On Sat05/13/20 at 1115, For 1 dose, Room temperature only Given 05/13/2020 12:43 PM [facility] 40 mg heparin 5,000 unit/mL injection 5,000 Units 5,000 Units, subcutaneous, Every 8 hours scheduled, First dose on Sat05/10/20 at 0600, Indications: VTE ProphylaxisIndications:VTE Prophylaxis Given 05/13/2020 5:42 AM [facility] 5,000 Units Right Lower Abdomen Given 05/12/2020 9:45 PM [facility] 5,000 Units L eft Lower Abdomen Given 05/12/2020 1:46 PM [facility] 5,000 Units R ight Lower Abdomen HYDROcodone-acetaminophen (NORCO) 5-325 mg per tablet 1 tablet 1 tablet, oral, Every 4 hours PRN, 1st line for pain, Starting on Sat05/12/20 at 0812, Indications: PainIndications:Pain Given 05/14/2020 10:29 PM [facility] 1 t ablet Given 05/14/2020 8:25 AM [facility] 1 tablet Given 05/13/2020 9:39 PM [facility] 1 tablet HYDROcodone-acetaminophen (NORCO) 5-325 mg per tablet 2 tablet 2 tablet, oral, Every 4 hours PRN, 2nd line for pain, Starting on Sat05/12/20 at 0812, Indications: PainIndications:Pain HYDROmorphone (DILAUDID) injection 0.2 mg 0.2 mg, intravenous, Administer over 2 Minutes, Every 2 hours PRN, breakthrough pain, Starting on Sat05/10/20 at 1122 Given 05/10/2020 9:30 PM [facility] 0.2 mg ketorolac (TORADOL) 15 mg/mL injection 15 mg 15 mg, intravenous, Once, On Sat05/11/20 at 0930, For 1 dose, For Adult IV push, administer over 15 seconds Given 05/11/2020 9:07 AM [facility] 15 mg Lactated Ringer's (LR) bolus 250 mL 250 mL, intravenous, Once, On Sat05/10/20 at 0500, For 1 dose Restarted 05/10/2020 4:24 AM [facility] Lactated Ringer's (LR) bolus 500 mL 500 mL, intravenous, Once, On Sat05/10/20 at 0400, For 1 dose New Bag 05/10/2020 3:44 AM [facility] 500 mL lidocaine (LIDODERM) 5 % patch 2 patch 2 patch, transdermal, Administer over 12 Hours, Daily, First dose on Sat05/11/20 at 0930, Do not cover the holes on the top side of the patch., Apply to affected area: chest Medication Applied 05/15/2020 9:12 AM [facility] 2 patches Chest Medication Applied 05/14/2020 8:25 AM [facility] 2 patches Chest Medication Applied 05/13/2020 9:37 AM [facility] 2 patches Chest metoprolol tartrate (LOPRESSOR) immediate release tablet 12.5 mg 12.5 mg, oral, 2 times daily, First dose on Sat05/11/20 at 0930 Given 05/13/2020 9:40 PM [facility] 12.5 mg Given 05/13/2020 9:35 AM [facility] 12.5 mg Given 05/12/2020 9:45 PM [facility] 12.5 mg metoprolol tartrate (LOPRESSOR) immediate release tablet 25 mg 25 mg, oral, 2 times daily, First dose (after last modification) on 05/14/20 at 0900 Given 05/14/2020 8:40 PM [facility] 25 mg Given 05/14/2020 8:24 AM [facility] 25 mg metoprolol tartrate (LOPRESSOR) immediate release tablet 50 mg 50 mg, oral, 2 times daily, First dose (after last modification) on Sat05/15/20 at 0900 Given 05/15/2020 9:06 AM [facility] 50 mg norepinephrine in 0.9% sodium chloride (LEVOPHED) 8,000 mcg/250 mL (32 mcg/mL) infusion (premix) 0.01-2 mcg/kg/min ? 90.4 kg (1.695-339 mL/hr, rounded to 1.7-339 mL/hr), 32 mcg/mL, intravenous, Titrated, Starting on Sat05/09/20 at 1515, Until Sat05/10/20 at 1742, Indications: hypotension, Initial rate: 0.05 mcg/kg/min, Titrate: Up/Down, Titrate by: 0.01 mcg/kg/min, Every: 2 minutes, Goal: SBP, SBP Goal: 110-130 mmHg, Discontinue when drip is off and stable at goal., RoutineIndications:hypote nsion Rate/Dose Verify 05/10/2020 10:00 AM [facility] 0.01 mcg/kg/min 1.7 mL/hr Rate/Dose Change 05/10/2020 7:55 AM [facility] 0.01 mcg/kg/min 1. 7 mL/hr Rate/Dose Change 05/10/2020 6:30 AM [facility] 0.02 mcg/kg/min 3. 39 mL/hr ondansetron (ZOFRAN) injection 4 mg 4 mg, intravenous, Administer over 2 Minutes, Every 6 hours PRN, nausea, vomiting, Starting on Sat05/09/20 at 1433, Administer no sooner than 6 hours after last dose. , Indications: Nausea and VomitingIndications:Nausea and Vomiting Given 05/12/2020 5:46 PM [facility] 4 mg Given 05/11/2020 8:31 AM [facility] 4 mg oxyCODONE (ROXICODONE) tablet 10 mg 10 mg, oral, Every 4 hours PRN, 1st line for pain, Starting on Sat05/11/20 at 0000, Indications: PainIndications:Pain Given 05/11/2020 5:06 AM [facility] 10 mg Given 05/11/2020 12:32 AM [facility] 10 mg oxyCODONE (ROXICODONE) tablet 10 mg 10 mg, oral, Every 3 hours PRN, 1st line for pain, Starting on Sat05/11/20 at 0900, Indications: PainIndications:Pain Given 05/12/2020 6:42 AM [facility] 10 mg Given 05/12/2020 12:29 AM [facility] 10 mg Given 05/11/2020 6:23 PM [facility] 10 mg oxyCODONE (ROXICODONE) tablet 5 mg 5 mg, oral, Every 4 hours PRN, 1st line for pain, Starting on Sat05/10/20 at 1121, Indications: PainIndications:Pain Given 05/10/2020 7:42 PM [facility] 5 mg Given 05/10/2020 3:30 PM [facility] 5 mg Given 05/10/2020 11:25 AM [facility] 5 mg oxyCODONE (ROXICODONE) tablet 5 mg 5 mg, oral, Once, On Sat05/10/20 at 2115, For 1 dose, Indications: PainIndications:Pain Given 05/10/2020 8:43 PM [facility] 5 mg perflutren protein-a (OPTISON) 3 mL in sodium chloride 0.9% 8 mL syringe 1-8 mL, intravenous, Once in imaging, contrast, Starting on Sat05/13/20 at 0815, For 1 dose, Intra-Procedure (CV) perflutren protein-a (OPTISON) 3 mL in sodium chloride 0.9% 8 mL syringe 1-8 mL, intravenous, Once in imaging, contrast, Starting on Sat05/16/20 at 1117, For 1 dose, Intra-Procedure (CV) Given 05/13/2020 11:19 AM [facility] 6 mL polyethylene glycol (MIRALAX) packet 17 g 17 g, oral, Daily PRN, constipation, Starting on Sat05/09/20 at 1433, Hold for diarrhea, Indications: constipationIndications:constipatio n Given 05/13/2020 5:42 AM [facility] 17 g potassium chloride 20 mEq/50 mL in sterile water (premix) 20 mEq 20 mEq, intravenous, at 25 mL/hr, Administer over 2 Hours, Every 1 hour PRN, K less than 4.5, Starting on Sat05/09/20 at 1433, Central line only, Indications: hypokalemiaIndications:hypokalemia New Bag 05/11/2020 2:53 AM [facility] 20 mEq 25 mL/hr potassium chloride ER (KLOR-CON) extended release tablet 20 mEq 20 mEq, oral, Every 4 hours PRN, Give for potassium level 3.8 - 4.0, Starting on Sat05/11/20 at 1027, Do not crush, chew, cut, dissolve, open or otherwise manipulate tablet/capsule. Given 05/13/2020 5:42 AM [facility] 20 mEq Given 05/12/2020 6:41 AM [facility] 20 mEq potassium chloride ER (KLOR-CON) extended release tablet 20 mEq 20 mEq, oral, Once, On Sat05/13/20 at 1115, For 1 dose, Do not crush, chew, cut, dissolve, open or otherwise manipulate tablet/capsule. Given 05/13/2020 12:44 PM [facility] 20 mEq propofol (DIPRIVAN) 10 mg/mL infusion 0-50 mcg/kg/min ? 90.4 kg (0-27.12 mL/hr), 10 mg/mL, intravenous, Titrated, Starting on Sat05/09/20 at 1845, Until Sat05/10/20 at 1122, Titration instructions: Titrate, Initial dose: 10 mcg/kg/min, Titrate: Up/Down, Titrate by: 10 mcg/kg/min, Every: 10 minutes, Goal: RASS, RASS Goal: -3, Do not administer through the same I.V. catheter with blood or plasma. Tubing and any unused portions of propofol vials should be discarded after 12 hours. Room temperature only, Routine Rate/Dose Change 05/10/2020 9:00 AM [facility] 5 mcg/kg/min 2.71 mL/hr Rate/Dose Verify 05/10/2020 7:55 AM [facility] 15 mcg/kg/min 8.14 mL/hr Rate/Dose Verify 05/10/2020 6:00 AM [facility] 15 mcg/kg/min 8.14 mL/hr propofoL (DIPRIVAN) 10 mg/mL IV - ADS Override Pull Starting on Sat05/09/20 at 1731, For 1 dose, Created by cabinet override Room temperature only senna (SENOKOT) tablet 1 tablet 1 tablet, oral, 2 times daily, First dose on Sat05/10/20 at 0900, If able to swallow medications. Hold for diarrhea., Indications: constipationIndications:constipation Given 05/14/2020 8:24 AM [facility] 1 table t Given 05/13/2020 9:39 PM [facility] 1 tablet Given 05/13/2020 9:35 AM [facility] 1 tablet senna 1.76 mg/mL syrup 8.8 mg 8.8 mg, feeding tube, 2 times daily, First dose on Sat05/10/20 at 0900, If taking meds per tube. Hold for diarrhea., Indications: constipationIndications:constipation Given 05/10/2020 8:35 AM [facility] 8.8 mg sodium bicarbonate 8.4 % (1 mEq/mL) injection - ADS Override Pull Starting on Sat05/09/20 at 1640, For 1 dose, Created by cabinet daltonide sodium bicarbonate 8.4 % (1 mEq/mL) injection 50 mEq 50 mEq, intravenous, Once, On Sat05/09/20 at 1715, For 1 dose Given 05/09/2020 4:59 PM [facility] 50 mEq sodium bicarbonate 8.4 % (1 mEq/mL) injection 50 mEq 50 mEq, intravenous, Once, On Sat05/10/20 at 0645, For 1 dose Given 05/10/2020 6:17 AM [facility] 50 mEq sodium chloride 0.9% flush 0.5-20 mL 0.5-20 mL, intra-catheter, Every 8 hours scheduled, First dose on Sat05/09/20 at 1515, Flush volume based on line type and size. , Indications: FlushingIndications:Flushing Given 05/15/2020 6:16 AM [facility] 10 mL Given 05/14/2020 8:41 PM [facility] 10 mL Given 05/14/2020 1:20 PM [facility] 10 mL sodium chloride 0.9% infusion 10 mL/hr, intravenous, Continuous PRN, Hang bag with transfusion; infuse to keep IV line open in the event of a transfusion reaction., Starting on Sat05/09/20 at 0726, Pre-Op New Bag 05/09/2020 8:37 AM [facility] 10 mL/hr 10 mL/hr sodium chloride 0.9% infusion 10 mL/hr, intravenous, Continuous, Starting on Sat05/09/20 at 1515 Rate/Dose Verify 05/11/2020 5:55 AM [facility] 10 mL/hr 10 mL/hr Rate/Dose Verify 05/11/2020 4:00 AM [facility] 10 mL/hr 10 mL/h r Rate/Dose Verify 05/11/2020 12:00 AM [facility] 10 mL/hr 10 mL/ hr vancomycin 1500 mg/250 mL in sodium chloride 0.9% (premix) 1,500 mg 1,500 mg, intravenous, Administer over 90 Minutes, Once, On Sat05/09/20 at 0800, For 1 dose, Pre-Op, Administer within 120 minutes of incision., Indications: Prophylaxis, SurgicalIndications:Prophylaxis, Surgical New Bag 05/09/2020 9:13 AM [facility] 1,500 mg vancomycin 1500 mg/250 mL in sodium chloride 0.9% (premix) 1,500 mg 1,500 mg, intravenous, Administer over 90 Minutes, Every 12 hours, First dose on Sat05/09/20 at 2100, For 1 dose, Start 12 hours after pre-operative dose., Indications: Prophylaxis, SurgicalIndications:Prophylaxis, Surgical New Bag 05/09/2020 9:19 PM [facility] 1,500 mg documented in this encounter Discontinued Medications Medication Sig Discontinue Reason Start Date End Da te atorvastatin (LIPITOR) 20 mg tablet Take 20 mg by mouth daily Stop Taking at Discharge 05/15/2020 documented as of this encounter Active and Recently Administered Medications Times are shown in [facility]. Scheduled Medication Order 05/13/2020 05/14/2020 05/15/2020 acetaminophen (TYLENOL) tablet 650 mg (COMPLETED) 650 mg, oral, Once, On Sat05/15/20 at 0630, For 1 dose 0605 (Given - Provider: Alma Rosa Lang, DESIREE) apixaban (ELIQUIS) tablet 5 mg 5 mg, oral, Every 12 hours scheduled, First dose on Sat05/13/20 at 2100, Nurse to discontinue heparin infusion order and associated bolus at first administration of apixaban using ? order condition met? order source, Indications: atrial fibrillation 2138 (Given - Provider: Mandi Arreaga, DESIREE) 824 (Given - Provider: Rex Mai RN)2039 (Given - Provider: Alma Rosa Lang, DESIREE) 09 (Given - Provider: Rex Mai, RN) aspirin chewable tablet 81 mg(Linked Group 1) 81 mg, oral, Daily, First dose (after last modification) on Sat05/14/20 at 0900, If able to swallow medications. Within 6h of arrival to CVR if chest tube output allows. 0824 (Given - Provider: Rex Mai RN) 09 (Given - Provider: Rex Mai, DESIREE) aspirin tablet 325 mg (CANCELED) 325 mg, oral, Daily, First dose on Sat05/09/20 at 1515, If able to swallow medications. Within 6h of arrival to CVR if chest tube output allows. 0935 (Given - Provider: Ese Patterson RN) atorvastatin (LIPITOR) tablet 80 mg 80 mg, oral, Nightly, First dose on Sat05/10/20 at 2100 2139 (Given - Provider: Mandi Arreaga, DESIREE) 2039 (Given - Provider: Alma Rosa Lang, DESIREE) docusate sodium (COLACE) capsule 100 mg(Linked Group 2) 100 mg, oral, Daily, First dose on Sat05/09/20 at 1515, If able to swallow medications. Hold for diarrhea. , Indications: constipation 0935 (Given - Provider: Ese Patterson RN) 0824 (Given - Provider: Rex Mai, DESIREE) 0906 (Given - Provider: Rex Mai, RN) furosemide (LASIX) 10 mg/mL injection 40 mg (COMPLETED) 40 mg, intravenous, Administer over 1 Minutes, Once, On Sat05/13/20 at 1115, For 1 dose, Room temperature only 1243 (Given - Provider: Ese Patterson, DESIREE) heparin 5,000 unit/mL injection 5,000 Units (CANCELED) 5,000 Units, subcutaneous, Every 8 hours scheduled, First dose on Sat05/10/20 at 0600, Indications: VTE Prophylaxis 0542 (Given - Provider: Mandi Arreaga, DESIREE) lidocaine (LIDODERM) 5 % patch 2 patch 2 patch, transdermal, Administer over 12 Hours, Daily, First dose on Sat05/11/20 at 0930, Do not cover the holes on the top side of the patch., Apply to affected area: chest 0937 (Medication Applied - Provider: Ese Patterson, DESIREE)2213 (Medication Removed - Provider: Mandi Arreaga, DESIREE) 0825 (Medication Applied - Provider: Rex Mai, DESIREE)2045 (Medication Removed - Provider: Alma Rosa Lang, DESIREE) 0912 (Medication Applied - Provider: Rex Mai, DESIREE)1145 (Due: Medication Removed - Provider: Automatic Discharge Provider - Comment: Time automatically adjusted from order being discontinued) metoprolol tartrate (LOPRESSOR) immediate release tablet 12.5 mg (CANCELED) 12.5 mg, oral, 2 times daily, First dose on Sat05/11/20 at 0930 0935 (Given - Provider: Ese Patterson RN)2140 (Given - Provider: Mandi Arreaga, DESIREE) metoprolol tartrate (LOPRESSOR) immediate release tablet 25 mg (CANCELED) 25 mg, oral, 2 times daily, First dose (after last modification) on Sat05/14/20 at 0900 0824 (Given - Provider: Rex Mai, DESIREE)204 (Given - Provider: Alma Rosa Lang, DESIREE) metoprolol tartrate (LOPRESSOR) immediate release tablet 50 mg 50 mg, oral, 2 times daily, First dose (after last modification) on Sat05/15/20 at 0900 0906 (Given - Provider: Rex Mai, DESIREE) potassium chloride ER (KLOR-CON) extended release tablet 20 mEq (COMPLETED) 20 mEq, oral, Once, On Sat05/13/20 at 1115, For 1 dose, Do not crush, chew, cut, dissolve, open or otherwise manipulate tablet/capsule. 1244 (Given - Provider: Ese Patterson, DESIREE) senna (SENOKOT) tablet 1 tablet(Linked Group 3) 1 tablet, oral, 2 times daily, First dose on Sat05/10/20 at 0900, If able to swallow medications. Hold for diarrhea., Indications: constipation 0935 (Given - Provider: Ese Patterson RN)2139 (Given - Provider: Mandi Arreaga RN) 0824 (Given - Provider: Rex Mai, DESIREE)204 (Not Given - Provider: Alma Rosa Lang RN - Reason: Patient/family refused) 0906 (Not Given - Provider: Rex Mai RN - Reason: Patient/family refused) sodium chloride 0.9% flush 0.5-20 mL 0.5-20 mL, intra-catheter, Every 8 hours scheduled, First dose on Sat05/09/20 at 1515, Flush volume based on line type and size. , Indications: Flushing 0542 (Given - Provider: Mandi Arreaga RN)1253 (Given - Provider: Ese Patterson, DESIREE)2140 (Given - Provider: Mandi Arreaga RN) 0600 (Due)1320 (Given - Provider: Rex Mai, DESIREE)2040 (Given - Provider: Alma Rosa Lang, DESIREE) 0616 (Given - Provider: Alma Rosa Lang RN) PRN Medication Order 05/13/2020 05/14/2020 05/15/2020 bisacodyL (DULCOLAX) suppository 10 mg 10 mg, rectal, Daily PRN, constipation, Starting on Sat05/10/20 at 0000, Hold for diarrhea, Indications: constipation dextrose (D10W) 10% bolus 125 mL 125 mL, intravenous, at 500 mL/hr, Administer over 15 Minutes, Every 30 min PRN, low blood glucose, Starting on Sat05/09/20 at 1433, BG less than 60 mg/dL OR BG 60-74 mg/dL and previous BG was greater than 90 mg/dL (Glucose is dropping FAST), Indications: hypoglycemic disorder HYDROcodone-acetaminophen (NORCO) 5-325 mg per tablet 1 tablet 1 tablet, oral, Every 4 hours PRN, 1st line for pain, Starting on Sat05/12/20 at 0812, Indications: Pain 0028 (Given - Provider: Mandi Arreaga RN)0935 (Given - Provider: Ese Patterson RN)1606 (Given - Provider: Ese Patterson, DESIREE)2139 (Given - Provider: Mandi Arreaga RN) 0825 (Given - Provider: Rex Mai RN)222 (Given - Provider: Alma Rosa Lang RN) HYDROcodone-acetaminophen (NORCO) 5-325 mg per tablet 2 tablet 2 tablet, oral, Every 4 hours PRN, 2nd line for pain, Starting on Mary 05/12/20 at 0812, Indications: Pain ondansetron (ZOFRAN) injection 4 mg 4 mg, intravenous, Administer over 2 Minutes, Every 6 hours PRN, nausea, vomiting, Starting on Sat05/09/20 at 1433, Administer no sooner than 6 hours after last dose. , Indications: Nausea and Vomiting perflutren protein-a (OPTISON) 3 mL in sodium chloride 0.9% 8 mL syringe 1-8 mL, intravenous, Once in imaging, contrast, Starting on Sat05/13/20 at 0815, For 1 dose, Intra-Procedure (CV) perflutren protein-a (OPTISON) 3 mL in sodium chloride 0.9% 8 mL syringe 1-8 mL, intravenous, Once in imaging, contrast, Starting on Sat05/16/20 at 1117, For 1 dose, Intra-Procedure (CV) 1119 (Given - Provider: Eddie Barrett RN - Comment: Given by Ese RAMÍREZ) polyethylene glycol (MIRALAX) packet 17 g 17 g, oral, Daily PRN, constipation, Starting on Sat05/09/20 at 1433, Hold for diarrhea, Indications: constipation 0542 (Given - Provider: Mandi Arreaga RN) potassium chloride ER (KLOR-CON) extended release tablet 20 mEq 20 mEq, oral, Every 4 hours PRN, Give for potassium level 3.8 - 4.0, Starting on Sat05/11/20 at 1027, Do not crush, chew, cut, dissolve, open or otherwise manipulate tablet/capsule. 0542 (Given - Provider: Mandi Arreaga RN) potassium chloride ER (KLOR-CON) extended release tablet 40 mEq 40 mEq, oral, Every 4 hours PRN, Give for potassium level less than 3.7, Starting on Sat05/11/20 at 1027, Do not crush, chew, cut, dissolve, open or otherwise manipulate tablet/capsule. sodium chloride 0.9% flush 0.5-20 mL 0.5-20 mL, intra-catheter, As needed, line care, Starting on Sat05/09/20 at 1433, Flush volume based on line type and size. Flush before and after each use. , Indications: Flushing Linked Groups Order Group 1: aspirin chewable tablet 81 mgJump to med 81 mg, oral, Daily, First dose (after last modification) on Sat05/14/20 at 0900, If able to swallow medications. Within 6h of arrival to CVR if chest tube output allows. Group 2: docusate sodium (COLACE) capsule 100 mgJump to med 100 mg, oral, Daily, First dose on Sat05/09/20 at 1515, If able to swallow medications. Hold for diarrhea. , Indications: constipation Or docusate (COLACE) 10 mg/mL oral liquid 100 mg (CANCELED) 100 mg, feeding tube, Daily, First dose on Sat05/09/20 at 1515, If taking meds per tube. Hold for diarrhea., Indications: constipation Group 3: senna (SENOKOT) tablet 1 tabletJump to med 1 tablet, oral, 2 times daily, First dose on Sat05/10/20 at 0900, If able to swallow medications. Hold for diarrhea., Indications: constipation Or senna 1.76 mg/mL syrup 8.8 mg (CANCELED) 8.8 mg, feeding tube, 2 times daily, First dose on Sat05/10/20 at 0900, If taking meds per tube. Hold for diarrhea., Indications: constipation documented in this encounter Orders Medications Ordered That Flynn ht Not Have Been Administered Count Last Ordered Date First Ordered Date perflutren protein-a (OPTISO N) 3 mL in sodium chloride 0.9% 8 mL syringe 1 05/13/2020 HYDROcodone-acetaminophen (N ORCO) 5-325 mg per tablet 2 tablet 1 05/12/2020 potassium chloride ER (KLOR- CON) extended release tablet 40 mEq 1 05/11/2020 oxyCODONE (ROXICODONE) tablet 10 mg 1 05/10 acetaminophen (TYLENOL) suppository 650 mg 1 05/09/2020 aspirin suppository 300 mg 1 05/09/2020 bisacodyL (DULCOLAX) suppository 10 mg 1 ceFAZolin (ANCEF) 2,000 mg/2 0 mL in sterile water (premix) 2,000 mg 1 05/09/2020 dextrose (D10W) 10% bolus 125 mL 1 05/09/19 insulin lispro (HumaLOG, ADM ELOG) injection 1-14 Units 1 05/09/2020 insulin regular (HumuLIN R, NovoLIN R) 100 Units in sodium chloride 0.9% 100 mL (1 Units/mL) infusion 1 05/09/2020 insulin regular bolus from bag 2-14 Units 2 05/09/2020 milrinone (PRIMACOR) 3.3 mg in sodium chloride 0.9% 46.7 mL solution 1 05/09/2020 papaverine 120 mg, heparin 1 0,000 Units in Lactated Ringer's (LR) 500 mL irrigation solution 1 05/09/2020 propofoL (DIPRIVAN) IV 1 05/09/2020 sodium chloride 0.9% flush 0.5-20 mL 2 04/19 sodium chloride 0.9% irrigation 1 sodium chloride 0.9% solution 1,000 mL 1 Lab Orders Without Results Count Last Ordered D ate First Ordered Date POCT GLUCOSE DEVICE 17 05/10/2020 05/09/19 Diet Count Last Ordered Date First Orde red Date ADULT DISCHARGE DIET 1 05/11/2020 Nursing Count Last Ordered Date First Orde red Date DISCHARGE ACTIVITY 5 05/11/2020 DISCHARGE CALL PROVIDER 4 05/11/2020 DISCHARGE INSTRUCTIONS 1 05/11/2020 WEIGHT RESTRICTIONS 1 05/11/[address] SEQUENTIAL COMPRESSION DEVICE 1 05/09 Transfer Count Last Ordered Date First Orde red Date TRANSFER PATIENT 2 05/11/2020 documented in this encounter Care Teams Director Of Development Relationship Specialty Start Date End Date Espinoza Coker MD [id number] [facility] [address] [facility] [address] [place] [address] PCP - General Internal Medicine 04/29/20 Espinoza Coker MD [id number] [facility] [address] [place] [address] Internal Medicine 04/29/20 documented as of this encounter
--- OUTSIDE RECORDS SUMMARY | 2024-03-08 04:34 | XMS_ITS | Encounter Summary ---
Author Organization [facility] Healthcare Address [address] [place] [address] Care Team Providers Care Combination Operator Name Role Phone Espinoza Coker MD Primary Care Provider [phone] Espinoza Coker MD Unavailable [phone] Encounter Details Date Type Department Care Team (Late st Contact Info) Description 05/09/2020 9:15 AM GLASS ROLLING MACHINE OPERATOR - 05/09/2020 1:55 PM GLASS ROLLING MACHINE OPERATOR Surgery [facility] Operating Room [address] [place] [address] Hardeep Reed MD [address] [facility] [address] [place] [address] CORONARY ARTERY BYPASS GRAFT x2, using Left Internal Mammary Artery, Right Saphenous Vein Graft, Mitral Valve Repair with neochords, tricuspid valve annuloplasty, left atrial appendage excision. Surgery Details Date/Time Status Location OR Service Patient Class Case Class Case Type Trauma Case? 05/09/2020 9:15 AM Posted [facility] OPERATING ROOM OR 03 Cardiothoracic Surgery Admit Elective Panel 1 Procedure LRB Anes Op Region Wound Class Comments CORONARY ARTERY BYPASS GRAFT x2, using Left Internal Mammary Artery, Right Saphenous Vein Graft, Mitral Valve Repair with neochords, tricuspid valve annuloplasty, left atrial appendage excision. N/A General Chest Class I - Clean Surgeon Surgeon Role Service Panel Hardeep Reed MD Primary Cardiothoracic 1 Jagdeep Peña MD Assisting Cardiothoracic 1 documented in this encounter Social History Tobacco Use Types Packs/Day Years Used Date Smoking Tobacco: Never Smokeless Tobacco: Never Alcohol Use Standard Drinks/Week Comments Not Currently 0 (1 standard drink = 0.6 oz pur e alcohol) Sex and Gender Information Value Date Recorded Sex Assigned at Not on file Legal Sex Male 7:00 PM GLASS ROLLING MACHINE OPERATOR Gender Identity Male 09/13/2020 2:28 PM CDT Sexual Orientation Not on file documented as of this encounter Last Filed Vital Signs Vital Sign Reading Time Taken Comments Blood Pressure 134/93 05/09/2020 8:09 AM GLASS ROLLING MACHINE OPERATOR rig ht arm Pulse 88 05/09/2020 8:08 AM GLASS ROLLING MACHINE OPERATOR Temperature 35.8 ??C (96.5 ??F) 05/09/2020 8:08 AM CS T Respiratory Rate 18 05/09/2020 8:08 AM GLASS ROLLING MACHINE OPERATOR Oxygen Saturation 97% 05/09/2020 8:08 AM GLASS ROLLING MACHINE OPERATOR Inhaled Oxygen Concentration - - Weight 90.4 kg (199 lb 4.7 oz) 05/09/2020 8:08 A M GLASS ROLLING MACHINE OPERATOR Height 185.4 cm (6' 0.99 ) 05/09/2020 1:10 PM CS T Body Mass Index 27.11 05/09/2020 1:10 PM GLASS ROLLING MACHINE OPERATOR documented in this encounter Discharge Summaries * Liya Blackmon PA - 05/15/2020 10:26 AM CST Physician Discharge Summary Patient ID: Avtar Joseph [id number] 1955 (64 y.o.) Admit date: 05/09/2020 Discharge [...] to Dr. Reed for cardiac surgery evaluation. LHC revealed 2 vessel disease of the LAD [...] 06/16/2020 9:30 AM Hardeep Reed MD [facility] Decent Notify physician with fevers, chills, nausea, [...] reviewed with the patient prior to discharge. S ROLLING MACHINE OPERATOR documented in this encounter Discharge Instructions * Attachments The following attachments cannot be sent through Care Everywhere. * Apixaban (By mouth) ([place]an) * Hydrocodone/Acetaminophen (By mouth) ([place]an) * Metoprolol (By mouth) ([place]an) documented in this encounter Medications at Time [...] in this encounter Progress Notes * Vicenta Busch, MANUEL - 05/14/2020 2:43 PM CST Physical Therapy [...] ambulating in the boateng with PCT when [employer] arrived for session. Transfer 1 Trials/Comments 1 sit<>stand with WW and SBA. multiple reps completed during session. Ambulation 1 Distance (ft) 1 150' Surface 1 Level tile Device 1 Wheeled walker Assistance 1 Standby Assist Gait: Requires verbal cues to 1 Use assistive device safely;Improve upright posture;Increase base of support Ambulation Comments 1 Pt. had ambulated about 200' with PCT when [employer] arrives, Pt. ambulated 150' with WW and SBA with [employer], cues for upright posture and foot placement [...] (from Physical Therapy) Active Problems Problem: PT [facility] Start Date: 05/11/20 Goal Start Date End Date PT LT - [facility] 1 05/11/20 -- Goal Details: Independent bed mobility and transfers adhering to sternal precautions 100% of the time. Goal Start Date End Date PT LTG - [facility] 2 05/11/20 -- Goal Details: Pt amb 360ft with least restrictive device level surfaces mod indep or indep. Goal Start Date End Date PT LT - [facility] 3 05/11/20 -- Goal Details: Pt amb up/down curb step mod indep or indep with good dyn stand balance and/or low fall risk on Small balance scale. Goal Start Date End Date PT LT - [facility] 4 05/11/20 -- Goal Details: Pt to apply sternal precautions independently without cueing from PT and display goodknowledge of cardiac HEP for optimal healing and functional recovery. Cosigned by Kori Negro DPT at 05/16/2020 8:27 AM GLASS ROLLING MACHINE OPERATOR S ROLLING MACHINE OPERATOR S ROLLING MACHINE OPERATOR * Nicolealonzofelix Liyaaleida Oliveira, ANGELA - 05/14/2020 10:04 AM CST Cardiothoracic Surgery Daily Progress SUBJECTIVE Chief Complaint: Severe mitral regurgitation, Severe 2 vessel CAD, Severe??tricuspid annular dilation??and moderate regurgitation; s/p Coronary artery bypass grafts x 2 (SANTOYO to LAD and SVG ascendingaorta to D2); Complex mitral valve??repair (Goretex 2-0 neochordae x 2, annuloplasty??Physio II??siz e??32??mm); Tricuspid valve annuloplasty ring (Heydaytronic Contour 3D??size??32??mm); Left atrial appendage resection; Right [...] 97 % Cardiac Rhythm: sinus I/O: Date 05/13/20699 - 05/14/20 0659 05/14/20699 - 05/15/20 0659 Shift 0566-0550 4316-2339 24 Hour Total 2886-0211 7213-3072 24 Hour Total INTAKE Shift Total(mL/kg) OUTPUT [...] - PT/OT Discussed with ANGELA Mccarthy 05/14/2020 S ROLLING MACHINE OPERATOR * Grecia Jeffries OT - 05/13/2020 2:04 PM CST Occupational Therapy 05/13/20 9094 General Session Type Treatment OT Received On [...] (from Occupational Therapy) Active Problems Problem: OT [facility] Start Date: 05/11/20 Goal Start Date End Date [facility] 1 05/11/20 -- Goal Details: Pt will complete toileting tasks and toilet transfer modified independent Goal Start Date End Date [facility] 2 05/11/20 -- Goal Details: Pt will complete LB dressing modified independent Goal Start Date End Date [facility] 3 05/11/20 -- Goal Details: Pt will complete grooming tasks at sink independently Goal Start Date End Date [facility] 4 05/11/20 -- Goal Details: Pt will complete object retrieval from varying heights modified independent to simulate ADLs and IADLs Education: Patient has been educated on the role of OT, safety, precautions, ADL training, mobilitytraining, body mechanics and use of adaptive equipment/DME. Education completed via verbal instruction and return demonstration. Patient verbalized understanding, demonstrated understanding and needsongoing reinforcement S ROLLING MACHINE OPERATOR * Liya Blackmon PA - 05/13/2020 11:38 AM CST Cardiothoracic Surgery Daily Progress SUBJECTIVE Chief Complaint: Severe mitral regurgitation, Severe 2 vessel CAD, Severe??tricuspid annular dilation??and moderate regurgitation; s/p Coronary artery bypass grafts x 2 (SANTOYO to LAD and SVG ascendingaorta to D2); Complex mitral valve??repair (Goretex 2-0 neochordae x 2, annuloplasty??Physio II??siz e??32??mm); Tricuspid valve annuloplasty ring (Heydaytronic Contour 3D??size??32??mm); Left atrial appendage resection; Right [...] - 05/13/20 0605/13/20699 - 05/14/20 0659 Shift 8689-6962 9918-7364 24 Hour Total 9328-0973 2033-1485 24 Hour Total INTAKE P.O. 450 300 [...] 2, annuloplasty??Physio II??size??32??mm); Tricuspid valve annuloplasty ring (Heydaytronic Contour 3D??size??32??mm); Left atrial appendage resection; Right [...] this morning without difficulty ANGELA Posada 05/13/2020 S ROLLING MACHINE OPERATOR * Vicenta Denise, [employer] - 05/13/2020 11:14 AM CST Physical Therapy [...] Start Date End Date PT LTG - Misc 1 05/11/20 -- Goal Details: Independent bed mobility and transfers adhering to sternal precautions 100% of the time. Goal Start Date End Date PT LTG - Misc 2 05/11/20 -- Goal Details: Pt amb 360ft with least restrictive device level surfaces mod indep or indep. Goal Start Date End Date PT LTG - Misc 3 05/11/20 -- Goal Details: Pt amb up/down curb step mod indep or indep with good dyn stand balance and/or low fall risk on Small balance scale. Goal Start Date End Date PT LTG - Misc 4 05/11/20 -- Goal Details: Pt to apply sternal precautions independently without cueing from PT and display goodknowledge of cardiac HEP for optimal healing and functional recovery. Cosigned by Shanell Miguel, PT at 05/13/2020 3:24 PM GLASS ROLLING MACHINE OPERATOR S ROLLING MACHINE OPERATOR S ROLLING MACHINE OPERATOR * Dann Martin EP-C - 05/13/2020 9:30 AM CST Inpatient Cardiac Rehab Education Patient Information Patient Name: Avtar Joseph : 1955 Room/Bed: [id number] Insurance: [facility] Progress Note Cooker Mechanic: PADMINI Baker Date: 05/13/2020 Possible Referring Diagnosis [...] fats)and exercise. Advised pt to ask their thumb sewer, nurse, and/or physician if they have any questionsabout their diet/nutrition. ?? Cardiac Rehab: Gave pt options of facilities for Outpatient Cardiac Rehab (OCR) in their community. Explained OCR program. Pt expressed knowledge towards local OCR program - prefers [facility] ?? Exercise Education: Explained the importance of trying to gradually/safely increase exercise tolerance. Educated pt on working towards eventually trying to reach the [place] [employer] recommendations in regardsto exercise: 150+ [...] when it would be appropriate to call Leather Whitener's office, go to the ER, or call [...] in an OCR program - f/u with Leather Whitener, CRN f/u calls, OCR program contact. Conclusion Pt seems likely to participate in OCR. Reassured pt of importance and health care provider support of OCR. Pt verbalized understanding of education. Will complete order for OCR to be sent to Leather Whitener. Thank you for allowing us to recreation assistant in the care of this patient. S ROLLING MACHINE OPERATOR * Melina Stevens, SYBIL - 05/12/2020 4:25 PM CST Nutrition Follow-up Progress Note Encounter Date: 05/12/20 4:25 PM Nutrition Progress Summary: Patient is a 64 y.o. male. Admit Dx: /AZ MITRALPLASTY W RADICAL RECONSTR/AZ CABG, ARTERIAL, SINGLE/AZ REPLACEMENT OF MITRAL VALVE. Admitted on 05/09/2020. [...] Consistent Carbohydrate Diet effectivenow Question Answer Comment ([facility]) Diet type Special Fat / Sodium [...] by next assessment Melina Stevens RD, LD S ROLLING MACHINE OPERATOR * Milly Lea COTA - 05/12/2020 1:07 [...] (from Occupational Therapy) Active Problems Problem: OT [facility] Start Date: 05/11/20 Goal Start Date End Date [facility] 1 05/11/20 -- Goal Details: Pt will complete toileting tasks and toilet transfer modified independent Goal Start Date End Date [facility] 2 05/11/20 -- Goal Details: Pt will complete LB dressing modified independent Goal Start Date End Date [facility] 3 05/11/20 -- Goal Details: Pt will complete grooming tasks at sink independently Goal Start Date End Date [facility] 4 05/11/20 -- Goal Details: Pt will complete object retrieval from varying heights modified independent to simulate ADLs and IADLs Education: Patient has been educated on the role of OT, safety, precautions, ADL training, mobilitytraining, body mechanics and energy conservation. Education completed via verbal instruction and return demonstration. Patient and Family needs ongoing reinforcement Cosigned by Grecia Jeffries OT at 05/12/2020 2:26 PM GLASS ROLLING MACHINE OPERATOR S ROLLING MACHINE OPERATOR S ROLLING MACHINE OPERATOR * Liya Blackmon PA - 05/12/2020 10:34 [...] 96 % Cardiac Rhythm: sinus I/O: Date 05/11/20699 - 05/12/20 0659 05/12/20699 - 05/13/20 0659 Shift 1899-0659 24 Hour Total 4893-0704 5616-5563 24 Hour Total INTAKE P.O. 480 0 480 Shift Total(mL/kg) 480(5.2) 0(0) 480(5.2) OUTPUT Urine(mL/kg/hr) 835(0.8) 850(0.8) 1685(0.8) Chest Tube 300 110 410 Shift Total(mL/kg) 1135(12.3) 960(10.4) 2095(22.7) NET -657 -960 -1618 Weight (kg) 92.1 92.1 92.1 92.1 92.1 [...] DVT proph - PT/OT ANGELA Posada 05/12/2020 S ROLLING MACHINE OPERATOR * Vicenta Denise, [employer] - 05/12/2020 9:29 AM CST Physical Therapy 05/12/20 0929 PT Last Visit Session Type Treatment PT [...] Start Date End Date PT LTG - Misc 1 05/11/20 -- Goal Details: Independent bed mobility and transfers adhering to sternal precautions 100% of the time. Goal Start Date End Date PT LTG - Misc 2 05/11/20 -- Goal Details: Pt amb 360ft with least restrictive device level surfaces mod indep or indep. Goal Start Date End Date PT LTG - Misc 3 05/11/20 -- Goal Details: Pt amb up/down curb step mod indep or indep with good dyn stand balance and/or low fall risk on Small balance scale. Goal Start Date End Date PT LTG - Misc 4 05/11/20 -- Goal Details: Pt to apply sternal precautions independently without cueing from PT and display goodknowledge of cardiac HEP for optimal healing and functional recovery. 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[place], [place] Fall within the last 6 months [...] (from Occupational Therapy) Active Problems Problem: OT [facility] Start Date: 05/11/20 Goal Start Date End Date [facility] 1 05/11/20 -- Goal Details: Pt will complete toileting tasks and toilet transfer modified independent Goal Start Date End Date [facility] 2 05/11/20 -- Goal Details: Pt will complete LB dressing modified independent Goal Start Date End Date [facility] 3 05/11/20 -- Goal Details: Pt will complete grooming tasks at sink independently Goal Start Date End Date [facility] 4 05/11/20 -- Goal Details: Pt will complete object retrieval from varying heights modified independent to simulate ADLs and IADLs Education: Patient has been educated on the role of OT, safety, precautions, ADL training, mobilitytraining, body mechanics and use of adaptive equipment/DME. Education completed via verbal instruction, return demonstration and handouts. Patient verbalized understanding, demonstrated understandingand needs ongoing reinforcement S ROLLING MACHINE OPERATOR * Rosy Ma NP - 05/11/2020 10:28 AM CST CVR ICU Daily Progress Shifts: NPP Shift Options: [facility] CVR AM Subjective Patient is a [...] clean, dry, intact. SVG site with dermabond BOTTOM POLISHER. Drains: Chest tubes to -20 suction with serosanguinous drainage, no air leak. Lines: R IJ central line, R radial jesu with dressings clean, dry, intact. Laboratory data: Recent Labs Lab Units 05/11/20 0254 05/11/20 0201 05/10/20 0159 WBC K/cumm 11.0* 11.7* 17.4* HEMOGLOBIN [...] surgeon and ICU attending. 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 Goal Start Date End Date PT [facility] - [facility] 2 05/11/20 -- Goal Details: Pt amb 360ft with least restrictive device level surfaces mod indep or indep. Goal Start Date End Date PT [facility] 3 05/11/20 -- Goal Details: Pt amb up/down curb step mod indep or indep with good dyn stand balance and/or low fall risk on Small balance scale. Goal Start Date End Date PT [facility] 4 05/11/20 -- Goal Details: Pt to [...] demonstrated understanding and needs ongoing reinforcement \ S ROLLING MACHINE OPERATOR * Rosy Ma NP - 05/10/2020 2:19 PM CST CVR ICU Daily Progress Shifts: NPP Shift Options: [facility] CVR AM Subjective Patient is a [...] Pressure Support (cm H2O): 8 cm H20 AZ SUP: 8 cm H20 (05/10 906-05/10 929) Hemodynamic parameters: PAP: -- CVP: 10 mmHg [...] surgeon and ICU attending. Rosy Ma NP S ROLLING MACHINE OPERATOR S ROLLING MACHINE OPERATOR * Melina Stevens, SYBIL - 05/10/2020 12:00 PM CST Nutrition Follow-up Progress Note Encounter Date: 05/10/20 12:00 PM Nutrition Progress Summary: Patient is a 64 y.o. male. Admit Dx: /AZ MITRALPLASTY W RADICAL RECONSTR/AZ CABG, ARTERIAL, SINGLE/AZ REPLACEMENT OF MITRAL VALVE. Admitted on 05/09/2020. [...] Consistent Carbohydrate Diet effectivenow Question Answer Comment ([facility]) Diet type Special Fat / Sodium [...] by next assessment Melina Stevens RD, LD S ROLLING MACHINE OPERATOR * Grecia Jeffries OT - 05/10/2020 11:07 AM CST Occupational Therapy 05/10/20 1107 General OT Received On 05/10/20 Subjective Comment Pt not following purposeful commands at this time- remains sedated. OT will follow up with pt at later time as medically appropriate OT Missed Visit Reason MD/RN Hold S ROLLING MACHINE OPERATOR * Grace Garcia PT - 05/10/2020 7:50 AM CST Physical Therapy OTHER 05/10/20 0750 General Session Type Other (comment) PT Received On 05/10/20 PT Missed Visit Reason MD/RN Hold Additional Pertinent History pt still intubated S ROLLING MACHINE OPERATOR * Kelsy Holbrook NP - 05/09/2020 8:[address] ICU Daily Progress Shifts: NPP Shift Options: [facility] CVR PM Subjective Patient is a [...] DINORA Continuous Infusions:EPINEPHrine, 0.02-0.2 mcg/kg/min, Last Rate: 0.01 [...] Pressure Support (cm H2O): 8 cm H20 AZ SUP: 8 cm H20 (05/10 906-05/10 929) Hemodynamic parameters: PAP: -- CVP: 12 mmHg [...] in place draining clear yellow urine Skin: [place], warm, dry. Midline sternal incision covered w/ [...] Oxygenation much improved. Decrease peep to 8. S ROLLING MACHINE OPERATOR documented in this encounter H&P Notes * Rosy Ma NP - 05/09/2020 3:00 PM CST CVR ICU History and Physical Shifts: NPP Shift Options: [facility] CVR AM Subjective Patient is a [...] to Dr. Reed for cardiac surgery evaluation. LHC revealed 2 vessel disease of the LAD and diagonal. Today (05/09/20) the pt underwent CABG x2 (SANTOYO to LAD, R SVG to diagonal), MV repair, TV repair, and SAPPHIER excision. Anesthesia reported an easy airway. Post [...] Infusions:dexmedeTOMIDine, 0-1.5 mcg/kg/hr, Last Rate: 0.7 mcg/kg/hr (05/09/20 1430) EPINEPHrine, 0.02-0.2 mcg/kg/min, Last Rate: 0.02 mcg/kg/min (05/09/20 1445) insulin regular, 0-30 Units/hr norepinephrine, 0.01-2 mcg/kg/min, Last Rate: 0.125 mcg/kg/min (05/09/20 144) sodium chloride 0.9%, 10 mL/hr, Last Rate: 10 mL/hr (05/09/20 144) sodium chloride 0.9%, 1,000 mL Vitals: Temp: [...] parameters: PAP: -- CVP: 11 mmHg (05/09 1445) PCWP: -- CO: -- CI: -- SVO2: -- Pacemaker Overdrive Pacing: -- Cardiac Rhythm: Normal sinus rhythm (05/09 1430) Pacer Mode: -- Physical exam: Neuro: Sedated, [...] Kaden Naqvi DO at 05/11/2020 2:36 PM GLASS ROLLING MACHINE OPERATOR S ROLLING MACHINE OPERATOR S ROLLING MACHINE OPERATOR S ROLLING MACHINE OPERATOR S ROLLING MACHINE OPERATOR documented in this encounter Procedure Notes * [...] plan with the patient's team and other medical/business intelligence consultant staff. This time was in addition to and separate from care provided by other practitioners on this day of service. Rosy Ma NP S ROLLING MACHINE OPERATOR S ROLLING MACHINE OPERATOR S ROLLING MACHINE OPERATOR * Rosy Ma NP - 05/10/2020 2:34 [...] plan with the ICU team and other medical/business intelligence consultant staff, making frequent assessments and decisions [...] documenting in the medical record ? Rosy Ma NP Cosigned by Kaden Naqvi DO at 05/11/2020 2:37 PM GLASS ROLLING MACHINE OPERATOR S ROLLING MACHINE OPERATOR S ROLLING MACHINE OPERATOR * Kelsy Holbrook NP - 05/09/2020 11:15 [...] plan with the ICU team and other medical/business intelligence consultant staff, making frequent assessments and decisions [...] Kaden Naqvi DO at 05/11/2020 2:34 PM GLASS ROLLING MACHINE OPERATOR S ROLLING MACHINE OPERATOR S ROLLING MACHINE OPERATOR S ROLLING MACHINE OPERATOR * Kaden Naqvi DO - 05/09/2020 6:30 PM CSTAssociated Order(s): Bronchoscopy Post-Procedure Diagnose(s): Coronary artery disease involving [place] coronary artery of [place] heart without angina pectoris Bronchoscopy Date/Time: 05/09/2020 6:30 PM Performed by: Kaden Naqvi DO Authorized by: Kaden Naqvi DO [place] Protocol: RN Notified of Procedure: yes Patient's [...] the procedure well with no immediate complications S ROLLING MACHINE OPERATOR S ROLLING MACHINE OPERATOR * Rosy Ma NP - 05/09/2020 4:00 [...] plan with the ICU team and other medical/business intelligence consultant staff, making frequent assessments and decisions [...] in the medical record Rosy Ma NP S ROLLING MACHINE OPERATOR S ROLLING MACHINE OPERATOR S ROLLING MACHINE OPERATOR documented in this encounter Nursing Notes * Lia Castillo RN - 05/09/2020 7:19 PM CST [address] Beatriz TRUJILLO after pt coughed large amounts thin yellow liquid from ett, Sedation changed to diprivan due to pt biting ett. SBP lower see gtt rates. updated at bedside after procedure. S ROLLING MACHINE OPERATOR * Lia Castillo RN - 05/09/2020 3:53 [...] [place] updated and returned to 100% Fi02 S ROLLING MACHINE OPERATOR documented in this encounter Miscellaneous Notes * Plan of Care - Rex Mai RN - 05/15/2020 11:16 AM GLASS ROLLING MACHINE OPERATOR Goals: Problem: Health Behavior: Goal: Understanding of [...] Discharge instructions reviewed with patient and . S ROLLING MACHINE OPERATOR * Plan of Care - Rex Mai RN - 05/14/2020 4:19 PM CST Goals: Problem: Health Behavior: Goal: Understanding of discharge needs will improve Outcome: Progressing Problem: Activity: Goal: Risk for activity intolerance will decrease Outcome: Progressing Problem: Cardiac: Goal: Hemodynamic stability will improve Outcome: Progressing Clinical Goals for the Shift: VSS, cardiac monitoring, meds, pain management, I/O, chest tube removal, mobility S ROLLING MACHINE OPERATOR * Plan of Care - Desi Covarrubias RN - 05/13/2020 12:45 PM CST Patient and notified of plan to start Eliquis. Patient and prefer to have Eliquis prescription filled by [facility] mobile pharmacy. Notified Liya MILLER of above and eliquis prescription sent [facility]. Per pharmacist, free 30 day elquis coupon applied and approved. Pharmacist sttes patient has deductible of 236.10 to be met then co-pay will be $65.00 for Eliquis. . Patient given coupon for Eliquis to lower co-pay as low as $10.00 for future fills. Patient and agreeable with above plan. S ROLLING MACHINE OPERATOR * Plan of Care - Mandi Arreaga RN - 05/13/2020 4:05 AM CST Goals: Clinical Goals for the Shift: vss, monitor labs and rhythm, manage pain, i/o's, comfort and safety Summary: VSS, SR 70's, norco taken for pain, CT output monitored and recorded, slept well through the night. S ROLLING MACHINE OPERATOR * Plan of Care - Ese Patterson [...] perfusion and functioning will improve Outcome: Progressing S ROLLING MACHINE OPERATOR * Plan of Care - Desi Covarrubias RN - 05/12/2020 12:38 PM CST Patient has been [facility] Patient notified of above and agreeable with plan. S ROLLING MACHINE OPERATOR * Plan of Care - Brittany Alfaro RN - 05/12/2020 4:41 AM CST Goals: Clinical Goals for the Shift: VSS, monitor tele, pain control, tolerate diet, monitor CT and grimes,safety, labs wnl Summary: VSS, SR on tele, 4L nasal cannula, pain controlled with scheduled tylenol and prn oxycodone, tolerating diet, grimes in place, Y'd MCT to suction, continue with plan of care. S ROLLING MACHINE OPERATOR * Plan of Care - Desi Covarrubias RN - 05/11/2020 3:09 PM CST Met with patient and at bedside to assess discharge planning needs. Patient lives at home withwife. Independent with adl's. 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 Home health care orders received. Patient states he prefers to use [facility].Referral sent. Response pending. S ROLLING MACHINE OPERATOR * Plan of Care - Vilma Tello RN - 05/11/2020 9:26 AM CST Goals: Clinical Goals for the Shift: pain control;adv activity and po intake Summary:Remains in NSR,will transfere to pcu, S ROLLING MACHINE OPERATOR * Plan of Care - Felecia Leahy [...] at 1999 but down to 37.4 now S ROLLING MACHINE OPERATOR * Plan of Care - Tammie Foster RN - 05/10/2020 5:32 PM CST Goals: Clinical Goals for the Shift: pain control;adv activity and po intake Summary: SR;VSS;epi@.01mcg/kg/min;5L Nc;dangle X 2;taking po w/o diff;using IS fair S ROLLING MACHINE OPERATOR * Plan of Care - Lia Castillo RN - 05/09/2020 5:20 PM CST Goals: Clinical Goals for the Shift: post op care, cvr admission Summary: large yellow plug suctioned from ett with sats increasing. Able to wean FI02, at 60% . Giving volume, labs WNL Dr Durbin at bedside. S ROLLING MACHINE OPERATOR * Perioperative Nursing Note - Rosy Messer RN - 05/09/2020 11:38 AM CST 3 Units Packed Red Blood Cells in OR Suite prior to incision, allevyn pad to coccyx/sacrum as preventative. S ROLLING MACHINE OPERATOR * Op Note - Hardeep Reed MD - 05/09/2020 10:11 AM CST OPERATIVE REPORT SURGEON Hardeep Reed MD KNURLING MACHINE TENDER Jagdeep Peña MD PROCEDURE 1. Coronary artery [...] During this portion of the procedure the first officer harvested adequate saphenous vein endoscopically. After adequate [...] then opened in the groove and a [place] retractor was used for exposure. Adilated mitral [...] completion of the procedure. Hardeep Reed M.D. S ROLLING MACHINE OPERATOR S ROLLING MACHINE OPERATOR documented in this encounter Plan of Treatment Not on file documented as of this encounter Procedures Procedure Name Priority Date/Time Associated Diagnosis Comments XR CHEST 1 VIEW IP Routine 05/15/2020 5:58 AM GLASS ROLLING MACHINE OPERATOR EGFR Routine 05/15/2020 3:51 AM GLASS ROLLING MACHINE OPERATOR CBC WITHOUT DIFFERENTIAL Routine 05/15/2020 3:51 AM GLASS ROLLING MACHINE OPERATOR PHOSPHORUS Routine 05/15/2020 3:51 AM GLASS ROLLING MACHINE OPERATOR MAGNESIUM Routine 05/15/2020 3:51 AM GLASS ROLLING MACHINE OPERATOR BASIC METABOLIC PANEL Routine 05/15/2020 3:51 AM GLASS ROLLING MACHINE OPERATOR XR CHEST 1 VIEW IP Routine 05/14/2020 12:42 PM GLASS ROLLING MACHINE OPERATOR XR CHEST 1 VIEW IP Routine 05/14/2020 5:47 AM GLASS ROLLING MACHINE OPERATOR EGFR Routine 05/14/2020 12:55 AM GLASS ROLLING MACHINE OPERATOR CBC WITHOUT DIFFERENTIAL Routine 05/14/2020 12:55 AM GLASS ROLLING MACHINE OPERATOR PHOSPHORUS Routine 05/14/2020 12:55 AM GLASS ROLLING MACHINE OPERATOR MAGNESIUM Routine 05/14/2020 12:55 AM GLASS ROLLING MACHINE OPERATOR BASIC METABOLIC PANEL Routine 05/14/2020 12:55 AM GLASS ROLLING MACHINE OPERATOR TRANSTHORACIC ECHO (TTE) COMPLETE W DOPPLER/CF W CONTRAST Routine 05/13/2020 8:40 AM GLASS ROLLING MACHINE OPERATOR XR CHEST 1 VIEW IP Routine 05/13/2020 5:47 AM GLASS ROLLING MACHINE OPERATOR EGFR Routine 05/13/2020 12:29 AM GLASS ROLLING MACHINE OPERATOR CBC WITHOUT DIFFERENTIAL Routine 05/13/2020 12:29 AM GLASS ROLLING MACHINE OPERATOR PHOSPHORUS Routine 05/13/2020 12:29 AM GLASS ROLLING MACHINE OPERATOR MAGNESIUM Routine 05/13/2020 12:29 AM GLASS ROLLING MACHINE OPERATOR BASIC METABOLIC PANEL Routine 05/13/2020 12:29 AM GLASS ROLLING MACHINE OPERATOR XR CHEST 1 VIEW IP Routine 05/12/2020 5:55 AM GLASS ROLLING MACHINE OPERATOR EGFR Routine 05/12/2020 12:34 AM GLASS ROLLING MACHINE OPERATOR CBC WITHOUT DIFFERENTIAL Routine 05/12/2020 12:34 AM GLASS ROLLING MACHINE OPERATOR PHOSPHORUS Routine 05/12/2020 12:34 AM GLASS ROLLING MACHINE OPERATOR MAGNESIUM Routine 05/12/2020 12:34 AM GLASS ROLLING MACHINE OPERATOR BASIC METABOLIC PANEL Routine 05/12/2020 12:34 AM GLASS ROLLING MACHINE OPERATOR EGFR Routine 05/11/2020 4:26 PM GLASS ROLLING MACHINE OPERATOR BASIC METABOLIC PANEL Routine 05/11/2020 4:26 PM GLASS ROLLING MACHINE OPERATOR CRITICAL CARE Routine 05/11/2020 10:33 AM GLASS ROLLING MACHINE OPERATOR Cardiogenic shock (CMS/HCC) XR CHEST 1 VIEW IP Routine 05/11/2020 5:35 AM GLASS ROLLING MACHINE OPERATOR DIFFERENTIAL AUTO Routine 05/11/2020 2:5 4 AM GLASS ROLLING MACHINE OPERATOR CBC WITH AUTO DIFFERENTIAL Routine 05/11/2020 2:54 AM GLASS ROLLING MACHINE OPERATOR EGFR Routine 05/11/2020 2:01 AM GLASS ROLLING MACHINE OPERATOR CALCIUM, IONIZED Routine 05/11/2020 2:01 AM GLASS ROLLING MACHINE OPERATOR CBC WITHOUT DIFFERENTIAL Routine 05/11/2020 2:01 AM GLASS ROLLING MACHINE OPERATOR PHOSPHORUS Routine 05/11/2020 2:01 AM GLASS ROLLING MACHINE OPERATOR MAGNESIUM Routine 05/11/2020 2:01 AM GLASS ROLLING MACHINE OPERATOR BASIC METABOLIC PANEL Routine 05/11/2020 2:01 AM GLASS ROLLING MACHINE OPERATOR CRITICAL CARE Routine 05/10/2020 2:34 PM GLASS ROLLING MACHINE OPERATOR Nonrheumatic mitral valve regurgitation POCT GLUCOSE DEVICE Routine 05/10/2020 11:54 AM GLASS ROLLING MACHINE OPERATOR BLOOD GAS, ARTERIAL Routine 05/10/2020 9 :20 AM GLASS ROLLING MACHINE OPERATOR POCT GLUCOSE DEVICE Routine 05/10/2020 7 :45 AM GLASS ROLLING MACHINE OPERATOR LACTATE Routine 05/10/2020 6:50 AM GLASS ROLLING MACHINE OPERATOR BLOOD GAS, ARTERIAL Routine 05/10/2020 6 :50 AM GLASS ROLLING MACHINE OPERATOR XR CHEST 1 VIEW IP Routine 05/10/2020 5:47 AM GLASS ROLLING MACHINE OPERATOR LACTATE Routine 05/10/2020 3:38 AM GLASS ROLLING MACHINE OPERATOR BLOOD GAS, ARTERIAL Routine 05/10/2020 3 :38 AM GLASS ROLLING MACHINE OPERATOR EGFR Routine 05/10/2020 1:59 AM GLASS ROLLING MACHINE OPERATOR CALCIUM, IONIZED Routine 05/10/2020 1:59 AM GLASS ROLLING MACHINE OPERATOR CBC WITHOUT DIFFERENTIAL Routine 05/10/2020 1:59 AM GLASS ROLLING MACHINE OPERATOR PHOSPHORUS Routine 05/10/2020 1:59 AM GLASS ROLLING MACHINE OPERATOR MAGNESIUM Routine 05/10/2020 1:59 AM GLASS ROLLING MACHINE OPERATOR COMPREHENSIVE METABOLIC PANEL Routine 05/10/2020 1:59 AM GLASS ROLLING MACHINE OPERATOR POCT GLUCOSE DEVICE Routine 05/10/2020 12:13 AM GLASS ROLLING MACHINE OPERATOR CRITICAL CARE Routine 05/09/2020 11:15 PM GLASS ROLLING MACHINE OPERATOR Cardiogenic shock (CMS/HCC) OXYHEMOGLOBIN, CENTRAL VENOUS Routine 05/09/2020 8:09 PM GLASS ROLLING MACHINE OPERATOR GENERAL Routine 05/09/2020 6:30 PM GLASS ROLLING MACHINE OPERATOR Coronary artery disease involving [place] coronary artery of [place] heart without angina pectoris OXYHEMOGLOBIN, PULMONARY ARTERY Routine 05/09/2020 5:07 PM GLASS ROLLING MACHINE OPERATOR BLOOD GAS, ARTERIAL STAT 05/09/2020 4 :27 PM GLASS ROLLING MACHINE OPERATOR CRITICAL CARE Routine 05/09/2020 4:00 PM GLASS ROLLING MACHINE OPERATOR Nonrheumatic mitral valve regurgitation XR CHEST 1 VIEW ED Urgent/IP Urgent 05/09/2020 3:04 PM GLASS ROLLING MACHINE OPERATOR XR ABDOMEN AP 1 VIEW IP Routine 05/09/2020 3:03 PM GLASS ROLLING MACHINE OPERATOR POCT GLUCOSE DEVICE Routine 05/09/2020 2 :58 PM GLASS ROLLING MACHINE OPERATOR EGFR STAT 05/09/2020 2:50 PM GLASS ROLLING MACHINE OPERATOR CALCIUM, IONIZED STAT 05/09/2020 2:50 PM GLASS ROLLING MACHINE OPERATOR APTT STAT 05/09/2020 2:50 PM GLASS ROLLING MACHINE OPERATOR PROTIME-INR STAT 05/09/2020 2:50 PM GLASS ROLLING MACHINE OPERATOR CBC WITHOUT DIFFERENTIAL STAT 05/09/2020 2:50 PM GLASS ROLLING MACHINE OPERATOR PHOSPHORUS STAT 05/09/2020 2:50 PM GLASS ROLLING MACHINE OPERATOR MAGNESIUM STAT 05/09/2020 2:50 PM GLASS ROLLING MACHINE OPERATOR BLOOD GAS, ARTERIAL STAT 05/09/2020 2 :50 PM GLASS ROLLING MACHINE OPERATOR BASIC METABOLIC PANEL STAT 05/09/2020 2:50 PM GLASS ROLLING MACHINE OPERATOR APTT STAT 05/09/2020 1:46 PM GLASS ROLLING MACHINE OPERATOR PROTIME-INR STAT 05/09/2020 1:46 PM GLASS ROLLING MACHINE OPERATOR FIBRINOGEN STAT 05/09/2020 1:46 PM GLASS ROLLING MACHINE OPERATOR CBC WITHOUT DIFFERENTIAL STAT 05/09/2020 1:45 PM GLASS ROLLING MACHINE OPERATOR POCT ACTIVATED CLOTTING TIME, HIGH RANGE Routine 05/09/2020 1:41 PM GLASS ROLLING MACHINE OPERATOR POC BLOOD GAS AND CHEMISTRIES, ARTERIAL Routine 05/09/2020 1:39 PM GLASS ROLLING MACHINE OPERATOR POCT ACTIVATED CLOTTING TIME, HIGH RANGE Routine 05/09/2020 12:59 PM GLASS ROLLING MACHINE OPERATOR POCT ACTIVATED CLOTTING TIME, HIGH RANGE Routine 05/09/2020 12:18 PM GLASS ROLLING MACHINE OPERATOR POC BLOOD GAS AND CHEMISTRIES, ARTERIAL Routine 05/09/2020 12:16 PM GLASS ROLLING MACHINE OPERATOR POCT ACTIVATED CLOTTING TIME, HIGH RANGE Routine 05/09/2020 11:59 AM GLASS ROLLING MACHINE OPERATOR POCT ACTIVATED CLOTTING TIME, HIGH RANGE Routine 05/09/2020 11:21 AM GLASS ROLLING MACHINE OPERATOR SURGICAL PATHOLOGY Routine 05/09/2020 11:21 AM GLASS ROLLING MACHINE OPERATOR Nonrheumatic mitral valve regurgitation Coronary artery disease involving [place] coronary artery of [place] heart without angina pectoris POC BLOOD GAS AND CHEMISTRIES, ARTERIAL Routine 05/09/2020 11:19 AM GLASS ROLLING MACHINE OPERATOR POCT ACTIVATED CLOTTING TIME, HIGH RANGE Routine 05/09/2020 11:00 AM GLASS ROLLING MACHINE OPERATOR POCT ACTIVATED CLOTTING TIME, HIGH RANGE Routine 05/09/2020 10:50 AM GLASS ROLLING MACHINE OPERATOR POC BLOOD GAS AND CHEMISTRIES, ARTERIAL Routine 05/09/2020 10:49 AM GLASS ROLLING MACHINE OPERATOR POC BLOOD GAS AND CHEMISTRIES, ARTERIAL Routine 05/09/2020 10:04 AM GLASS ROLLING MACHINE OPERATOR POCT ACTIVATED CLOTTING TIME, HIGH RANGE Routine 05/09/2020 9:35 AM GLASS ROLLING MACHINE OPERATOR CORONARY ARTERY BYPASS GRAFT 05/09/2020 9:20 AM GLASS ROLLING MACHINE OPERATOR Nonrheumatic mitral valve regurgitation Coronary artery disease involving [place] coronary artery of [place] heart without angina pectoris B CHECK SAMPLE STAT 05/09/2020 7:39 AM GLASS ROLLING MACHINE OPERATOR APTT STAT 05/09/2020 7:39 AM GLASS ROLLING MACHINE OPERATOR PROTIME-INR STAT 05/09/2020 7:39 AM GLASS ROLLING MACHINE OPERATOR HEMOGLOBIN A1C STAT 05/09/2020 7:39 AM GLASS ROLLING MACHINE OPERATOR PREPARE RBC STAT 05/09/2020 7:27 AM GLASS ROLLING MACHINE OPERATOR documented in this encounter Results * XR Chest 1 View - Portable - in AM (05/15/2020 5:58 AM GLASS ROLLING MACHINE OPERATOR) Anatomical Region Laterality Modality Body, Chest N/A Computed Radiogr aphy 05/15/2020 9:18 AM GLASS ROLLING MACHINE OPERATOR Impressions 05/15/2020 9:18 AM GLASS ROLLING MACHINE OPERATOR Decreasing central pulmonary vascular congestion and improved aeration at the bases. ??Some minimal pleural fluid in the right minor fissure. Electronically signed by: JULISA Montoya 05/15/2020 9:18 AM GLASS ROLLING MACHINE OPERATOR Single portable view of the chest HISTORY: [...] minor fissure. Electronically signed by: JULISA RUIZ Rosy Ma MANUFACTURING LABORER IMG XR PROCEDURES Final Re sult * eGFR (05/15/2020 3:51 AM GLASS ROLLING MACHINE OPERATOR) eGFR 97 mL/min/1.7 3 m2 [facility] Comment: Interpretive Data Reference Interval Normal [...] 2020 Blood specimen (specimen) 05/15/2020 3:51 AM GLASS ROLLING MACHINE OPERATOR 05/15/2020 3:56 AM GLASS ROLLING MACHINE OPERATOR Rosy Gordonkristofer Ma MANUFACTURING LABORER LAB BLOOD ORDERABLES Final Result Performing Organization Address City/[facility]/ZIP Co de Phone Number [facility] [address] [facility] [employer] [place], [place] [id number] * Phosphorus (05/15/2020 3:51 AM GLASS ROLLING MACHINE OPERATOR) Pathologist [facility] [place] Phosphorus, pl 3.6 2.3 - 4.5 mg/dL [facility] Blood specimen (specimen) 05/15/2020 3:51 AM GLASS ROLLING MACHINE OPERATOR 05/15/2020 3:56 AM GLASS ROLLING MACHINE OPERATOR Rosy Wanda Ma MANUFACTURING LABORER LAB BLOOD ORDERABLES Final Result Performing Organization Address [facility] Co de Phone Number [facility] [address] [facility] [place] [address] * Magnesium (05/15/2020 3:51 AM GLASS ROLLING MACHINE OPERATOR) Pathologist [facility] [place] Magnesium 2.0 1.4 - 2.5 mg/dL [facility] Blood specimen (specimen) 05/15/2020 3:51 AM GLASS ROLLING MACHINE OPERATOR 05/15/2020 3:56 AM GLASS ROLLING MACHINE OPERATOR Rosy Gordonkristofer Ma MANUFACTURING LABORER LAB BLOOD ORDERABLES Final Result Performing Organization Address City/[facility] Co de Phone Number [facility] [address] [facility] [employer] [place], [place] [id number] * (ABNORMAL) Basic metabolic panel (05/15/2020 3:51 AM GLASS ROLLING MACHINE OPERATOR) Pathologist [facility] [place] Sodium 139 135 - 145 mmol/L [facility] Potassium, pl 4.0 3.3 - 4.9 mmol/L [facility] Chloride 103 97 - 110 mmol/L [facility] CO2 26 22 - 32 mmol/L [facility] Anion gap 10 2 - 15 mmol/L [facility] BUN 12 8 - 25 mg/dL [facility] Creatinine 0.75(L) 0.80 - 1.30 mg/dL [facility] Glucose 107 70 - 199 mg/dL [facility] Comment: Interpretive Data Fasting glucose >/= [...] 2017. Calcium 8.6 8.5 - 10.3 mg/dL [facility] Blood specimen (specimen) 05/15/2020 3:51 AM GLASS ROLLING MACHINE OPERATOR 05/15/2020 3:56 AM GLASS ROLLING MACHINE OPERATOR Rosy Ma NP LAB BLOOD ORDERABLES Final Result [facility] [address] Department [place] [address] * (ABNORMAL) CBC without differential (05/15/2020 3:51 AM GLASS ROLLING MACHINE OPERATOR) Pathologist [facility] [place] WBC 5.6 3.8 - 9.9 K/cumm [facility] Hgb 11.9(L) 13.0 - 17.5 g/dL [facility] Hct 35.3(L) 38.9 - 50.3 % [facility] Plt 197 150 - 400 K/cumm [facility] MPV 9.6 9.1 - 12.3 fL [facility] RBC 4.24(L) 4.30 - 5.80 M/cumm [facility] MCV 83.3 81.3 - 96.4 fL [facility] MCH 28.1 27.1 - 33.3 pg [facility] MCHC 33.7 32.3 - 35.7 g/dL [facility] RDW CV 13.5 11.1 - 14.9 % [facility] RDW SD 41.0 35.7 - 48.1 fL [facility] NRBC abs 0.00 0.00 - 0.01 K/cumm [facility] Blood specimen (specimen) 05/15/2020 3:51 AM GLASS ROLLING MACHINE OPERATOR 05/15/2020 3:57 AM GLASS ROLLING MACHINE OPERATOR us Rosy Ma MANUFACTURING LABORER LAB BLOOD ORDERABLES Final Result [facility] [address] Department [place] [address] * XR Chest 1 Vw (05/14/2020 12:42 PM GLASS ROLLING MACHINE OPERATOR) Anatomical Region Laterality Modality Body, Chest N/A Computed Radiogr aphy 05/14/2020 1:23 PM GLASS ROLLING MACHINE OPERATOR Impressions 05/14/2020 1:24 PM GLASS ROLLING MACHINE OPERATOR Slight decreased right basilar pleural-parenchymal disease. Otherwise stable Electronically signed by: Coby Cano M.D. Narrative 05/14/2020 1:24 PM GLASS ROLLING MACHINE OPERATOR EXAM: ??1 view chest 05/14/2020 at 1233 [...] Electronically signed by: Coby Cano M.D. Liya Blackmon PA IMG XR PROCEDURES Final Result * XR Chest 1 View - Portable - in AM (05/14/2020 5:47 AM GLASS ROLLING MACHINE OPERATOR) Anatomical Region Laterality Modality Body, Chest N/A Computed Radiogr aphy 05/14/2020 8:46 AM GLASS ROLLING MACHINE OPERATOR Impressions 05/14/2020 8:47 AM GLASS ROLLING MACHINE OPERATOR Stable Electronically signed by: Coby Cano M.D. Narrative 05/14/2020 8:47 AM GLASS ROLLING MACHINE OPERATOR EXAM: ??1 view chest 05/14/2020 at 0527 [...] signed by: Coby Cano M.D. Rosy Ma NP IMG XR PROCEDURES Final Re sult * eGFR (05/14/2020 12:55 AM GLASS ROLLING MACHINE OPERATOR) eGFR 95 mL/min/1.7 3 m2 [facility] Comment: Interpretive Data Reference Interval Normal [...] 2020 Blood specimen (specimen) 05/14/2020 12:55 AM GLASS ROLLING MACHINE OPERATOR 05/14/2020 12:59 AM GLASS ROLLING MACHINE OPERATOR us Rosy Ma NP LAB BLOOD ORDERABLES Final Result [facility] [address] Department [place] [address] * Phosphorus (05/14/2020 12:55 AM GLASS ROLLING MACHINE OPERATOR) Pathologist [facility] [place] Phosphorus, pl 3.3 2.3 - 4.5 mg/dL [facility] Blood specimen (specimen) 05/14/2020 12:55 AM GLASS ROLLING MACHINE OPERATOR 05/14/2020 12:59 AM GLASS ROLLING MACHINE OPERATOR Rosy Muñoz Francesca MANUFACTURING LABORER LAB BLOOD ORDERABLES Final Result [facility] [address] [facility] [place] [address] * Magnesium (05/14/2020 12:55 AM GLASS ROLLING MACHINE OPERATOR) Pathologist [facility] [place] Magnesium 1.9 1.4 - 2.5 mg/dL [facility] Blood specimen (specimen) 05/14/2020 12:55 AM GLASS ROLLING MACHINE OPERATOR 05/14/2020 12:59 AM GLASS ROLLING MACHINE OPERATOR Rosy Ma MANUFACTURING LABORER LAB BLOOD ORDERABLES Final Result Performing Organization Address [facility] Co de Phone Number [facility] [address] [facility] [place] [address] * (ABNORMAL) Basic metabolic panel (05/14/2020 12:55 AM GLASS ROLLING MACHINE OPERATOR) Pathologist [facility] [place] Sodium 140 135 - 145 mmol/L [facility] Potassium, pl 4.0 3.3 - 4.9 mmol/L [facility] Chloride 102 97 - 110 mmol/L [facility] CO2 28 22 - 32 mmol/L [facility] Anion gap 10 2 - 15 mmol/L [facility] BUN 13 8 - 25 mg/dL [facility] Creatinine 0.79(L) 0.80 - 1.30 mg/dL [facility] Glucose 103 70 - 199 mg/dL [facility] Comment: Interpretive Data Fasting glucose >/= [...] 2017. Calcium 8.4(L) 8.5 - 10.3 mg/dL [facility] Blood specimen (specimen) 05/14/2020 12:55 AM GLASS ROLLING MACHINE OPERATOR 05/14/2020 12:59 AM GLASS ROLLING MACHINE OPERATOR Rosy Muñoz Francesca MANUFACTURING LABORER LAB BLOOD ORDERABLES Final Result Performing Organization Address City/[facility]/ZIP Co de Phone Number [facility] [address] [address] * (ABNORMAL) CBC without differential (05/14/2020 12:55 AM GLASS ROLLING MACHINE OPERATOR) Pathologist [facility] [place] WBC 5.0 3.8 - 9.9 K/cumm [facility] Hgb 10.9(L) 13.0 - 17.5 g/dL [facility] Hct 32.7(L) 38.9 - 50.3 % [facility] Plt 159 150 - 400 K/cumm [facility] MPV 9.7 9.1 - 12.3 fL [facility] RBC 3.89(L) 4.30 - 5.80 M/cumm [facility] MCV 84.1 81.3 - 96.4 fL [facility] MCH 28.0 27.1 - 33.3 pg [facility] MCHC 33.3 32.3 - 35.7 g/dL [facility] RDW CV 13.5 11.1 - 14.9 % [facility] RDW SD 41.6 35.7 - 48.1 fL [facility] NRBC abs 0.00 0.00 - 0.01 K/cumm [facility] Blood specimen (specimen) 05/14/2020 12:55 AM GLASS ROLLING MACHINE OPERATOR 05/14/2020 12:59 AM GLASS ROLLING MACHINE OPERATOR Rosy Wanda Ma MANUFACTURING LABORER LAB BLOOD ORDERABLES Final Result [facility] [address] Department [employer] [place], [place] [id number] * TRANSTHORACIC ECHO (TTE) COMPLETE W DOPPLER/CF W CONTRAST (05/13/2020 8:40 AM GLASS ROLLING MACHINE OPERATOR) Anatomical Region Laterality Modality Ultrasound 05/13/2020 7:35 AM GLASS ROLLING MACHINE OPERATOR Narrative 05/13/2020 4:57 PM GLASS ROLLING MACHINE OPERATOR [facility] [address] [place] [address] ECHOCARDIOGRAM Patient Name: AVTAR JOSEPH S : 1955 Study Date: 05/13/2020 7:35:56 AM Gender: M Tech: DP Location: [id number] Ref.Provider: AGUSTO NORRIS Height(Cm): 183 BSA: 2.17 Weight(Kg): 93 BP: 145/79Order Provider: LIYA BLACKMON Procedures: Echocardiographic Report: Transthoracic Echocardiogram with 2D, M-Mode, Spectral and Color Flow Doppler examination and administration of intravenous contrast. Indications: Coronary artery disease, [place] vessel, and Mitral valve Annuloplasty. Measurements: 2D/M [...] Signed By: Agusto Gutierrez MD 2020-05-13 16:57:44 GLASS ROLLING MACHINE OPERATOR Procedure Note Agusto Gutierrez MD - 05/13/2020 [facility] [address] [place] [address] ECHOCARDIOGRAM Patient Name: AVTAR JOSEPH SPatient ID: [id number] : [id number] Date: 05/13/2020 7:35:56 AM Gender: MAccession #: [id number] Tech: DPLocation: [id number] Ref.Provider: AGUSTO NORRISGavinight(Cm): 183 BSA: 2.17Weight(Kg): 93 BP: 145/79Order Provider: LIYA BLACKMON Procedures: Echocardiographic Report: Transthoracic Echocardiogram with 2D, M-Mode, Spectral and Color FlowDoppler examination and administration of intravenous contrast. Indications: Coronary artery disease, [place] vessel, and Mitral valve Annuloplasty. Measurements: 2D/M [...] Signed By: Agusto Gutierrez MD 2020-05-13 16:57:44 GLASS ROLLING MACHINE OPERATOR Liya Wientge Yursik PA CV ECHO PROCEDURES Final Result * XR Chest 1 View - Portable - in AM (05/13/2020 5:47 AM GLASS ROLLING MACHINE OPERATOR) Anatomical Region Laterality Modality Body, Chest N/A Computed Radiogr aphy 05/13/2020 8:03 AM GLASS ROLLING MACHINE OPERATOR Impressions 05/13/2020 8:06 AM GLASS ROLLING MACHINE OPERATOR 1. New tiny biapical pneumothoraces, right slightly larger than left. 2. ??Otherwise stable portable postoperative chest radiograph. Electronically signed by: Brice Khanna M.D. Narrative 05/13/2020 8:06 AM GLASS ROLLING MACHINE OPERATOR Portable chest radiograph CLINICAL HISTORY: Postsurgical follow-up. [...] radiograph. Electronically signed by: Brice Khanna M.D. us Rosy Ma MANUFACTURING LABORER IMG XR PROCEDURES Final Re sult * eGFR (05/13/2020 12:29 AM GLASS ROLLING MACHINE OPERATOR) eGFR 95 mL/min/1.7 3 m2 [facility] Comment: Interpretive Data Reference Interval Normal [...] 2020 Blood specimen (specimen) 05/13/2020 12:29 AM GLASS ROLLING MACHINE OPERATOR 05/13/2020 1:10 AM GLASS ROLLING MACHINE OPERATOR us Rosy Ma MANUFACTURING LABORER LAB BLOOD ORDERABLES Final Result Performing Organization Address City/[facility]/ZIP Co de Phone Number [facility] [address] [address] * Phosphorus (05/13/2020 12:29 AM GLASS ROLLING MACHINE OPERATOR) [facility] Phosphorus, pl 2.9 2.3 - 4.5 mg/dL [facility] Blood specimen (specimen) 05/13/2020 12:29 AM GLASS ROLLING MACHINE OPERATOR 05/13/2020 1:10 AM GLASS ROLLING MACHINE OPERATOR Rosy Ma MANUFACTURING LABORER LAB BLOOD ORDERABLES Final Result [facility] [address] Department [place] [employer] [place] [address] * Magnesium (05/13/2020 12:29 AM GLASS ROLLING MACHINE OPERATOR) Pathologist [facility] [place] Magnesium 2.0 1.4 - 2.5 mg/dL [facility] Blood specimen (specimen) 05/13/2020 12:29 AM GLASS ROLLING MACHINE OPERATOR 05/13/2020 1:10 AM GLASS ROLLING MACHINE OPERATOR Rosy Ma MANUFACTURING LABORER LAB BLOOD ORDERABLES Final Result Performing Organization Address City/[facility]/ZIP Co de Phone Number [facility] [address] Department [place] [address] * (ABNORMAL) Basic metabolic panel (05/13/2020 12:29 AM GLASS ROLLING MACHINE OPERATOR) [facility] Sodium 139 135 - 145 mmol/L [facility] Potassium, pl 3.9 3.3 - 4.9 mmol/L [facility] Chloride 103 97 - 110 mmol/L [facility] CO2 29 22 - 32 mmol/L [facility] Anion gap 7 2 - 15 mmol/L [facility] BUN 18 8 - 25 mg/dL [facility] Creatinine 0.79(L) 0.80 - 1.30 mg/dL [facility] Glucose 101 70 - 199 mg/dL [facility] Comment: Interpretive Data Fasting glucose >/= [...] 2017. Calcium 8.2(L) 8.5 - 10.3 mg/dL [facility] Blood specimen (specimen) 05/13/2020 12:29 AM GLASS ROLLING MACHINE OPERATOR 05/13/2020 1:10 AM GLASS ROLLING MACHINE OPERATOR Rosy Wanda Ma MANUFACTURING LABORER LAB BLOOD ORDERABLES Final Result Performing Organization Address [facility]/State/ZIP Co de Phone Number [facility] [address] Department [place] [address] * (ABNORMAL) CBC without differential (05/13/2020 12:29 AM GLASS ROLLING MACHINE OPERATOR) WBC 6.0 3.8 - 9.9 K/cumm [facility] Hgb 10.3(L) 13.0 - 17.5 g/dL [facility] Hct 30.9(L) 38.9 - 50.3 % [facility] Plt 125(L) 150 - 400 K/cumm [facility] MPV 10.8 9.1 - 12.3 fL [facility] RBC 3.64(L) 4.30 - 5.80 M/cumm [facility] MCV 84.9 81.3 - 96.4 fL [facility] MCH 28.3 27.1 - 33.3 pg [facility] MCHC 33.3 32.3 - 35.7 g/dL [facility] RDW CV 13.8 11.1 - 14.9 % [facility] RDW SD 43.0 35.7 - 48.1 fL [facility] NRBC abs 0.00 0.00 - 0.01 K/cumm [facility] Blood specimen (specimen) 05/13/2020 12:29 AM GLASS ROLLING MACHINE OPERATOR 05/13/2020 1:11 AM GLASS ROLLING MACHINE OPERATOR Rosy Ma NP LAB BLOOD ORDERABLES Final Result [facility] [address] Department [place] [employer] [place] [address] * XR Chest 1 View - Portable - in AM (05/12/2020 5:55 AM GLASS ROLLING MACHINE OPERATOR) Anatomical Region Laterality Modality Body, Chest N/A Computed Radiogr aphy 05/12/2020 8:08 AM GLASS ROLLING MACHINE OPERATOR Impressions 05/12/2020 8:11 AM GLASS ROLLING MACHINE OPERATOR Stable portable chest radiograph. Electronically signed by: Hugo Ward M.D. Narrative 05/12/2020 8:11 AM GLASS ROLLING MACHINE OPERATOR XR CHEST 1 VIEW: 05/12/2020 4:40 AM [...] radiograph. Electronically signed by: Hugo Ward M.D. Roys Ma NP IMG XR PROCEDURES Final Re sult * eGFR (05/12/2020 12:34 AM GLASS ROLLING MACHINE OPERATOR) [facility] Signature eGFR 85 mL/min/1.7 3 m2 [facility] Comment: Interpretive Data Reference Interval Normal [...] 2020 Blood specimen (specimen) 05/12/2020 12:34 AM GLASS ROLLING MACHINE OPERATOR 05/12/2020 12:44 AM GLASS ROLLING MACHINE OPERATOR Rosy Gordonkristofer Ma MANUFACTURING LABORER LAB BLOOD ORDERABLES Final Result Performing Organization Address [facility] Co de Phone Number [facility] [address] [facility] [place] [address] * Phosphorus (05/12/2020 12:34 AM GLASS ROLLING MACHINE OPERATOR) Phosphorus, pl 3.1 2.3 - 4.5 mg/dL [facility] Blood specimen (specimen) 05/12/2020 12:34 AM GLASS ROLLING MACHINE OPERATOR 05/12/2020 12:44 AM GLASS ROLLING MACHINE OPERATOR Rosy Wanda Ma MANUFACTURING LABORER LAB BLOOD ORDERABLES Final Result Performing Organization Address [facility] de Phone Number [facility] [address] [facility] [place] [address] * Magnesium (05/12/2020 12:34 AM GLASS ROLLING MACHINE OPERATOR) Magnesium 2.2 1.4 - 2.5 mg/dL [facility] Blood specimen (specimen) 05/12/2020 12:34 AM GLASS ROLLING MACHINE OPERATOR 05/12/2020 12:44 AM GLASS ROLLING MACHINE OPERATOR Rosy Gordonkristofer Ma MANUFACTURING LABORER LAB BLOOD ORDERABLES Final Result Performing Organization Address [facility] Co de Phone Number [facility] [address] Department [place] [address] * (ABNORMAL) Basic metabolic panel (05/12/2020 12:34 AM GLASS ROLLING MACHINE OPERATOR) [facility] Sodium 138 135 - 145 mmol/L [facility] Potassium, pl 4.1 3.3 - 4.9 mmol/L [facility] Chloride 103 97 - 110 mmol/L [facility] CO2 26 22 - 32 mmol/L [facility] Anion gap 9 2 - 15 mmol/L [facility] BUN 26(H) 8 - 25 mg/dL [facility] Creatinine 0.94 0.80 - 1.30 mg/dL [facility] Glucose 102 70 - 199 mg/dL [facility] Comment: Interpretive Data Fasting glucose >/= [...] 2017. Calcium 8.3(L) 8.5 - 10.3 mg/dL [facility] Blood specimen (specimen) 05/12/2020 12:34 AM GLASS ROLLING MACHINE OPERATOR 05/12/2020 12:44 AM GLASS ROLLING MACHINE OPERATOR Rosy Ma MANUFACTURING LABORER LAB BLOOD ORDERABLES Final Result [facility] [address] Department [place] [address] * (ABNORMAL) CBC without differential (05/12/2020 12:34 AM GLASS ROLLING MACHINE OPERATOR) [facility] WBC 8.6 3.8 - 9.9 K/cumm [facility] Hgb 10.5(L) 13.0 - 17.5 g/dL [facility] Hct 31.6(L) 38.9 - 50.3 % [facility] Plt 106(L) 150 - 400 K/cumm [facility] MPV 10.7 9.1 - 12.3 fL [facility] RBC 3.65(L) 4.30 - 5.80 M/cumm [facility] MCV 86.6 81.3 - 96.4 fL [facility] MCH 28.8 27.1 - 33.3 pg [facility] MCHC 33.2 32.3 - 35.7 g/dL [facility] RDW CV 14.0 11.1 - 14.9 % [facility] RDW SD 44.5 35.7 - 48.1 fL [facility] NRBC abs 0.00 0.00 - 0.01 K/cumm [facility] Blood specimen (specimen) 05/12/2020 12:34 AM GLASS ROLLING MACHINE OPERATOR 05/12/2020 12:44 AM GLASS ROLLING MACHINE OPERATOR Rosy Ma MANUFACTURING LABORER LAB BLOOD ORDERABLES Final Result [facility] [address] Department [place] [address] * eGFR (05/11/2020 4:26 PM GLASS ROLLING MACHINE OPERATOR) eGFR 75 mL/min/1.7 3 m2 [facility] Comment: Interpretive Data Reference Interval Normal [...] 2020 Blood specimen (specimen) 05/11/2020 4:26 PM GLASS ROLLING MACHINE OPERATOR 05/11/2020 4:37 PM GLASS ROLLING MACHINE OPERATOR us aKden Naqvi DO LAB BLOOD ORDERABLES Final R esult [facility] [address] Department [place] [address] * (ABNORMAL) Basic metabolic panel (05/11/2020 4:26 PM GLASS ROLLING MACHINE OPERATOR) Sodium 139 135 - 145 mmol/L [facility] Potassium, pl 4.3 3.3 - 4.9 mmol/L [facility] Chloride 104 97 - 110 mmol/L [facility] CO2 28 22 - 32 mmol/L [facility] Anion gap 7 2 - 15 mmol/L [facility] BUN 28(H) 8 - 25 mg/dL [facility] Creatinine 1.05 0.80 - 1.30 mg/dL [facility] Glucose 110 70 - 199 mg/dL [facility] Comment: Interpretive Data Fasting glucose >/= [...] 2017. Calcium 8.7 8.5 - 10.3 mg/dL [facility] Blood specimen (specimen) 05/11/2020 4:26 PM GLASS ROLLING MACHINE OPERATOR 05/11/2020 4:37 PM GLASS ROLLING MACHINE OPERATOR Rosy Ma NP LAB BLOOD ORDERABLES Final Result [facility] [address] Department [place] [address] * Critical Care (05/11/2020 10:33 AM GLASS ROLLING MACHINE OPERATOR) Narrative Rosy Ma NP - 05/11/2020 10:33 AM GLASS ROLLING MACHINE OPERATOR Rosy Ma NP ? 05/12/2020 ??1:11 PM [...] plan with the patient's team and other medical/business intelligence consultant staff. This time was in addition to and separate from care provided by other practitioners on this day of service. ?? Rosy Ma NP IN CLINIC/BEDSIDE ORDERABL ES Edited Result - Final * XR Chest 1 View - Portable - in AM (05/11/2020 5:35 AM GLASS ROLLING MACHINE OPERATOR) Anatomical Region Laterality Modality Body, Chest N/A Computed Radiogr aphy 05/11/2020 8:06 AM GLASS ROLLING MACHINE OPERATOR Impressions 05/11/2020 8:08 AM GLASS ROLLING MACHINE OPERATOR 1. ??Interval removal of endotracheal and enteric tubes. 2. ??Otherwise, stable cardiopulmonary findings. Electronically signed by: Hugo Ward M.D. Narrative 05/11/2020 8:08 AM GLASS ROLLING MACHINE OPERATOR XR CHEST 1 VIEW: 05/11/2020 2:40 AM [...] findings. Electronically signed by: Hugo Ward M.D. Rosy Ma MANUFACTURING LABORER IMG XR PROCEDURES Final Re sult * (ABNORMAL) Differential, auto (05/11/2020 2:54 AM GLASS ROLLING MACHINE OPERATOR) Neutrophil abs 8.7(H) 1.7 - 6.5 K/cumm [facility] Imm gran abs 0.1 0.0 - 0.1 K/cumm [facility] Lymphocyte abs 0.9 0.8 - 3.3 K/cumm [facility] Monocyte abs 1.2(H) 0.2 - 0.8 K/cumm [facility] Eosinophil abs 0.0 0.0 - 0.5 K/cumm [facility] Basophil abs 0.0 0.0 - 0.1 K/cumm [facility] Neutrophil pct 79.8 % [facility] Comment: Interpretive Data Percent cell count reference ranges are not reported, since discordance with absolute values may lead to misinterpretation of CBC data. Current Interpretive Data was last revised on 2017. Imm gran pct 0.5 % [facility] Comment: Interpretive Data Percent cell count reference ranges are not reported, since discordance with absolute values may lead to misinterpretation of CBC data. Current Interpretive Data was last revised on 2017. Lymphocyte pct 8.3 % [facility] Comment: Interpretive Data Percent cell count reference ranges are not reported, since discordance with absolute values may lead to misinterpretation of CBC data. Current Interpretive Data was last revised on 2017. Monocyte pct 11.2 % [facility] Comment: Interpretive Data Percent cell count reference ranges are not reported, since discordance with absolute values may lead to misinterpretation of CBC data. Current Interpretive Data was last revised on 2017. Eosinophil pct 0.0 % [facility] Comment: Interpretive Data Percent cell count reference ranges are not reported, since discordance with absolute values may lead to misinterpretation of CBC data. Current Interpretive Data was last revised on 2017. Basophil pct 0.2 % [facility] Comment: Interpretive Data Percent cell count reference ranges are not reported, since discordance with absolute values may lead to misinterpretation of CBC data. Current Interpretive Data was last revised on 2017. Blood specimen (specimen) 05/11/2020 2:54 AM GLASS ROLLING MACHINE OPERATOR 05/11/2020 3:12 AM GLASS ROLLING MACHINE OPERATOR Kelsy Holbrook MANUFACTURING LABORER LAB BLOOD ORDERABLES Final Result [facility] [address] Department [place] [address] * (ABNORMAL) CBC with auto differential (05/11/2020 2:54 AM GLASS ROLLING MACHINE OPERATOR) WBC 11.0(H) 3.8 - 9.9 K/cumm [facility] Hgb 10.5(L) 13.0 - 17.5 g/dL [facility] Hct 30.8(L) 38.9 - 50.3 % [facility] Plt 100(L) 150 - 400 K/cumm [facility] MPV 10.3 9.1 - 12.3 fL [facility] RBC 3.66(L) 4.30 - 5.80 M/cumm [facility] MCV 84.2 81.3 - 96.4 fL [facility] MCH 28.7 27.1 - 33.3 pg [facility] MCHC 34.1 32.3 - 35.7 g/dL [facility] RDW CV 14.1 11.1 - 14.9 % [facility] RDW SD 43.5 35.7 - 48.1 fL [facility] NRBC abs 0.00 0.00 - 0.01 K/cumm [facility] Blood specimen (specimen) 05/11/2020 2:54 AM GLASS ROLLING MACHINE OPERATOR 05/11/2020 3:12 AM GLASS ROLLING MACHINE OPERATOR Kelsy Holbrook NP LAB BLOOD ORDERABLES Final Result Performing Organization Address City/State/[facility] Co de Phone Number [facility] [address] Department [place] [address] * eGFR (05/11/2020 2:01 AM GLASS ROLLING MACHINE OPERATOR) eGFR 85 mL/min/1.7 3 m2 [facility] Comment: Interpretive Data Reference Interval Normal [...] 2020 Blood specimen (specimen) 05/11/2020 2:01 AM GLASS ROLLING MACHINE OPERATOR 05/11/2020 2:10 AM GLASS ROLLING MACHINE OPERATOR Rosy Calzadaey MANUFACTURING LABORER LAB BLOOD ORDERABLES Final Result Performing Organization Address City/[facility] Co de Phone Number [facility] [address] [facility] [employer] [address] * Phosphorus (05/11/2020 2:01 AM GLASS ROLLING MACHINE OPERATOR) Phosphorus, pl 3.0 2.3 - 4.5 mg/dL [facility] Blood specimen (specimen) 05/11/2020 2:01 AM GLASS ROLLING MACHINE OPERATOR 05/11/2020 2:10 AM GLASS ROLLING MACHINE OPERATOR Rosy Calzadaey MANUFACTURING LABORER LAB BLOOD ORDERABLES Final Result Performing Organization Address [facility] Co de Phone Number [facility] [address] [facility] [employer] [place], [place] [id number] * Magnesium (05/11/2020 2:01 AM GLASS ROLLING MACHINE OPERATOR) Magnesium 2.0 1.4 - 2.5 mg/dL [facility] Blood specimen (specimen) 05/11/2020 2:01 AM GLASS ROLLING MACHINE OPERATOR 05/11/2020 2:10 AM GLASS ROLLING MACHINE OPERATOR Rosy Wanda Calzadaey MANUFACTURING LABORER LAB BLOOD ORDERABLES Final Result Performing Organization Address [facility] Co de Phone Number [facility] [address] [facility] [employer] [place], [place] [id number] * Calcium, ionized (05/11/2020 2:01 AM GLASS ROLLING MACHINE OPERATOR) Calcium, Ionized 4.74 3.90 - 5.40 mg/dL [facility] Blood specimen (specimen) 05/11/2020 2:01 AM GLASS ROLLING MACHINE OPERATOR 05/11/2020 2:11 AM GLASS ROLLING MACHINE OPERATOR Rosy Ma MANUFACTURING LABORER LAB BLOOD ORDERABLES Final Result Performing Organization Address City/[facility]/ZIP Co de Phone Number [facility] [address] Department [place] [place] [address] * (ABNORMAL) Basic metabolic panel (05/11/2020 2:01 AM GLASS ROLLING MACHINE OPERATOR) [facility] Sodium 137 135 - 145 mmol/L [facility] Potassium, pl 4.1 3.3 - 4.9 mmol/L [facility] Chloride 107 97 - 110 mmol/L [facility] CO2 23 22 - 32 mmol/L [facility] Anion gap 7 2 - 15 mmol/L [facility] BUN 24 8 - 25 mg/dL [facility] Creatinine 0.94 0.80 - 1.30 mg/dL [facility] Glucose 123 70 - 199 mg/dL [facility] Comment: Interpretive Data Fasting glucose >/= [...] 2017. Calcium 8.3(L) 8.5 - 10.3 mg/dL [facility] Blood specimen (specimen) 05/11/2020 2:01 AM GLASS ROLLING MACHINE OPERATOR 05/11/2020 2:10 AM GLASS ROLLING MACHINE OPERATOR Rosy Wanda Ma MANUFACTURING LABORER LAB BLOOD ORDERABLES Final Result Performing Organization Address [facility] Co de Phone Number [facility] [address] Department [place] [address] * (ABNORMAL) CBC without differential (05/11/2020 2:01 AM GLASS ROLLING MACHINE OPERATOR) WBC 11.7(H) 3.8 - 9.9 K/cumm [facility] Hgb 10.6(L) 13.0 - 17.5 g/dL [facility] Comment:PER DESIREE SPRINGER DROP I N HGB EXPECTED. Hct 31.2(L) 38.9 - 50.3 % [facility] Plt 109(L) 150 - 400 K/cumm [facility] MPV 10.5 9.1 - 12.3 fL [facility] RBC 3.69(L) 4.30 - 5.80 M/cumm [facility] MCV 84.6 81.3 - 96.4 fL [facility] MCH 28.7 27.1 - 33.3 pg [facility] MCHC 34.0 32.3 - 35.7 g/dL [facility] RDW CV 14.3 11.1 - 14.9 % [facility] RDW SD 44.1 35.7 - 48.1 fL [facility] NRBC abs 0.00 0.00 - 0.01 K/cumm [facility] Blood specimen (specimen) 05/11/2020 2:01 AM GLASS ROLLING MACHINE OPERATOR 05/11/2020 2:10 AM GLASS ROLLING MACHINE OPERATOR Rosy Ma NP LAB BLOOD ORDERABLES Final Result [facility] [address] Department [place] [address] * Critical Care (05/10/2020 2:34 PM GLASS ROLLING MACHINE OPERATOR) Narrative Kaden Naqvi DO - 05/10/2020 2:34 PM GLASS ROLLING MACHINE OPERATOR Rosy Ma NP ? 05/10/2020 ??5:43 PM [...] plan with the ICU team and other medical/business intelligence consultant staff, making frequent assessments and decisions [...] life-threatening deterioration of the following conditions: ?? us Rosy Ma MANUFACTURING LABORER IN CLINIC/BEDSIDE ORDERABL ES Final Result * POCT glucose (05/10/2020 11:54 AM GLASS ROLLING MACHINE OPERATOR) Pathologist [facility] [place] Glucose, POC 117 70 - 140 mg/dL [facility] Comment: For Glucose values <35 mg/dl when Hematocrit is >60 mg/dl,the test may not accurately detect significant hypoglycemia,and testing in the Laboratory should be considered if clinically indicated. Blood specimen (specimen) 05/10/2020 11:54 AM GLASS ROLLING MACHINE OPERATOR 05/10/2020 11:54 AM GLASS ROLLING MACHINE OPERATOR us Hardeep Reed MD LAB POCT ORDERABLES - DE VICE Final Result [facility] [address] Department [place] [address] * (ABNORMAL) Blood gas, arterial (05/10/2020 9:20 AM GLASS ROLLING MACHINE OPERATOR) pH, Art 7.45 7.35 - 7.45 [facility] PCO2, Arterial 30(L) 35 - 45 mmHg [facility] PO2, Arterial 124(H) 83 - 108 mmHg [facility] HCO3 Art (Calculated) 21 20 - 30 mmol/L [facility] BE, art -2 mmol/L [facility] Comment: Interpretive Data No Reference Range Established Current Interpretive Data was last revised on 2017 O2 Sat Art (Calculated) 99(H) 94 - 98 % [facility] Blood specimen (specimen) 05/10/2020 9:20 AM GLASS ROLLING MACHINE OPERATOR 05/10/2020 9:32 AM GLASS ROLLING MACHINE OPERATOR Hardeep Reed MD LAB BLOOD ORDERABLES Fin al Result Performing Organization Address [facility]/ZIP Co de Phone Number [facility] [address] Department [place] [address] * (ABNORMAL) POCT glucose (05/10/2020 7:45 AM GLASS ROLLING MACHINE OPERATOR) Glucose, POC 142(H) 70 - 140 mg/dL [facility] Comment: For Glucose values <35 mg/dl when Hematocrit is >60 mg/dl,the test may not accurately detect significant hypoglycemia,and testing in the Laboratory should be considered if clinically indicated. Blood specimen (specimen) 05/10/2020 7:45 AM GLASS ROLLING MACHINE OPERATOR 05/10/2020 7:45 AM GLASS ROLLING MACHINE OPERATOR Hardeep Reed MD LAB POCT ORDERABLES - DE VICE Final Result Performing Organization Address [facility]/ZIP Co de Phone Number [facility] [address] Department [place] [employer] [place] [address] * (ABNORMAL) Blood gas, arterial (05/10/2020 6:50 AM GLASS ROLLING MACHINE OPERATOR) pH, Art 7.43 7.35 - 7.45 [facility] PCO2, Arterial 33(L) 35 - 45 mmHg [facility] PO2, Arterial 152(H) 83 - 108 mmHg [facility] HCO3 Art (Calculated) 22 20 - 30 mmol/L [facility] BE, art -2 mmol/L [facility] Comment: Interpretive Data No Reference Range Established Current Interpretive Data was last revised on 2017 O2 Sat Art (Calculated) 99(H) 94 - 98 % [facility] Blood specimen (specimen) 05/10/2020 6:50 AM GLASS ROLLING MACHINE OPERATOR 05/10/2020 6:52 AM GLASS ROLLING MACHINE OPERATOR Kaden Naqvi DO LAB BLOOD ORDERABLES Final R esult Performing Organization Address City/[facility]/ZIP Co de Phone Number [facility] [address] [facility] [place] [address] * (ABNORMAL) Lactate (05/10/2020 6:50 AM GLASS ROLLING MACHINE OPERATOR) Lactate 4.1(C) 0.7 - 2.0 mmol/L [facility] Comment:Critical result call ed to and read back by Karen Stapleton (RN) on 05/10/2020 0754 to [email or web address] Blood specimen (specimen) 05/10/2020 6:50 AM GLASS ROLLING MACHINE OPERATOR 05/10/2020 6:52 AM GLASS ROLLING MACHINE OPERATOR Kelsy Chantelle Holbrook MANUFACTURING LABORER LAB BLOOD ORDERABLES Final Result Performing Organization Address [facility] Co de Phone Number [facility] [address] Department [place] [place] [address] * XR Chest 1 View - Portable - in AM (05/10/2020 5:47 AM GLASS ROLLING MACHINE OPERATOR) Anatomical Region Laterality Modality Body, Chest N/A Computed Radiogr aphy 05/10/2020 8:19 AM GLASS ROLLING MACHINE OPERATOR Impressions 05/10/2020 8:20 AM GLASS ROLLING MACHINE OPERATOR Stable portable chest radiograph. Electronically signed by: Hugo Ward M.D. Narrative 05/10/2020 8:20 AM GLASS ROLLING MACHINE OPERATOR XR CHEST 1 VIEW: 05/10/2020 1:00 AM [...] by: Hugo Ward M.D. us Rosy Ma MANUFACTURING LABORER IMG XR PROCEDURES Final Re sult * (ABNORMAL) Blood gas, arterial (05/10/2020 3:38 AM GLASS ROLLING MACHINE OPERATOR) Pathologist [facility] [place] pH, Art 7.39 7.35 - 7.45 [facility] PCO2, Arterial 26(L) 35 - 45 mmHg [facility] PO2, Arterial 186(H) 83 - 108 mmHg [facility] HCO3 Art (Calculated) 16(L) 20 - 30 mmol/L [facility] BE, art -8 mmol/L [facility] Comment: Interpretive Data No Reference Range Established Current Interpretive Data was last revised on 2017 O2 Sat Art (Calculated) 100(H) 94 - 98 % [facility] Blood specimen (specimen) 05/10/2020 3:38 AM GLASS ROLLING MACHINE OPERATOR 05/10/2020 3:42 AM GLASS ROLLING MACHINE OPERATOR us Kelsy Holbrook MANUFACTURING LABORER LAB BLOOD ORDERABLES Final Result [facility] [address] Department [place] [address] * (ABNORMAL) Lactate (05/10/2020 3:38 AM GLASS ROLLING MACHINE OPERATOR) Pathologist [facility] [place] Lactate 6.0(C) 0.7 - 2.0 mmol/L [facility] Comment:Critical result call ed to and read back by Vicenta Neff RN on 05/10/20 @0416 to [id number] Blood specimen (specimen) 05/10/2020 3:38 AM GLASS ROLLING MACHINE OPERATOR 05/10/2020 3:42 AM GLASS ROLLING MACHINE OPERATOR Kelsy Holbrook MANUFACTURING LABORER LAB BLOOD ORDERABLES Final Result [facility] [address] Department [place] [address] * eGFR (05/10/2020 1:59 AM GLASS ROLLING MACHINE OPERATOR) eGFR 68 mL/min/1.7 3 m2 [facility] Comment: Interpretive Data Reference Interval Normal [...] 2020 Blood specimen (specimen) 05/10/2020 1:59 AM GLASS ROLLING MACHINE OPERATOR 05/10/2020 2:10 AM GLASS ROLLING MACHINE OPERATOR us Jagdeep Peña MD LAB BLOOD ORDERABLES Final Result [facility] [address] Department [place] [address] * (ABNORMAL) Comprehensive metabolic panel (05/10/2020 1:59 AM GLASS ROLLING MACHINE OPERATOR) Sodium 141 135 - 145 mmol/L [facility] Potassium, pl 4.9 3.3 - 4.9 mmol/L [facility] Chloride 110 97 - 110 mmol/L [facility] CO2 15(L) 22 - 32 mmol/L [facility] Anion gap 16(H) 2 - 15 mmol/L [facility] BUN 15 8 - 25 mg/dL [facility] Creatinine 1.14 0.80 - 1.30 mg/dL [facility] Glucose 185 70 - 199 mg/dL [facility] Comment: Interpretive Data Fasting glucose >/= [...] 2017. Calcium 8.8 8.5 - 10.3 mg/dL [facility] Bilirubin, total 0.5 0.1 - 1.2 mg/dL [facility] Protein, pl 5.9(L) 6.5 - 8.5 g/dL [facility] Albumin 3.6 3.5 - 5.0 g/dL [facility] Alk phos 54 40 - 130 Units/L [facility] ALT 29 7 - 55 Units/L [facility] AST 55(H) 10 - 50 Units/L [facility] Blood specimen (specimen) 05/10/2020 1:59 AM GLASS ROLLING MACHINE OPERATOR 05/10/2020 2:10 AM GLASS ROLLING MACHINE OPERATOR Jagdeep Peña MD LAB BLOOD ORDERABLES Final Result Performing Organization Address [facility] Co de Phone Number [facility] [address] [place] [address] * Phosphorus (05/10/2020 1:59 AM GLASS ROLLING MACHINE OPERATOR) Phosphorus, pl 4.1 2.3 - 4.5 mg/dL [facility] Blood specimen (specimen) 05/10/2020 1:59 AM GLASS ROLLING MACHINE OPERATOR 05/10/2020 2:10 AM GLASS ROLLING MACHINE OPERATOR Result [facility] Rosy Ma MANUFACTURING LABORER LAB BLOOD ORDERABLES Final Result Performing Organization Address [facility] de Phone Number [facility] [address] [place] [address] * Magnesium (05/10/2020 1:59 AM GLASS ROLLING MACHINE OPERATOR) Magnesium 2.0 1.4 - 2.5 mg/dL [facility] Blood specimen (specimen) 05/10/2020 1:59 AM GLASS ROLLING MACHINE OPERATOR 05/10/2020 2:10 AM GLASS ROLLING MACHINE OPERATOR Result [facility] Rosy Ma MANUFACTURING LABORER LAB BLOOD ORDERABLES Final Result Performing Organization Address [facility] Co de Phone Number [facility] [address] [place] [address] * Calcium, ionized (05/10/2020 1:59 AM GLASS ROLLING MACHINE OPERATOR) Calcium, Ionized 4.48 3.90 - 5.40 mg/dL [facility] Blood specimen (specimen) 05/10/2020 1:59 AM GLASS ROLLING MACHINE OPERATOR 05/10/2020 2:06 AM GLASS ROLLING MACHINE OPERATOR Rosy Wanda Calzadaey MANUFACTURING LABORER LAB BLOOD ORDERABLES Final Result Performing Organization Address [facility] Co de Phone Number [facility] [address] Department [place] [address] * (ABNORMAL) CBC without differential (05/10/2020 1:59 AM GLASS ROLLING MACHINE OPERATOR) [facility] WBC 17.4(H) 3.8 - 9.9 K/cumm [facility] Hgb 13.7 13.0 - 17.5 g/dL [facility] Hct 40.8 38.9 - 50.3 % [facility] Plt 208 150 - 400 K/cumm [facility] MPV 10.1 9.1 - 12.3 fL [facility] RBC 4.89 4.30 - 5.80 M/cumm [facility] MCV 83.4 81.3 - 96.4 fL [facility] MCH 28.0 27.1 - 33.3 pg [facility] MCHC 33.6 32.3 - 35.7 g/dL [facility] RDW CV 13.8 11.1 - 14.9 % [facility] RDW SD 42.0 35.7 - 48.1 fL [facility] NRBC abs 0.00 0.00 - 0.01 K/cumm [facility] Blood specimen (specimen) 05/10/2020 1:59 AM GLASS ROLLING MACHINE OPERATOR 05/10/2020 2:10 AM GLASS ROLLING MACHINE OPERATOR Rosy Ma MANUFACTURING LABORER LAB BLOOD ORDERABLES Final Result Performing Organization Address City/State/[facility] Co de Phone Number [facility] [address] Department [place] [address] * (ABNORMAL) POCT glucose (05/10/2020 12:13 AM GLASS ROLLING MACHINE OPERATOR) [facility] Glucose, POC 177(H) 70 - 140 mg/dL [facility] Comment: For Glucose values <35 mg/dl when Hematocrit is >60 mg/dl,the test may not accurately detect significant hypoglycemia,and testing in the Laboratory should be considered if clinically indicated. Blood specimen (specimen) 05/10/2020 12:13 AM GLASS ROLLING MACHINE OPERATOR 05/10/2020 12:13 AM GLASS ROLLING MACHINE OPERATOR us Jagdeep Peña MD LAB POCT ORDERABLES - MILIND CE Final Result [facility] [address] Department [place] [address] * Critical Care (05/09/2020 11:15 PM GLASS ROLLING MACHINE OPERATOR) Narrative Donya Kaden Melquiades, DO - 05/09/2020 11:15 PM GLASS ROLLING MACHINE OPERATOR Kelsy Holbrook NP ? 05/11/2020 12:25 AM [...] plan with the ICU team and other medical/business intelligence consultant staff, making frequent assessments and decisions [...] spent time documenting in the medical record Kelsy Holbrook NP IN CLINIC/BEDSIDE ORD ERABLES Final Result * Oxyhemoglobin, central venous (05/09/2020 8:09 PM GLASS ROLLING MACHINE OPERATOR) Oxyhemoglobin, CV 84.7 % [facility] Comment: Interpretive Data No reference range established. Current interpretive data was last revised 2019. Blood specimen (specimen) 05/09/2020 8:09 PM GLASS ROLLING MACHINE OPERATOR 05/09/2020 8:11 PM GLASS ROLLING MACHINE OPERATOR Kelsy Holbrook NP LAB BLOOD ORDERABLES Final Result [facility] [address] Department [place] [address] * GENERAL (05/09/2020 6:30 PM GLASS ROLLING MACHINE OPERATOR) Narrative Kaden Naqvi, DO - 05/09/2020 6:30 PM GLASS ROLLING MACHINE OPERATOR Kaden Naqvi, DO ? 05/18/2020 ??8:13 PM Bronchoscopy Date/Time: 05/09/2020 6:30 PM Performed by: Kaden Naqvi DO Authorized by: Kaden Naqvi DO [place] Protocol: RN Notified of Procedure: yes ?? [...] the procedure well with no immediate complications Kaden Naqvi DO IN CLINIC/BEDSIDE ORDERABLES Edited Result - Final * Oxyhemoglobin, pulmonary artery (05/09/2020 5:07 PM GLASS ROLLING MACHINE OPERATOR) Oxyhemoglobin, PA 84.6 % [facility] Comment: Interpretive Data No reference range established. Current interpretive data was last revised 2019. Blood specimen (specimen) 05/09/2020 5:07 PM GLASS ROLLING MACHINE OPERATOR 05/09/2020 5:11 PM GLASS ROLLING MACHINE OPERATOR Hardeep Reed MD LAB BLOOD ORDERABLES [facility] al Result [facility] [address] Department [place] [address] * (ABNORMAL) Blood gas, arterial (05/09/2020 4:27 PM GLASS ROLLING MACHINE OPERATOR) pH, Art 7.33(L) 7.35 - 7.45 [facility] PCO2, Arterial 36 35 - 45 mmHg [facility] PO2, Arterial 96 83 - 108 mmHg [facility] HCO3 Art (Calculated) 19(L) 20 - 30 mmol/L [facility] BE, art -6 mmol/L [facility] Comment: Interpretive Data No Reference Range Established Current Interpretive Data was last revised on 2017 O2 Sat Art (Calculated) 97 94 - 98 % [facility] Blood specimen (specimen) 05/09/2020 4:27 PM GLASS ROLLING MACHINE OPERATOR 05/09/2020 4:32 PM GLASS ROLLING MACHINE OPERATOR us Jagdeep Peña MD LAB BLOOD ORDERABLES Final Result [facility] [address] Department [place] [address] * Critical Care (05/09/2020 4:00 PM GLASS ROLLING MACHINE OPERATOR) Narrative Rosy Ma NP - 05/09/2020 4:00 PM GLASS ROLLING MACHINE OPERATOR Rosy Ma NP ? 05/11/2020 10:43 AM [...] plan with the ICU team and other medical/business intelligence consultant staff, making frequent assessments and decisions [...] in the medical record us Rosy Ma MANUFACTURING LABORER IN CLINIC/BEDSIDE ORDERABL ES Edited Result - Final * XR Chest 1 View - Portable (05/09/2020 3:04 PM GLASS ROLLING MACHINE OPERATOR) Anatomical Region Laterality Modality Body, Chest N/A Computed Radiogr aphy 05/09/2020 3:04 PM GLASS ROLLING MACHINE OPERATOR Impressions 05/09/2020 3:10 PM GLASS ROLLING MACHINE OPERATOR 1. New left support devices in place with new perihilar disease and focal right upper lobe infiltrate Electronically signed by: Coby Cano M.D. Narrative 05/09/2020 3:10 PM GLASS ROLLING MACHINE OPERATOR EXAM: ??1 view chest 05/09/2020 at 1452 [...] infiltrate Electronically signed by: Coby Cano M.D. Rosy Ma MANUFACTURING LABORER IMG XR PROCEDURES Final Re sult * XR Abdomen AP 1 View - KUB (05/09/2020 3:03 PM GLASS ROLLING MACHINE OPERATOR) Anatomical Region Laterality Modality Body, Abdomen N/A Computed Radiogr aphy 05/09/2020 3:23 PM GLASS ROLLING MACHINE OPERATOR Impressions 05/09/2020 3:24 PM GLASS ROLLING MACHINE OPERATOR Nasogastric tube tip overlying left upper quadrant Electronically signed by: Coby Cano M.D. Narrative 05/09/2020 3:24 PM GLASS ROLLING MACHINE OPERATOR EXAM: ??KUB HISTORY: ??Nasogastric tube placement. COMPARISON: [...] signed by: Coby Cano M.D. Rosy Ma MANUFACTURING LABORER IMG XR PROCEDURES Final Re sult * POCT glucose (05/09/2020 2:58 PM GLASS ROLLING MACHINE OPERATOR) Glucose, POC 121 70 - 140 mg/dL [facility] Comment: For Glucose values <35 mg/dl when Hematocrit is >60 mg/dl,the test may not accurately detect significant hypoglycemia,and testing in the Laboratory should be considered if clinically indicated. Blood specimen (specimen) 05/09/2020 2:58 PM GLASS ROLLING MACHINE OPERATOR 05/09/2020 2:58 PM GLASS ROLLING MACHINE OPERATOR us Jagdeep Peña MD LAB POCT ORDERABLES - MILIND CE Final Result [facility] [address] Department [place] [address] * eGFR (05/09/2020 2:50 PM GLASS ROLLING MACHINE OPERATOR) eGFR 76 mL/min/1.7 3 m2 [facility] Comment: Interpretive Data Reference Interval Normal [...] 2020 Blood specimen (specimen) 05/09/2020 2:50 PM GLASS ROLLING MACHINE OPERATOR 05/09/2020 3:04 PM GLASS ROLLING MACHINE OPERATOR Result [facility] Rosy Ma MANUFACTURING LABORER LAB BLOOD ORDERABLES Final Result Performing Organization Address [facility] de Phone Number [facility] [address] [facility] [employer] [address] * aPTT (05/09/2020 2:50 PM GLASS ROLLING MACHINE OPERATOR) aPTT 27 27 - 37 sec [facility] Comment: Interpretive data Heparin therapeutic range: 52-80 seconds Range based on correlation with therapeutic heparin activity range of 0.3-0.7 units/ml. Current interpretive data was last revised on 2019. Blood specimen (specimen) 05/09/2020 2:50 PM GLASS ROLLING MACHINE OPERATOR 05/09/2020 3:04 PM GLASS ROLLING MACHINE OPERATOR Result [facility] Rosy Ma MANUFACTURING LABORER LAB BLOOD ORDERABLES Final Result Performing Organization Address [facility] de Phone Number [facility] [address] [place] [address] * (ABNORMAL) Protime-INR (05/09/2020 2:50 PM GLASS ROLLING MACHINE OPERATOR) PT 13.8(H) 9.5 - 13.6 sec [facility] INR 1.2 0.9 - 1.2 [facility] Comment: Interpretive data Oral anticoagulant therapeutic ranges: Venous thromboembolism prophylaxis or treatment: 2.0-3.0 CARDIOLOGY Standard range: 2.0-3.0 High-intensity range: 2.5-3.5 Refer to indication-specific guidelines for appropriate target ranges for prosthetic heart valve replacement. Current interpretive data was last revised on 2019. Blood specimen (specimen) 05/09/2020 2:50 PM GLASS ROLLING MACHINE OPERATOR 05/09/2020 3:04 PM GLASS ROLLING MACHINE OPERATOR Result [facility] Rosy Ma MANUFACTURING LABORER LAB BLOOD ORDERABLES Final Result Performing Organization Address [facility]/ZIP Co de Phone Number [facility] [address] [place] [place] [address] * (ABNORMAL) CBC without differential (05/09/2020 2:50 PM GLASS ROLLING MACHINE OPERATOR) Pathologist [facility] WBC 20.2(H) 3.8 - 9.9 K/cumm [facility] Hgb 13.2 13.0 - 17.5 g/dL [facility] Hct 38.0(L) 38.9 - 50.3 % [facility] Plt 164 150 - 400 K/cumm [facility] MPV 10.3 9.1 - 12.3 fL [facility] RBC 4.56 4.30 - 5.80 M/cumm [facility] MCV 83.3 81.3 - 96.4 fL [facility] MCH 28.9 27.1 - 33.3 pg [facility] MCHC 34.7 32.3 - 35.7 g/dL [facility] RDW CV 13.6 11.1 - 14.9 % [facility] RDW SD 41.3 35.7 - 48.1 fL [facility] NRBC abs 0.00 0.00 - 0.01 K/cumm [facility] Blood specimen (specimen) 05/09/2020 2:50 PM GLASS ROLLING MACHINE OPERATOR 05/09/2020 3:04 PM GLASS ROLLING MACHINE OPERATOR Rosy Ma MANUFACTURING LABORER LAB BLOOD ORDERABLES Final Result Performing Organization Address [facility]/ZIP Co de Phone Number [facility] [address] Department [place] [employer] [place] [address] * (ABNORMAL) Blood gas, arterial (05/09/2020 2:50 PM GLASS ROLLING MACHINE OPERATOR) Pathologist [facility] pH, Art 7.28(L) 7.35 - 7.45 [facility] PCO2, Arterial 45 35 - 45 mmHg [facility] PO2, Arterial 98 83 - 108 mmHg [facility] HCO3 Art (Calculated) 21 20 - 30 mmol/L [facility] BE, art -6 mmol/L [facility] Comment: Interpretive Data No Reference Range Established Current Interpretive Data was last revised on 2017 O2 Sat Art (Calculated) 97 94 - 98 % [facility] Blood specimen (specimen) 05/09/2020 2:50 PM GLASS ROLLING MACHINE OPERATOR 05/09/2020 3:03 PM GLASS ROLLING MACHINE OPERATOR Rosy Wanda Ma MANUFACTURING LABORER LAB BLOOD ORDERABLES Final Result Performing Organization Address City/[facility] Co de Phone Number [facility] [address] [facility] [employer] [place], [place] [address] * Calcium, ionized (05/09/2020 2:50 PM GLASS ROLLING MACHINE OPERATOR) Pathologist [facility] Calcium, Ionized 5.16 3.90 - 5.40 mg/dL [facility] Blood specimen (specimen) 05/09/2020 2:50 PM GLASS ROLLING MACHINE OPERATOR 05/09/2020 3:03 PM GLASS ROLLING MACHINE OPERATOR Rosy Ma MANUFACTURING LABORER LAB BLOOD ORDERABLES Final Result Performing Organization Address [facility] Co de Phone Number [facility] [address] [facility] [place] [address] * Magnesium (05/09/2020 2:50 PM GLASS ROLLING MACHINE OPERATOR) [facility] Magnesium 2.4 1.4 - 2.5 mg/dL [facility] Blood specimen (specimen) 05/09/2020 2:50 PM GLASS ROLLING MACHINE OPERATOR 05/09/2020 3:04 PM GLASS ROLLING MACHINE OPERATOR Rosy Wanda Ma MANUFACTURING LABORER LAB BLOOD ORDERABLES Final Result Performing Organization Address [facility] Co de Phone Number [facility] [address] [facility] [place] [place] [address] * (ABNORMAL) Basic metabolic panel (05/09/2020 2:50 PM GLASS ROLLING MACHINE OPERATOR) Pathologist [facility] [place] Sodium 144 135 - 145 mmol/L [facility] Potassium, pl 4.2 3.3 - 4.9 mmol/L [facility] Chloride 113(H) 97 - 110 mmol/L [facility] CO2 21(L) 22 - 32 mmol/L [facility] Anion gap 10 2 - 15 mmol/L [facility] BUN 16 8 - 25 mg/dL [facility] Creatinine 1.03 0.80 - 1.30 mg/dL [facility] Glucose 131 70 - 199 mg/dL [facility] Comment: Interpretive Data Fasting glucose >/= [...] 2017. Calcium 9.1 8.5 - 10.3 mg/dL [facility] Blood specimen (specimen) 05/09/2020 2:50 PM GLASS ROLLING MACHINE OPERATOR 05/09/2020 3:04 PM GLASS ROLLING MACHINE OPERATOR Rosy Ma NP LAB BLOOD ORDERABLES Final Result Performing Organization Address [facility] Co de Phone Number [facility] [address] [facility] [place] [place] [address] * Phosphorus (05/09/2020 2:50 PM GLASS ROLLING MACHINE OPERATOR) Phosphorus, pl 3.5 2.3 - 4.5 mg/dL [facility] Blood specimen (specimen) 05/09/2020 2:50 PM GLASS ROLLING MACHINE OPERATOR 05/09/2020 3:04 PM GLASS ROLLING MACHINE OPERATOR Rosy Ma NP LAB BLOOD ORDERABLES Final Result Performing Organization Address City/[facility] Co de Phone Number [facility] [address] Department [place] [employer] [place] [address] * (ABNORMAL) aPTT (05/09/2020 1:46 PM GLASS ROLLING MACHINE OPERATOR) aPTT 23(L) 27 - 37 sec [facility] Comment: Interpretive data Heparin therapeutic range: 52-80 seconds Range based on correlation with therapeutic heparin activity range of 0.3-0.7 units/ml. Current interpretive data was last revised on 2019. Blood specimen (specimen) 05/09/2020 1:46 PM GLASS ROLLING MACHINE OPERATOR 05/09/2020 1:46 PM GLASS ROLLING MACHINE OPERATOR Hardeep Reed MD LAB BLOOD ORDERABLES Fin al Result Performing Organization Address [facility] de Phone Number [facility] [address] [place] [address] * (ABNORMAL) Protime-INR (05/09/2020 1:46 PM GLASS ROLLING MACHINE OPERATOR) Pathologist [facility] [place] PT 15.0(H) 9.5 - 13.6 sec [facility] INR 1.4(H) 0.9 - 1.2 [facility] Comment: Interpretive data Oral anticoagulant therapeutic ranges: Venous thromboembolism prophylaxis or treatment: 2.0-3.0 CARDIOLOGY Standard range: 2.0-3.0 High-intensity range: 2.5-3.5 Refer to indication-specific guidelines for appropriate target ranges for prosthetic heart valve replacement. Current interpretive data was last revised on 2019. Blood specimen (specimen) 05/09/2020 1:46 PM GLASS ROLLING MACHINE OPERATOR 05/09/2020 1:46 PM GLASS ROLLING MACHINE OPERATOR Hardeep Reed MD LAB BLOOD ORDERABLES Fin al Result Performing Organization Address [facility] Co de Phone Number [facility] [address] [place] [address] * Fibrinogen (05/09/2020 1:46 PM GLASS ROLLING MACHINE OPERATOR) Pathologist [facility] [place] Fibrinogen 182 170 - 400 mg/dL [facility] Blood specimen (specimen) 05/09/2020 1:46 PM GLASS ROLLING MACHINE OPERATOR 05/09/2020 1:46 PM GLASS ROLLING MACHINE OPERATOR Hardeep Reed MD LAB BLOOD ORDERABLES Fin al Result Performing Organization Address [facility] Co de Phone Number [facility] [address] [place] [address] * (ABNORMAL) CBC without differential (05/09/2020 1:45 PM GLASS ROLLING MACHINE OPERATOR) [facility] WBC 20.5(H) 3.8 - 9.9 K/cumm [facility] Hgb 12.0(L) 13.0 - 17.5 g/dL [facility] Hct 34.8(L) 38.9 - 50.3 % [facility] Plt 165 150 - 400 K/cumm [facility] MPV 10.1 9.1 - 12.3 fL [facility] RBC 4.15(L) 4.30 - 5.80 M/cumm [facility] MCV 83.9 81.3 - 96.4 fL [facility] MCH 28.9 27.1 - 33.3 pg [facility] MCHC 34.5 32.3 - 35.7 g/dL [facility] RDW CV 13.4 11.1 - 14.9 % [facility] RDW SD 41.0 35.7 - 48.1 fL [facility] NRBC abs 0.00 0.00 - 0.01 K/cumm [facility] Blood specimen (specimen) 05/09/2020 1:45 PM GLASS ROLLING MACHINE OPERATOR 05/09/2020 1:45 PM GLASS ROLLING MACHINE OPERATOR Hardeep Reed MD LAB BLOOD ORDERABLES Fin al Result Performing Organization Address City/[facility]/ZIP Co de Phone Number [facility] [address] Department [place] [employer] [place] [address] * POC Activated Clotting Time, High Range (05/09/2020 1:41 PM GLASS ROLLING MACHINE OPERATOR) [facility] ACT 114 87 - 138 sec [facility] Blood specimen (specimen) 05/09/2020 1:41 PM GLASS ROLLING MACHINE OPERATOR 05/09/2020 1:41 PM GLASS ROLLING MACHINE OPERATOR us Hardeep Reed MD LAB BLOOD ORDERABLES Fin al Result [facility] [address] Department [place] [address] * (ABNORMAL) POC Blood Gas and Chemistries, Arterial - (05/09/2020 1:39 PM GLASS ROLLING MACHINE OPERATOR) [facility] pH, Art POC 7.38 7.35 - 7.45 [facility] pCO2, Art POC 37 35 - 45 mmHg [facility] pO2, Art POC 119(H) 80 - 108 mmHg [facility] Na, POC 139 135 - 145 mmol/L [facility] K POC 4.2 3.3 - 4.9 mmol/L [facility] Comment: Interpretive Data Unable to assess hemolysis. ??Invitro hemolysis causes falsely elevated potassium. Current Interpretive Data was last revised on 2019. Cl, POC 110 97 - 110 mmol/L [facility] Ionized Ca, POC 6.52(H) 4.40 - 5.40 mg/dL [facility] Glucose, POC 136 70 - 199 mg/dL [facility] Lactate, POC 2.0 0.0 - 2.0 mmol/L [facility] O2Hb, Art POC 97.7(H) 90.0 - 95.0 % [facility] Carboxhgb fract 2.1 0.0 - 2.9 % [facility] Methemoglobin 0.2 0.0 - 1.9 % [facility] HHb, POC 0.0 0.0 - 5.0 % [facility] SO2 (isabel) arterial 100(H) 90 - 95 % [facility] Total CO2, Art POC 23 22 - 32 mmol/L [facility] BE, art, POC -2.8(L) -2.0 - 2.0 mmol/L [facility] HCO3, Art POC 23 20 - 30 mmol/L [facility] Hct, POC 36.0(L) 38.9 - 50.3 % [facility] Total Hb, POC 12.1(L) 13.0 - 17.5 g/dL [facility] Blood specimen (specimen) 05/09/2020 1:39 PM [employer] MACHINE OPERATOR 05/09/2020 1:39 PM GLASS ROLLING MACHINE OPERATOR Hardeep Reed MD LAB POCT ORDERABLES - DE VICE Final Result Performing Organization Address [facility] [facility] Co de Phone Number [facility] [address] [facility] [employer] [place], [place] [phone] * (ABNORMAL) POC Activated Clotting Time, High Range (05/09/2020 12:59 PM GLASS ROLLING MACHINE OPERATOR) ACT 449(H) 87 - 138 sec [facility] Blood specimen (specimen) 05/09/2020 12:59 PM GLASS ROLLING MACHINE OPERATOR 05/09/2020 12:59 PM GLASS ROLLING MACHINE OPERATOR Hardeep Reed MD LAB BLOOD ORDERABLES Fin al Result Performing Organization Address [facility] Co de Phone Number [facility] [address] Department [employer] [place], [place] [phone] * (ABNORMAL) POC Activated Clotting Time, High Range (05/09/2020 12:18 PM GLASS ROLLING MACHINE OPERATOR) ACT 493(H) 87 - 138 sec [facility] Blood specimen (specimen) 05/09/2020 12:18 PM GLASS ROLLING MACHINE OPERATOR 05/09/2020 12:18 PM GLASS ROLLING MACHINE OPERATOR Hardeep Reed MD LAB BLOOD ORDERABLES Fin al Result Performing Organization Address [facility] Co de Phone Number [facility] [address] [facility] [employer] [place], [place] [phone] * (ABNORMAL) POC Blood Gas and Chemistries, Arterial - (05/09/2020 12:16 PM GLASS ROLLING MACHINE OPERATOR) Pathologist [facility] [place] pH, Art POC 7.38 7.35 - 7.45 [facility] pCO2, Art POC 41 35 - 45 mmHg [facility] pO2, Art POC 223(H) 80 - 108 mmHg [facility] Na, POC 138 135 - 145 mmol/L [facility] K POC 4.8 3.3 - 4.9 mmol/L [facility] Comment: Interpretive Data Unable to assess hemolysis. ??Invitro hemolysis causes falsely elevated potassium. Current Interpretive Data was last revised on 2019. Cl, POC 108 97 - 110 mmol/L [facility] Ionized Ca, POC 4.36(L) 4.40 - 5.40 mg/dL [facility] Glucose, POC 166 70 - 199 mg/dL [facility] Lactate, POC 1.9 0.0 - 2.0 mmol/L [facility] O2Hb, Art POC 97.4(H) 90.0 - 95.0 % [facility] Carboxhgb fract 2.0 0.0 - 2.9 % [facility] Methemoglobin 0.6 0.0 - 1.9 % [facility] HHb, POC 0.0 0.0 - 5.0 % [facility] SO2 (isabel) arterial 100(H) 90 - 95 % [facility] Total CO2, Art POC 26 22 - 32 mmol/L [facility] BE, art, POC -0.8 -2.0 - 2.0 mmol/L [facility] HCO3, Art POC 24 20 - 30 mmol/L [facility] Hct, POC 34.0(L) 38.9 - 50.3 % [facility] Total Hb, POC 11.4(L) 13.0 - 17.5 g/dL [facility] Blood specimen (specimen) 05/09/2020 12:16 PM GLASS ROLLING MACHINE OPERATOR 05/09/2020 12:16 PM GLASS ROLLING MACHINE OPERATOR us Hardeep Reed MD LAB POCT ORDERABLES - DE VICE Final Result [facility] [address] Department [place] [address] * (ABNORMAL) POC Activated Clotting Time, High Range (05/09/2020 11:59 AM GLASS ROLLING MACHINE OPERATOR) ACT 466(H) 87 - 138 sec [facility] Blood specimen (specimen) 05/09/2020 11:59 AM GLASS ROLLING MACHINE OPERATOR 05/09/2020 11:59 AM GLASS ROLLING MACHINE OPERATOR Hardeep Reed MD LAB BLOOD ORDERABLES Fin al Result Performing Organization Address [facility]/ZIP Co de Phone Number [facility] [address] [facility] [place] [address] * (ABNORMAL) POC Activated Clotting Time, High Range (05/09/2020 11:21 AM GLASS ROLLING MACHINE OPERATOR) ACT 848(H) 87 - 138 sec [facility] Blood specimen (specimen) 05/09/2020 11:21 AM GLASS ROLLING MACHINE OPERATOR 05/09/2020 11:21 AM GLASS ROLLING MACHINE OPERATOR Hardeep Reed MD LAB BLOOD ORDERABLES Fin al Result Performing Organization Address [facility] Co de Phone Number [facility] [address] [facility] [place] [address] * Surgical pathology (05/09/2020 11:21 AM GLASS ROLLING MACHINE OPERATOR) Tissue (Heart, Atrial appendage) 05/09/2020 11:21 AM GLASS ROLLING MACHINE OPERATOR Narrative PATHOLOGY [facility] - 05/10/2020 2:26 PM GLASS ROLLING MACHINE OPERATOR [place] [id number] [place], [place] ??[address] Tele: ?? Radha Tanner MD - [employer] Patcherhairspring staker PATHOLOGY REPORT Patient Name: ??OPALAVTAR Address: ??[address] [place] [address] ??62 Gender: ??M : ??1955 (Age: 64) Service: ??Cardiothoracic Location: ??1204, ?? Hospital #: ??[id number] Patient Type: ?? Inpatient Accession #: ? [id number] Taken: ? 05/09/2020 Received ? 05/09/2020 Reported: ? 05/10/2020 Physician(s): ? Hardeep Reed M.D. Espinoza Coker M.D. DIAGNOSIS: Heart, left atrial appendage, excision: ? - Mild myocyte hypertrophy [facility]/05/10/2020 14:26 Examining Pathologist: Jagdeep Spears M.D. Report Reviewed and Electronically Signed By ??Jagdeep Spears M.D. SPECIMEN TYPE: A: LEFT ATRIAL APPENDAGE CLINICAL IMPRESSION AND HISTORY: Nonrheumatic mitral valve regurgitation. ??Coronary artery disease involving [place] coronary artery of [place] heart without angina pectoris. GROSS DESCRIPTION: Received [...] containing blood. ??There are no gross lesions. ??Special Warfare Boat Operator sections are submitted in cassette A1. [facility]/05/09/2020 18:05 ? [facility] MICROSCOPIC DESCRIPTION: Microscopic examination supports the above captioned diagnosis. Clerical Data Follows A; 11445 REPORT IMAGES AND/OR SCANNED DOCUMENTS ONLY VIEWABLE IN PDF FORMAT The immunohistochemical test(s) cited in this report, if any, was developed and its performance characteristics determined by [facility] Pathology Department. ??It has not been cleared or approved by the U.S. Food and Drug Administration. ??The FDA has determined that such clearance or approval is not necessary. ??This test is used for clinical purposes. ??It should not be regarded as investigational or for research. ??[facility] Laboratory is certified under the Clinical Laboratory [...] MD LAB PATHOLOGY ORDERABLES Final Result PATHOLOGY [facility] Laboratory [address] [place] [address] * (ABNORMAL) POC Blood Gas and Chemistries, Arterial - (05/09/2020 11:19 AM GLASS ROLLING MACHINE OPERATOR) pH, Art POC 7.36 7.35 - 7.45 [facility] pCO2, Art POC 35 35 - 45 mmHg [facility] pO2, Art POC 260(H) 80 - 108 mmHg [facility] Na, POC 137 135 - 145 mmol/L [facility] K POC 4.3 3.3 - 4.9 mmol/L [facility] Comment: Interpretive Data Unable to assess hemolysis. ??Invitro hemolysis causes falsely elevated potassium. Current Interpretive Data was last revised on 2019. Cl, POC 106 97 - 110 mmol/L [facility] Glucose, POC 121 70 - 199 mg/dL [facility] Lactate, POC 1.0 0.0 - 2.0 mmol/L [facility] O2Hb, Art POC 97.8(H) 90.0 - 95.0 % [facility] Carboxhgb fract 1.7 0.0 - 2.9 % [facility] Methemoglobin 0.6 0.0 - 1.9 % [facility] HHb, POC 0.0 0.0 - 5.0 % [facility] SO2 (isabel) arterial 100(H) 90 - 95 % [facility] Total CO2, Art POC 21(L) 22 - 32 mmol/L [facility] BE, art, POC -4.9(L) -2.0 - 2.0 mmol/L [facility] HCO3, Art POC 21 20 - 30 mmol/L [facility] Hct, POC 34.0(L) 38.9 - 50.3 % [facility] Total Hb, POC 11.2(L) 13.0 - 17.5 g/dL [facility] Blood specimen (specimen) 05/09/2020 11:19 AM GLASS ROLLING MACHINE OPERATOR 05/09/2020 11:19 AM GLASS ROLLING MACHINE OPERATOR Hardeep Reed MD LAB POCT ORDERABLES - DE VICE Final Result Performing Organization Address [facility] Co de Phone Number [facility] [address] [facility] [employer] [place], [place] [phone] * (ABNORMAL) POC Activated Clotting Time, High Range (05/09/2020 11:00 AM GLASS ROLLING MACHINE OPERATOR) ACT 477(H) 87 - 138 sec [facility] Blood specimen (specimen) 05/09/2020 11:00 AM GLASS ROLLING MACHINE OPERATOR 05/09/2020 11:00 AM GLASS ROLLING MACHINE OPERATOR Hardeep Reed MD LAB BLOOD ORDERABLES Fin al Result Performing Organization Address [facility]/ZIP Co de Phone Number [facility] [address] [facility] [employer] [place], [place] [phone] * (ABNORMAL) POC Activated Clotting Time, High Range (05/09/2020 10:50 AM GLASS ROLLING MACHINE OPERATOR) ACT 428(H) 87 - 138 sec [facility] Blood specimen (specimen) 05/09/2020 10:50 AM GLASS ROLLING MACHINE OPERATOR 05/09/2020 10:50 AM GLASS ROLLING MACHINE OPERATOR Hardeep Reed MD LAB BLOOD ORDERABLES Fin al Result Performing Organization Address [facility] Co de Phone Number [facility] [address] [facility] [employer] [place], [place] [phone] * (ABNORMAL) POC Blood Gas and Chemistries, Arterial - (05/09/2020 10:49 AM GLASS ROLLING MACHINE OPERATOR) pH, Art POC 7.33(L) 7.35 - 7.45 [facility] pCO2, Art POC 50(H) 35 - 45 mmHg [facility] pO2, Art POC 122(H) 80 - 108 mmHg [facility] Na, POC 140 135 - 145 mmol/L [facility] K POC 4.4 3.3 - 4.9 mmol/L [facility] Comment: Interpretive Data Unable to assess hemolysis. ??Invitro hemolysis causes falsely elevated potassium. Current Interpretive Data was last revised on 2019. Cl, POC 107 97 - 110 mmol/L [facility] Ionized Ca, POC 4.78 4.40 - 5.40 mg/dL [facility] Glucose, POC 162 70 - 199 mg/dL [facility] Lactate, POC 1.1 0.0 - 2.0 mmol/L [facility] O2Hb, Art POC 96.7(H) 90.0 - 95.0 % [facility] Carboxhgb fract 2.1 0.0 - 2.9 % [facility] Methemoglobin 0.8 0.0 - 1.9 % [facility] HHb, POC 0.3 0.0 - 5.0 % [facility] SO2 (isabel) arterial 100(H) 90 - 95 % [facility] Total CO2, Art POC 28 22 - 32 mmol/L [facility] BE, art, POC -0.2 -2.0 - 2.0 mmol/L [facility] HCO3, Art POC 25 20 - 30 mmol/L [facility] Hct, POC 42.0 38.9 - 50.3 % [facility] Total Hb, POC 14.0 13.0 - 17.5 g/dL [facility] Blood specimen (specimen) 05/09/2020 10:49 AM GLASS ROLLING MACHINE OPERATOR 05/09/2020 10:49 AM GLASS ROLLING MACHINE OPERATOR us Hardeep Reed MD LAB POCT ORDERABLES - DE VICE Final Result [facility] [address] Department of [place] [address] * (ABNORMAL) POC Blood Gas and Chemistries, Arterial - (05/09/2020 10:04 AM GLASS ROLLING MACHINE OPERATOR) pH, Art POC 7.41 7.35 - 7.45 [facility] pCO2, Art POC 38 35 - 45 mmHg [facility] pO2, Art POC 132(H) 80 - 108 mmHg [facility] Na, POC 141 135 - 145 mmol/L [facility] K POC 4.3 3.3 - 4.9 mmol/L [facility] Comment: Interpretive Data Unable to assess hemolysis. ??Invitro hemolysis causes falsely elevated potassium. Current Interpretive Data was last revised on 2019. Cl, POC 107 97 - 110 mmol/L [facility] Ionized Ca, POC 4.84 4.40 - 5.40 mg/dL [facility] Glucose, POC 146 70 - 199 mg/dL [facility] Lactate, POC 0.8 0.0 - 2.0 mmol/L [facility] O2Hb, Art POC 97.3(H) 90.0 - 95.0 % [facility] Carboxhgb fract 2.0 0.0 - 2.9 % [facility] Methemoglobin 0.7 0.0 - 1.9 % [facility] HHb, POC 0.0 0.0 - 5.0 % [facility] SO2 (isabel) arterial 100(H) 90 - 95 % [facility] Total CO2, Art POC 25 22 - 32 mmol/L [facility] BE, art, POC -0.3 -2.0 - 2.0 mmol/L [facility] HCO3, Art POC 25 20 - 30 mmol/L [facility] Hct, POC 44.0 38.9 - 50.3 % [facility] Total Hb, POC 14.5 13.0 - 17.5 g/dL [facility] Blood specimen (specimen) 05/09/2020 10:04 AM GLASS ROLLING MACHINE OPERATOR 05/09/2020 10:04 AM GLASS ROLLING MACHINE OPERATOR us Hardeep Reed MD LAB POCT ORDERABLES - DE VICE Final Result [facility] [address] Department [place] [place] [address] * POC Activated Clotting Time, High Range (05/09/2020 9:35 AM GLASS ROLLING MACHINE OPERATOR) Pathologist [facility] [place] ACT 107 87 - 138 sec [facility] Blood specimen (specimen) 05/09/2020 9:35 AM GLASS ROLLING MACHINE OPERATOR 05/09/2020 9:35 AM GLASS ROLLING MACHINE OPERATOR Hardeep Reed MD LAB BLOOD ORDERABLES Fin al Result Performing Organization Address [facility] de Phone Number [facility] [address] Department [place] [address] * (ABNORMAL) aPTT (05/09/2020 7:39 AM GLASS ROLLING MACHINE OPERATOR) [facility] aPTT 26(L) 27 - 37 sec [facility] Comment: Interpretive data Heparin therapeutic range: 52-80 seconds Range based on correlation with therapeutic heparin activity range of 0.3-0.7 units/ml. Current interpretive data was last revised on 2019. Blood specimen (specimen) 05/09/2020 7:39 AM GLASS ROLLING MACHINE OPERATOR 05/09/2020 7:48 AM GLASS ROLLING MACHINE OPERATOR Hardeep Reed MD LAB BLOOD ORDERABLES Fin al Result Performing Organization Address [facility] de Phone Number [facility] [address] [facility] [place] [address] * Protime-INR (05/09/2020 7:39 AM GLASS ROLLING MACHINE OPERATOR) [facility] PT 12.0 9.5 - 13.6 sec [facility] INR 1.1 0.9 - 1.2 [facility] Comment: Interpretive data Oral anticoagulant therapeutic ranges: Venous thromboembolism prophylaxis or treatment: 2.0-3.0 CARDIOLOGY Standard range: 2.0-3.0 High-intensity range: 2.5-3.5 Refer to indication-specific guidelines for appropriate target ranges for prosthetic heart valve replacement. Current interpretive data was last revised on 2019. Blood specimen (specimen) 05/09/2020 7:39 AM GLASS ROLLING MACHINE OPERATOR 05/09/2020 7:48 AM GLASS ROLLING MACHINE OPERATOR Hardeep Reed MD LAB BLOOD ORDERABLES Fin al Result Performing Organization Address [facility] Co de Phone Number [facility] [address] [facility] [place] [address] * Hemoglobin A1c (05/09/2020 7:39 AM GLASS ROLLING MACHINE OPERATOR) Pathologist [facility] [place] Hgb A1C 5.3 4.0 - 5.6 % [facility] Estimated Average Glucose 105 mg/dL [facility] Comment: The ADA recommends reporting an estimated Average Glucose (eAG) with all Hemoglobin A1c results using the equation derived from a study of 507 normal and diabetic adults. ??Minority populations were underrepresented and children were not included. ?? (Diabetes Care 31:1074-4074, 2008). ??The eAG is not equivalent to a fasting glucose. Blood specimen (specimen) 05/09/2020 7:39 AM GLASS ROLLING MACHINE OPERATOR 05/09/2020 7:48 AM GLASS ROLLING MACHINE OPERATOR Hardeep Reed MD LAB BLOOD ORDERABLES Fin al Result Performing Organization Address [facility] Co de Phone Number [facility] [address] [place] [place] [address] * Check Sample (05/09/2020 7:39 AM GLASS ROLLING MACHINE OPERATOR) Pathologist [facility] [place] ABO Rh A Positive [facility] HCLL OTHER 05/09/2020 7:39 AM GLASS ROLLING MACHINE OPERATOR 05/09/2020 7:50 AM GLASS ROLLING MACHINE OPERATOR Hardeep Reed MD LAB BLOOD ORDERABLES Fin al Result Performing Organization Address [facility] Co de Phone Number [facility] [address] Department [place] [address] * Prepare RBC: 3 Units (05/09/2020 7:27 AM GLASS ROLLING MACHINE OPERATOR) Product code [id number] [facility] Unit Number [id number] 6-O [facility] Product [facility] Type [facility] Dispense Status RETURNED [facility] Product code [id number] [facility] Unit Number [id number] 1-S [facility] Product Blood Type APOS [facility] Dispense Status RETURNED [facility] Product code [id number] [facility] Unit Number [id number] 9-B [facility] Product Blood Type [facility] Dispense Status RETURNED [facility] Blood specimen (specimen) 05/09/2020 7:27 AM GLASS ROLLING MACHINE OPERATOR Narrative [facility] - 05/15/2020 10:52 AM GLASS ROLLING MACHINE OPERATOR Specify Procedure:->CABG/mitral valve repair Are special requirements needed? (all products are leukoreduced)->No Date required:-[id number] LRRBC # of [id number] Reasons:-Hold for procedure (specify procedure)} Magaly Sheth [facility] BLOOD BANK PRODUCT ORDERA BLES Final Result [facility] [address] Department [place] [address] documented in this encounter Visit Diagnoses Diagnosis Nonrheumatic mitral valve regurgitation- Primary Nonrheumatic mitral valve regurgitation Coronary artery disease involving [place] coronary artery of [place] heart without angina pectoris Cardiogenic shock (HCC) Cardiogenic shock S/P CABG x 2 Postsurgical aortocoronary bypass status S/P MVR (mitral valve repair) Coronary artery disease involving [place] coronary artery of [place] heart without angina pectoris Nonrheumatic mitral valve regurgitation Coronary artery disease involving [place] coronary artery of [place] heart without angina pectoris documented in this encounter Admitting Diagnoses Diagnosis Nonrheumatic mitral valve regurgitation Coronary artery disease involving [place] coronary artery of [place] heart without angina pectoris documented in this encounter Administered Medications Inactive Administered Medications - up to 3 most recent administrations Medication Order MAR Action Action Date Dose Rate Site apixaban (ELIQUIS) tablet 5 mg 5 mg, oral, Every 12 hours scheduled, First dose on Sat05/13/20 at 2100, Nurse to discontinue heparin infusion order and associated bolus at first administration of apixaban using ? order condition met? order source, Indications: atrial fibrillationIndications:atrial fibrillation Given 05/15/2020 9:06 AM GLASS ROLLING MACHINE OPERATOR 5 mg Given 05/14/2020 8:40 PM GLASS ROLLING MACHINE OPERATOR 5 mg Given 05/14/2020 8:25 AM GLASS ROLLING MACHINE OPERATOR 5 mg aspirin chewable tablet 81 mg 81 mg, oral, Daily, First dose (after last modification) on 05/14/20 at 0900, If able to swallow medications. Within 6h of arrival to CVR if chest tube output allows. Given 05/15/2020 9:06 AM GLASS ROLLING MACHINE OPERATOR 81 mg Given 05/14/2020 8:24 AM GLASS ROLLING MACHINE OPERATOR 81 mg atorvastatin (LIPITOR) tablet 80 mg 80 mg, oral, Nightly, First dose on Sat05/10/20 at 2100 Given 05/14/2020 8:40 PM GLASS ROLLING MACHINE OPERATOR 80 mg Given 05/13/2020 9:39 PM GLASS ROLLING MACHINE OPERATOR 80 mg Given 05/12/2020 9:45 PM GLASS ROLLING MACHINE OPERATOR 80 mg docusate sodium (COLACE) capsule 100 mg 100 mg, oral, Daily, First dose on Sat05/09/20 at 1515, If able to swallow medications. Hold for diarrhea. , Indications: constipationIndications:constipation Given 05/15/2020 9:06 AM GLASS ROLLING MACHINE OPERATOR 100 mg Given 05/14/2020 8:24 AM GLASS ROLLING MACHINE OPERATOR 100 mg Given 05/13/2020 9:35 AM GLASS ROLLING MACHINE OPERATOR 100 mg HYDROcodone-acetaminophen (NORCO) 5-325 mg per tablet 1 tablet 1 tablet, oral, Every 4 hours PRN, 1st line for pain, Starting on Sat05/12/20 at 0812, Indications: PainIndications:Pain Given 05/14/2020 10:29 PM GLASS ROLLING MACHINE OPERATOR 1 t ablet Given 05/14/2020 8:25 AM GLASS ROLLING MACHINE OPERATOR 1 tablet Given 05/13/2020 9:39 PM GLASS ROLLING MACHINE OPERATOR 1 tablet HYDROcodone-acetaminophen (NORCO) 5-325 mg per tablet 2 tablet 2 tablet, oral, Every 4 hours PRN, 2nd line for pain, Starting on Sat05/12/20 at 0812, Indications: PainIndications:Pain lidocaine (LIDODERM) 5 % patch 2 patch 2 patch, transdermal, Administer over 12 Hours, Daily, First dose on Sat05/11/20 at 0930, Do not cover the holes on the top side of the patch., Apply to affected area: chest Medication Applied 05/15/2020 9:12 AM GLASS ROLLING MACHINE OPERATOR 2 patches Chest Medication Applied 05/14/2020 8:25 AM GLASS ROLLING MACHINE OPERATOR 2 patches Chest Medication Applied 05/13/2020 9:37 AM GLASS ROLLING MACHINE OPERATOR 2 patches Chest metoprolol tartrate (LOPRESSOR) immediate release tablet 50 mg 50 mg, oral, 2 times daily, First dose (after last modification) on Sat05/15/20 at 0900 Given 05/15/2020 9:06 AM GLASS ROLLING MACHINE OPERATOR 50 mg milrinone (PRIMACOR) 3.3 mg in sodium chloride 0.9% 46.7 mL solution As needed, Starting on Sat05/09/20 at 1114, Intra-Op Given 05/09/2020 11:14 AM GLASS ROLLING MACHINE OPERATOR ondansetron (ZOFRAN) injection 4 mg 4 mg, intravenous, Administer over 2 Minutes, Every 6 hours PRN, nausea, vomiting, Starting on Sat05/09/20 at 1433, Administer no sooner than 6 hours after last dose. , Indications: Nausea and VomitingIndications:Nausea and Vomiting Given 05/12/2020 5:46 PM GLASS ROLLING MACHINE OPERATOR 4 mg Given 05/11/2020 8:31 AM GLASS ROLLING MACHINE OPERATOR 4 mg papaverine 120 mg, heparin 10,000 Units in Lactated Ringer's (LR) 500 mL irrigation solution As needed, Starting on Sat05/09/20 at 1114, Intra-Op Given 05/09/2020 11:14 AM GLASS ROLLING MACHINE OPERATOR Other (Comment) perflutren protein-a (OPTISON) 3 mL in sodium chloride 0.9% 8 mL syringe 1-8 mL, intravenous, Once in imaging, contrast, Starting on Sat05/13/20 at 0815, For 1 dose, Intra-Procedure (CV) polyethylene glycol (MIRALAX) packet 17 g 17 g, oral, Daily PRN, constipation, Starting on Sat05/09/20 at 1433, Hold for diarrhea, Indications: constipationIndications:constip ation Given 05/13/2020 5:42 AM GLASS ROLLING MACHINE OPERATOR 17 g potassium chloride ER (KLOR-CON) extended release tablet 20 mEq 20 mEq, oral, Every 4 hours PRN, Give for potassium level 3.8 - 4.0, Starting on Sat05/11/20 at 1027, Do not crush, chew, cut, dissolve, open or otherwise manipulate tablet/capsule. Given 05/13/2020 5:42 AM GLASS ROLLING MACHINE OPERATOR 20 mEq Given 05/12/2020 6:41 AM GLASS ROLLING MACHINE OPERATOR 20 mEq senna (SENOKOT) tablet 1 tablet 1 tablet, oral, 2 times daily, First dose on Sat05/10/20 at 0900, If able to swallow medications. Hold for diarrhea., Indications: constipationIndications:constipation Given 05/14/2020 8:24 AM GLASS ROLLING MACHINE OPERATOR 1 table t Given 05/13/2020 9:39 PM GLASS ROLLING MACHINE OPERATOR 1 tablet Given 05/13/2020 9:35 AM GLASS ROLLING MACHINE OPERATOR 1 tablet sodium chloride 0.9% flush 0.5-20 mL 0.5-20 mL, intra-catheter, Every 8 hours scheduled, First dose on Sat05/09/20 at 1515, Flush volume based on line type and size. , Indications: FlushingIndications:Flushing Given 05/15/2020 6:16 AM GLASS ROLLING MACHINE OPERATOR 10 mL Given 05/14/2020 8:41 PM GLASS ROLLING MACHINE OPERATOR 10 mL Given 05/14/2020 1:20 PM GLASS ROLLING MACHINE OPERATOR 10 mL sodium chloride 0.9% irrigation As needed, Starting on Sat05/09/20 at 1115, Intra-Op Given 05/09/2020 11:15 AM GLASS ROLLING MACHINE OPERATOR 3,000 mL Surgical Site documented in this encounter Discontinued Medications Medication Sig Discontinue Reason Start Date End Da te atorvastatin (LIPITOR) 20 mg tablet Take 20 mg by mouth daily Stop Taking at Discharge 05/15/2020 documented as of this encounter Active and Recently Administered Medications Times are shown in GLASS ROLLING MACHINE OPERATOR. Scheduled Medication Order 05/13/2020 05/14/2020 05/15/2020 acetaminophen (TYLENOL) tablet 650 mg (COMPLETED) 650 mg, oral, Once, On Sat05/15/20 at 0630, For 1 dose 0605 (Given - Provider: Alma Rosa Lang RN) apixaban (ELIQUIS) tablet 5 mg 5 mg, oral, Every 12 hours scheduled, First dose on Sat05/13/20 at 2100, Nurse to discontinue heparin infusion order and associated bolus at first administration of apixaban using ? order condition met? order source, Indications: atrial fibrillation 2138 (Given - Provider: Mandi Arreaga RN) 824 (Given - Provider: Rex Mai RN)2039 (Given - Provider: Alma Rosa Lang RN) 09 (Given - Provider: Rex Mai, DESIREE) aspirin chewable tablet 81 mg(Linked Group 1) 81 mg, oral, Daily, First dose (after last modification) on Sat05/14/20 at 0900, If able to swallow medications. Within 6h of arrival to CVR if chest tube output allows. 0824 (Given - Provider: Rex Mai RN) 0906 (Given - Provider: Rex Mai RN) aspirin tablet 325 mg (CANCELED) 325 mg, [...] DESIREE) 2039 (Given - Provider: Alma Rosa Lang RN) docusate sodium (COLACE) capsule 100 mg(Linked Group 2) 100 mg, oral, Daily, First dose on Sat05/09/20 at 1515, If able to swallow medications. Hold for diarrhea. , Indications: constipation 0935 (Given - Provider: Ese Patterson RN) 0824 (Given - Provider: Rex Mai RN) 09 (Given - Provider: Rex Mai RN) furosemide (LASIX) 10 mg/mL injection 40 [...] chest 0937 (Medication Applied - Provider: Ese Patterson RN)2213 (Medication Removed - Provider: Mandi Arreaga, DESIREE) 0825 (Medication Applied - Provider: Rex Mai, DESIREE)2045 (Medication Removed - Provider: Alma Rosa Lang, DESIREE) 0912 (Medication Applied - Provider: Rex Mai RN)1145 (Due: Medication Removed - Provider: Automatic Discharge [...] at 0900 0824 (Given - Provider: Rex Mai RN)2039 (Given - Provider: Alma Rosa Lang RN) metoprolol tartrate (LOPRESSOR) immediate release tablet 50 mg 50 mg, oral, 2 times daily, First dose (after last modification) on Sat05/15/20 at 0900 0906 (Given - Provider: Rex Mai RN) potassium chloride ER (KLOR-CON) extended release tablet 20 mEq (COMPLETED) 20 mEq, oral, Once, On Sat05/13/20 at 1115, For 1 dose, Do not crush, chew, cut, dissolve, open or otherwise manipulate tablet/capsule. 1244 (Given - Provider: Ese Patterson RN) senna (SENOKOT) tablet 1 tablet(Linked Group 3) 1 tablet, oral, 2 times daily, First dose on Sat05/10/20 at 0900, If able to swallow medications. Hold for diarrhea., Indications: constipation 0935 (Given - Provider: Ese Patterson RN)213 (Given - Provider: Mandijane Arreaga RN) 0824 (Given - Provider: Rex Mai RN)204 (Not Given - Provider: Alma Rosa Lang RN - Reason: Patient/family refused) 09 (Not Given - Provider: Rex Mai RN [...] RN) 0600 (Due)1320 (Given - Provider: Rex Mai RN)204 (Given - Provider: Alma Rosa Lang RN) 0616 (Given - Provider: Alma Rosa Lang [...] Mandi Arreaga RN)0935 (Given - Provider: Ese Patterson, DESIREE)1606 (Given - Provider: Ese Patterson, DESIREE)2139 (Given - Provider: Mandi Arreaga RN) 0825 (Given - Provider: Rex Mai RN)2229 (Given - Provider: Alma Rosa Lang RN) [...] in sodium chloride 0.9% 8 mL syringe 2 05/16/20202020 acetaminophen (TYLENOL) tablet 650 mg 1 metoprolol tartrate (LOPRESS OR) immediate release tablet 50 mg 1 05/15/2020 metoprolol tartrate (LOPRESS OR) immediate release tablet 25 mg 1 05/14/2020 apixaban (ELIQUIS) tablet 5 mg 1 05/13/2020 aspirin chewable tablet 81 mg 1 05/13/2020 furosemide (LASIX) 10 mg/mL injection 40 mg 2 05/13/2020 05/12/2020 potassium chloride ER (KLOR- CON) extended release tablet 20 mEq 2 05/13/2020 05/11/2020 HYDROcodone-acetaminophen (N ORCO) 5-325 mg per tablet 1 tablet 1 05/12/2020 HYDROcodone-acetaminophen (N ORCO) 5-325 mg per tablet 2 tablet 1 05/12/2020 furosemide (LASIX) 10 mg/mL injection 20 mg 1 05/11/2020 ketorolac (TORADOL) 15 mg/mL injection 15 mg 1 05/11/2020 lidocaine (LIDODERM) 5 % patch 2 patch 1 metoprolol tartrate (LOPRESS OR) immediate release tablet 12.5 mg 1 05/11/2020 oxyCODONE (ROXICODONE) tablet 10 mg 3 05/1105/10/2020 potassium chloride ER (KLOR- CON) extended release tablet 40 mEq 1 05/11/2020 atorvastatin (LIPITOR) tablet 80 mg 1 05/10 HYDROmorphone (DILAUDID) injection 0.2 mg 1 05/10/2020 Lactated Ringer's (LR) bolus 250 mL 1 05/10 Lactated Ringer's (LR) bolus 500 mL 1 05/10 oxyCODONE (ROXICODONE) tablet 5 mg 2 2020 sodium bicarbonate 8.4 % (1 mEq/mL) injection 50 mEq 2 05/10/2020 05/09/2020 acetaminophen (TYLENOL) 32 m g/mL oral solution 1,000 mg 1 05/09/2020 acetaminophen (TYLENOL) suppository 650 mg 1 05/09/2020 acetaminophen (TYLENOL) tablet 1,000 mg 1 0 05/09/2020 albumin 5 % bottle 12.5 g 1 05/09/2020 aspirin suppository 300 mg 1 05/09/2020 aspirin tablet 325 mg 2 05/09/2020 bisacodyL (DULCOLAX) suppository 10 mg 1 ceFAZolin (ANCEF) 2,000 mg/2 0 mL in sterile water (premix) 2,000 mg 2 05/09/2020 dexmedeTOMIDine in dextrose 5% (PRECEDEX) 400 mcg/100 mL (4 mcg/mL) infusion (premix) 1 05/09/2020 dextrose (D10W) 10% bolus 125 mL 1 05/09/19 docusate (COLACE) 10 mg/mL o ral liquid 100 mg 1 05/09/2020 docusate sodium (COLACE) capsule 100 mg 1 0 05/09/2020 EPINEPHrine 2,000 mcg in sod ium chloride 0.9% 100 mL (20 mcg/mL) infusion 1 05/09/2020 famotidine (PEPCID) injection 20 mg 1 05/09 fentaNYL (SUBLIMAZE) preserv ative free injection 50 mcg 1 05/09/2020 heparin 5,000 unit/mL inject ion 5,000 Units 1 05/09/2020 insulin lispro (HumaLOG, ADM ELOG) injection 1-14 Units 1 05/09/2020 insulin regular (HumuLIN R, NovoLIN R) 100 Units in sodium chloride 0.9% 100 mL (1 Units/mL) infusion 1 05/09/2020 insulin regular bolus from bag 2-14 Units 2 05/09/2020 norepinephrine in 0.9% sodiu m chloride (LEVOPHED) 8,000 mcg/250 mL (32 mcg/mL) infusion (premix) 1 05/09/2020 ondansetron (ZOFRAN) injection 4 mg 1 05/09 polyethylene glycol (MIRALAX) packet 17 g 1 05/09/2020 potassium chloride 20 mEq/50 mL in sterile water (premix) 20 mEq 1 05/09/2020 propofol (DIPRIVAN) 10 mg/mL infusion 1 propofoL (DIPRIVAN) IV 1 05/09/2020 senna (SENOKOT) tablet 1 tablet 1 senna 1.76 mg/mL syrup 8.8 mg 1 05/09/2020 sodium chloride 0.9% flush 0.5-20 mL 3 04/19 sodium chloride 0.9% infusion 2 05/09/2020 sodium chloride 0.9% solution 1,000 mL 1 vancomycin 1500 mg/250 mL in sodium chloride 0.9% (premix) 1,500 mg 2 05/09/2020 Lab Orders Without Results Count Last Ordered [...] 05/11/2020 documented in this encounter Care Teams Combination Operator Relationship Specialty Start Date End Date Espinoza Coker MD [address] [place] [address] PCP - General Internal Medicine 04/29/20 Espinoza Coker MD [address] [place] [address] Internal Medicine 04/29/20 documented as of this encounter
--- OUTSIDE RECORDS SUMMARY | 2024-03-08 04:34 | XMS_ITS | Encounter Summary ---
Author Organization [facility] Address [address] [place] [address] Care Team Providers Care Electrical Installation Supervisor Name Role Phone Espinoza Coker MD Primary Care Provider [phone] Espinoza Coker MD Unavailable [phone] Reason for Referral * Diagnostic Imaging (Routine) - Closed Specialty Diagnoses / Procedures Referred By Contac t Referred To Contact Diagnoses Nonrheumatic mitral valve regurgitation Procedures X-ray chest 2 views Magaly Sheth CNS Phone: tel: fax: [id number] [place] [address] Referral ID Status Reason Start Date Expiration Date Visits Re quested Visits Authorized [id number] Closed 05/02/2020 06/01/2021 1 1 AND TRIM WORKER Reason for Visit * Reason Comments Pre-op Exam MR/CAD Encounter Details Date Type Department Care Team (Latest Contact Info) Description 05/02/2020 7:30 AM TOP AND TRIM WORKER Office Visit Cardiovascular and Thoracic Surgery [address] [place] [address] Hardeep Reed MD [address] [facility] [address] [place] [address] Nonrheumatic mitral valve regurgitation (Primary Dx); Coronary artery disease involving campo coronary artery of campo heart without angina pectoris Social History Tobacco Use Types Packs/Day Years Used Date Smoking Tobacco: Never Smokeless Tobacco: Never Alcohol Use Standard Drinks/Week Comments Not Currently 0 (1 standard drink = 0.6 oz pur e alcohol) Sex and Gender Information Value Date Recorded Sex Assigned at Not on file Legal Sex Male 7:00 PM TOP AND TRIM WORKER Gender Identity Male 09/13/2020 2:28 PM CDT Sexual Orientation Not on file documented as of this encounter Last Filed Vital Signs Vital Sign Reading Time Taken Comments Blood Pressure 150/100 05/02/2020 7:46 AM TOP AND TRIM WORKER Pulse 100 05/02/2020 7:46 AM TOP AND TRIM WORKER Temperature - - Respiratory Rate 18 05/02/2020 7:46 AM TOP AND TRIM WORKER Oxygen Saturation - - Inhaled Oxygen Concentration - - Weight 90.7 kg (200 lb) 05/02/2020 7:46 AM TOP AND TRIM WORKER Height 185.4 cm (6' 1 ) 05/02/2020 7:46 AM TOP AND TRIM WORKER Body Mass Index 26.39 05/02/2020 7:46 AM TOP AND TRIM WORKER documented in this encounter Patient Instructions * Patient Instructions* Magaly Sheth CNS - 05/02/2020 7:30 AM TOP AND TRIM WORKER Surgery planned on preop instructions reviewed AND TRIM WORKER documented in this encounter Plan of Treatment Not on file documented as of this encounter Results * Basic metabolic panel (05/02/2020 10:03 AM TOP AND TRIM WORKER) Sodium 142 135 - 145 mmol/L [facility] Potassium, pl 4.1 3.3 - 4.9 mmol/L [facility] Chloride 106 97 - 110 mmol/L [facility] CO2 26 22 - 32 mmol/L [facility] Anion gap 10 2 - 15 mmol/L [facility] BUN 17 8 - 25 mg/dL [facility] Creatinine 1.13 0.80 - 1.30 mg/dL [facility] Glucose 105 70 - 199 mg/dL [facility] Comment: Interpretive Data Fasting glucose >/= 126 [...] interpretive data was last revised 2017. Calcium 9.4 8.5 - 10.3 mg/dL [facility] Blood specimen (specimen) 05/02/2020 10:03 AM TOP AND TRIM WORKER 05/02/2020 10:17 AM TOP AND TRIM WORKER Magaly Sheth RO[address] MARKER LAB BLOOD ORDERABLES Erinn wallace Result [facility] [address] [place] [address] * CBC without differential (05/02/2020 10:03 AM TOP AND TRIM WORKER) WBC 6.7 3.8 - 9.9 K/cumm [facility] Hgb 15.0 13.0 - 17.5 g/dL [facility] Hct 45.5 38.9 - 50.3 % [facility] Plt 255 150 - 400 K/cumm [facility] MPV 9.8 9.1 - 12.3 fL [facility] RBC 5.40 4.30 - 5.80 M/cumm [facility] MCV 84.3 81.3 - 96.4 fL [facility] MCH 27.8 27.1 - 33.3 pg [facility] MCHC 33.0 32.3 - 35.7 g/dL [facility] RDW CV 13.7 11.1 - 14.9 % [facility] RDW SD 42.0 35.7 - 48.1 fL [facility] NRBC abs 0.00 0.00 - 0.01 K/cumm [facility] Blood specimen (specimen) 05/02/2020 10:03 AM TOP AND TRIM WORKER 05/02/2020 10:18 AM TOP AND TRIM WORKER Magaly [address] MARKER LAB BLOOD ORDERABLES Erinn l Result Performing Organization Address City/[facility]/ZIP Co de Phone Number [facility] [address] [facility] [place] [employer] [place] [address] * Type and screen (05/02/2020 10:03 AM TOP AND TRIM WORKER) Rogers, indirect Negative [facility] ABO Rh A Positive [facility] Blood specimen (specimen) 05/02/2020 10:03 AM TOP AND TRIM WORKER 05/02/2020 10:23 AM TOP AND TRIM WORKER Narrative [facility] - 05/02/2020 11:35 AM TOP AND TRIM WORKER Surgery this week No transfusions past 90 days Has the patient had Daratumumab or Isatuximab in the past 6 months?->Unknown [address]aly [address] MARKER LAB BLOOD BANK TEST ORDER MICHAEL Final Result Performing Organization Address [facility] Co de Phone Number [facility] [address] [place] [address] * COVID-19 Coronavirus RNA Nasopharyngeal (05/02/2020 10:03 AM TOP AND TRIM WORKER) Pathologist [facility] COVID-19 RNA Negative Negative [facility] Comment: Interpretive Data Synonyms for this test include: PCR and NAAT . ??Testing performed by the [facility] Molecular Infectious Disease Laboratory. ??This test is performed using the BONNIE SARS-CoV-2 Assay. ??This is a real-time RT-PCR test for the qualitative detection of nucleic acid from SARS-CoV-2. ??This assay has been reviewed by the FDA for Emergency Use Authorization (EUA). ??The performance characteristics have been verified by the [facility]. ?? Additional sample types have been validated by the performing laboratory. ??All results should be interpreted in clinical context and a negative result does not rule out infection. ?? Interpretive data last revised April 21, 2020. Testing performed by: [facility], [address] [place]., [address] First COVID-19 test? Unknown [facility] Comment:Testing performed by : [facility], [address] 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 Yes [facility] Comment:Testing performed by : [facility], [address] [facility], [address] status? No [facility] Comment:Testing performed by : [facility], [address] [facility], [address] Group care resident? No [facility] Comment:Testing performed by : [facility], [address] [facility], [address] Hospitalized? No [facility] Comment:Testing performed by : [facility], [address] [facility], [address] Is patient in ICU? No [facility] Comment:Testing performed by : [facility], [address] [facility], [address] Symptomatic as defined by CDC? No [facility] Comment:Testing performed by : [facility], [address] [facility], [address] Nasopharyngeal 05/02/2020 10 :03 AM TOP AND TRIM WORKER 05/02/2020 4:29 PM TOP AND TRIM WORKER Narrative [facility] - 05/03/2020 7:06 AM TOP AND TRIM WORKER What is the reason for testing?->Screening prior to scheduled procedure or surgery us Magaly Sheth RO[address] MARKER LAB MICROBIOLOGY - GENERA L ORDERABLES Final Result [facility] [address] [place] [address] * X-ray chest 2 views (05/02/2020 9:45 AM TOP AND TRIM WORKER) Anatomical Region Laterality Modality Body, Chest N/A Computed Radiogr aphy 05/02/2020 10:1 0 AM TOP AND TRIM WORKER Impressions 05/02/2020 10:13 AM TOP AND TRIM WORKER 1. ??Small right pleural effusion with adjacent atelectasis versus consolidation. 2. ??Faint interstitial opacities in both lungs, which may represent pulmonary edema. Electronically signed by: Hugo Ward M.D. Narrative 05/02/2020 10:13 AM TOP AND TRIM WORKER XR CHEST PA LATERAL 2 VIEWS: 05/02/2020 9:15 AM CLINICAL INDICATION: preop study. COMPARISON: None. FINDINGS: Cardiomediastinal silhouette is within normal limits. ??Trachea is midline. ??Pulmonary vasculature at the upper limits of normal. ??Faint interstitial opacities in both lungs with more focal hazy opacity in the right midlung Small right pleural effusion with adjacent atelectasis versus consolidation. ??Trace left pleural effusion. ??No pneumothorax. ??No acute osseous abnormality. Procedure Note Hugo Ward MD - 05/02/2020 XR CHEST PA LATERAL 2 VIEWS: 05/02/2020 9:15 AM CLINICAL INDICATION: preop study. COMPARISON: None. FINDINGS: Cardiomediastinal silhouette is within normal limits. Trachea is midline. Pulmonary vasculature at the upper limits of normal. Faint interstitial opacities in both lungs with more focal hazy opacity in the right midlung Small right pleural effusion with adjacent atelectasis versus consolidation. Trace left pleural effusion. No pneumothorax. No acute osseous abnormality. IMPRESSION: 1. Small right pleural effusion with adjacent atelectasis versus consolidation. 2. Faint interstitial opacities in both lungs, which may represent pulmonary edema. Electronically signed by: Hugo Ward M.D. Magaly Sheth [facility] IMG XR PROCEDURES Final R esult documented in this encounter Visit Diagnoses Diagnosis Nonrheumatic mitral valve regurgitation- Primary Coronary artery disease involving campo coronary artery of campo heart without angina pectoris Nonrheumatic mitral valve regurgitation Nonrheumatic mitral valve regurgitation documented in this encounter Care Teams Electrical Installation Supervisor Relationship Specialty Start Date End Date Espinoza Coker MD [address] [place] [address] PCP - General Internal Medicine 04/29/20 Espinoza Coker MD [address] [facility] [address] [place] [address] Internal Medicine 04/29/20 documented as of this encounter
--- OUTSIDE RECORDS SUMMARY | 2024-03-08 04:34 | XMS_ITS | Encounter Summary ---
Author Organization [facility] Address [address] [place] [address] Care Team Providers Care Contact Center Specialist Name Role Phone Espinoza Coker MD Primary Care Provider [phone] Reason for Visit * Reason Comments New Patient murmur, mitral regur g Encounter Details Date Type Department Care Team (Latest Contact Info) Description 04/21/2020 11:45 AM PHYSICS PROFESSOR Office Visit [facility] Cardiology [address] [facility] [address] [place] [id number] Price Jones MD [address] [facility] [address] [place] [address] Nonrheumatic mitral valve regurgitation (Primary Dx) Social History Tobacco Use Types Packs/Day Years Used Date Smoking Tobacco: Never Smokeless Tobacco: Never Alcohol Use Standard Drinks/Week Comments Not Currently 0 (1 standard drink = 0.6 oz pur e alcohol) Sex and Gender Information Value Date Recorded Sex Assigned at Not on file Legal Sex Male 7:00 PM PHYSICS PROFESSOR Gender Identity Male 09/13/2020 2:28 PM CDT Sexual Orientation Not on file documented as of this encounter Last Filed Vital Signs Vital Sign Reading Time Taken Comments Blood Pressure 140/90 04/21/2020 11:37 AM PHYSICS PROFESSOR Pulse 109 04/21/2020 11:37 AM PHYSICS PROFESSOR Temperature - - Respiratory Rate - - Oxygen Saturation 96% 04/21/2020 11:37 AM PHYSICS PROFESSOR Inhaled Oxygen Concentration - - Weight 94.3 kg (208 lb) 04/21/2020 11:37 AM PHYSICS PROFESSOR Height 182.9 cm (6') 04/21/2020 11:37 AM PHYSICS PROFESSOR Body Mass Index 28.21 04/21/2020 11:37 AM PHYSICS PROFESSOR documented in this encounter Progress Notes * Price Jones MD - 04/21/2020 11:45 AM CST [facility] 04/21/2020 CHIEF COMPLAINT Exertional dyspnea, and recent diagnosis of mitral valve disease HPI Fer Ragsdale is a 64 y.o. male with no previous history of known cardiac problems who is referred today as a new patient because of mitral valve regurgitation. 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 His symptoms have never been particularly severe that would cause him concerned and seek medical attention. He did state that for a couple of weeks in November his shortness of breath was more severe and he was a bit more concerned about a but that seemed to resolve. He had some coughing at that time. He has not been having any symptoms of chest pain pressure or heaviness he has not been having any orthopnea PND or accumulating lower extremity edema. He then had a examination with his primary care physician recently who heard a loud cardiac murmur and referred him for an echocardiogram. The study was done yesterday as an outpatient and demonstrates significant mitral valve disease. 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 The left atrium is quite large and also he has at least moderate pulmonary hypertension by analysis of TR velocity. Left ventricular size and contractility looked normal. In this setting I am seeing him today in consultation as a new patient. He does not have any history of h ypertension he does have some dyslipidemia which is being treated with rosuvastatin. MEDICAL HISTORY Past Medical History: Diagnosis Date ??? Mitral regurgitation History reviewed. No pertinent surgical history. Family History Problem Relation Age of Onset ??? Atrial fibrillation Mother ??? Other (CVA) Father Social History Socioeconomic History ??? Marital status: Spouse name: Not on file ??? Number of children: Not on file ??? Years of education: Not on file ??? Highest education level: Not on file Occupational History ??? Not on file Social Needs ??? Financial resource strain: Not on file ??? Food insecurity Worry: Not on file Inability: Not on file ??? Transportation needs Medical: Not on file Non-medical: Not on file Tobacco Use ??? Smoking status: Never Smoker ??? Smokeless tobacco: Never Used Substance and Sexual Activity ??? Alcohol use: Not Currently ??? Drug use: Not on file ??? Sexual activity: Not on file Lifestyle ??? Physical activity Days per week: Not on file Minutes per session: Not on file ??? Stress: Not on file Relationships ??? Social connections Talks on phone: Not on file Gets together: Not on file Attends christianity service: Not on file Active member of club or organization: Not on file Attends meetings of clubs or organizations: Not on file Relationship status: Not on file ??? Intimate partner violence Fear of current or ex partner: Not on file Emotionally abused: Not on file Physically abused: Not on file Forced sexual activity: Not on file Other Topics Concern ??? Not on file Social History Narrative ??? Not on file (Not in a hospital admission) No Known Allergies REVIEW OF SYSTEMS General ROS: negative for [...] for dry skin, eczema, pruritus and rash LABS AND OTHER DIAGNOSTIC TESTS No results found for: WBC, HGB, HCT, MCV, PLT No lab exists for component: LABALBU No results found for: CHOL No results found for: HDL No results found for: LDLCALC No results found for: TRIG No results found for: CHOLHDL PHYSICAL EXAM Vitals BP 140/90 (BP Location: Left arm, Patient Position: Sitting) Pulse 109 Ht 182.9 cm (6') Wt 94.3 kg (208 lb) SpO2 96% BMI 28.21 kg/m?? General appearance - alert, well appearing, and in no distress, oriented to person, place, and timeand acyanotic, in no respiratory distress Mental status [...] no tachypnea, retractions or cyanosis Heart - resting tachycardia regular rhythm, normal S1, S2, grade 3/6 holosystolic MR murmur. rubs, clicks or gallops, no JVD Abdomen [...] rashes, no suspicious skin lesions noted ASSESSMENT Mitral valve disease echocardiogram suggests posterior leaflet prolapse now with some flail elements and severe MR. Echocardiographic findings are indicative of mitral regurgitation that has been chronic says the atrium is quite large and there is evidence of secondary pulmonary hypertension. PLAN/RECOMMENDATIONS Schedule transesophageal echocardiogram as well as right and left heart catheterization anticipating cardiothoracic surgery consultation. Price Jones MD ICS PROFESSOR documented in this encounter Plan of Treatment Not on file documented as of this encounter Procedures Procedure Name Priority Date/Time Associated Diagnosis Comments LIPID PANEL Routine 03/15/2020 6:49 AM PHYSICS PROFESSOR documented in this encounter Results * (ABNORMAL) Lipid panel (03/15/2020 6:49 AM PHYSICS PROFESSOR) SCRIBED Cholesterol, Total 213(A) 0 - 200 EXTERNAL LAB SCRIBED HDL 38(A) 40 - 100 EXTERNAL LAB SCRIBED LDL 152(A) 0 - 100 EXTERNAL LAB SCRIBED Triglycerides 109 0 - 150 EXTERNAL LAB Blood specimen (specimen) 03/15/2020 6:49 AM PHYSICS PROFESSOR us Historical Provider LAB BLOOD ORDERABLES Erinn l Result EXTERNAL LAB documented in this encounter Visit Diagnoses Diagnosis Nonrheumatic mitral valve regurgitation- Primary documented in this encounter Discontinued Medications Medication Sig Discontinue Reason Start Date End Da te rosuvastatin (CRESTOR) 20 mg tablet Take 20 mg by mouth daily Alternate therapy 04/21/2020 documented as of this encounter Historical Medications * This list may reflect changes made after this encounter. cholecalciferol (VITAMIN D-3) 25 mcg (1,000 unit) tablet Take 1 tablet (1,000 Units total) by mouth daily aspirin 81 mg enteric coated tablet Take 1 tablet (81 mg total) by mouth daily atorvastatin (LIPITOR) 20 mg tablet Take 20 mg by mouth daily 05/15/2020 rosuvastatin (CRESTOR) 20 mg tablet Take 20 mg by mouth daily 04/21/2020 added in this encounter Care Teams Contact Center Specialist Relationship Specialty Start Date End Date Espinoza Coker MD [address] [place] [address] [place] [address] PCP - General Internal Medicine 04/20/20 04/28/20 documented as of this encounter
--- OUTSIDE RECORDS SUMMARY | 2024-03-08 04:34 | XMS_ITS | Encounter Summary ---
Author Organization [facility] Healthcare Address [address] [place] [address] Care Team Providers Care Casting Inspector Name Role Phone Espinoza Coker MD Primary Care Provider [phone] Espinoza Coker MD Unavailable [phone] Encounter Details Date Type Department Care Team (Late st Contact Info) Description 05/09/2020 9:19 AM VACUUM SPINDLE SANDER Anesthesia Event [facility] Operating Room [address] [place] [address] Masoud Ellsworth MD [address] [place] [address] Anesthesia Record Procedure Summary Procedure Name Responsible Anesthesiologist Anesthesia Start Time Anesthesia Stop Time CORONARY ARTERY BYPASS GRAFT x2, using Left Internal Mammary Artery, Right Saphenous Vein Graft, Mitral Valve Repair with neochords, tricuspid valve annuloplasty, left atrial appendage excision. (Chest) Masoud Ellsworth MD 05/09/20 0919 05/09/20 1439 Events Date Time Event Comment 05/09/2020 0919 An Start 0919 An Start Data 0920 In Room 0922 Perfusion Ready 0922 Start Data 0924 An Induction The patient was reevaluated immediately before moderate or deep sedation use and before anesthesia induction. 0926 An Intubation 1011 Incision Start 1029 ALBERTO placed 1029 Anesthesia Ready 1051 Quick Note Heparin in. Pre -bypass ACT = 428. Anesthesia to give additional heparin. Will re-check an ACT. I have 10k units in pump prime 1101 Quick Note Repeat pre-bypa ss ACT = 477 1114 [place]B [place] 1120 Labs Drawn CaO2 = 16.0 mL/ dL CO = 4.36 L/min; CI = 2.04 ACT = 848 1123 Cooling Start Drift to 34 de grees celsius 1123 Aortic Clamp ON 1127 CO2 On @ 4 LPM 1132 CO2 On Down to 3.5 LPM 1159 Labs Drawn ACT = 466; gave 5k units of heparin 1217 Labs Drawn CaO2 = 16.1 mL/ dL CO = 4.18 L/min; CI = 1.95 ACT = 493 1227 Rewarming Start 1254 Aortic Clamp OFF 1259 Labs Drawn ACT = 449; gave 5k units of heparin 1312 CO2 Off 1313 CPB OFF 1318 CPB ON 2 SVC only 1320 CPB OFF 2 1419 Perfusion Complete 1419 an stop data 1419 ALBERTO removed 1425 an stop data 1426 Out of Room 1438 Handoff to RN I completed my handoff to the receiving nurse during which we: 1. Patient identified 2. Responsible provider identified 3. Pertinent medical history reviewed 4. Procedure type and surgical course discussed 5. Intraoperative anesthetic management and any significant issues discussed 6. Expectations and concerns for postop period discussed 7. Questions solicited from receiving nurse 8. Patient disposition at the time of handoff: No value filed. 1439 An Stop Meds Name Total famotidine 20 mg midazolam 2 mg fentaNYL 250 mcg rocuronium 50 mg heparin 1,000 unit/ml 40,000 Units heparin injection 1,000 unit/mL 10,000 U nits insulin regular (HumuLIN R, NovoLIN R) 100 Units in sodium chloride 0.9% 100 mL (1 Units/mL) infusion 6.97 Units norepinephrine (LEVOPHED) 8, 000 mcg in dextrose 5% 250 mL (32 mcg/mL) infusion 4.93 mg propofol 200 mg ceFAZolin (ANCEF) 2,000 mg/20 mL in ster ile water (premix) 2,000 mg 4,000 mg HYDROmorphone 2 mg/mL 2 mcg diphenhydrAMINE 50 mg phenylephrine (JANIE-SYNEPHRINE) injection 4,600 mcg sodium bicarbonate injection 1 mEq/mL 50 mEq mannitol 25 % injection 12.5 g potassium arrest solution (2 meq/mL) 44 mEq mannitol 26 mL, lidocaine (c ardiac) (XYLOCAINE) 13 mL, magnesium sulfate 8 mL solution 35 mL anticoagulant citrate dextrose solution A injection 500 mL Lactated Ringer's (LR) 1,000 mL with albumin 100 mL, heparin 10 mL, mannitol 25 g solution 1,000 mL phenylephrine (JANIE-SYNEPHRIN E) 25,000 mcg in sodium chloride 0.9% 250 mL (100 mcg/mL) infusion 0.88 mg aminocaproic acid (AMICAR) bolus 10 g 10 g calcium chloride 2 g protamine 300 mg glycopyrrolate 0.2 mcg neostigmine 1 mg LR 1,000 mL NS 0.9% 1,000 mL * Agents Name O2 Air Isoflurane Inspired Isoflurane * Blood No blood administrations on file. Lines, Drains, and Airways Type Details Placement Removal Chest Tube Placement Date: 05/09/20; Placement Time: 0800; Location: Mediastinal; Removal Date: 05/14/20; Removal Time: 1030; Removal Reason: Per order 05/09/20 0800 by Ese Patterson NP 05/14/20 1030 by Rex Mai RN Chest Tube Placement Date: 05/09/20; Placement Time: 0800; Location: Mediastinal; Removal Date: 05/14/20; Removal Time: 1030; Removal Reason: Per order 05/09/20 0800 by Mandi Arreaga RN 05/14/20 1030 by Rex Mai RN Peripheral IV Placement Date: 05/09/20; Placement Time: 0830; Change Due: 05/13/20; Catheter Size: 18 G; Orientation: Right; Location: Hand; Site Prep: Chlorhexidine; Technique: Anatomical landmarks; Insertion Attempts: 2; Patient Tolerance: Tolerated well; Removal Date: 05/10/20; Removal Time: 2108; Removal Reason: Per protocol 05/09/20 0830 by Yasmeen Simmons RN 05/10/202108 by Felecia Leahy RN Arterial Line Placement Date: 05/09/20; Placemnt Time: 932 (created via procedure documentation); Size: 20 G; Orientation: Left; Location: Radial; Securement: Taped, Transparent dressing; Removal Date: 05/11/20; Removal Time: 0840 05/09/20932 by Masoud Ellsworth MD 05/11/20 0840 by Vilma Tello RN Introducer Placement Date: 05/09/20; Placement Time: 09 (created via procedure documentation); Existing LDA Placed by: Yes; Site Prep Agent Dried: Yes; Size: introducer sheath; Insertion Attempts: 05/11/20; Securement: 0550 05/09/20 0933 by Masoud Ellsworth MD 05/11/20 0550 by Felecia Leahy RN CVC Triple Lumen Placement Date: 05/09/20; Placement Time: 0935 (created via procedure documentation); Hand Hygiene: Yes; Sterile Barrier Used: Yes; Size: 7.5 Fr; Orientation: Right; Location: Internal jugular; Placement Verification: Ultrasound; Removal Date: 05/15/20; Removal Time: 1045; Removal Reason: Per order 05/09/20 0935 by Masoud Ellsworth MD 05/15/20 1045 by Rex Mai RN ETT Placement Date: 05/09/20; Placement Time: 09 (created via procedure documentation); Mask Ventilation: 0; Technique: Video laryngoscopy; Type: ETT - single; Single Lumen Tube Size: 8 mm; Cuffed: Yes; Laryngoscope: Dariana; Blade Size: 3; Location: Oral; Insertion Attempts: 1; Placement Verification: Auscultation, Capnometry; Removal Date: 05/10/20; Removal Time: 0940 05/09/20 0936 by Masoud Ellsworth MD 05/10/20 0940 by Tammie Foster RN Urethral Catheter Placement Date: 05/09/20; Placement Time: 0936; Inserted by: Kristal RAMON; Type: Non-latex, Temperature probe; Size: 16 Fr.; Balloon Size: 10 mL; Urine Returned: Yes; Removal Date: 05/12/20; Removal Time: 1140 05/09/20 0936 by Rosy Messer RN 05/12/20 1140 by Ese Patterson NP RETIRED Surgical Site 05/09/20; 1207; Ri ght; Groin; 02/18/24 (Retired LDA, Removed/Completed by NurseGrid with LDA Utility); 1213 (Retired LDA, Removed/Completed by Epic with LDA Utility) 05/09/20 1207 by Rosy Messer RN 02/18/24 1213 by Discharge Provider, Automatic RETIRED Surgical Site 05/09/20; 1207; Ri ght; Knee; 02/18/24 (Retired LDA, Removed/Completed by Epic with LDA Utility); 1213 (Retired LDA, Removed/Completed by Epic with LDA Utility) 05/09/20 1207 by Rosy Messer RN 02/18/24 1213 by Discharge Provider, Automatic RETIRED Surgical Site 05/09/20; 1208; Mid-line; Sternum; Incision; 02/18/24 (Retired LDA, Removed/Completed by Epic with LDA Utility); 1213 (Retired LDA, Removed/Completed by Epic with LDA Utility) 05/09/20 1208 by Rosy Messer RN 02/18/24 1213 by Discharge Provider, Automatic Pacer Wires 05/09/20; 1414; Dr Peña ; Ventricular (skin); 05/13/20; 1000; Per order; No complications 05/09/20 1414 by Rosy Messer RN 05/13/20 1000 by Ese Patterson NP Y Chest Tube A and B 05/09/20; 1415; A; Left; Pleural; 24 Fr.; 1; B; Anterior; Mediastinal (and Right Pleural); 24 Fr.; 1 05/09/20 1415 by Rosy Messer RN 05/13/20 0800 by Mandi Arreaga, DESIREE NG/OG/Gastric tube Placement Date: 05/09/20; Placement Time: 141; Existing LDA Placed by: Other (Comment); Type: Orogastric; Location: Center mouth; Removal Date: 05/10/20; Removal Time: 939; Removal Reason: Per order 05/09/20 1418 by Masoud Ellsworth MD 05/10/20 0940 by Tammie Foster RN documented in this encounter Social History Tobacco Use Types Packs/Day Years Used Date Smoking Tobacco: Never Smokeless Tobacco: Never Alcohol Use Standard Drinks/Week Comments Not Currently 0 (1 standard drink = 0.6 oz pur e alcohol) Sex and Gender Information Value Date Recorded Sex Assigned at Not on file Legal Sex Male 7:00 PM VACUUM SPINDLE SANDER Gender Identity Male 09/13/2020 2:28 PM CDT Sexual Orientation Not on file documented as of this encounter OR Notes * Anesthesia Procedure Notes - Masoud Ellsworth MD - 05/09/2020 2:49 PM VACUUM SPINDLE SANDER Associated Order(s): ALBERTO ALBERTO Date/time: Staff: Supervising anesthesiologist: Masoud Ellsworth MD Performed by: Anesthesiologist: Masoud Ellsworth MD Preprocedure checklist: patient identified, procedure contraindications assessed, procedure consent, risks, benefits and alternatives discussed, monitors and equipment checked and ALBERTO probe inserted into esophagus using lubricating jelly General procedure Information: Reason for procedure/indications: assessment of surgical repair Performed: personally Procedure performed at surgeon's request: yes Results discussed with surgeon: yes Images submitted to archive: yes Patient location: OR Intubated: yes Bite blocked placed: yes Probe Insertion: easy Complications: no Probe type: adult Modalities: 2D imaging and color Doppler Billing information: Physician requesting echo: Hardeep Reed MD CPT code: ALBERTO placement and diagnostic exam, non-congenital (76117) ICD code(s) for medical necessity: I34.0 - Nonrheumatic mitral (valve) insufficiency Echocardiographic and doppler measurements: Ventricles: Left ventricle: Cavity size: normal Global function: normal Right ventricle: Cavity size: normal Global function: mildly decreased Regional function: 1- Basal anteroseptal: normal 2- Basal anterior: normal 3- Basal anterolateral: normal 4- Basal inferolateral: normal 5- Basal inferior: normal 6- Basal inferoseptal: normal 7- Mid anteroseptal: normal 8- Mid anterior: normal 9- Mid anterolateral: normal 10- Mid inferolateral: normal 11- Mid inferior: normal 12- Mid inferoseptal: normal 13- Apical anterior: normal 14- Apical lateral: normal 15- Apical inferior: normal 16- Apical septal: normal 17- [place]: normal Valves: Aortic Valve: Stenosis: none Regurgitation: none Mitral valve: Stenosis: none Regurgitation: severe Tricuspid valve: Regurgitation: moderate Aorta: Ascending aorta: Dissection: no Aortic arch: Dissection: no Descending aorta: Dissection: no Atria: Right atrium: Size: dilated Left atrium: Size: dilated Left atrial appendage: normal Interatrial septum: aneurysmal Diastolic function and other findings: Pre-procedure ALBERTO exam summary: Normal LV systolic function, mildly decreased RV systolic function. Severe Mitral regurgitation with flail P2 and mobile cords. R pleural effusion. Aneurysmal interatrial septum. Moderate TR with 4.5cm tricuspid anulus. Wharton images reviewed with surgeon. Postprocedure (follow-up) ALBERTO exam: Mitral valve gradient mean: 3 mmHg Tricuspid valve gradient mean: 3 mmHg Postprocedure (follow-up) ALBERTO exam comments: S/p mitral and tricuspid repairs with rings, gradients above. Moderately decreased RV function and mildly decreased LV systolic function on no inotropic support. Wharton images reviewed with surgeon. Attestation Statement: By signing this report the attending anesthesiologist certifies that he or she has personally reviewed and interpreted the echocardiogram and has reviewed and or edited and agrees with the written comments contained within the report. UM SPINDLE SANDER * Anesthesia Postprocedure Evaluation - Masoud Ellsworth MD - 05/09/2020 2:40 PM CST Patient: Fer Ragsdale Procedure Summary Date: 05/09/20 Room / Location: [facility] / [facility] Anesthesia Start: 918 Anesthesia Stop: 1438 Procedure: CORONARY ARTERY BYPASS GRAFT x2, using Left Internal Mammary Artery, Right Saphenous Vein Graft, Mitral Valve Repair with neochords, tricuspid valve annuloplasty, left atrial appendage excision. (N/A Chest) Diagnosis: Nonrheumatic mitral valve regurgitation Coronary artery disease involving [place] coronary artery of [place] heart without angina pectoris (Nonrheumatic mitral valve regurgitation [I34.0]) (Coronary artery disease involving [place] coronary artery of [place] heart without angina pectoris [I25.10]) Surgeons: Hardeep Reed MD Responsible Provider: Masoud Ellsworth MD Anesthesia Type: general ASA Status: 4 Anesthesia Type: general Last vitals BP 134/93 Comment: right arm Pulse 92 Temp (!) 35.7 ??C (96.3 ??F) (Tympanic) Resp 14 SpO2 97% Anesthesia Post Evaluation Patient location during evaluation: ICU Patient participation: waiting for patient participation Level of consciousness: follows simple commands Pain score: 1 Pain management: adequate Airway patency: adequate Evidence of recall: unable to evaluate Anesthetic complications: no Cardiovascular status: acceptable Respiratory status: acceptable Hydration status: acceptable Pt is: normothermic Nausea/Vomiting status: none Comments: +etCO2. CXR pending UM SPINDLE SANDER UM SPINDLE SANDER * Anesthesia Procedure Notes - Masoud Ellsworth MD - 05/09/2020 9:35 AM VACUUM SPINDLE SANDER Associated Order(s): Airway Airway Patient location: OR Urgency: elective Indications for airway management: anesthesia Difficult airway: no Staff: Placed by: Anesthesiologist: Masoud Ellsworth MD Emergent airway documentation: Risks and benefits discussed: yes Consent obtained: yes Consent given by: patient Airway prep: Preoxygenated: yes Patient position: sniffing Mask difficulty assessment: 0 - not attempted Spontaneous ventilation during airway: absent Sedation level during airway: GA Final airway details: Final airway type: endotracheal airway Tube type: ETT ETT size: 8.0 mm Cuffed: yes Technique used for successful ETT placement: video laryngoscopy Insertion site: oral Blade type: Dariana Video blade type: Lentz Blade size: 3 Cormack-Lehane (video): grade I - full view of glottis Cuff inflated with: air ETT to teeth: 23 cm Placement verified by: auscultation and CO2 detection Airway secured with: silk tape Number of attempts: 1no UM SPINDLE SANDER * Anesthesia Procedure Notes - Masoud Ellsworth MD - 05/09/2020 9:33 AM VACUUM SPINDLE SANDER Associated Order(s): Central Venous Line Central Venous Line Patient location: OR Indication: central venous access and CVP monitoring Staff: Supervising provider: Masoud Ellsworth MD Placed by: RUBBER PRINTING MACHINE OPERATOR: Emerson Edward CRNA Procedure prep: Patient position: Trendelenburg. PPE: provider hand hygiene, provider hat/mask, sterile gloves, sterile gown, full body drape, largesterile drape, sterile probe covers and sterile gel. Prep solution: chlorhexadine/alcohol was applied to area. Ultrasound was prepped into field. Central line: Laterality: right Site: internal jugular Catheter type: triple lumen Catheter size: 7.5 Fr. Catheter length: 16 cm Catheter length at skin: 16 cm Technique: Seldinger technique, wire threaded easily, wire removed intact, anatomy identified with surface landmarks and anatomy identified with ultrasound Venous verification: manometry, ultrasound confirmation and ALBERTO confirmation Post insertion: all ports aspirated, all ports flushed easily, line sutured in place and occlusive dressing applied Number of attempts: 1 Assessment: Events: patient tolerated procedure well with no complications UM SPINDLE SANDER * Anesthesia Procedure Notes - Masoud Ellsworth MD - 05/09/2020 9:33 AM VACUUM SPINDLE SANDER Associated Order(s): Central Venous Line Central Venous Line Patient location: OR Indication: central venous access and CVP monitoring Staff: Supervising provider: Masoud Ellsworth MD Placed by: RUBBER PRINTING MACHINE OPERATOR: Emerson Edward CRNA Procedure prep: Patient position: Trendelenburg. PPE: provider hand hygiene, provider hat/mask, sterile gloves, sterile gown, full body drape and large sterile drape. Prep solution: chlorhexadine/alcohol was applied to area. Ultrasound was prepped into field. Central line: Laterality: right Site: internal jugular Catheter type: introducer sheath Catheter size: 9 Fr. Technique: Seldinger technique, wire threaded easily, wire removed intact, anatomy identified with surface landmarks and anatomy identified with ultrasound Venous verification: manometry, ultrasound confirmation and ALBERTO confirmation Post insertion: all ports aspirated, all ports flushed easily, line sutured in place and occlusive dressing applied Number of attempts: 1 Assessment: Events: patient tolerated procedure well with no complications UM SPINDLE SANDER * Anesthesia Procedure Notes - Masoud Ellsworth MD - 05/09/2020 9:32 AM VACUUM SPINDLE SANDER Associated Order(s): Arterial Line Arterial Line Patient location: OR Indication: continuous blood pressure monitoring Staff: Supervising provider: Masoud Ellsworth MD Placed by: RUBBER PRINTING MACHINE OPERATOR: Emerson Edward CRNA Procedure prep: Prep solution: chlorhexadine/alcohol Prep: provider hat/mask, sterile gloves and sterile drape Skin infiltrated with lidocaine 1%: yes Arterial line: Catheter size: 20 gauge Catheter length: 1 and 3/4 inch Catheter type: wire-guided catheter Seldinger technique: yes Laterality: left Site: radial artery Line secured: tape and Tegaderm Results: good blood return Number of attempts: 1 Assessment: Events: patient tolerated procedure well with no complications UM SPINDLE SANDER * Anesthesia Preprocedure Evaluation - Masoud Ellsworth MD - 05/09/2020 7:58 AM CST Images from the original note were not included. Anesthesia Evaluation Fer Ragsdale is a 64 y.o. male Procedure(s): CORONARY ARTERY BYPASS GRAFT Mitral valve repair or replacement Pre-Op Diagnosis Codes: * Nonrheumatic mitral valve regurgitation [I34.0] * Coronary artery disease involving [place] coronary artery of [place] heart without angina pectoris [I25.10] Patient Active Problem List Diagnosis ??? Nonrheumatic mitral valve regurgitation ??? Coronary artery disease involving [place] coronary artery of [place] heart without angina pectoris Past Medical History: Diagnosis Date ??? Cataract ??? Coronary artery disease ??? Hyperlipidemia ??? Mitral regurgitation ??? Mitral valve regurgitation Past Surgical History: Procedure Laterality Date ??? KNEE SURGERY left knee ACL No Known Allergies Med List Status: Nurse Complete Set By: Yasmeen Russo RN at 05/09/2020 7:39 AM Taking? Last Dose Start Date End Date Provider aspirin 81 mg enteric coated tablet 05/09/2020 -- -- Castillo Casas MD atorvastatin (LIPITOR) 20 mg tablet 05/09/2020 -- -- Castillo Casas MD cholecalciferol (VITAMIN D-3) 25 mcg (1,000 unit) tablet 05/09/2020 -- -- Castillo Casas MD furosemide (LASIX) 20 mg tablet 05/09/2020 04/26/20 04/26/21 Price Jones MD Take 1 tablet (20 mg total) by mouth daily Current Facility-Administered Medications: ??? ceFAZolin (ANCEF) 2,000 mg/20 mL in sterile water (premix) 2,000 mg, 2,000 mg, intravenous, Once ??? sodium chloride 0.9% flush 0.5-20 mL, 0.5-20 mL, intra-catheter, PRN ??? sodium chloride 0.9% infusion, 10 mL/hr, intravenous, Continuous PRN ??? vancomycin 1500 mg/250 mL in sodium chloride 0.9% (premix) 1,500 mg, 1,500 mg, intravenous, Once Social History Tobacco Use Smoking Status Never Smoker Smokeless Tobacco Never Used Substance and Sexual Activity Alcohol Use Not Currently Substance and Sexual Activity Drug Use Not Currently Family History Problem Relation Age of Onset ??? Atrial fibrillation Mother ??? Other (CVA) Father There were no vitals filed for this visit. PT: No results found for requested labs within last 720 hours. INR: No results found for requested labs within last 720 hours. APTT: No results found for requested labs within last 720 hours. Hgb A1C: No results found for requested labs within last 720 hours. CBC RBC: 05/02/2020: 5.40 M/cumm RDW: No results found for requested labs within last 720 hours. MCHC: 05/02/2020: 33.0 g/dL MCH: 05/02/2020: 27.8 pg MCV: 05/02/2020: 84.3 fL Hct: 05/02/2020: 45.5 % Hgb: 05/02/2020: 15.0 g/dL WBC: 05/02/2020: 6.7 K/cumm MPV: 05/02/2020: 9.8 fL Platelets: 05/02/2020: 255 K/cumm RDW CV: 05/02/2020: 13.7 % RDW Sd: 05/02/2020: 42.0 fL BMP Glucose: 05/02/2020: 105 mg/dL Calcium: 05/02/2020: 9.4 mg/dL Sodium: 05/02/2020: 142 mmol/L Potassium: 05/02/2020: 4.1 mmol/L CO2: 05/02/2020: 26 mmol/L Chloride: 05/02/2020: 106 mmol/L BUN: 05/02/2020: 17 mg/dL Creatinine: 05/02/2020: 1.13 mg/dL STOP-Bang Total Score: 3 DOS Physical Exam Medical history, medications, and allergies reviewed. Attestation: This PAT evaluation Airway Exam: Mallampati: II Cervical ROM: FROM TM distance: normal Cardiovascular Exam: Rate: regular Rhythm: regular Pulmonary Exam: LCTA Dental Exam: Appears intact Skin Exam: Skin is warm. Current state: Patient's current state is cooperative. Anesthesia Plan ASA 4 My patient is approved for the Anesthesia Controlled Medication protocol when under care of a RUBBER PRINTING MACHINE OPERATOR Planned anesthesia: General Team communication plan: oral ET tube Invasive Monitors Planned: Invasive monitors planned: arterial line, central venous catheter and ALBERTO. Induction: Induction: intravenous. Postoperative Plan: Postoperative administration opioids intended. Postoperative mechanical ventilation intended. Patient's planned disposition post procedure is ICU. No trial extubation planned. Informed Consent: Anesthesia plan and risks discussed with patient. Consent and Attending signature: I and/or my designee have discussed the anesthesia plan, benefits, possible alternatives, parental presence at time of induction (if indicated), and clinically relevant risks that may include dental injury, unintentional awareness, and/or other complications. The patient and/or parent/legal guardian understand, and agree to proceed. All questions answered. UM SPINDLE SANDER documented in this encounter Miscellaneous Notes * Post-Perfusion - Munira Oliver, RONNIE - 05/09/2020 1:41 PM CST Medications famotidine (mg) Date/Time Rate/Dose/Volume Action Admin User Audit 05/09/20 1024 20 mg Given Masoud Ellsworth MD edited midazolam (mg) Date/Time Rate/Dose/Volume Action Admin User Audit 05/09/20 0920 2 mg Given Masoud Ellsworth MD fentaNYL (mcg) Date/Time Rate/Dose/Volume Action Admin User Audit 05/09/20 1017 250 mcg Given Masoud Ellsworth MD rocuronium (mg) Date/Time Rate/Dose/Volume Action Admin User Audit 05/09/20 0924 50 mg Given Masoud Ellsworth MD heparin 1,000 unit/ml (Units) Date/Time Rate/Dose/Volume Action Admin User Audit 05/09/20 1046 30,000 Units Given Masoud Ellsworth MD 1056 10,000 Units Given Masoud Ellsworth MD heparin injection 1,000 unit/mL (Units) Date/Time Rate/Dose/Volume Action Admin User Audit 05/09/20 1204 5,000 Units Given Munira Oliver LSafia, CCP 1304 5,000 Units Given Munira Oliver LSafia, CCP insulin regular (HumuLIN R, NovoLIN R) 100 Units in sodium chloride 0.9% 100 mL (1 Units/mL) infusion (Units/hr) Date/Time Rate/Dose/Volume Action Admin User Audit 05/09/20 1029 2 Units/hr - 2 mL/hr New Bag Masoud Ellsworth MD norepinephrine (LEVOPHED) 8,000 mcg in dextrose 5% 250 mL (32 mcg/mL) infusion (mcg/kg/min) Dosing weight: 79.9 Date/Time Rate/Dose/Volume Action Admin User Audit 05/09/20 1005 0.2 mcg/kg/min - 29.963 mL/hr New Bag Masoud Ellsworth MD 1122 0.3 mcg/kg/min - 44.944 mL/hr Rate Change Masoud Ellsworth MD propofol (mg) Date/Time Rate/Dose/Volume Action Admin User Audit 05/09/20 0924 200 mg Given Masoud Ellsworth MD ceFAZolin (ANCEF) 2,000 mg/20 mL in sterile water (premix) 2,000 mg (mg) Dosing weight: 90.7 Date/Time Rate/Dose/Volume Action Admin User Audit 05/09/20 1002 2,000 mg Given Masoud Ellsworth MD edited HYDROmorphone 2 mg/mL (mcg) Date/Time Rate/Dose/Volume Action Admin User Audit 05/09/20 1027 2 mcg Given Masoud Ellsworth MD diphenhydrAMINE (mg) Date/Time Rate/Dose/Volume Action Admin User Audit 05/09/20 1024 50 mg Given Masoud Ellsworth MD phenylephrine (JANIE-SYNEPHRINE) injection (mcg) Date/Time Rate/Dose/Volume Action Admin User Audit 05/09/20 1118 200 mcg Given Melody, Munira L., CCP 1120 200 mcg Given Melody, Munira L., CCP 1122 200 mcg Given Melody, Munira L., CCP 1126 200 mcg Given Melody, Munira L., CCP 1127 400 mcg Given Melody, Munira L., CCP 1131 200 mcg Given Melody, Munira L., CCP 1137 200 mcg Given Melody, Munira L., CCP 1140 400 mcg Given Melody, Munira L., CCP 1244 200 mcg Given Melody, Munira L., CCP 1251 400 mcg Given Melody, Munira L., CCP 1254 200 mcg Given Melody, Munira L., CCP 1255 400 mcg Given Melody, Munira L., CCP 1300 200 mcg Given Melody, Munira L., CCP 1303 200 mcg Given Melody, Munira L., CCP 1308 200 mcg Given Melody, Munira L., CCP 1309 400 mcg Given Melody, Munira L., CCP 1318 400 mcg Given Melody, Munira L., CCP sodium bicarbonate injection 1 mEq/mL (mEq) Date/Time Rate/Dose/Volume Action Admin User Audit 05/09/20 1133 50 mEq Given Melody, Munira L., CCP mannitol 25 % injection (g) Date/Time Rate/Dose/Volume Action Admin User Audit 05/09/20 1241 12.5 g Given Melody, Munira L., CCP potassium arrest solution (2 meq/mL) (mEq) Date/Time Rate/Dose/Volume Action Admin User Audit 05/09/20 1126 40 mEq Given Melody, Munira L., CCP 1138 2 mEq Given Melody, Munira L., CCP 1153 2 mEq Given Melody, Munira L., CCP mannitol 26 mL, lidocaine (cardiac) (XYLOCAINE) 13 mL, magnesium sulfate 8 mL solution (mL) Date/Time Rate/Dose/Volume Action Admin User Audit 05/09/20 1126 24 mL - 24 mL New Bag Melody, Munira L., CCP 1138 2 mL Bolus Melody, Munira L., CCP 1153 1 mL Bolus Melody, Munira L., CCP 1253 8 mL Bolus Melody, Munira L., CCP anticoagulant citrate dextrose solution A injection (mL) Date/Time Rate/Dose/Volume Action Admin User Audit 05/09/20 1320 500 mL Given Munira Oliver, CCP Comment: Autotransfusion Lactated Ringer's (LR) 1,000 mL with albumin 100 mL, heparin 10 mL, mannitol 25 g solution (mL) Date/Time Rate/Dose/Volume Action Admin User Audit 05/09/20 1113 1,000 mL New Bag Munira Oliver, CCP phenylephrine (JANIE-SYNEPHRINE) 25,000 mcg in sodium chloride 0.9% 250 mL (100 mcg/mL) infusion (mcg/kg/min) Dosing weight: 79.9 Date/Time Rate/Dose/Volume Action Admin User Audit 05/09/20 0943 0.5 mcg/kg/min - 23.97 mL/hr New Bag Masoud Ellsworth MD 1005 Stopped Masoud Ellsworth MD aminocaproic acid (AMICAR) bolus 10 g (g) Date/Time Rate/Dose/Volume Action Admin User Audit 05/09/20 1059 10 g (over 15 min) Given Masoud Ellsworth MD calcium chloride (g) Date/Time Rate/Dose/Volume Action Admin User Audit 05/09/20 1322 1 g Given Masoud Ellsworth MD 1334 1 g Given Masoud Ellsworth MD protamine (mg) Date/Time Rate/Dose/Volume Action Admin User Audit 05/09/20 1324 300 mg (over 15 min) Given Masoud Ellsworth MD Events Date Time Event 05/09/2020 0919 Anesthesia Start 0919 Start Data Collection 0920 Patient in Room 0922 Perfusion Ready 0922 Start data Collection 0924 Induction The patient was reevaluated immediately before moderate or deep sedation use and before anesthesia induction. 1051 Quick Note Heparin in. Pre-bypass ACT = 428. Anesthesia to give additional heparin. Will re-check an ACT. I have 10k units in pump prime 1101 Quick Note Repeat pre-bypass ACT = 477 1114 CPB ON 1120 Labs Drawn CaO2 = 16.0 mL/dL CO = 4.36 L/min; CI = 2.04 ACT = 848 1123 Cooling Start Drift to 34 degrees celsius 1123 Aortic Clamp ON 1127 CO2 On @ 4 LPM 1132 CO2 On Down to 3.5 LPM 1159 Labs Drawn ACT = 466; gave 5k units of heparin 1217 Labs Drawn CaO2 = 16.1 mL/dL CO = 4.18 L/min; CI = 1.95 ACT = 493 1227 Rewarming Start 1254 Aortic Clamp OFF 1259 Labs Drawn ACT = 449; gave 5k units of heparin 1312 CO2 Off 1313 CPB OFF 1318 CPB ON 2 SVC only 1320 CPB OFF 2 MV Repair / TV Repair / CABG x 2 with SANTOYO & SVG 32mm Bowles Ring - Tricuspid 32mm Bowles Ring - Mitral X-Clamp: 91 CPB: 121 HLM S/N : [id number] Quest S/N : [id number] CSZ S/N : [id number] Pump Pack Lot # : [id number] Cosigned by Hardeep Reed MD at 05/17/2020 2:05 PM VACUUM SPINDLE SANDER UM SPINDLE SANDER UM SPINDLE SANDER documented in this encounter Plan of Treatment Not on file documented as of this encounter Procedures Procedure Name Priority Date/Time Associated Diagnosis Comments PA AN PROCEDURE PLACEHOLDER Routine 05/09/2020 2:49 PM VACUUM SPINDLE SANDER PA AN PROCEDURE PLACEHOLDER Routine 05/09/2020 9:35 AM VACUUM SPINDLE SANDER PA AN ELECTIVE ENDOTRACHEAL AIRWAY Routine 05/09/2020 9:35 AM VACUUM SPINDLE SANDER PA AN PROCEDURE PLACEHOLDER Routine 05/09/2020 9:33 AM VACUUM SPINDLE SANDER PA AN CENTRAL LINE TRIPLE LUMEN Routine 05/09/2020 9:33 AM VACUUM SPINDLE SANDER PA AN PROCEDURE PLACEHOLDER Routine 05/09/2020 9:33 AM VACUUM SPINDLE SANDER BW AN SHEATH INTRODUCER PERFORMABLE Routine 05/09/2020 9:33 AM VACUUM SPINDLE SANDER PA AN PROCEDURE PLACEHOLDER Routine 05/09/2020 9:32 AM VACUUM SPINDLE SANDER documented in this encounter Results * PA AN PROCEDURE PLACEHOLDER (05/09/2020 2:49 PM VACUUM SPINDLE SANDER) Anatomical Region Laterality Modality Other Narrative 05/09/2020 2:49 PM VACUUM SPINDLE SANDER Masoud Ellsworth MD ? 05/09/2020 ??2:55 PM ALBERTO Date/time: Staff: Supervising anesthesiologist: Masoud Ellsworth MD Performed by: Anesthesiologist: Masoud Ellsworth MD Preprocedure checklist: patient identified, procedure contraindications assessed, procedure consent, risks, benefits and alternatives discussed, monitors and equipment checked and ALBERTO probe inserted into esophagus using lubricating jelly General procedure Information: Reason for procedure/indications: assessment of surgical repair Performed: personally Procedure performed at surgeon's request: yes Results discussed with surgeon: yes Images submitted to archive: ??yes Patient location: OR Intubated: yes Bite blocked placed: yes Probe Insertion: easy Complications: no Probe type: adult Modalities: 2D imaging and color Doppler Billing information: Physician requesting echo: Hardeep Reed MD CPT code: ALBERTO placement and diagnostic exam, non-congenital (66546) ICD code(s) for medical necessity: I34.0 - Nonrheumatic mitral (valve) insufficiency Echocardiographic and doppler measurements: Ventricles: Left ventricle: Cavity size: normal Global function: normal Right ventricle: Cavity size: normal Global function: mildly decreased Regional function: 1- Basal anteroseptal: normal 2- Basal anterior: normal 3- Basal anterolateral: normal 4- Basal inferolateral: normal 5- Basal inferior: normal 6- Basal inferoseptal: normal 7- Mid anteroseptal: normal 8- Mid anterior: normal 9- Mid anterolateral: normal 10- Mid inferolateral: normal 11- Mid inferior: normal 12- Mid inferoseptal: normal 13- Apical anterior: normal 14- Apical lateral: normal 15- Apical inferior: normal 16- Apical septal: normal 17- [place]: normal Valves: Aortic Valve: Stenosis: none Regurgitation: none Mitral valve: Stenosis: none Regurgitation: severe Tricuspid valve: Regurgitation: moderate Aorta: Ascending aorta: Dissection: no Aortic arch: Dissection: no Descending aorta: Dissection: no Atria: Right atrium: Size: dilated Left atrium: Size: dilated Left atrial appendage: normal Interatrial septum: aneurysmal Diastolic function and other findings: Pre-procedure ALBERTO exam summary: Normal LV systolic function, mildly decreased RV systolic function. Severe Mitral regurgitation with flail P2 and mobile cords. R pleural effusion. Aneurysmal interatrial septum. Moderate TR with 4.5cm tricuspid anulus. Wharton images reviewed with surgeon. Postprocedure (follow-up) ALBERTO exam: Mitral valve gradient mean: 3 mmHg Tricuspid valve gradient mean: 3 mmHg Postprocedure (follow-up) ALBERTO exam comments: S/p mitral and tricuspid repairs with rings, gradients above. Moderately decreased RV function and mildly decreased LV systolic function on no inotropic support. Wharton images reviewed with surgeon. Attestation Statement: By signing this report the attending anesthesiologist certifies that he or she has personally reviewed and interpreted the echocardiogram and has reviewed and or edited and agrees with the written comments contained within the report. us Masoud Ellsworth MD ANESTHESIA ORDERABLES Fin al Result * PA AN ELECTIVE ENDOTRACHEAL AIRWAY, PA AN PROCEDURE PLACEHOLDER (05/09/2020 9:35 AM VACUUM SPINDLE SANDER) Narrative Masoud Ellsworth MD - 05/09/2020 9:35 AM VACUUM SPINDLE SANDER Masoud Ellsworth MD ? 05/09/2020 ??9:36 AM Airway Patient location: OR Urgency: elective Indications for airway management: anesthesia Difficult airway: no Staff: Placed by: Anesthesiologist: Masoud Ellsworth MD Emergent airway documentation: Risks and benefits discussed: yes Consent obtained: yes Consent given by: patient Airway prep: Preoxygenated: yes Patient position: sniffing Mask difficulty assessment: 0 - not attempted Spontaneous ventilation during airway: absent Sedation level during airway: GA Final airway details: Final airway type: endotracheal airway Tube type: ETT ETT size: 8.0 mm Cuffed: yes Technique used for successful ETT placement: video laryngoscopy Insertion site: oral Blade type: Dariana Video blade type: Lentz Blade size: 3 Cormack-Lehane (video): grade I - full view of glottis Cuff inflated with: air ETT to teeth: 23 cm Placement verified by: auscultation and CO2 detection Airway secured with: silk tape Number of attempts: 1no us Masoud Ellsworth MD ANESTHESIA ORDERABLES Fin al Result * PA AN CENTRAL LINE TRIPLE LUMEN, PA AN PROCEDURE PLACEHOLDER (05/09/2020 9:33 AM VACUUM SPINDLE SANDER) Masoud Brennan MD - 05/09/2020 9:33 AM VACUUM SPINDLE SANDER Masoud Ellsworth MD ? 05/09/2020 ??9:35 AM Central Venous Line Patient location: OR Indication: central venous access and CVP monitoring Staff: Supervising provider: Masoud Ellsworth MD Placed by: RUBBER PRINTING MACHINE OPERATOR: Emerson Edward CRNA Procedure prep: Patient position: Trendelenburg. PPE: provider hand hygiene, provider hat/mask, sterile gloves, sterile gown, full body drape, large sterile drape, sterile probe covers and sterile gel. Prep solution: chlorhexadine/alcohol was applied to area. Ultrasound was prepped into field. Central line: Laterality: right Site: internal jugular Catheter type: triple lumen Catheter size: 7.5 Fr. Catheter length: 16 cm Catheter length at skin: 16 cm Technique: Seldinger technique, wire threaded easily, wire removed intact, anatomy identified with surface landmarks and anatomy identified with ultrasound Venous verification: manometry, ultrasound confirmation and ALBERTO confirmation Post insertion: all ports aspirated, all ports flushed easily, line sutured in place and occlusive dressing applied Number of attempts: 1 Assessment: Events: patient tolerated procedure well with no complications Masoud Ellsworth MD ANESTHESIA ORDERABLES Fin al Result * BW AN SHEATH INTRODUCER PERFORMABLE, PA AN PROCEDURE PLACEHOLDER (05/09/2020 9:33 AM VACUUM SPINDLE SANDER) Masoud Brennan MD - 05/09/2020 9:33 AM VACUUM SPINDLE SANDER Masoud Ellsworth MD ? 05/09/2020 ??9:33 AM Central Venous Line Patient location: OR Indication: central venous access and CVP monitoring Staff: Supervising provider: Masoud Ellsworth MD Placed by: RUBBER PRINTING MACHINE OPERATOR: Emerson Edward CRNA Procedure prep: Patient position: Trendelenburg. PPE: provider hand hygiene, provider hat/mask, sterile gloves, sterile gown, full body drape and large sterile drape. Prep solution: chlorhexadine/alcohol was applied to area. Ultrasound was prepped into field. Central line: Laterality: right Site: internal jugular Catheter type: introducer sheath Catheter size: 9 Fr. Technique: Seldinger technique, wire threaded easily, wire removed intact, anatomy identified with surface landmarks and anatomy identified with ultrasound Venous verification: manometry, ultrasound confirmation and ALBERTO confirmation Post insertion: all ports aspirated, all ports flushed easily, line sutured in place and occlusive dressing applied Number of attempts: 1 Assessment: Events: patient tolerated procedure well with no complications Masoud Ellsworth MD ANESTHESIA ORDERABLES Fin al Result * PA AN PROCEDURE PLACEHOLDER (05/09/2020 9:32 AM VACUUM SPINDLE SANDER) Narrative Masoud Ellsworth MD - 05/09/2020 9:32 AM VACUUM SPINDLE SANDER Masoud Ellsworth MD ? 05/09/2020 ??9:33 AM Arterial Line Patient location: OR Indication: continuous blood pressure monitoring Staff: Supervising provider: Masoud Ellsworth MD Placed by: RUBBER PRINTING MACHINE OPERATOR: Emerson Edward CRNA Procedure prep: Prep solution: chlorhexadine/alcohol Prep: provider hat/mask, sterile gloves and sterile drape Skin infiltrated with lidocaine 1%: yes Arterial line: Catheter size: 20 gauge Catheter length: 1 and 3/4 inch Catheter type: wire-guided catheter Seldinger technique: yes Laterality: left Site: radial artery Line secured: tape and Tegaderm Results: good blood return Number of attempts: 1 Assessment: Events: patient tolerated procedure well with no complications Masoud Ellsworth MD ANESTHESIA ORDERABLES Fin al Result documented in this encounter Visit Diagnoses Not on filedocumented in this encounter Administered Medications Inactive Administered Medications - up to 3 most recent administrations Medication Order MAR Action Action Date Dose Rate Site aminocaproic (AMICAR) bolus from bag intravenous, As needed, Starting on Sat05/09/20 at 1059, Anesthesia Intra-op Given 05/09/2020 10:59 AM VACUUM SPINDLE SANDER 10 g calcium chloride IV syringe intravenous, As needed, Starting on Sat05/09/20 at 1322, Anesthesia Intra-op Given 05/09/2020 1:34 PM VACUUM SPINDLE SANDER 1 g Given 05/09/2020 1:22 PM VACUUM SPINDLE SANDER 1 g ceFAZolin (ANCEF) 2,000 mg/20 mL in sterile water (premix) 2,000 mg 2,000 mg, intravenous, at 400 mL/hr, Administer over 3 Minutes, Once, On Sat05/09/20 at 0800, For 1 dose, Pre-Op, Administer within 60 minutes of incision., Indications: Prophylaxis, SurgicalIndications:Prophylaxis, Surgical Given 05/09/2020 2:01 PM VACUUM SPINDLE SANDER 2,000 mg Given 05/09/2020 10:02 AM VACUUM SPINDLE SANDER 2,000 mg citrate dextrose solution (ACD-A) infusion intravenous, As needed, Starting on Sat05/09/20 at 1320, Anesthesia Intra-op Given 05/09/2020 1:20 PM VACUUM SPINDLE SANDER 500 mL diphenhydrAMINE (BENADRYL) injection intravenous, Administer over 2 Minutes, As needed, Starting on Sat05/09/20 at 1027, Anesthesia Intra-op Given 05/09/2020 10:24 AM VACUUM SPINDLE SANDER 50 mg famotidine (PEPCID) injection intravenous, Administer over 2 Minutes, As needed, Starting on Sat05/09/20 at 1027, Anesthesia Intra-op Given 05/09/2020 10:24 AM VACUUM SPINDLE SANDER 20 mg fentaNYL (SUBLIMAZE) preservative free injection intravenous, As needed, Starting on Sat05/09/20 at 1017, Anesthesia Intra-op Given 05/09/2020 10:17 AM VACUUM SPINDLE SANDER 250 mcg glycopyrrolate (ROBINUL) injection intravenous, Administer over 1 Minutes, As needed, Starting on Sat05/09/20 at 1416, Anesthesia Intra-op Given 05/09/2020 2:16 PM VACUUM SPINDLE SANDER 0.2 mcg heparin 1,000 unit/mL injection intravenous, As needed, Starting on Sat05/09/20 at 1046, Anesthesia Intra-op Given 05/09/2020 10:56 AM VACUUM SPINDLE SANDER 10,000 Units Given 05/09/2020 10:46 AM VACUUM SPINDLE SANDER 30,000 Units heparin 1,000 unit/mL injection intravenous, As needed, Starting on Sat05/09/20 at 1204, Anesthesia Intra-op Given 05/09/2020 1:04 PM VACUUM SPINDLE SANDER 5,000 U nits Given 05/09/2020 12:04 PM VACUUM SPINDLE SANDER 5,000 Units HYDROmorphone (DILAUDID) injection intravenous, Administer over 2 Minutes, As needed, Starting on Sat05/09/20 at 1027, Anesthesia Intra-op Given 05/09/2020 10:27 AM VACUUM SPINDLE SANDER 2 mcg insulin regular (HumuLIN R, NovoLIN R) 100 Units in sodium chloride 0.9% 100 mL (1 Units/mL) infusion intravenous, Continuous PRN, Starting on Sat05/09/20 at 1029, Anesthesia Intra-op Rate/Dose Change 05/09/2020 1:43 PM VACUUM SPINDLE SANDER 1 Units/hr 1 mL/hr New Bag 05/09/2020 10:29 AM VACUUM SPINDLE SANDER 2 Units/hr 2 mL/hr Lactated Ringer's (LR) 1,000 mL with albumin 100 mL, heparin 10 mL, mannitol 25 g solution intravenous, Continuous PRN, Starting on Sat05/09/20 at 1113, Anesthesia Intra-op New Bag 05/09/2020 11:13 AM VACUUM SPINDLE SANDER 1,000 mL Lactated Ringer's (LR) infusion intravenous, Continuous PRN, Starting on Sat05/09/20 at 1000, Anesthesia Intra-op New Bag 05/09/2020 10:00 AM VACUUM SPINDLE SANDER mannitol 25 % injection intravenous, Administer over 30 Minutes, As needed, Starting on Sat05/09/20 at 1241, Anesthesia Intra-op Given 05/09/2020 12:41 PM VACUUM SPINDLE SANDER 12.5 g mannitol 26 mL, lidocaine (cardiac) (XYLOCAINE) 13 mL, magnesium sulfate 8 mL solution intravenous, Continuous PRN, Starting on Sat05/09/20 at 1126, Anesthesia Intra-op Bolus 05/09/2020 12:53 PM VACUUM SPINDLE SANDER 8 mL Bolus 05/09/2020 11:53 AM VACUUM SPINDLE SANDER 1 mL Bolus 05/09/2020 11:38 AM VACUUM SPINDLE SANDER 2 mL midazolam (VERSED) 1 mg/mL preservative free injection intravenous, Administer over 2 Minutes, As needed, Starting on Sat05/09/20 at 0920, Anesthesia Intra-op Given 05/09/2020 9:20 AM VACUUM SPINDLE SANDER 2 mg neostigmine injection intravenous, Administer over 3 Minutes, As needed, Starting on Sat05/09/20 at 1417, Anesthesia Intra-op Given 05/09/2020 2:17 PM VACUUM SPINDLE SANDER 1 mg norepinephrine (LEVOPHED) 8,000 mcg in dextrose 5% 250 mL (32 mcg/mL) infusion intravenous, Continuous PRN, Starting on Sat05/09/20 at 1005, Anesthesia Intra-op Rate/Dose Change 05/09/2020 1:14 PM VACUUM SPINDLE SANDER 0.15 mcg/kg/min 22.472 mL/hr Rate/Dose Change 05/09/2020 11:22 AM VACUUM SPINDLE SANDER 0.3 mcg/kg/min 44 .944 mL/hr New Bag 05/09/2020 10:05 AM VACUUM SPINDLE SANDER 0.2 mcg/kg/min 29.963 m L/hr phenylephrine (JANIE-SYNEPHRINE) 25,000 mcg in sodium chloride 0.9% 250 mL (100 mcg/mL) infusion intravenous, Continuous PRN, Starting on Sat05/09/20 at 0943, Anesthesia Intra-op New Bag 05/09/2020 9:43 AM VACUUM SPINDLE SANDER 0.5 mcg/kg/min 23.97 mL/hr phenylephrine (JANIE-SYNEPHRINE) injection intravenous, As needed, Starting on Sat05/09/20 at 1118, Anesthesia Intra-op Given 05/09/2020 1:18 PM VACUUM SPINDLE SANDER 400 mcg Given 05/09/2020 1:09 PM VACUUM SPINDLE SANDER 400 mcg Given 05/09/2020 1:08 PM VACUUM SPINDLE SANDER 200 mcg potassium chloride injection intravenous, As needed, Starting on Sat05/09/20 at 1126, Anesthesia Intra-op Given 05/09/2020 11:53 AM VACUUM SPINDLE SANDER 2 mEq Given 05/09/2020 11:38 AM VACUUM SPINDLE SANDER 2 mEq Given 05/09/2020 11:26 AM VACUUM SPINDLE SANDER 40 mEq propofoL (DIPRIVAN) IV intravenous, As needed, Starting on Sat05/09/20 at 0924, Anesthesia Intra-op Given 05/09/2020 9:24 AM VACUUM SPINDLE SANDER 200 mg protamine injection intravenous, As needed, Starting on Sat05/09/20 at 1324, Anesthesia Intra-op, Indications: Heparin ToxicityIndications:Heparin Toxicity Given 05/09/2020 1:24 PM VACUUM SPINDLE SANDER 300 mg rocuronium (ZEMURON) injection intravenous, As needed, Starting on Sat05/09/20 at 0924, Anesthesia Intra-op Given 05/09/2020 9:24 AM VACUUM SPINDLE SANDER 50 mg sodium bicarbonate 8.4 % (1 mEq/mL) injection intravenous, Administer over 5 Minutes, As needed, Starting on Sat05/09/20 at 1133, Anesthesia Intra-op Given 05/09/2020 11:33 AM VACUUM SPINDLE SANDER 50 mEq sodium chloride 0.9% infusion intravenous, Continuous PRN, Starting on 2/22/21 at 0952, Anesthesia Intra-op New Bag 05/09/2020 9:52 AM VACUUM SPINDLE SANDER documented in this encounter Care Teams Casting Inspector Relationship Specialty Start Date End Date Espinoza Coker MD [address] [facility] [address] [place] [address] PCP - General Internal Medicine 04/29/20 Espinoza Coker MD [address] [facility] [address] [place] [address] Internal Medicine 04/29/20 documented as of this encounter
--- OUTSIDE RECORDS SUMMARY | 2024-03-08 04:34 | XMS_ITS | Encounter Summary ---
Author Organization [facility] Address [address] [facility] [place] [address] Care Team Providers Care Cone Tender Name Role Phone Espinoza Coker MD Primary Care Provider [phone] Espinoza Coker MD Unavailable [phone] Encounter Details Date Type Department Care Team (Late st Contact Info) Description 05/01/2020 Orders Only [facility] Cardiology [address] [facility] [address] [phone] Price Jones MD [address] [facility] [address] [place] [address] Social History Tobacco Use Types Packs/Day Years Used Date Smoking Tobacco: Never Smokeless Tobacco: Never Alcohol Use Standard Drinks/Week Comments Not Currently 0 (1 standard drink = 0.6 oz pur e alcohol) Sex and Gender Information Value Date Recorded Sex Assigned at Not on file Legal Sex Male 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 HAND 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 Gender Identity Male 09/13/2020 2:28 PM CDT Sexual Orientation Not on file documented as of this encounter Plan of Treatment Not on file documented as of this encounter Procedures Procedure Name Priority Date/Time Associated Diagnosis Comments CARDIOLOGY DOCUMENT SCAN Routine 05/01/2020 documented in this encounter Results * SCAN - CARDIOLOGY (05/01/2020) Anatomical Region Laterality Modality Other Price Jones MD CV CARDIAC SERVICES PROC EDURES Final Result documented in this encounter Visit Diagnoses Not on filedocumented in this encounter Care Teams Cone Tender Relationship Specialty Start Date End Date Espinoza Coker MD [address] [facility] [address] [place] [address] PCP - General Internal Medicine 04/29/20 Espinoza Coker MD [address] [facility] [address] [place] [address] Internal Medicine 04/29/20 documented as of this encounter
--- OUTSIDE RECORDS SUMMARY | 2024-03-08 04:34 | XMS_ITS | Encounter Summary ---
Author Organization [facility] Address [address] [facility] [address] [place] [address] Care Team Providers Care Painter Bottom Name Role Phone Espinoza Coker MD Primary Care Provider [phone] Encounter Details Date Type Department Care Team (Late st Contact Info) Description 04/26/2020 Telephone [facility] Cardiology [address] [place] [phone] Price Jones MD [address] [place] [address] Social History Tobacco Use Types Packs/Day Years Used Date Smoking Tobacco: Never Smokeless Tobacco: Never Alcohol Use Standard Drinks/Week Comments Not Currently 0 (1 standard drink = 0.6 oz pur e alcohol) Sex and Gender Information Value Date Recorded Sex Assigned at Not on file Legal Sex Male 7:[address] WAITER/WAITRESS Gender Identity Male 09/13/2020 2:28 PM CDT Sexual Orientation Not on file documented as of this encounter Ordered Prescriptions Prescription Sig Dispense Quantity Refills Last Filled Start Date End Date furosemide (LASIX) 20 mg tablet Take 1 tablet (20 mg total) by mouth daily 30 tablet 11 04/26/2020 06/16/2020 documented in this encounter Miscellaneous Notes * Telephone Encounter - Tamara Jones RN - 04/26/2020 12:[address] WAITER/WAITRESS Lasix ordered pre MJF r/t SOB E IN WAITER/WAITRESS documented in this encounter Plan of Treatment Not on file documented as of this encounter Visit Diagnoses Not on filedocumented in this encounter Care Teams Painter Bottom Relationship Specialty Start Date End Date Espinoza Coker MD [address] [facility] [address] [facility] [place] [id number] PCP - General Internal Medicine 04/20/20 04/28/20 documented as of this encounter
--- OUTSIDE RECORDS SUMMARY | 2024-03-08 04:34 | XMS_ITS | Encounter Summary ---
Author Organization [facility] Healthcare Address [address] [place] [address] Care Team Providers Care Emission Technician Name Role Phone Espinoza Coker MD Primary Care Provider [phone] Espinoza Coker MD Unavailable [phone] Encounter Details Date Type Department Care Team (Late st Contact Info) Description 05/02/2020 10:05 AM AUTO MECHANIC SUPERVISOR Lab [facility] [address] [place] [address] Hardeep Reed MD [address] [facility] [address] [place], [place] [id number] Nonrheumatic mitral valve regurgitation Discharge Disposition: Discharge to home or self care Social History Tobacco Use Types Packs/Day Years Used Date Smoking Tobacco: Never Smokeless Tobacco: Never Alcohol Use Standard Drinks/Week Comments Not Currently 0 (1 standard drink = 0.6 oz pur e alcohol) Sex and Gender Information Value Date Recorded Sex Assigned at Not on file Legal Sex Male 7:00 PM AUTO MECHANIC SUPERVISOR Gender Identity Male 09/13/2020 2:28 PM CDT Sexual Orientation Not on file documented as of this encounter Discharge Disposition Disposition Code Departure Means Destination Discharge to home or self care documented in this encounter Plan of Treatment Not on file documented as of this encounter Procedures Procedure Name Priority Date/Time Associated Diagnosis Comments COVID-19 CORONAVIRUS RNA Routine 05/02/2020 10:03 AM AUTO MECHANIC SUPERVISOR Nonrheumatic mitral valve regurgitation EGFR Routine 05/02/2020 10:03 AM AUTO MECHANIC SUPERVISOR Nonrheumatic mitral valve regurgitation CBC WITHOUT DIFFERENTIAL Routine 05/02/2020 10:03 AM AUTO MECHANIC SUPERVISOR Nonrheumatic mitral valve regurgitation TYPE AND SCREEN Routine 05/02/2020 10:03 AM AUTO MECHANIC SUPERVISOR Nonrheumatic mitral valve regurgitation BASIC METABOLIC PANEL Routine 05/02/2020 10:03 AM AUTO MECHANIC SUPERVISOR Nonrheumatic mitral valve regurgitation documented in this encounter Results * eGFR (05/02/2020 10:03 AM AUTO MECHANIC SUPERVISOR) eGFR 68 mL/min/1.7 3 m2 [facility] Comment: Interpretive Data Reference Interval Normal [...] was last reviewed 2020 Blood specimen (specimen) 05/02/2020 10:03 AM AUTO MECHANIC SUPERVISOR 05/02/2020 10:17 AM AUTO MECHANIC SUPERVISOR Magaly Corona Sheth TOOL OR DIE DRAWING CHECKER LAB BLOOD ORDERABLES Erinn wallace Result [facility] [address] Department [place] [address] * COVID-19 Coronavirus RNA Nasopharyngeal (05/02/2020 10:03 AM AUTO MECHANIC SUPERVISOR) COVID-19 RNA Negative Negative [facility] Comment: Interpretive Data Synonyms for this test include: PCR and NAAT . ??Testing performed by the [facility] Molecular Infectious Disease Laboratory. ??This test is performed using the [employer] SARS-CoV-2 Assay. ??This is a real-time RT-PCR test for the qualitative detection of nucleic acid from SARS-CoV-2. ??This assay has been reviewed by the FDA for Emergency Use Authorization (EUA). ??The performance characteristics have been verified by the [facility] Laboratory. ?? Additional sample types have been validated by the performing laboratory. ??All results should be interpreted in clinical context and a negative result does not rule out infection. ?? Interpretive data last revised April 21, 2020. Testing performed by: [facility], [address] [place] [address]., [id number] First COVID-19 test? Unknown [facility] Comment:Testing performed by : [facility], [address] [place] [address]., [address] Employeed in healthcare? Yes [facility] Comment:Testing performed by : [facility], [address] [place] [address]., [address] status? No [facility] Comment:Testing performed by : [facility], [address] [place] [address]., [address] Group care resident? No [facility] Comment:Testing performed by : [facility], [address] [place] [address]., [address] Hospitalized? No [facility] Comment:Testing performed by : [facility], [address] [place] [address], [place]., [address] Is patient in ICU? No [facility] Comment:Testing performed by : [facility], [address] [place]., [address] Symptomatic as defined by CDC? No [facility] Comment:Testing performed by : [facility], [address] [place]., [address] Nasopharyngeal 05/02/2020 10 :03 AM AUTO MECHANIC SUPERVISOR 05/02/2020 4:29 PM AUTO MECHANIC SUPERVISOR Narrative [facility] - 05/03/2020 7:06 AM AUTO MECHANIC SUPERVISOR What is the reason for testing?->Screening prior to scheduled procedure or surgery Magaly Sheth TOOL OR DIE DRAWING CHECKER LAB MICROBIOLOGY - GENERA L ORDERABLES Final Result Performing Organization Address [facility] Co de Phone Number [facility] [address] Department [employer] [place] [address] * Type and screen (05/02/2020 10:03 AM AUTO MECHANIC SUPERVISOR) Rogers, indirect Negative [facility] ABO Rh A Positive [facility] Blood specimen (specimen) 05/02/2020 10:03 AM AUTO MECHANIC SUPERVISOR 05/02/2020 10:23 AM AUTO MECHANIC SUPERVISOR Narrative [facility] - 05/02/2020 11:35 AM AUTO MECHANIC SUPERVISOR Surgery this week No transfusions past 90 days Has the patient had Daratumumab or Isatuximab in the past 6 months?->Unknown Magaly Sheth TOOL OR DIE DRAWING CHECKER LAB BLOOD BANK TEST ORDER MICHAEL Final Result Performing Organization Address City/[facility]/ZIP Co de Phone Number [facility] [address] Department [employer] [place] [address] * CBC without differential (05/02/2020 10:03 AM AUTO MECHANIC SUPERVISOR) WBC 6.7 3.8 - 9.9 K/cumm [facility] Hgb 15.0 13.0 - 17.5 g/dL [facility] Hct 45.5 38.9 - 50.3 % [facility] Plt 255 150 - 400 K/cumm [facility] MPV 9.8 9.1 - 12.3 fL [facility] RBC 5.40 4.30 - 5.80 M/cumm [facility] MCV 84.3 81.3 - 96.4 fL [facility] MCH 27.8 27.1 - 33.3 pg [facility] MCHC 33.0 32.3 - 35.7 g/dL [facility] RDW CV 13.7 11.1 - 14.9 % [facility] RDW SD 42.0 35.7 - 48.1 fL [facility] NRBC abs 0.00 0.00 - 0.01 K/cumm [facility] Blood specimen (specimen) 05/02/2020 10:03 AM AUTO MECHANIC SUPERVISOR 05/02/2020 10:18 AM AUTO MECHANIC SUPERVISOR Magaly Sheth TOOL OR DIE DRAWING CHECKER LAB BLOOD ORDERABLES Erinn wallace Result [facility] [address] Department [place] [address] * Basic metabolic panel (05/02/2020 10:03 AM AUTO MECHANIC SUPERVISOR) Sodium 142 135 - 145 mmol/L [facility] Potassium, pl 4.1 3.3 - 4.9 mmol/L [facility] Chloride 106 97 - 110 mmol/L [facility] CO2 26 22 - 32 mmol/L [facility] Anion gap 10 2 - 15 mmol/L [facility] BUN 17 8 - 25 mg/dL [facility] Creatinine 1.13 0.80 - 1.30 mg/dL [facility] Glucose 105 70 - 199 mg/dL [facility] Comment: Interpretive Data Fasting glucose >/= 126 [...] 2017. Calcium 9.4 8.5 - 10.3 mg/dL [facility] Blood specimen (specimen) 05/02/2020 10:03 AM AUTO MECHANIC SUPERVISOR 05/02/2020 10:17 AM AUTO MECHANIC SUPERVISOR us Magaly Sheth TOOL OR DIE DRAWING CHECKER LAB BLOOD ORDERABLES Erinn l Result [facility] [address] Department [place] [address] documented in this encounter Visit Diagnoses Diagnosis Nonrheumatic mitral valve regurgitation documented in this encounter Care Teams Emission Technician Relationship Specialty Start Date End Date Espinoza Coker MD [address] [facility] [address] [place] [address] PCP - General Internal Medicine 04/29/20 Espinoza Coker MD [address] [facility] [address] [place] [address] Internal Medicine 04/29/20 documented as of this encounter
--- OUTSIDE RECORDS SUMMARY | 2024-03-08 04:34 | XMS_ITS | Encounter Summary ---
Author Organization [facility] Healthcare Address [address] [place] [address] Care Team Providers Care Furnace Installer Helper Name Role Phone Espinoza Coker MD Primary Care Provider Espinoza Coker MD Unavailable [phone] Reason for Referral * Diagnostic Imaging (Routine) - Closed Specialty Diagnoses / Procedures Referred By Contrichard t Referred To Contact Diagnoses Nonrheumatic mitral valve regurgitation Procedures X-ray chest 2 views Magaly Sheth CNS Phone: tel: fax: [address] [place] [address] Referral ID Status Reason Start Date Expiration Date Visits Re quested Visits Authorized [id number] Closed 05/02/2020 06/01/2021 1 1 EL LATHE OPERATOR INSIDE Reason for Visit * Diagnostic Imaging (Routine) - Closed Specialty Diagnoses / Procedures Referred By Noris escalona Referred To Contact Diagnoses Nonrheumatic mitral valve regurgitation Procedures X-ray chest 2 views Magaly Sheth CNS Phone: tel: fax: [address] [place] [address] Referral ID Status Reason Start Date Expiration Date Visits Re quested Visits Authorized [id number] Closed 05/02/2020 06/01/2021 1 1 Encounter Details Date Type Department Care Team (Latest Contact Info) Description 05/02/2020 9:15 AM BARREL LATHE OPERATOR INSIDE - 05/02/2020 11:59 PM BARREL LATHE OPERATOR INSIDE Hospital Encounter [facility] - Imaging [address] [place] [id number] Hardeep Reed MD [address] [facility] [address] [place] [address] Nonrheumatic mitral valve regurgitation Discharge Disposition: Discharge to home or self care Social History Tobacco Use Types Packs/Day Years Used Date Smoking Tobacco: Never Smokeless Tobacco: Never Alcohol Use Standard Drinks/Week Comments Not Currently 0 (1 standard drink = 0.6 oz pur e alcohol) Sex and Gender Information Value Date Recorded Sex Assigned at Not on file Legal Sex Male 7:00 PM BARREL LATHE OPERATOR INSIDE Gender Identity Male 09/13/2020 2:28 PM CDT Sexual Orientation Not on file documented as of this encounter Medications at Time of Discharge [...] 60 tablet 1 05/15/2020 1 atorvastatin (LIPITOR) 20 mg tablet Take 20 mg by mouth daily 1 atorvastatin (LIPITOR) 80 mg tablet Take [...] times a day 60 tablet 2 05/15/2020 documented as of this encounter Discharge Disposition Disposition Code Departure Means Destination Discharge to home or self care documented in this encounter Plan of Treatment Not on file documented as of this encounter Procedures Procedure Name Priority Date/Time Associated Diagnosis Comments XR CHEST PA LATERAL 2 VIEWS Schedule Routine, Read Routine (OP Routine) 05/02/2020 9:45 AM BARREL LATHE OPERATOR INSIDE Nonrheumatic mitral valve regurgitation documented in this encounter Results * X-ray chest 2 views (05/02/2020 9:45 AM BARREL LATHE OPERATOR INSIDE) Anatomical Region Laterality Modality Body, Chest N/A Computed Radiogr aphy 05/02/2020 10:1 0 AM BARREL LATHE OPERATOR INSIDE Impressions 05/02/2020 10:13 AM BARREL LATHE OPERATOR INSIDE 1. ??Small right pleural effusion with adjacent atelectasis versus consolidation. 2. ??Faint interstitial opacities in both lungs, which may represent pulmonary edema. Electronically signed by: Hugo Ward M.D. Narrative 05/02/2020 10:13 AM BARREL LATHE OPERATOR INSIDE XR CHEST PA LATERAL 2 VIEWS: 05/02/2020 [...] signed by: Hugo Ward M.D. Magaly Sheth [facility] IMG XR PROCEDURES Final R esult documented in this encounter Visit Diagnoses Diagnosis Nonrheumatic mitral valve regurgitation documented in this encounter Care Teams Furnace Installer Helper Relationship Specialty Start Date End Date Espinoza Coker MD [address] [facility] [address] [place] [address] PCP - General Internal Medicine 04/29/20 Espinoza Coker MD [address] [facility] [address] [place] [address] Internal Medicine 04/29/20 documented as of this encounter
--- OUTSIDE RECORDS SUMMARY | 2024-03-08 04:34 | XMS_ITS | Encounter Summary ---
Author Organization [facility] Medical Group Address [address] [facility] [address] [place] [address] Care Team Providers Care Salesperson Fashion Accessories Name Role Phone Espinoza Coker MD Primary Care Provider [phone] Espinoza Coker MD Unavailable [phone] Encounter Details Date Type Department Care Team (Late st Contact Info) Description 05/05/2020 Telephone Cardiovascular and Thoracic Surgery [address] [facility] [address] [place] [id number] Ifrah Fowler Social History Tobacco Use Types Packs/Day Years Used Date Smoking Tobacco: Never Smokeless Tobacco: Never Alcohol Use Standard Drinks/Week Comments Not Currently 0 (1 standard drink = 0.6 oz pur e alcohol) Sex and Gender Information Value Date Recorded Sex Assigned at Not on file Legal Sex Male 7:00 PM AMMONIUM NITRATE CRYSTALLIZER Gender Identity Male 09/13/2020 2:28 PM CDT Sexual Orientation Not on file documented as of this encounter Miscellaneous Notes * Telephone Encounter - Ifrah Fowler - 05/05/2020 2:18 PM CST I spoke with and Mrs. Ragsdale today about the fact that Dr. Reed and [facility] are out network with his insurance. Per [facility] Core insurance, Dr. Ragsdale does have out of network benefits. 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 Reed on 05/09/20 knowing that his out of pocket expense will be greater. NIUM NITRATE CRYSTALLIZER documented in this encounter Plan of Treatment Not on file documented as of this encounter Visit Diagnoses Not on filedocumented in this encounter Care Teams Salesperson Fashion Accessories Relationship Specialty Start Date End Date Espinoza Coker MD [address] [facility] [address] [place] [address] PCP - General Internal Medicine 04/29/20 Espinoza Coker MD [address] [place] [address] Internal Medicine 04/29/20 documented as of this encounter
--- OUTSIDE RECORDS SUMMARY | 2024-03-08 04:34 | XMS_ITS | Encounter Summary ---
Author Organization [facility] Medical Group Address [address] [facility] [address] [place] [address] Care Team Providers Care Loss Prevention Coordinator Name Role Phone Espinoza Coker MD Primary Care Provider [phone] Encounter Details Date Type Department Care Team (Late st Contact Info) Description 04/20/2020 Orders Only [facility] Medical Group Cardiology [address] [address] [place] [address] Eric Du MD [id number] [place] [address] Social History Tobacco Use Types Packs/Day Years Used Date Smoking Tobacco: Never Assessed Sex and Gender Information Value Date Recorded Sex Assigned at Not on file Legal Sex Male 7:00 PM CONCRETE CARPENTER Gender Identity Male 09/13/2020 2:28 PM CDT Sexual Orientation Not on file documented as of this encounter Plan of Treatment Not on file documented as of this encounter Procedures Procedure Name Priority Date/Time Associated Diagnosis Comments CARDIOLOGY DOCUMENT SCAN Routine 04/20/2020 documented in this encounter Results * SCAN - CARDIOLOGY (04/20/2020) Anatomical Region Laterality Modality Other Eric Du MD CV CARDIAC SERVICES PROC EDURES Final Result documented in this encounter Visit Diagnoses Not on filedocumented in this encounter Care Teams Loss Prevention Coordinator Relationship Specialty Start Date End Date Espinoza Coker MD [address] [facility] [address] [place] [address] PCP - General Internal Medicine 04/20/20 04/28/20 documented as of this encounter
== END 2024-03-02 08:13 | disposition home or self-care (01) ==
PROVIDERS: PCP Internal Medicine; Visit Provider Internal Medicine
DX: Z13.1 Encounter for screening for diabetes mellitus (principal); E78.5 Hyperlipidemia, unspecified; R94.6 Abnormal results of thyroid function studies; Z79.899 Other long term (current) drug therapy
CPT/HCPCS: 36415; 80053; 80061; 83036; 84439; 84443